=== PATIENT | female | born 1975 | race Caucasian/White ===

== ENCOUNTER 2017-09-21 10:05 | Emergency (ER) | payer MEDICAID, SELFPAY ==
[2017-09-21 10:06] VITALS: BP 182/115; PULSE 74; RESP 20; TEMP 36.8; O2SAT 100; BMI 55.0
--- NOTE | 2017-09-21 10:15 | RAD_ITS ---
STUDY: X-RAY - RIGHT WRIST REASON FOR EXAM: Female, 42 years old. Pain TECHNIQUE: 3 view(s) of the wrist were obtained. COMPARISON: Prior comparison studies are not available for review at this time. FINDINGS: Normal visualized distal radius and ulna. Normal radiocarpal articulation. Normal distal radioulnar articulation. There is a well ossified density dorsum of the wrist seen on lateral view which may represent a nonunited triquetral fracture of indeterminate age. Normal carpal articulations. Normal carpometacarpal articulation of the thumb. Normal second through fifth carpometacarpal articulations. Normal visualized metacarpal bones. The soft tissue structures are unremarkable. RAD/Wrist min 3 Views IMPRESSION: Triquetral fracture of indeterminate age. No prior studies for comparison. Electronically Signed: Ferny Whitaker DO at 11:01 EDT , Service support ,
--- NOTE | 2017-09-21 10:18 | ED.VISSUMM ---
- ER Visit Summary Date of Service: 09/21/17 Chief Complaint: Right wrist fracture History of Present Illness: The patient is a 42 F reports right wrist pain radiating to her middle finger for the last week. Patient states she was seen by her PCP and got an x-ray. X-ray reportedly showed a nonhealed fracture. Patient was told to follow-up with orthopedics and has an appointment in 2 weeks. Patient was not given a splint or any pain medication. She presents here complaining of severe pain. Physical Examination: Vital signs are significant for blood pressure of 182/115, otherwise unremarkable. Patient sitting at bedside chair. She is in no acute distress. Heart is regular rate and rhythm. On lung sounds are grossly clear. Right upper extremity examination reveals tenderness diffusely throughout the right wrist. She has mild edema noted. There is no ecchymosis. She has decreased range of motion secondary to pain. Normal sensation and cap refill are noted. Test Results: Right wrist x-rays are obtained. There is evidence of a triquetral fracture of indeterminate age. Emergency Department Course and Treatment: Patient was given [place] for pain here. An AP Ortho-Glass splint was applied by myself. Following splint application she has good cap refill distally and can wiggle fingers. She will be given a prescription for 12 tabs of [place] and referred to orthopedics. Treatment Plan: [] Disposition: Discharge Impression: Right triquetral fracture This note was generated with [employer] dictation software. It may contain incorrect words, spelling, and punctuation that were not noted in review of the chart prior to signing ED Disposition - Plan for ED Patient: Chief Complaint: Upper Extremity Injury Referrals: Armen Crowder MD [Primary Care Provider] -
[2017-09-21] MEDS: HYDROcodone Bitartrate/Apap 5/325 Tablet PO (10:23)
--- NOTE | 2017-09-21 11:14 | DCINST.ED_ITS ---
ED Disposition - Plan for ED Patient: Disposition: Home or Assisted Living Chief Complaint: Upper Extremity Injury Instructions: ED Fx Wrist General Prescriptions: Hydrocodone Bitart/Apap 5-325 [[place] 5/325] 1 tablet PO Q6H PRN PRN 4 Days #12 tablet PRN Reason: Pain Referrals: Bhupendra Whipple MD [STAFF PHYSICIAN] - As soon as possible
[2017-09-21 11:26] VITALS: BP 124/60; PULSE 78; RESP 17; O2SAT 96
== END 2017-09-21 11:27 | disposition home or self-care (01) ==
PROVIDERS: Emergency Provider Emergency Medicine; Family Provider Family Medicine; PCP Family Medicine
DX: S62.111 Displaced fracture of triquetrum [cuneiform] bone, right wrist (principal); E66.9 Obesity, unspecified; J45.909 Unspecified asthma, uncomplicated; E11.9 Type 2 diabetes mellitus without complications; I10 Essential (primary) hypertension; E78.00 Pure hypercholesterolemia, unspecified; Z86.711 Personal history of pulmonary embolism; Z79.51 Long term (current) use of inhaled steroids; Z79.4 Long term (current) use of insulin; Z79.899 Other long term (current) drug therapy; X58.XXXD Exposure to other specified factors, subsequent encounter
CPT/HCPCS: 29125; 73110; 99283

== ENCOUNTER 2018-01-17 15:17 | Emergency (ER) | payer SELFPAY ==
[2018-01-17 15:17] VITALS: BP 135/95; PULSE 102; RESP 20; TEMP 36.6; O2SAT 97; BMI 54.8
--- NOTE | 2018-01-17 16:02 | ED.VISSUMM ---
- ER Visit Summary Date of Service: 01/17/18 Chief Complaint: Abdominal pain History of Present Illness: The patient is a 42 F who presents with 4 days of abdominal pain. She states that it starts low in the pelvis and radiates to her right flank. Worse with movement but she states that she cannot really find a position of comfort. She denies any urinary symptoms. No diarrhea or vomiting. No nausea. No rashes. She has a history of DiGeorge syndrome. She has never had pain like this before. She has had prior cholecystectomy. Pain is described as a sharp stabbing. It has kept her up at night. Physical Examination: Afebrile vital signs are stable Gen: Well-nourished well-developed morbid obesity Head: Normocephalic atraumatic Eyes: Perrl EOMI ENT: TMs clear no rhinorrhea moist mucous membranes Neck: Supple no lymphadenopathy no JVD nontender CVS: Regular rate rhythm no murmurs normal S1-S2 Respiratory: No distress clear to auscultation bilaterally chest nontender Abdomen: Soft nontender nondistended normal bowel sounds no masses Back: Right CVA tenderness to palpation. Extremity: Nontender no edema Skin: Normal color no rash Neuro: alert orientated ?3 CN II-XII intact normal strength sensation reflexes gait cerebellar Psych: Normal affect normal mood Test Results: [] Emergency Department Course and Treatment: [] Impression: [] This note was generated with [employer] dictation software. It may contain incorrect words, spelling, and punctuation that were not noted in review of the chart prior to signing ED Disposition - Plan for ED Patient: Disposition: Home or Assisted Living Chief Complaint: Abd Pain Instructions: ED Strain Abdominal Muscle Prescriptions: Hydrocodone/Acetaminophen [[place] 5-325 Tablet] 1 - 2 ea PO 4X/DAY PRN PRN 3 Days #12 tab PRN Reason: Pain Ibuprofen [Motrin] 800 mg PO TID PRN PRN #20 tab PRN Reason: Pain Referrals: Armen Crowder MD [Primary Care Provider] - 3-5 Days if not improving
[2018-01-17] MEDS: Ketorolac 30 MG/ML Syringe IV (16:27)
[2018-01-17 16:44] LABS: Anion Gap 6 (5-15); BUN 7 mg/dL (7-18); BUN/Creat Ratio 7.7 RATIO (10-20); Calcium,Total 8.8 mg/dL (8.5-10.1); Chloride 101 mmol/L (98-107); Creatinine, Serum 0.91 mg/dL (0.55-1.02); EST Glomerular Filtration Rate 71 mL/min (>60); Est Glom Filt Rate - Afr Amer 86 mL/min (>60); Estimated Creatinine Clearance 76.72 ml/min; Glucose 156 mg/dL (74-106); Potassium 3.5 mmol/L (3.5-5.1); Sodium Level 137 mmol/L (136-145)
[2018-01-17 16:51] LABS: Absolute Lymphocyte Count 2.57 X10^3/ul (0.83-4.51); Absolute Neutrophil Count 6.9 X10^3/uL (2.0-7.7); Basophil# 0.04 X10^3/uL; Basophil% 0.4 % (0-1); Eosinophil# 0.44 X10^3/uL; Eosinophils% 4.1 % (0-5); Hematocrit 38.7 % (37-47); Hemoglobin 12.8 g/dl (12.0-15.0); Lymphocyte # 2.57 X10^3/ul (4.0); Lymphocyte % 24.1 % (19-41); Mean Corp Hgb Conc 33.1 g/gl (32-36); Mean Corpuscular Hgb 29.6 pg (27.0-32.0); Mean Corpuscular Volume 89.6 fL (81-99); Mean Platelet Vol. 11.2 fl (6.2-12.0); Monocyte# 0.66 X10^3/uL; Monocyte% 6.2 % (0-10); Neutrophil # 6.88 X10^3/uL (2.7-7.7); Neutrophil % 64.5 % (47-70); Platelet Count 222 K/mm3 (150-450); RBC Distribution Width CV 15.1 % (11.6-14.6); Red Blood Count 4.32 M/mm3 (4.2-5.4); White Blood Count 10.7 K/mm3 (4.4-11.0)
[2018-01-17 16:52] LABS: POSITIVE COUNT NO; POSITIVE DIFFERENTIAL NO; POSITIVE MORPHOLOGY NO
--- NOTE | 2018-01-17 17:10 | CT_ITS ---
STUDY: CT ABDOMEN AND PELVIS WITHOUT CONTRAST REASON FOR EXAM: Female, 42 years old. Right flank pain for 4 days. History of cholecystectomy. RADIATION DOSAGE (If Supplied By Facility): CTDIvol = ( 34.45 ) mGy, DLP = ( 1850.67 ) mGycm TECHNIQUE: Transaxial images were obtained from the dome of the diaphragm to the symphysis pubis without oral contrast, and without intravenous contrast. Sagittal and coronal images were reconstructed. Individualized dose optimization techniques were used for this CT. COMPARISON: CT abdomen and pelvis September 01, 2015. FINDINGS: The visualized lung bases are unremarkable. The visualized portions of the heart are within normal limits. There is mild hepatomegaly. Elongated left lobe of the liver extends well into the anterior left upper quadrant. There is decreased attenuation of the liver consistent with steatosis. Heterogeneous attenuation in the upper aspect of the liver is likely artifact. Irregular, lobulated zones of subcapsular decreased density are seen at the inferior margins of the right and left lobes, however. In retrospect, the largest of these, at the juncture of the caudate and right lobe, was present on previous study, but notably smaller in size, having an appearance of focal fatty infiltration. The other sites are new. The portal vein diameter is 15 mm. There are surgical clips in the gallbladder fossa consistent with a prior cholecystectomy. There is mild splenomegaly, measuring 17.9 x 9.8 x 8.75 cm. Normal pancreas. Normal bilateral adrenal glands. Normal right kidney. Normal left kidney. No hydronephrosis. Normal visualized stomach. Normal small intestine. There are multiple sigmoid colonic diverticula consistent with diverticulosis. The appendix is visualized and appears normal. Normal abdominal aorta. Normal inferior vena cava. Normal retroperitoneum. Empty urinary bladder. There is a T-shaped intrauterine device in the lower endometrial cavity of the normal size, retroverted/retroflexed uterus. Normal visualized adnexa. The patient is morbidly obese. There is mild edematous or ecchymotic stranding in the subcutaneous tissues of the posterolateral abdominal and pelvic guzmán, as well as in the lower aspect of the anterior abdominal wall panniculus. A small, fat-containing umbilical hernia seen on previous exam is less conspicuous today. There are multilevel degenerative changes of the visualized thoracolumbar spine. CT/Abdomen/Pelvis without Cont IMPRESSION: 1. Mild hepatosplenomegaly with steatosis. Also now seen are irregular, lobulated subcapsular decreased density at the inferior margins of the right and left hepatic lobes. The largest is at the juncture of the right and caudate lobes, measuring approximately 8.2 x 5.95 x 5.7 cm. Further characterization of these areas with MRI, ultrasound, or IV contrast enhanced CT is advised. 2. Prior cholecystectomy. 3. Sigmoid diverticulosis without acute diverticulitis. No sign of bowel obstruction. The appendix is normal. 4. No hydronephrosis. 5. Normal sized retroflexed uterus, now with a T-shaped IUD in the lower endometrial cavity. The adnexa are unremarkable. 6. Mild edematous or ecchymotic stranding in the subcutis tissues of the posterolateral abdominal and pelvic guzmán, as well as the anterior abdominal wall panniculus. Electronically Signed: Ganesh Marquez MD at 18:22 EDT , Service support ,
[2018-01-17 17:30] LABS: Color, Urine Yellow (Yellow); Glucose, Dipstick Normal (Normal); Ketone-Dipstick Negative (Negative); Leukocyte Esterase-Dipstick 100 /ul (Negative); Nitrite-Dipstick Negative (Negative); Occult Blood-Urine 10 /ul (Negative); Protein-Dipstick 15 mg/dl (Negative); Urine Bilirubin Dipstick Negative (Negative); Urine Clarity Sl. Cloudy (Clear); Urine Urobilinogen Normal (Normal); Urine pH 6.5 (5.0 - 8.0)
[2018-01-17 17:45] LABS: Internal QC Validated? YES +Cl - CLEAR BKGD; Pregnancy, Urine Negative Negative
[2018-01-17 17:49] LABS: Red Blood Cells-Urine 0-5 SEEN /hpf (0-5); Squamous Epithelial Cells - UA 0-5 SEEN /hpf (5-10); White Blood Cells 0-5 SEEN /hpf (0-5)
[2018-01-17 17:50] LABS: Bacteria 1+ /hpf (None Seen); Mucous, Urine 1+ /hpf (<or=2+)
[2018-01-17 18:13] VITALS: BP 115/64; PULSE 79; RESP 26; O2SAT 98
[2018-01-17 19:11] LABS: Bedside Glucose 126 mg/dL (70-110)
[2018-01-17 19:33] VITALS: BP 126/72; PULSE 98; RESP 24; O2SAT 97
--- NOTE | 2018-01-17 19:34 | ED.RN ---
THIS NURSE REVIEWED D/C INSTRUCTIONS WITH PT AND VISITOR. PT VERBALIZED UNDERSTANDING OF INSTRUCTIONS. IV D/C. IV CATHETER INTACT. PT TOLERATED WELL. PT DENIES FURTHER NEEDS OR QUESTIONS AT THIS TIME. PT AMBULATES FROM ROOM ON OWN WITHOUT ASSISTANCE FROM STAFF
== END 2018-01-17 19:35 | disposition home or self-care (01) ==
PROVIDERS: Emergency Provider Emergency Medicine; Family Provider Family Medicine; PCP Family Medicine
DX: R10.9 Unspecified abdominal pain (principal); D82.1 Di George's syndrome; E66.01 Morbid (severe) obesity due to excess calories; Z79.51 Long term (current) use of inhaled steroids; Z79.4 Long term (current) use of insulin; Z79.899 Other long term (current) drug therapy
CPT/HCPCS: 74176; 80048; 81001; 81025; 82962; 85025; 96374; 99283; A4216

== ENCOUNTER 2018-06-27 22:33 | Inpatient (IN) | payer MEDICAID, SELFPAY ==
[2018-06-27 22:34] VITALS: PULSE 134; RESP 18; TEMP 37.1; O2SAT 100; BMI 47.0
--- NOTE | 2018-06-27 22:45 | ED.RN ---
UNABLE TO GET BP READING IN TRIAGE, KAHLIL LPN PER DIEM AWARE.
[2018-06-27 23:31] VITALS: BP 70/50; PULSE 124; RESP 18; O2SAT 94
[2018-06-27 23:47] VITALS: BP 103/83; PULSE 124; RESP 24; O2SAT 94
[2018-06-28] VITALS (57 sets, daily range): BP systolic 59–110; BP diastolic 38–77; PULSE 88–141; RESP 12–35; TEMP 37–40; O2SAT 91–100; BMI 51.9
[2018-06-28 00:04] LABS: ALB/GLOB Ratio 0.4 RATIO (0.9-2.4); AST(SGOT) 50 U/L (15-37); Alanine Aminotransfer ALT/SGPT 17 U/L (13-56); Albumin, Serum 2.2 g/dL (3.2-5.0); Alkaline Phosphatase 124 U/L (45-117); Anion Gap 17 (5-15); BUN 53 mg/dL (7-18); BUN/Creat Ratio 9.1 RATIO (10-20); Calcium,Total 7.3 mg/dL (8.5-10.1); Chloride 96 mmol/L (98-107); Creatinine, Serum 5.85 mg/dL (0.55-1.02); EST Glomerular Filtration Rate 8 mL/min (>60); Est Glom Filt Rate - Afr Amer 10 mL/min (>60); Estimated Creatinine Clearance 11.81 ml/min; Globulin 5.2 g/dL (2.2-4.2); Glucose 183 mg/dL (74-106); Lipase 37 U/L (73-393); Potassium 3.5 mmol/L (3.5-5.1); Protein, Total 7.4 g/dL (6.4-8.2); Sodium Level 133 mmol/L (136-145)
[2018-06-28 00:05] LABS: Lactic Acid 3.5 mmol/L (0.4-2.0)
[2018-06-28] MEDS: 0.9% Normal Saline 1,000 ML 999 ML IV ×4 (00:05→01:51)
[2018-06-28] MEDS: Ondansetron 4 MG/2 ML Vial IV (00:05)
[2018-06-28] MEDS: fentaNYL 100 MCG/2 ML Ampul 25 MCG IV (00:05)
[2018-06-28 00:08] LABS: Absolute Lymphocyte Count 1.86 X10^3/ul (0.83-4.51); Absolute Neutrophil Count 24.5 X10^3/uL (2.0-7.7); Basophil# 0.05 X10^3/uL; Basophil% 0.2 % (0-1); Eosinophil# 0.01 X10^3/uL; Hematocrit 38.5 % (37-47); Hemoglobin 12.8 g/dl (12.0-15.0); Lymphocyte # 1.86 X10^3/ul (4.0); Lymphocyte % 6.7 % (19-41); Mean Corp Hgb Conc 33.2 g/gl (32-36); Mean Corpuscular Volume 87.1 fL (81-99); Mean Platelet Vol. 12.4 fl (6.2-12.0); Monocyte# 0.96 X10^3/uL; Monocyte% 3.5 % (0-10); Neutrophil # 24.54 X10^3/uL (2.7-7.7); Neutrophil % 89.1 % (47-70); Platelet Count 113 K/mm3 (150-450); RBC Distribution Width CV 15.4 % (11.6-14.6); RBC Distribution Width SD 49.5 fl (35.1-43.9); Red Blood Count 4.42 M/mm3 (4.2-5.4); White Blood Count 27.6 K/mm3 (4.4-11.0)
[2018-06-28 00:12] LABS: Differential Indicated SCAN CRITERIA MET; POSITIVE COUNT NO; POSITIVE DIFFERENTIAL YES; POSITIVE MORPHOLOGY YES
[2018-06-28 00:36] LABS: Platelet Estimate SLT DEC (ADEQ); Platelet Morphology GIANT
[2018-06-28] MEDS: Ceftriaxone 1 GM/50 ML BAG IV ×2 (01:10→05:53)
[2018-06-28 01:15] LABS: Mucous, Urine 0 SEEN /hpf (<or=2+); Red Blood Cells-Urine 0 SEEN /hpf (0-5); Squamous Epithelial Cells - UA 0 SEEN /hpf (5-10)
[2018-06-28 01:23] LABS: Color, Urine Yellow (Yellow); Glucose, Dipstick Normal (Normal); Ketone-Dipstick 5 mg/dl (Negative); Leukocyte Esterase-Dipstick 500 /ul (Negative); Nitrite-Dipstick Positive (Negative); Occult Blood-Urine 250 /ul (Negative); Protein-Dipstick 500 mg/dl (Negative); Urine Bilirubin Dipstick Negative (Negative); Urine Clarity Sl. Cloudy (Clear); Urine Urobilinogen Normal (Normal); Urine pH 6.5 (5.0 - 8.0)
[2018-06-28 01:29] LABS: Bacteria 3+ /hpf (None Seen); White Blood Cells 50-100 SEEN /hpf (0-5)
--- NOTE | 2018-06-28 02:45 | RAD_ITS ---
STUDY: X-RAY CHEST REASON FOR EXAM: Female, 43 years old. Line placement TECHNIQUE: 1 view COMPARISON: June 11, 2017 FINDINGS: A central line from the right internal jugular vein has its tip within the superior vena cava. The heart is enlarged. There are bibasilar opacities representing either areas of pneumonia or atelectatic changes. Mild cardiomegaly.. Normal visualized thoracic spine. Normal visualized ribs, clavicles, and shoulders. There is no demonstrated abnormality of the visualized soft tissue structures of the upper abdomen. RAD/CXR for Line Placement IMPRESSION: Mild cardiomegaly. Bibasilar opacities representing either areas of atelectatic changes or pneumonia. A central line through the right internal jugular vein has its tip in the superior vena cava. Electronically Signed: Dylan Greenfield MD at 3:42 EST Tel , Service support ,
--- NOTE | 2018-06-28 03:22 | ED.DCSUM_ITS ---
- ER Visit Summary Date of Service: 06/28/18 Chief Complaint: Nausea vomiting and diarrhea History of Present Illness: The patient is a 43 F with a history of DiGeorge syndrome who presents with nausea vomiting and diarrhea. She has been ill for about 5 days. She complains of multiple episodes of nonbloody nonbilious emesis and multiple episodes of watery diarrhea per day both of which she describes as severe. No hematemesis. No melanotic stools or hematochezia. She does complain of some diffuse pain all over. However she does also specifically describe some sharp periumbilical mid abdominal pain. This is mild. She notes that her mother was recently hospitalized for similar illness with nausea vomiting and diarrhea. Physical Examination: Initial blood pressure 70/50 initial heart rate 130, afebrile, normal pulse oximetry and respiratory rate Dry mucous membranes Heart regular tachycardia Lungs are clear Abdomen soft nondistended she has mild diffuse nonfocal abdominal tenderness without guarding without rebound Alert Skin warm and dry Test Results: Patient is in sinus tachycardia on cardiac monitoring. Labs notable for white blood cell count of 27.6. BUN is 53 with a creatinine of 5.85. Previous creatinine was normal. Mild elevation of alkaline phosphatase at 124 and AST at 50. Urinalysis shows 500 leukocyte esterase, positive nitrates, 50-100 WBCs, 3+ bacteria. Lactic acid is 3.5. Blood and urine cultures were sent. CT of the abdomen and pelvis shows hepatomegaly no acute disease. Postprocedure chest x-ray shows no pneumothorax and catheter in appropriate position as read by me. Emergency Department Course and Treatment: Workup as above is consistent with septic shock. This appears to be a urinary source. 4 L of normal saline and a gram of IV Rocephin and 100 cc was ordered. Patient's fourth liter was infusing and patient was still hypotensive. At this point after informed consent with discussion of risks and benefits including risks of bleeding infection or pneu mothorax a right internal jugular central venous catheter was placed. This was somewhat technically difficult as patient's right IJ was showing near complete collapse with respiration even while in Trendelenburg position. No immediate complications were observed. Breathing post procedure chest x-ray does show the line to be in a factory position without apparent complication. Patient was started on levo fed. Patient was discussed with the hospitalist and admitted. Treatment Plan: [] Disposition: Admit Impression: Septic shock UTI Acute kidney injury Right internal jugular central venous catheterization This note was generated with [employer] dictation software. It may contain incorrect words, spelling, and punctuation that were not noted in review of the chart prior to signing ED Disposition - Plan for ED Patient: Chief Complaint: Nausea/Vomiting/Diarrhea Referrals: Armen Crowder MD [Primary Care Provider] -
--- NOTE | 2018-06-28 03:23 | PCM.HP.STD ---
Problem List (1) Septic shock Status: Acute (2) ROCKY (acute kidney injury) Status: Acute (3) Hypothyroidism Status: Chronic (4) VENANCIO treated with BiPAP Status: Chronic (5) Obesity hypoventilation syndrome Status: Chronic History of Present Illness Date of Admission: 06/28/18 Chief Complaint: nausea,vomiting and diarrhea. The patient is a 43 year old F with a significant history of DiGeorge syndrome; VENANCIO on home BiPAP; obesity hypo-ventilation syndrome; Asthma, hypothyroidism; hypertension; diabetes mellitus who presented with 5 days history of progressively worsening nausea, vomiting and diarrhea. Reportedly her mother has been admitted recently with the same symptoms of nausea vomiting and diarrhea. While examining patient she had loose stools on her bed. Associated with her symptoms is frequent urination to the extent that she has been wetting her pants. Further patient reports chills. Also, she complains middle abdominal pain , 10 out of 10 in severity. Her pain is stabbing kind of pain. The emergency department she had leukocytosis with a white count of 27.6. Her sodium was 133; she had anion gap of 17 with bicarbonate of 20. Her creatinine was 5.85 and a lactic acid was 3.5. She had a calcium level of 7.3. Her AST was elevated at 50. Importantly she had abnormal urinalysis with high protein; nitrites present; ketones present and with leukocyte esterase. Because of a abdominal symptoms CT of abdomen was obtained and it showed no acute intra-abdominal disease. Fluid-filled colon consistent with history of diarrhea was reported. Patient was was diagnosed with septic shock at emergency department and she received normal saline IV fluid bolus per septic shock protocol and she was started on Levophed because she did not respond to fluid boluses. Past Medical History Past Medical History (Chronic Problems): Chronic Problems Hypothyroidism (Chronic) DiGeorge syndrome (Chronic) Obesity hypoventilation syndrome (Chronic) HTN (hypertension) (Chronic) Asthma (Chronic) Super obesity (Chronic) Hyperlipidemia (Chronic) VENANCIO treated with BiPAP (Chronic) Diabetes mellitus type 2 in obese (Chronic) new diagnosis Allergies azithromycin [From Zithromax] Allergy (Verified 06/27/18 22:34) Unknown levofloxacin [From Levaquin] Allergy (Verified 06/27/18 22:34) Rash Penicillins Allergy (Verified 06/27/18 22:34) Unknown Home Medications: Ambulatory Orders Medication Instructions Recorded Albuterol IH (ProAir) [Proair Hfa] 2 puff INHALATION Q4H PRN PRN 12/25/16 Amlodipine [Norvasc] 5 mg PO DAILY 12/25/16 Atorvastatin Calcium [Lipitor] 40 mg PO QHS 12/25/16 Levothyroxine [Synthroid] 50 mcg PO DAILY 12/25/16 Lisinopril [Zestril] 10 mg PO DAILY 12/25/16 Fluticasone/Salmeterol [Advair 1 each IH BID #1 blst.w.dev 12/28/16 250-50 Diskus] Budesonide/Formoterol 160/4.5 2 puff INHALATION BID 06/11/17 [Symbicort 160/4.5 Mcg Inhaler (SP)] Insulin Degludec [Tresiba 20 unit SQ BID 01/17/18 Flextouch U-100] Insulin Lispro [Humalog KwikPen] 15 unit SQ TID 01/17/18 busPIRone [Buspar] 5 mg PO TID 01/17/18 Surgical History: cholecystectomy, total knee arthroplasty, tonsillectomy, - - Ear tubes, right knee surgery s/p fx Psychiatric History: No pertinent psych hx 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 Review of Systems Constitutional: Reports: Chills, Malaise, Fatigue. Denies: Weight Change HEENT: Denies: Sinus Congestion, Sinus Drainage Cardiovascular: Denies: Chest Pain, Palpitations Respiratory: Denies: Cough, Shortness of breath at rest, Sputum production Gastrointestinal: Reports: Abdominal Pain, Diarrhea, Nausea, Vomiting Genitourinary: Reports: Frequency - Increased frequency. Denies: Dysuria Musculoskeletal: Denies: Joint Pain, Joint Tenderness Skin: Denies: Rash, Wounds Neurological: Denies: Numbness, Tingling, Focal weakness Psychiatric: Denies: Anxiety, Depression, Homicidal Ideations, Suicidal Ideations Hematologic/ Lymphatic: Denies: Easy Bruising, Easy Bleeding VTE Information - Inpt Only VTE Present on Admission: No VTE Mechan Device Prophylaxis: None VTE Pharm Prophylaxis ordered?: Yes Patient Problems: Active and Suspected Problems Septic shock (Acute) ROCKY (acute kidney injury) (Acute) - Physical Exam General: Alert, Oriented x3, Cooperative HEENT: Atraumatic, Normocephalic, - - Poor dentition Neck: Supple, No JVD, Negative Carotid Bruits Lungs: Clear to auscultation, Normal air movement, Tachypneic Cardiovascular: Regular rate, No murmurs, - - Heart sounds was distant (likely secondary to body habitus) Abdomen: Soft, Non Tender, Hyperactive Bowel Sounds, - - Right costovertebral angle tenderness Extremities: No edema, Capillary Refill Less than 3 Seconds Skin: No rashes, No breakdown Musculoskeletal: No Muscle Wasting Neurological: Neuro grossly intact Psych/Mental Status: Normal Affect, Appropriate Vital Signs Temp Pulse Resp BP Pulse Ox 102.2 F H 121 H 21 H 109/77 91 06/28/18 03:12 06/28/18 03:03 06/28/18 03:03 06/28/18 03:03 06/28/18 03:03 Oxygen Delivery Method Room Air Weight: 136.078 kg Body Mass Index (BMI) 47.0 Finger Stick Blood Glucose 126 Laboratory Tests Past 24 Hrs 06/27/18 06/27/18 06/27/18 23:25 23:25 23:25 WBC 27.6 H RBC 4.42 Hgb 12.8 Hct 38.5 MCV 87.1 MCH 29.0 MCHC 33.2 RDW 15.4 H RDW Differential 49.5 H Plt Count 113 L MPV 12.4 H Immature Gran % (Auto) 0.500 Neut % (Auto) 89.1 H Lymph % (Auto) 6.7 L [place] % (Auto) 3.5 Eos % (Auto) 0.0 Baso % (Auto) 0.2 Absolute Neuts (auto) 24.5 H Absolute Lymphs (auto) 1.86 Total Counted Not Reportable Platelet Estimate SLT DEC Plt Morphology Comment GIANT Sodium 133 L Potassium 3.5 Chloride 96 L Carbon Dioxide 20.0 L Anion Gap 17 H BUN 53 H Creatinine 5.85 H Estim Creat Clear Calc 11.81 Est GFR (MDRD) Af Amer 10 L Est GFR (MDRD) Non-Af 8 L BUN/Creatinine Ratio 9.1 L Glucose 183 H Lactic Acid 3.5 H Calcium 7.3 L Total Bilirubin 0.70 AST 50 H ALT 17 Alkaline Phosphatase 124 H Total Protein 7.4 Albumin 2.2 L Globulin 5.2 H Albumin/Globulin Ratio 0.4 L Lipase 37 L Urine Color Urine Clarity Urine pH Ur Specific Pine Urine Protein Urine Glucose (UA) Urine Ketones Urine Occult Blood Urine Nitrite Urine Bilirubin Urine Urobilinogen Ur Leukocyte Esterase Urine RBC Urine WBC Ur Squamous Epith Cells Urine Bacteria Urine Mucus 06/28/18 01:00 WBC RBC Hgb Hct MCV MCH MCHC RDW RDW Differential Plt Count MPV Immature Gran % (Auto) Neut % (Auto) Lymph % (Auto) [place] % (Auto) Eos % (Auto) Baso % (Auto) Absolute Neuts (auto) Absolute Lymphs (auto) Total Counted Platelet Estimate Plt Morphology Comment Sodium Potassium Chloride Carbon Dioxide Anion Gap BUN Creatinine Estim Creat Clear Calc Est GFR (MDRD) Af Amer Est GFR (MDRD) Non-Af BUN/Creatinine Ratio Glucose Lactic Acid Calcium Total Bilirubin AST ALT Alkaline Phosphatase Total Protein Albumin Globulin Albumin/Globulin Ratio Lipase Urine Color Yellow Urine Clarity Sl. Cloudy Urine pH 6.5 Ur Specific Pine 1.010 Urine Protein 500 H Urine Glucose (UA) Normal Urine Ketones 5 H Urine Occult Blood 250 H Urine Nitrite Positive H Urine Bilirubin Negative Urine Urobilinogen Normal Ur Leukocyte Esterase 500 H Urine RBC 0 SEEN Urine WBC 50-100 SEEN Ur Squamous Epith Cells 0 SEEN Urine Bacteria 3+ Urine Mucus 0 SEEN Assessment/Plan All Active Problems Septic shock (Acute) ROCKY (acute kidney injury) (Acute) Acute chest pain (Acute) Cellulitis of right abdominal wall (Resolved) Open wound of abdominal wall (Resolved) Pulmonary emboli (Resolved) The patient is a 43 year old F with a significant history of DiGeorge syndrome; VENANCOI on home BiPAP; obesity hypo-ventilation syndrome; Asthma, hypothyroidism; hypertension; ; diabetes mellitus who presented with 5 days history of progressively worsening nausea, vomiting; diarrhea; abdominal pain; frequent urination; chills; found to have tachycardia; tachypnea; hypotension, fever of 102.7; lactic acidosis; elevated creatinine; leukocytosis; hyponatremia; hypocalcemia and abnormal urinalysis consistent with septic shock secondary to likely acute pyelonephritis Septic shock secondary to likely acute pyelonephritis. With her symptoms of nausea, vomiting; chills; high-grade fever; frequent urination; abdominal pain and right costovertebral angle tenderness is probable the patient has no cholecystitis probably pyelonephritis. Patient had persistent pain heart rate of about 120 with highest heart rate of 134. Initial blood pressure on presentation was 70/50 Patient received ceftriaxone 1 g at emergency department. We will give patient an additional gram of ceftriaxone because of septic shock and because patient is super morbidly obese. Ceftriaxone 2 g daily ordered. Trend lactic acid Urine cultures-pending; follow Blood cultures are pending; follow. Clear liquid diet if patient can tolerate. Patient received IV bolus septic shock protocol and she was started on Levophed from the ED because she was not responding to IV fluid bolus.. Levophed continued. Maintenance normal saline with potassium ordered. Because of severe diarrhea we will check C. difficile and enteric stool pathogen. ROCKY On admission her creatinine was 5.85. Review of records shows that her baseline creatinine is about 0.9. Her BUN is 53. Review of old records shows that her highest BUN in the past has been 19. BUN over creatinine is more than 20. Likely prerenal from vomiting and diarrhea. However, rule out ATN from toxic effects of sepsis; and from kidney injury secondary to pyelonephritis. Patient received IV bolus septic shock protocol and she was started on Levophed from the ED. Levophed continued. Maintenance normal saline with potassium ordered. Lisinopril held. Avoid other nephrotoxics. Trend BMP. If her creatinine does not improve consider nephrology consultation. Pseudo-Hypocalcemia Her calcium on admission was 7.3. Albumin on admission was 2.2. Her corrected calcium is actually 10.3. No need for calcium replacement at this time. Elevated liver enzymes. Patient with mild elevation in alkaline phosphatase; and AST. Likely due to septic shock. History of hypertension Patient is on amlodipine and lisinopril. We will hold off her amlodipine and lisinopril at this time because of hypotension. Furthermore patient has ROCKY Diabetes mellitus On admission her blood glucose was not within goal. Because patient is anorexic and vomiting we will start patient on clear liquid diet if she can tolerate and cut back at home long acting insulin. Hold at home prandial short acting insulin. And start her on correction scale insulin. Anxiety Disorder Buspirone continued Hypothyroidism: Synthroid continued Obstructive Sleep apnea: BiPAP nightly Asthma: Home ICS?LABA to ICS with scheduled ARY. Albuterol as needed. DVT prophylaxis Heparin Subcutaneous ordered. Code Visit Inpatient E&M: 86073 Init Hosp L3
[2018-06-28 03:48] LABS: Reflex Lactate? Y
[2018-06-28 03:57] LABS: Lactic Acid 1.8 mmol/L (0.4-2.0)
--- NOTE | 2018-06-28 04:30 | NURSING ---
initiated cooling blanket
[2018-06-28 04:47] LABS: Hematocrit 33.4 % (37-47); Hemoglobin 11.1 g/dl (12.0-15.0); Mean Corp Hgb Conc 33.2 g/gl (32-36); Mean Corpuscular Hgb 28.6 pg (27.0-32.0); Mean Corpuscular Volume 86.1 fL (81-99); Mean Platelet Vol. 11.4 fl (6.2-12.0); Platelet Count 95 K/mm3 (150-450); RBC Distribution Width CV 15.4 % (11.6-14.6); Red Blood Count 3.88 M/mm3 (4.2-5.4)
[2018-06-28 04:48] LABS: Scan Indicated on CBC? Y/N NO
[2018-06-28 04:54] LABS: International Normalized Ratio 1.5; Prothrombin Time (Protime)PT. 17.8 SECONDS (11.7-14.9)
[2018-06-28 04:55] LABS: Partial Thromboplast Time 41.3 Seconds (24.1-36.2)
[2018-06-28 04:56] LABS: Bedside Glucose 160 mg/dL (70-110)
[2018-06-28 04:58] LABS: Anion Gap 15 (5-15); BUN 55 mg/dL (7-18); BUN/Creat Ratio 9.8 RATIO (10-20); Calcium,Total 6.7 mg/dL (8.5-10.1); Chloride 102 mmol/L (98-107); Creatinine, Serum 5.61 mg/dL (0.55-1.02); EST Glomerular Filtration Rate 9 mL/min (>60); Est Glom Filt Rate - Afr Amer 11 mL/min (>60); Estimated Creatinine Clearance 12.31 ml/min; Glucose 174 mg/dL (74-106); Potassium 2.9 mmol/L (3.5-5.1); Sodium Level 136 mmol/L (136-145)
[2018-06-28] MEDS: Potassium Chloride 40 MEQ in 0.9% Normal Saline 1,000 ML 75 MEQ IV (05:52)
[2018-06-28] MEDS: Heparin Injection (Vial) 5,000 UNIT/ML VIAL 5000 UNIT SC ×3 (05:53→23:00)
[2018-06-28] MEDS: Levothyroxine 50 MCG Tablet PO (05:54)
[2018-06-28] MEDS: busPIRone 5 MG Tablet PO ×3 (06:06→23:00)
[2018-06-28] MEDS: Insulin Lispro 100 UNIT/ML INSULN.PEN SQ ×4 (06:41→23:01)
[2018-06-28 06:56] LABS: Bedside Glucose 200 mg/dL (70-110)
--- NOTE | 2018-06-28 07:05 | PCM.CON.CC ---
Reason for Consult Date of Consultation: 06/28/18 Reason for Consultation: Septic shock History of Present Illness: The patient is a 43-year-old female, with a history as outlined below, who presented to the emergency department on June 28 with complaints of nausea, vomiting and diarrhea. The patient reportedly has a history of obstructive sleep apnea and asthma, previously managed by Dr. Aguilar. She does have a history as well as venous thromboembolic disease in 2013. The patient's mother is currently admitted to the hospital in the PCU after she was admitted to the hospital on June 25 with similar complaints. The infectious workup of the patient's mother has been unrevealing to date. She is suspected to have viral gastroenteritis. Surface echocardiogram from May 2017 did reveal evidence of stage I diastolic dysfunction. On presentation to the emergency department, the patient was noted to be afebrile, but was tachycardic and hypotensive. Laboratory evaluation revealed elevated white blood cell count to 28,000. Chemistry profile was notable for elevated anion gap along with evidence of acute kidney injury with a creatinine of 5.85. Lactate was elevated to 3.5. AST was increased to 50 with an alkaline phosphatase of 124. Urinalysis was positive for nitrites, leukocyte esterase, white blood cells and 3+ urine bacteria. Plain film chest x-ray revealed a left basilar opacity. The patient received supplemental IV fluid hydration. A central venous catheter was placed. Antibiotics were initiated and the patient was subsequently transferred to the medical intensive care unit for ongoing management. Despite adequate volume resuscitation, the patient remained hemodynamically unstable and did require the eventual initiation of levophed. Past Medical History Past Medical History (Chronic Problems): Chronic Problems Hypothyroidism (Chronic) DiGeorge syndrome (Chronic) Obesity hypoventilation syndrome (Chronic) HTN (hypertension) (Chronic) Asthma (Chronic) Super obesity (Chronic) Hyperlipidemia (Chronic) VENANCIO treated with BiPAP (Chronic) Diabetes mellitus type 2 in obese (Chronic) new diagnosis Allergies azithromycin [From Zithromax] Allergy (Verified 06/27/18 22:34) Unknown levofloxacin [From Levaquin] Allergy (Verified 06/27/18 22:34) Rash Penicillins Allergy (Verified 06/27/18 22:34) Unknown Home Medications: Ambulatory Orders Medication Instructions Recorded Albuterol IH (ProAir) [Proair Hfa] 2 puff INHALATION Q4H PRN PRN 12/25/16 Amlodipine [Norvasc] 5 mg PO DAILY 12/25/16 Atorvastatin Calcium [Lipitor] 40 mg PO QHS 12/25/16 Levothyroxine [Synthroid] 50 mcg PO DAILY 12/25/16 Lisinopril [Zestril] 10 mg PO DAILY 12/25/16 Fluticasone/Salmeterol [Advair 1 each IH BID #1 blst.w.dev 12/28/16 250-50 Diskus] Budesonide/Formoterol 160/4.5 2 puff INHALATION BID 06/11/17 [Symbicort 160/4.5 Mcg Inhaler (SP)] Insulin Degludec [Tresiba 20 unit SQ BID 01/17/18 Flextouch U-100] Insulin Lispro [Humalog KwikPen] 15 unit SQ TID 01/17/18 busPIRone [Buspar] 5 mg PO TID 01/17/18 Surgical History: cholecystectomy, total knee arthroplasty, tonsillectomy, - - Ear tubes, right knee surgery s/p fx Psychiatric History: No pertinent psych hx [employer] History: No pertinent [employer] WORK[employer] history Lives: Alone Smoking Status: Never smoker Alcohol: None - *Family History Maternal History Items: Cancer - She reports that her mother had cervical cancer., No pertinent history Paternal History Items: Heart Disease - She reported father had heart attack and a pacemaker. Review of Systems Constitutional: Reports: Chills, Fever, Weakness Eyes: Denies: Blurred vision, Double vision HEENT: Denies: Head Aches, Sinus Congestion, Sinus Drainage Cardiovascular: Denies: Chest Pain, Palpitations Respiratory: Reports: Shortness of Breath Gastrointestinal: Reports: Diarrhea, Nausea, Vomiting Genitourinary: Denies: Dysuria Musculoskeletal: Denies: Joint Pain, Joint Tenderness Skin: Denies: Rash, Wounds Neurological: Denies: Numbness, Tingling, Focal weakness Psychiatric: Denies: Anxiety, Depression, Homicidal Ideations, Suicidal Ideations Hematologic/ Lymphatic: Reports: Hx of blood clot Patient Problems: Active and Suspected Problems Septic shock (Acute) ROCKY (acute kidney injury) (Acute) Objective: The patient's most recent lab work, culture data and imaging studies have all been personally reviewed. Respiratory viral panel, blood and urine cultures are pending. - Physical Exam General: Alert, Cooperative, - - Ill in appearance. Morbidly obese. HEENT: Atraumatic, PERRLA, Normocephalic Oral: Dry Mucosa Neck: Supple, No Nodes, Trachea Midline Lungs: No rhonchi, No wheeze, No rales, Diminished, Tachypneic Cardiovascular: Normal S1, Normal S2, No murmurs, Tachycardic Abdomen: Bowel Sounds Present, Soft, Non Tender, Obese Extremities: No clubbing, No cyanosis, No edema Skin: No breakdown Musculoskeletal: No Tenderness to Palpation of Joints or Extremities Lymphatic: No Cervical, Supraclavicular, or Inguinal Adenopathy Neurological: Neuro grossly intact Psych/Mental Status: Normal Affect, Appropriate Vital Signs Temp Pulse Resp BP Pulse Ox 39.6 C H 124 H 28 H 93/66 93 06/28/18 04:59 06/28/18 04:59 06/28/18 04:59 06/28/18 04:59 06/28/18 04:59 Oxygen Flow Rate (L/min) 2 Oxygen Delivery Method Nasal Cannula Weight: 331 lb 5.676 oz Body Mass Index (BMI) 51.9 Finger Stick Blood Glucose 126 Intake and Output for Last 24 Hours 06/26/18 06/27/18 06/28/18 23:59 23:59 23:59 Intake Total 1125 / 1125 Output Total 150 / 150 Balance 975 / 975 Laboratory Tests Past 24 Hrs 06/27/18 06/27/18 06/27/18 23:25 23:25 23:25 WBC 27.6 H RBC 4.42 Hgb 12.8 Hct 38.5 MCV 87.1 MCH 29.0 MCHC 33.2 RDW 15.4 H RDW Differential 49.5 H Plt Count 113 L MPV 12.4 H Immature Gran % (Auto) 0.500 Neut % (Auto) 89.1 H Lymph % (Auto) 6.7 L Irwin % (Auto) 3.5 Eos % (Auto) 0.0 Baso % (Auto) 0.2 Absolute Neuts (auto) 24.5 H Absolute Lymphs (auto) 1.86 Total Counted Not Reportable Platelet Estimate SLT DEC Plt Morphology Comment GIANT PT INR APTT Sodium 133 L Potassium 3.5 Chloride 96 L Carbon Dioxide 20.0 L Anion Gap 17 H BUN 53 H Creatinine 5.85 H Estim Creat Clear Calc 11.81 Est GFR (MDRD) Af Amer 10 L Est GFR (MDRD) Non-Af 8 L BUN/Creatinine Ratio 9.1 L Glucose 183 H Lactic Acid 3.5 H Calcium 7.3 L Ionized Calcium Total Bilirubin 0.70 AST 50 H ALT 17 Alkaline Phosphatase 124 H Total Protein 7.4 Albumin 2.2 L Globulin 5.2 H Albumin/Globulin Ratio 0.4 L Lipase 37 L Urine Color Urine Clarity Urine pH Ur Specific [place] Urine Protein Urine Glucose (UA) Urine Ketones Urine Occult Blood Urine Nitrite Urine Bilirubin Urine Urobilinogen Ur Leukocyte Esterase Urine RBC Urine WBC Ur Squamous Epith Cells Urine Bacteria Urine Mucus 06/28/18 06/28/18 06/28/18 01:00 03:30 04:35 WBC RBC Hgb Hct MCV MCH MCHC RDW RDW Differential Plt Count MPV Immature Gran % (Auto) Neut % (Auto) Lymph % (Auto) Irwin % (Auto) Eos % (Auto) Baso % (Auto) Absolute Neuts (auto) Absolute Lymphs (auto) Total Counted Platelet Estimate Plt Morphology Comment PT 17.8 H INR 1.5 APTT 41.3 H Sodium Potassium Chloride Carbon Dioxide Anion Gap BUN Creatinine Estim Creat Clear Calc Est GFR (MDRD) Af Amer Est GFR (MDRD) Non-Af BUN/Creatinine Ratio Glucose Lactic Acid 1.8 Calcium Ionized Calcium Total Bilirubin AST ALT Alkaline Phosphatase Total Protein Albumin Globulin Albumin/Globulin Ratio Lipase Urine Color Yellow Urine Clarity Sl. Cloudy Urine pH 6.5 Ur Specific [place] 1.010 Urine Protein 500 H Urine Glucose (UA) Normal Urine Ketones 5 H Urine Occult Blood 250 H Urine Nitrite Positive H Urine Bilirubin Negative Urine Urobilinogen Normal Ur Leukocyte Esterase 500 H Urine RBC 0 SEEN Urine WBC 50-100 SEEN Ur Squamous Epith Cells 0 SEEN Urine Bacteria 3+ Urine Mucus 0 SEEN 06/28/18 06/28/18 06/28/18 04:35 04:35 04:35 WBC 25.0 H RBC 3.88 L Hgb 11.1 L Hct 33.4 L MCV 86.1 MCH 28.6 MCHC 33.2 RDW 15.4 H RDW Differential 49.0 H Plt Count 95 L MPV 11.4 Immature Gran % (Auto) Neut % (Auto) Lymph % (Auto) Irwin % (Auto) Eos % (Auto) Baso % (Auto) Absolute Neuts (auto) Absolute Lymphs (auto) Total Counted Platelet Estimate Plt Morphology Comment PT INR APTT Sodium 136 Potassium 2.9 L Chloride 102 Carbon Dioxide 19.0 L Anion Gap 15 BUN 55 H Creatinine 5.61 H Estim Creat Clear Calc 12.31 Est GFR (MDRD) Af Amer 11 L Est GFR (MDRD) Non-Af 9 L BUN/Creatinine Ratio 9.8 L Glucose 174 H Lactic Acid Calcium 6.7 L Ionized Calcium Pending Total Bilirubin AST ALT Alkaline Phosphatase Total Protein Albumin Globulin Albumin/Globulin Ratio Lipase Urine Color Urine Clarity Urine pH Ur Specific [place] Urine Protein Urine Glucose (UA) Urine Ketones Urine Occult Blood Urine Nitrite Urine Bilirubin Urine Urobilinogen Ur Leukocyte Esterase Urine RBC Urine WBC Ur Squamous Epith Cells Urine Bacteria Urine Mucus POC Glucose 06/28/18 06/28/18 06:40 04:44 POC Glucose 200 H 160 H Clinical Impression(s) from Imaging Studies Chest X-Ray 06/28/18 02:45 IMPRESSION: Mild cardiomegaly. Bibasilar opacities representing either areas of atelectatic changes or pneumonia. A central line through the right internal jugular vein has its tip in the superior vena cava. Electronically Signed: Dylan Greenfield MD at 3:42 EST Tel , Service support , Abdomen/Pelvis CT 06/28/18 23:41 IMPRESSION: 1. Hepatomegaly. 2. No CT evidence of acute intra-abdominal disease. 3. Fluid-filled colon is consistent with history of diarrhea. Electronically Signed: Devi Whipple MD at 2:00 EST , Service support , Assessment/Plan Active and Suspected Problems Septic shock (Acute) ROCKY (acute kidney injury) (Acute) RECOMMENDATIONS: 1. Check MRSA screen along with strep and urine Legionella antigens. 2. Check full respiratory viral panel. 3. Wean levophed to maintain a mean arterial pressure at or above 65 mmHg. 4. Cautious use of ongoing supplemental IV fluids, given underlying diastolic dysfunction. 5. Aggressive electrolyte repletion. 6. Obtain renal ultrasound. 7. Broaden antibiotics. 8. Start antiemetics for ongoing nausea. 9. C. difficile panel is currently pending. IMPRESSIONS: 1. Septic shock Considerations include viral versus bacterial gastroenteritis along with cystitis. Given the severity of the patient's illness, her antibiotics will be broadened to include vancomycin and Zosyn. We will check MRSA screen. Respiratory viral panel along with strep and urine Legionella antigens are both pending. The patient has currently been adequately volume resuscitated. Would utilize fluids cautiously given underlying diastolic dysfunction. Continue Levophed in an attempt to maintain a mean arterial pressure at or above 65 mmHg. 2. Acute kidney injury Likely prerenal in etiology. Anticipate slow improvement with stabilization of hemodynamics and volume expansion. We will continue to monitor urine output. No current indication for renal replacement therapy. 3. Hypokalemia Electrolyte repletion is underway. Check magnesium level as well. Replete as necessary. 4. History of heart failure with preserved ejection fraction As noted above, the patient has been adequately volume resuscitated. Cautious use of supplemental IV fluids, given underlying heart failure with preserved ejection fraction. 5. Personal history of prior venous thromboembolic disease/obstructive sleep apnea/asthma/hypothyroidism/hyperlipidemia/hypertension/diabetes mellitus Complicates care, management, recovery and prognosis. Hold off on starting noninvasive positive pressure ventilation, given the patient's nausea and vomiting. TIME: 50 minutes of critical care time, independent of procedures, was spent addressing the patient's septic shock, acute kidney injury, hypokalemia, heart failure with preserved ejection fraction, review of all data and collaboration with the care team. ([id number]) Code Visit 9xxxx: [id number] Critical care first hour
--- NOTE | 2018-06-28 07:17 | US_ITS ---
STUDY: RENAL ULTRASOUND - COMPLETE REASON FOR EXAM: Female, 43 years old. Acute renal failure. TECHNIQUE: Ultrasound evaluation of the kidneys was performed with real-time and static tenorio-scale imaging. COMPARISON: None. FINDINGS: RIGHT KIDNEY: Normal location of the right kidney, which is normal in size. The right kidney measures 12.6 x 6.6 x 7 cm. There is a normal cortex of the right kidney. The renal cortex measures 2.4 cm. There is no right renal mass or cyst. There are no right renal calculi. There is minimal fullness of the right renal pelvis. There is otherwise no evidence of hydronephrosis. DISTAL RIGHT URETER: There is non-visualization of the distal right ureter. There is no demonstrated right ureterovesical junction calculus. There is no demonstrated right ureteral jet. LEFT KIDNEY: Normal location of the left kidney, which is normal in size. The left kidney measures 13.1 x 7.7 x 8.2 cm. There is a normal cortex of the left kidney. The renal cortex measures 2.9 cm. There is no left renal mass or cyst. There are no left renal calculi. There is no left hydronephrosis. DISTAL LEFT URETER: There is non-visualization of the distal left ureter. There is no demonstrated left ureterovesical junction calculus. There is no demonstrated left ureteral jet. BLADDER: There is a Herr catheter in the bladder. The bladder is not well-distended and difficult to evaluate. US/Kidney and Bladder IMPRESSION: 1. Minimal fullness of the right renal pelvis. 2. No evidence of hydronephrosis. Electronically Signed: Theo Chris MD at 15:46 EST Tel , Service support ,
[2018-06-28 07:52] LABS: Magnesium 1.3 mg/dL (1.6-2.6)
[2018-06-28] MEDS: 0.9% NaCl IVPB Med Flush (250 mL) 15 ML IV ×2 (08:00→11:00)
--- NOTE | 2018-06-28 08:03 | PCM.RX.CS ---
Consult Prior Doses of Antibiotics Received/Current Regimen: none Labs: Sodium 136 mmol/L (136-145) 06/28/18 04:35 Potassium 2.9 mmol/L (3.5-5.1) L 06/28/18 04:35 Chloride 102 mmol/L (98-107) 06/28/18 04:35 Carbon Dioxide 19.0 mmol/L (21.0-32.0) L 06/28/18 04:35 Anion Gap 15 (5-15) 06/28/18 04:35 BUN 55 mg/dL (7-18) H 06/28/18 04:35 Creatinine 5.61 mg/dL (0.55-1.02) H 06/28/18 04:35 Est GFR (MDRD) Af Amer 11 mL/min (>60) L 06/28/18 04:35 Est GFR (MDRD) Non-Af 9 mL/min (>60) L 06/28/18 04:35 BUN/Creatinine Ratio 9.8 RATIO (10-20) L 06/28/18 04:35 Glucose 174 mg/dL (74-106) H 06/28/18 04:35 Weight used for dosin kg Estimated Creatinine Clearance: 12ml/min Goal Trough: 15-20 mcg/mL Pharmacy Plan for Drug Dosing: Pharmacy to manage vancomycin per consult for the treatment of septic shock. The patient currently is experiencing ROCKY, and has had a slight improvement in SCr from admission labs. Her baseline is ~0.9-1 based on labs from previous visits. With this in mind, will plan on dosing based on random levels until her SCr stabilizes. Will give a x1 loading dose today and check a trough in 48hrs. Should the patient have a significant improvement in SCr within the next 24hrs, would consider ordering a random level and re-dose sooner. PLAN/RECOMMENDATIONS 1. Vancomycin 2000mg IV X1 06/28/18 @0830 2. Random vancomycin level 06/30/18 @0830 3. Pharmacy Service will continue to monitor and adjust dosing as required.
[2018-06-28] MEDS: proMETHazine 25 MG/ML Syringe 12.5 MG IV ×2 (08:10→23:52)
[2018-06-28] MEDS: Acetaminophen 325 MG Tablet 650 MG PO ×2 (10:37→23:52)
[2018-06-28 10:39] LABS: M R Staph aureus DNA By PCR Negative (Negative); Probe Check PASS; Specimen Processing Control PASS
[2018-06-28] MEDS: Magnesium Sulfate 4gm/100mL 4 GM/100 ML IV.SOLN. IV (10:49)
--- NOTE | 2018-06-28 11:00 | NURSING ---
Cooling blanket removed
[2018-06-28 12:10] LABS: Bedside Glucose 210 mg/dL (70-110)
--- NOTE | 2018-06-28 12:11 | PCM.PROGNOTE ---
Patient Problems: Active and Suspected Problems Septic shock (Acute) ROCKY (acute kidney injury) (Acute) Subjective: Patient is a 43-year-old female with a past medical history of hypothyroidism, DiGiorgio syndrome, superobesity, hypertension, asthma, hyperlipidemia, obstructive sleep apnea treated with BiPAP and diabetes mellitus type 2 who presented to the emergency department at [facility] early in the a.m. of 06/28/2018 complaining of nausea, vomiting and diarrhea. She admitted to having sick contacts. She has been on antibiotics recently but she does not know why she is on antibiotics. He also complained of frequent urination and urinary incontinence. Vital signs of presentation to the emergency room were temp 98.7, pulse rate 134, blood pressure 70/50, respiratory rate 18 and she was 100% saturated on room air. The temp later increased to 104 ?F. White blood cell count was 27.6 with left shift. Hemoglobin was 12.8 and platelets were 113,000. Sodium was low at 133 and the chloride was low at 96. Serum bicarb was low at 20. BUN was 53 and the creatinine was 5.85 with a creatinine clearance of 11.8. Creatinine in December 2017 was 0.91. Lactic acid was elevated at 3.5. PT is prolonged at 17.8. UA showed 50-100 WBCs per high-power field with 3+ bacteria. A CT scan of the abdomen and pelvis showed hepatomegaly and a fluid-filled colon. There are multiple diverticuli. The kidneys were of normal size and appeared normal. MRSA nasal screen was negative. She was admitted to the intensive care unit with a diagnosis of septic shock secondary to pyelonephritis. A right internal jugular line was inserted and the chest x-ray revealed the line to be in good position in the superior vena cava with no pneumothorax. There does appear to be infiltrates or atelectasis in both bases, left greater than right. She was started on ceftriaxone 2 g daily. The BP dropped once again after adequate fluid resuscitation and she was started on Levaquin. All morning lab was reviewed. The white blood cell count is 25,000. Hemoglobin is 11.1 following hydration and the platelets are 95,000. PT is 17.8. The creatinine has decreased to 5.61 from 5.85. Calcium is 6.7 today and the calcium corrected for hypoalbuminemia is 8.1 which is low. Magnesium is decreased at 1.3. The antibiotic has been changed to meropenem and vancomycin. Potassium bolus has been ordered. Urine output since admission has only been 275 cc. There is a GM neg cristhian growing in the urine She is complaining of not being able to hear out of her right ear. Denies any chest pain and denies shortness of breath at the present time. She has left-sided abdominal pain. - Physical Exam General: Alert, Oriented x3, Cooperative, Well developed, Well nourished HEENT: Atraumatic, PERRLA, EOMI, Normocephalic, - - The Right TM is perforated The Left TM is normal Oral: Dry Mucosa, - - poor dentition Neck: Supple Lungs: Clear to auscultation, Diminished, - - Not tachypneic, no conversational dyspnea, no accessory muscle use Cardiovascular: Regular Rhythm, Normal S1, Normal S2, Tachycardic, - - Very distant heart sounds secondary to body habitus Abdomen: Bowel Sounds Present, Soft, Non-Distended, Tender - with palpation in the LLQ but, no guarding Extremities: No cyanosis, No edema, No Calf Tenderness Skin: No rashes, No breakdown Neurological: Cranial nerves II-XII grossly intact, Neuro grossly intact Psych/Mental Status: Normal Affect, Appropriate Vital Signs Temp Pulse Resp BP Pulse Ox 100.5 F H 108 H 20 H 81/62 L 100 06/28/18 12:00 06/28/18 12:00 06/28/18 12:00 06/28/18 12:00 06/28/18 12:00 Oxygen Flow Rate (L/min) 3 Oxygen Delivery Method Bi-pap Weight: 331 lb 5.676 oz Body Mass Index (BMI) 51.9 Finger Stick Blood Glucose 126 Intake and Output for Last 24 Hours 06/26/18 06/27/18 06/28/18 23:59 23:59 23:59 Intake Total 1957.8 / 1957.8 Output Total 275 / 275 Balance 1682.8 / 1682.8 Microbiology Past 72 Hours 06/28/18 07:54 Respiratory Panel (PCR) - Final Mucosa - Nasopharyngeal 06/28/18 08:40 Legionella Antigen - Final Urine Catheter - Herr 06/28/18 08:40 Streptococcus pneumoniae Antigen (M - Final Urine Catheter - Herr Laboratory Tests Past 24 Hrs 06/27/18 06/27/18 06/27/18 23:25 23:25 23:25 WBC 27.6 H RBC 4.42 Hgb 12.8 Hct 38.5 MCV 87.1 MCH 29.0 MCHC 33.2 RDW 15.4 H RDW Differential 49.5 H Plt Count 113 L MPV 12.4 H Immature Gran % (Auto) 0.500 Neut % (Auto) 89.1 H Lymph % (Auto) 6.7 L Reynolds % (Auto) 3.5 Eos % (Auto) 0.0 Baso % (Auto) 0.2 Absolute Neuts (auto) 24.5 H Absolute Lymphs (auto) 1.86 Total Counted Not Reportable Platelet Estimate SLT DEC Plt Morphology Comment GIANT PT INR APTT Sodium 133 L Potassium 3.5 Chloride 96 L Carbon Dioxide 20.0 L Anion Gap 17 H BUN 53 H Creatinine 5.85 H Estim Creat Clear Calc 11.81 Est GFR (MDRD) Af Amer 10 L Est GFR (MDRD) Non-Af 8 L BUN/Creatinine Ratio 9.1 L Glucose 183 H Lactic Acid 3.5 H Calcium 7.3 L Ionized Calcium Magnesium Total Bilirubin 0.70 AST 50 H ALT 17 Alkaline Phosphatase 124 H Total Protein 7.4 Albumin 2.2 L Globulin 5.2 H Albumin/Globulin Ratio 0.4 L Lipase 37 L Urine Color Urine Clarity Urine pH Ur Specific Mondamin Urine Protein Urine Glucose (UA) Urine Ketones Urine Occult Blood Urine Nitrite Urine Bilirubin Urine Urobilinogen Ur Leukocyte Esterase Urine RBC Urine WBC Ur Squamous Epith Cells Urine Bacteria Urine Mucus MRSA (PCR) 06/28/18 06/28/18 06/28/18 01:00 03:30 04:35 WBC RBC Hgb Hct MCV MCH MCHC RDW RDW Differential Plt Count MPV Immature Gran % (Auto) Neut % (Auto) Lymph % (Auto) Reynolds % (Auto) Eos % (Auto) Baso % (Auto) Absolute Neuts (auto) Absolute Lymphs (auto) Total Counted Platelet Estimate Plt Morphology Comment PT 17.8 H INR 1.5 APTT 41.3 H Sodium Potassium Chloride Carbon Dioxide Anion Gap BUN Creatinine Estim Creat Clear Calc Est GFR (MDRD) Af Amer Est GFR (MDRD) Non-Af BUN/Creatinine Ratio Glucose Lactic Acid 1.8 Calcium Ionized Calcium Magnesium Total Bilirubin AST ALT Alkaline Phosphatase Total Protein Albumin Globulin Albumin/Globulin Ratio Lipase Urine Color Yellow Urine Clarity Sl. Cloudy Urine pH 6.5 Ur Specific Mondamin 1.010 Urine Protein 500 H Urine Glucose (UA) Normal Urine Ketones 5 H Urine Occult Blood 250 H Urine Nitrite Positive H Urine Bilirubin Negative Urine Urobilinogen Normal Ur Leukocyte Esterase 500 H Urine RBC 0 SEEN Urine WBC 50-100 SEEN Ur Squamous Epith Cells 0 SEEN Urine Bacteria 3+ Urine Mucus 0 SEEN MRSA (PCR) 06/28/18 06/28/18 06/28/18 04:35 04:35 04:35 WBC 25.0 H RBC 3.88 L Hgb 11.1 L Hct 33.4 L MCV 86.1 MCH 28.6 MCHC 33.2 RDW 15.4 H RDW Differential 49.0 H Plt Count 95 L MPV 11.4 Immature Gran % (Auto) Neut % (Auto) Lymph % (Auto) Reynolds % (Auto) Eos % (Auto) Baso % (Auto) Absolute Neuts (auto) Absolute Lymphs (auto) Total Counted Platelet Estimate Plt Morphology Comment PT INR APTT Sodium 136 Potassium 2.9 L Chloride 102 Carbon Dioxide 19.0 L Anion Gap 15 BUN 55 H Creatinine 5.61 H Estim Creat Clear Calc 12.31 Est GFR (MDRD) Af Amer 11 L Est GFR (MDRD) Non-Af 9 L BUN/Creatinine Ratio 9.8 L Glucose 174 H Lactic Acid Calcium 6.7 L Ionized Calcium Pending Magnesium Total Bilirubin AST ALT Alkaline Phosphatase Total Protein Albumin Globulin Albumin/Globulin Ratio Lipase Urine Color Urine Clarity Urine pH Ur Specific Mondamin Urine Protein Urine Glucose (UA) Urine Ketones Urine Occult Blood Urine Nitrite Urine Bilirubin Urine Urobilinogen Ur Leukocyte Esterase Urine RBC Urine WBC Ur Squamous Epith Cells Urine Bacteria Urine Mucus MRSA (PCR) 06/28/18 06/28/18 04:35 08:40 WBC RBC Hgb Hct MCV MCH MCHC RDW RDW Differential Plt Count MPV Immature Gran % (Auto) Neut % (Auto) Lymph % (Auto) Reynolds % (Auto) Eos % (Auto) Baso % (Auto) Absolute Neuts (auto) Absolute Lymphs (auto) Total Counted Platelet Estimate Plt Morphology Comment PT INR APTT Sodium Potassium Chloride Carbon Dioxide Anion Gap BUN Creatinine Estim Creat Clear Calc Est GFR (MDRD) Af Amer Est GFR (MDRD) Non-Af BUN/Creatinine Ratio Glucose Lactic Acid Calcium Ionized Calcium Magnesium 1.3 L Total Bilirubin AST ALT Alkaline Phosphatase Total Protein Albumin Globulin Albumin/Globulin Ratio Lipase Urine Color Urine Clarity Urine pH Ur Specific Mondamin Urine Protein Urine Glucose (UA) Urine Ketones Urine Occult Blood Urine Nitrite Urine Bilirubin Urine Urobilinogen Ur Leukocyte Esterase Urine RBC Urine WBC Ur Squamous Epith Cells Urine Bacteria Urine Mucus MRSA (PCR) Negative POC Glucose 06/28/18 06/28/18 06/28/18 10:37 06:40 04:44 POC Glucose 210 H 200 H 160 H Medical Necessity - Tobacco Use Smoking Status: Never smoker Assessment/Plan All Active Problems Septic shock (Acute) ROCKY (acute kidney injury) (Acute) Acute chest pain (Acute) Cellulitis of right abdominal wall (Resolved) Open wound of abdominal wall (Resolved) Pulmonary emboli (Resolved) Impressions 1. septic shock due to pyelonephritis with GM negative bacteremia - 2 of 2 BC's + 2. Pyelonephritis 3. liquid diarrhea in a pt recently on antibiotics - C. Diff and the enteric pathogen panel are pending 4. Perforated TM - was likely being treated for otitis media prior to admission 5. DM II 6. VENANCIO - on BIPAP 7. super obesity 8. Hypothyroidism 9. DiGeorge syndrome 10. Hypertension 11. Asthma 12. Hyperlipidemia 13. Anxiety 14. Hypomagnesemia 15. Hypokalemia 16. Acute renal failure - etiology? W/U in progress 17. Atelectasis vs Pneumonia in the bases Check a phosphorous and if it is WNL or low will supplement the phos and the calcium Check HGBA1C, phos, immunoglobulin electrophoresis and total gammaglobulin....if the gammaglobulin is low may need to give IVIG Continue Merrem, since she has gram-negative bacteremia will likely be able to discontinue vancomycin soon Check urine sodium and creatinine Recheck lab in the a.m. Await the results of the C. difficile and enteric pathogen panel. I suspect she may have Clostridium difficile due to recent antibiotic use Keep NPO for now Levophed to keep the MAP at 65 or> Check urine for eosinophils 50 minutes spent reviewing labs, interviewing the patient and coordinating care Code Visit Procedures: [id number] Prolonged InPt Service; first hour
[2018-06-28 12:59] LABS: Phosphorus 3.3 mg/dL (2.5-4.9)
[2018-06-28] MEDS: 0.9% NaCl Midline IV Flush IV ×3 (13:00→13:47)
[2018-06-28] MEDS: 0.9% NaCl Peripheral Flush Adult/Peds IV (13:10)
[2018-06-28] MEDS: Albuterol 2.5 MG/3 ML VIAL.NEB. INHALATION ×2 (13:16→19:02)
[2018-06-28 13:55] LABS: Urine Sodium 108 mmol/L (Not Establ.)
[2018-06-28 14:04] LABS: Hemoglobin A1c 7.9 % (4.2-6.3); T4 Free Direct 1.14 ng/dL (0.76-1.46); Thyroid Stim Hormone (TSH) 2.92 uIU/mL (0.358-3.74)
[2018-06-28 14:13] LABS: Fibrinogen > 900 mg/dl (203-444)
--- NOTE | 2018-06-28 15:36 | CM.UR ---
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 Debbie Tapia RN, [facility].
--- NOTE | 2018-06-28 17:16 | NURSING ---
10 cc urine output noted to drainage bag at 1700 so arroyo irrigated w/ 20 cc sterile saline. Multiple mucous shreds withdrawn from collection port. 100 cc urine drained following irrigation. Will notify
[2018-06-28 17:20] LABS: Bedside Glucose 173 mg/dL (70-110)
[2018-06-28] MEDS: 0.45% Normal Saline 1,000 ML 150 ML IV (18:30)
[2018-06-28] MEDS: Budesonide Respules 0.5 MG/2 ML AMPUL.NEB. INHALATION (19:02)
[2018-06-28] MEDS: Atorvastatin Calcium 40 MG Tablet PO (23:00)
[2018-06-28 23:10] LABS: Bedside Glucose 152 mg/dL (70-110)
--- NOTE | 2018-06-28 23:41 | CT_ITS ---
STUDY: CT ABDOMEN AND PELVIS WITHOUT CONTRAST REASON FOR EXAM: Female, 43 years old. Nausea, vomiting and diarrhea. RADIATION DOSAGE (If Supplied By Facility): CTDIvol = ( 24.18 ) mGy, DLP = ( 2085.21 ) mGycm TECHNIQUE: Transaxial images were obtained from the dome of the diaphragm to the symphysis pubis without oral contrast, and without intravenous contrast. Sagittal and coronal images were reconstructed. Individualized dose optimization techniques were used for this CT. COMPARISON: CT of the abdomen and pelvis dated September 01, 2015. FINDINGS: The visualized lung bases are unremarkable. The visualized portions of the heart are within normal limits. There is hepatomegaly with diffuse hepatic enlargement. Maximum dimension of the liver measures approximately 35.5 cm appears to some hypertrophy of the left lobe of the liver compared to the right. In length. There are surgical clips in the gallbladder fossa consistent with a prior cholecystectomy. There is a small splenule located anterior to the spleen. Normal spleen. Normal pancreas. Normal bilateral adrenal glands. Normal right kidney. Normal left kidney. Normal visualized stomach. There is no evidence for dilated bowel. However, there is fluid filled small and large bowel consistent with history of diarrhea. There are multiple colonic diverticula consistent with diverticulosis. There is non-visualization of the appendix. Normal abdominal aorta. Normal inferior vena cava. Normal retroperitoneum. Urinary bladder wall is mildly thickened measuring up to 6.9 mm in thickness. The uterus has a normal appearance. There is a small umbilical hernia containing fat. There are diffuse degenerative changes of the visualized spine. CT/Abdomen/Pelvis without Cont IMPRESSION: 1. Hepatomegaly. 2. No CT evidence of acute intra-abdominal disease. 3. Fluid-filled colon is consistent with history of diarrhea. Electronically Signed: Devi Whipple MD at 2:00 EST , Service support ,
[2018-06-29] VITALS (26 sets, daily range): BP systolic 85–115; BP diastolic 51–71; PULSE 89–111; RESP 12–24; TEMP 36.6–37.6; O2SAT 94–100
[2018-06-29 05:48] LABS: Absolute Lymphocyte Count 0.76 X10^3/ul (0.83-4.51); Absolute Neutrophil Count 13.7 X10^3/uL (2.0-7.7); Basophil# 0.03 X10^3/uL; Basophil% 0.2 % (0-1); Eosinophil# 0.21 X10^3/uL; Eosinophils% 1.4 % (0-5); Hematocrit 30.4 % (37-47); Lymphocyte # 0.76 X10^3/ul (4.0); Lymphocyte % 4.9 % (19-41); Mean Corp Hgb Conc 32.9 g/gl (32-36); Mean Corpuscular Hgb 29.1 pg (27.0-32.0); Mean Corpuscular Volume 88.4 fL (81-99); Monocyte# 0.66 X10^3/uL; Monocyte% 4.3 % (0-10); Neutrophil # 13.71 X10^3/uL (2.7-7.7); Neutrophil % 88.7 % (47-70); Platelet Count 77 K/mm3 (150-450); RBC Distribution Width CV 15.3 % (11.6-14.6); RBC Distribution Width SD 48.2 fl (35.1-43.9); Red Blood Count 3.44 M/mm3 (4.2-5.4); White Blood Count 15.5 K/mm3 (4.4-11.0)
[2018-06-29] MEDS: 0.45% Normal Saline 1,000 ML 150 ML IV (05:52)
[2018-06-29 05:53] LABS: POSITIVE COUNT NO; POSITIVE DIFFERENTIAL NO; POSITIVE MORPHOLOGY NO
[2018-06-29] MEDS: Levothyroxine 50 MCG Tablet PO (05:53)
[2018-06-29] MEDS: busPIRone 5 MG Tablet PO ×3 (05:53→22:07)
[2018-06-29] MEDS: Heparin Injection (Vial) 5,000 UNIT/ML VIAL 5000 UNIT SC ×3 (05:53→22:07)
[2018-06-29 06:00] LABS: International Normalized Ratio 1.3; Prothrombin Time (Protime)PT. 16.2 SECONDS (11.7-14.9)
[2018-06-29 06:17] LABS: ALB/GLOB Ratio 0.4 RATIO (0.9-2.4); AST(SGOT) 30 U/L (15-37); Alanine Aminotransfer ALT/SGPT 16 U/L (13-56); Albumin, Serum 1.8 g/dL (3.2-5.0); Alkaline Phosphatase 116 U/L (45-117); Anion Gap 16 (5-15); BUN 66 mg/dL (7-18); BUN/Creat Ratio 10.2 RATIO (10-20); Calcium,Total 6.9 mg/dL (8.5-10.1); Chloride 101 mmol/L (98-107); Creatinine, Serum 6.47 mg/dL (0.55-1.02); EST Glomerular Filtration Rate 7 mL/min (>60); Est Glom Filt Rate - Afr Amer 9 mL/min (>60); Estimated Creatinine Clearance 10.68 ml/min; Globulin 4.6 g/dL (2.2-4.2); Glucose 143 mg/dL (74-106); Magnesium 2.3 mg/dL (1.6-2.6); Phosphorus 5.2 mg/dL (2.5-4.9); Potassium 3.2 mmol/L (3.5-5.1); Protein, Total 6.4 g/dL (6.4-8.2); Sodium Level 135 mmol/L (136-145)
[2018-06-29 06:21] LABS: Bedside Glucose 137 mg/dL (70-110)
[2018-06-29] MEDS: Budesonide Respules 0.5 MG/2 ML AMPUL.NEB. INHALATION ×2 (07:07→18:49)
[2018-06-29] MEDS: Albuterol 2.5 MG/3 ML VIAL.NEB. INHALATION ×3 (07:07→18:49)
--- NOTE | 2018-06-29 07:10 | PN_ITS ---
Subjective: The patient was seen and examined at the bedside this morning. Events from the last 24 hours have been reviewed. The patient is currently afebrile, hemodynamically stable and maintaining appropriate oxygen saturations. The patient has been compliant with the use of nocturnal BiPAP therapy. The patient is no longer on Levophed. White blood cell count is improving. Potassium is low this morning at 3.2. Unfortunately, creatinine has increased to 6.47. The patient's Herr catheter had to be removed overnight as it became clotted and would no longer drain. The patient is no longer having significant diarrhea. Although I's and O's are a bit and accurate, she is currently documented to be overall net +5 L for the admission. The patient denies the presence of abdominal pain, nausea or vomiting. Objective: The patient's most recent lab work, culture data and imaging studies have all been personally reviewed. C. difficile was negative. Strep and urine Legionella antigens were both negative. Respiratory viral panel was negative. Blood culture was positive for gram-negative rods. CT abdomen/pelvis revealed hepatomegaly without an acute intra-abdominal process. Renal ultrasound revealed minimal fullness of the right pelvis with no evidence of hydronephrosis. Surface echocardiogram dated May 2017 revealed evidence of stage I diastolic dysfunction. General: Alert, Cooperative, No apparent distress, - - Wearing BiPAP currently. Morbidly obese. HEENT: Atraumatic, PERRLA, Normocephalic Oral: No Gingival or Mucosal Lesions/ Ulcerations Neck: Supple, No Nodes, Trachea Midline, - - Central venous catheter remains in place. Lungs: No rhonchi, No wheeze, No rales, Diminished Cardiovascular: Regular rate, Regular Rhythm, Normal S1, Normal S2, No murmurs Abdomen: Bowel Sounds Present, Soft, Non Tender, Obese Extremities: No clubbing, No cyanosis, No edema Skin: - - No significant change from previous. Musculoskeletal: No Tenderness to Palpation of Joints or Extremities, No Muscle Wasting Lymphatic: No Cervical, Supraclavicular, or Inguinal Adenopathy Neurological: Cranial nerves II-XII grossly intact, Neuro grossly intact Psych/Mental Status: Normal Affect, Appropriate Vital Signs Temp Pulse Resp BP Pulse Ox 36.9 C 102 H 23 H 104/71 100 06/29/18 04:00 06/29/18 06:00 06/29/18 06:00 06/29/18 06:00 06/29/18 06:00 Oxygen Flow Rate (L/min) 3 Oxygen Delivery Method Bi-pap Weight: 265 lb 10.512 oz Body Mass Index (BMI) 51.9 Finger Stick Blood Glucose 126 Intake and Output for Last 24 Hours 06/27/18 06/28/18 06/29/18 23:59 23:59 23:59 Intake Total 3324.1 / 3324.1 2035 Output Total 375 / 375 Balance 2949.1 / 2949.1 2035 Labs (Last 48 Hours) 06/27/18 06/27/18 06/27/18 23:25 23:25 23:25 WBC 27.6 H RBC 4.42 Hgb 12.8 Hct 38.5 MCV 87.1 MCH 29.0 MCHC 33.2 RDW 15.4 H RDW Differential 49.5 H Plt Count 113 L MPV 12.4 H Immature Gran % (Auto) 0.500 Neut % (Auto) 89.1 H Lymph % (Auto) 6.7 L [place] % (Auto) 3.5 Eos % (Auto) 0.0 Baso % (Auto) 0.2 Absolute Neuts (auto) 24.5 H Absolute Lymphs (auto) 1.86 Total Counted Not Reportable Platelet Estimate SLT DEC Plt Morphology Comment GIANT Eos Smear Total Cells PT INR APTT Fibrinogen Sodium 133 L Potassium 3.5 Chloride 96 L Carbon Dioxide 20.0 L Anion Gap 17 H BUN 53 H Creatinine 5.85 H Estim Creat Clear Calc 11.81 Est GFR (MDRD) Af Amer 10 L Est GFR (MDRD) Non-Af 8 L BUN/Creatinine Ratio 9.1 L Glucose 183 H Hemoglobin A1c Lactic Acid 3.5 H Calcium 7.3 L Ionized Calcium Phosphorus Magnesium Total Bilirubin 0.70 AST 50 H ALT 17 Alkaline Phosphatase 124 H Total Protein 7.4 Albumin 2.2 L Globulin 5.2 H Albumin/Globulin Ratio 0.4 L Lipase 37 L TSH Free T4 Urine Color Urine Clarity Urine pH Ur Specific [place] Urine Protein Urine Glucose (UA) Urine Ketones Urine Occult Blood Urine Nitrite Urine Bilirubin Urine Urobilinogen Ur Leukocyte Esterase Urine RBC Urine WBC Ur Squamous Epith Cells Urine Bacteria Urine Mucus Ur Random Sodium Urine Creatinine IgG IgA IgM IgE MRSA (PCR) POC Glucose 06/28/18 06/28/18 06/28/18 01:00 03:30 04:35 WBC RBC Hgb Hct MCV MCH MCHC RDW RDW Differential Plt Count MPV Immature Gran % (Auto) Neut % (Auto) Lymph % (Auto) [place] % (Auto) Eos % (Auto) Baso % (Auto) Absolute Neuts (auto) Absolute Lymphs (auto) Total Counted Platelet Estimate Plt Morphology Comment Eos Smear Total Cells PT 17.8 H INR 1.5 APTT 41.3 H Fibrinogen Sodium Potassium Chloride Carbon Dioxide Anion Gap BUN Creatinine Estim Creat Clear Calc Est GFR (MDRD) Af Amer Est GFR (MDRD) Non-Af BUN/Creatinine Ratio Glucose Hemoglobin A1c Lactic Acid 1.8 Calcium Ionized Calcium Phosphorus Magnesium Total Bilirubin AST ALT Alkaline Phosphatase Total Protein Albumin Globulin Albumin/Globulin Ratio Lipase TSH Free T4 Urine Color Yellow Urine Clarity Sl. Cloudy Urine pH 6.5 Ur Specific [place] 1.010 Urine Protein 500 H Urine Glucose (UA) Normal Urine Ketones 5 H Urine Occult Blood 250 H Urine Nitrite Positive H Urine Bilirubin Negative Urine Urobilinogen Normal Ur Leukocyte Esterase 500 H Urine RBC 0 SEEN Urine WBC 50-100 SEEN Ur Squamous Epith Cells 0 SEEN Urine Bacteria 3+ Urine Mucus 0 SEEN Ur Random Sodium Urine Creatinine IgG IgA IgM IgE MRSA (PCR) POC Glucose 06/28/18 06/28/18 06/28/18 04:35 04:35 04:35 WBC 25.0 H RBC 3.88 L Hgb 11.1 L Hct 33.4 L MCV 86.1 MCH 28.6 MCHC 33.2 RDW 15.4 H RDW Differential 49.0 H Plt Count 95 L MPV 11.4 Immature Gran % (Auto) Neut % (Auto) Lymph % (Auto) [place] % (Auto) Eos % (Auto) Baso % (Auto) Absolute Neuts (auto) Absolute Lymphs (auto) Total Counted Platelet Estimate Plt Morphology Comment Eos Smear Total Cells PT INR APTT Fibrinogen Sodium 136 Potassium 2.9 L Chloride 102 Carbon Dioxide 19.0 L Anion Gap 15 BUN 55 H Creatinine 5.61 H Estim Creat Clear Calc 12.31 Est GFR (MDRD) Af Amer 11 L Est GFR (MDRD) Non-Af 9 L BUN/Creatinine Ratio 9.8 L Glucose 174 H Hemoglobin A1c Lactic Acid Calcium 6.7 L Ionized Calcium Pending Phosphorus Magnesium Total Bilirubin AST ALT Alkaline Phosphatase Total Protein Albumin Globulin Albumin/Globulin Ratio Lipase TSH Free T4 Urine Color Urine Clarity Urine pH Ur Specific [place] Urine Protein Urine Glucose (UA) Urine Ketones Urine Occult Blood Urine Nitrite Urine Bilirubin Urine Urobilinogen Ur Leukocyte Esterase Urine RBC Urine WBC Ur Squamous Epith Cells Urine Bacteria Urine Mucus Ur Random Sodium Urine Creatinine IgG IgA IgM IgE MRSA (PCR) POC Glucose 06/28/18 06/28/18 06/28/18 04:35 04:35 04:35 WBC RBC Hgb Hct MCV MCH MCHC RDW RDW Differential Plt Count MPV Immature Gran % (Auto) Neut % (Auto) Lymph % (Auto) [place] % (Auto) Eos % (Auto) Baso % (Auto) Absolute Neuts (auto) Absolute Lymphs (auto) Total Counted Platelet Estimate Plt Morphology Comment Eos Smear Total Cells PT INR APTT Fibrinogen Sodium Potassium Chloride Carbon Dioxide Anion Gap BUN Creatinine Estim Creat Clear Calc Est GFR (MDRD) Af Amer Est GFR (MDRD) Non-Af BUN/Creatinine Ratio Glucose Hemoglobin A1c 7.9 H Lactic Acid Calcium Ionized Calcium Phosphorus 3.3 Magnesium 1.3 L Total Bilirubin AST ALT Alkaline Phosphatase Total Protein Albumin Globulin Albumin/Globulin Ratio Lipase TSH Free T4 Urine Color Urine Clarity Urine pH Ur Specific [place] Urine Protein Urine Glucose (UA) Urine Ketones Urine Occult Blood Urine Nitrite Urine Bilirubin Urine Urobilinogen Ur Leukocyte Esterase Urine RBC Urine WBC Ur Squamous Epith Cells Urine Bacteria Urine Mucus Ur Random Sodium Urine Creatinine IgG IgA IgM IgE MRSA (PCR) POC Glucose 06/28/18 06/28/18 06/28/18 04:35 04:40 04:44 WBC RBC Hgb Hct MCV MCH MCHC RDW RDW Differential Plt Count MPV Immature Gran % (Auto) Neut % (Auto) Lymph % (Auto) [place] % (Auto) Eos % (Auto) Baso % (Auto) Absolute Neuts (auto) Absolute Lymphs (auto) Total Counted Platelet Estimate Plt Morphology Comment Eos Smear Total Cells Pending PT INR APTT Fibrinogen Sodium Potassium Chloride Carbon Dioxide Anion Gap BUN Creatinine Estim Creat Clear Calc Est GFR (MDRD) Af Amer Est GFR (MDRD) Non-Af BUN/Creatinine Ratio Glucose Hemoglobin A1c Lactic Acid Calcium Ionized Calcium Phosphorus Magnesium Total Bilirubin AST ALT Alkaline Phosphatase Total Protein Albumin Globulin Albumin/Globulin Ratio Lipase TSH 2.92 Free T4 1.14 Urine Color Urine Clarity Urine pH Ur Specific [place] Urine Protein Urine Glucose (UA) Urine Ketones Urine Occult Blood Urine Nitrite Urine Bilirubin Urine Urobilinogen Ur Leukocyte Esterase Urine RBC Urine WBC Ur Squamous Epith Cells Urine Bacteria Urine Mucus Ur Random Sodium Urine Creatinine IgG IgA IgM IgE MRSA (PCR) POC Glucose 160 H 06/28/18 06/28/18 06/28/18 06:40 08:40 08:40 WBC RBC Hgb Hct MCV MCH MCHC RDW RDW Differential Plt Count MPV Immature Gran % (Auto) Neut % (Auto) Lymph % (Auto) [place] % (Auto) Eos % (Auto) Baso % (Auto) Absolute Neuts (auto) Absolute Lymphs (auto) Total Counted Platelet Estimate Plt Morphology Comment Eos Smear Total Cells PT INR APTT Fibrinogen Sodium Potassium Chloride Carbon Dioxide Anion Gap BUN Creatinine Estim Creat Clear Calc Est GFR (MDRD) Af Amer Est GFR (MDRD) Non-Af BUN/Creatinine Ratio Glucose Hemoglobin A1c Lactic Acid Calcium Ionized Calcium Phosphorus Magnesium Total Bilirubin AST ALT Alkaline Phosphatase Total Protein Albumin Globulin Albumin/Globulin Ratio Lipase TSH Free T4 Urine Color Urine Clarity Urine pH Ur Specific [place] Urine Protein Urine Glucose (UA) Urine Ketones Urine Occult Blood Urine Nitrite Urine Bilirubin Urine Urobilinogen Ur Leukocyte Esterase Urine RBC Urine WBC Ur Squamous Epith Cells Urine Bacteria Urine Mucus Ur Random Sodium Urine Creatinine 136.00 IgG IgA IgM IgE MRSA (PCR) Negative POC Glucose 200 H 06/28/18 06/28/18 06/28/18 08:40 10:37 13:50 WBC RBC Hgb Hct MCV MCH MCHC RDW RDW Differential Plt Count MPV Immature Gran % (Auto) Neut % (Auto) Lymph % (Auto) [place] % (Auto) Eos % (Auto) Baso % (Auto) Absolute Neuts (auto) Absolute Lymphs (auto) Total Counted Platelet Estimate Plt Morphology Comment Eos Smear Total Cells PT INR APTT Fibrinogen > 900 H Sodium Potassium Chloride Carbon Dioxide Anion Gap BUN Creatinine Estim Creat Clear Calc Est GFR (MDRD) Af Amer Est GFR (MDRD) Non-Af BUN/Creatinine Ratio Glucose Hemoglobin A1c Lactic Acid Calcium Ionized Calcium Phosphorus Magnesium Total Bilirubin AST ALT Alkaline Phosphatase Total Protein Albumin Globulin Albumin/Globulin Ratio Lipase TSH Free T4 Urine Color Urine Clarity Urine pH Ur Specific [place] Urine Protein Urine Glucose (UA) Urine Ketones Urine Occult Blood Urine Nitrite Urine Bilirubin Urine Urobilinogen Ur Leukocyte Esterase Urine RBC Urine WBC Ur Squamous Epith Cells Urine Bacteria Urine Mucus Ur Random Sodium 108 Urine Creatinine IgG IgA IgM IgE MRSA (PCR) POC Glucose 210 H 06/28/18 06/28/18 06/28/18 13:50 17:01 22:58 WBC RBC Hgb Hct MCV MCH MCHC RDW RDW Differential Plt Count MPV Immature Gran % (Auto) Neut % (Auto) Lymph % (Auto) [place] % (Auto) Eos % (Auto) Baso % (Auto) Absolute Neuts (auto) Absolute Lymphs (auto) Total Counted Platelet Estimate Plt Morphology Comment Eos Smear Total Cells PT INR APTT Fibrinogen Sodium Potassium Chloride Carbon Dioxide Anion Gap BUN Creatinine Estim Creat Clear Calc Est GFR (MDRD) Af Amer Est GFR (MDRD) Non-Af BUN/Creatinine Ratio Glucose Hemoglobin A1c Lactic Acid Calcium Ionized Calcium Phosphorus Magnesium Total Bilirubin AST ALT Alkaline Phosphatase Total Protein Albumin Globulin Albumin/Globulin Ratio Lipase TSH Free T4 Urine Color Urine Clarity Urine pH Ur Specific [place] Urine Protein Urine Glucose (UA) Urine Ketones Urine Occult Blood Urine Nitrite Urine Bilirubin Urine Urobilinogen Ur Leukocyte Esterase Urine RBC Urine WBC Ur Squamous Epith Cells Urine Bacteria Urine Mucus Ur Random Sodium Urine Creatinine IgG Pending IgA Pending IgM Pending IgE Pending MRSA (PCR) POC Glucose 173 H 152 H 06/29/18 06/29/18 06/29/18 05:40 05:40 05:40 WBC 15.5 H RBC 3.44 L Hgb 10.0 L Hct 30.4 L MCV 88.4 MCH 29.1 MCHC 32.9 RDW 15.3 H RDW Differential 48.2 H Plt Count 77 L MPV 12.0 Immature Gran % (Auto) 0.500 Neut % (Auto) 88.7 H Lymph % (Auto) 4.9 L [place] % (Auto) 4.3 Eos % (Auto) 1.4 Baso % (Auto) 0.2 Absolute Neuts (auto) 13.7 H Absolute Lymphs (auto) 0.76 L Total Counted Not Reportable Platelet Estimate Plt Morphology Comment Eos Smear Total Cells PT 16.2 H INR 1.3 APTT Fibrinogen Sodium 135 L Potassium 3.2 L Chloride 101 Carbon Dioxide 18.0 L Anion Gap 16 H BUN 66 H Creatinine 6.47 H Estim Creat Clear Calc 10.68 Est GFR (MDRD) Af Amer 9 L Est GFR (MDRD) Non-Af 7 L BUN/Creatinine Ratio 10.2 Glucose 143 H Hemoglobin A1c Lactic Acid Calcium 6.9 L Ionized Calcium Phosphorus 5.2 H Magnesium 2.3 Total Bilirubin 0.30 AST 30 ALT 16 Alkaline Phosphatase 116 Total Protein 6.4 Albumin 1.8 L Globulin 4.6 H Albumin/Globulin Ratio 0.4 L Lipase TSH Free T4 Urine Color Urine Clarity Urine pH Ur Specific [place] Urine Protein Urine Glucose (UA) Urine Ketones Urine Occult Blood Urine Nitrite Urine Bilirubin Urine Urobilinogen Ur Leukocyte Esterase Urine RBC Urine WBC Ur Squamous Epith Cells Urine Bacteria Urine Mucus Ur Random Sodium Urine Creatinine IgG IgA IgM IgE MRSA (PCR) POC Glucose 06/29/18 05:49 WBC RBC Hgb Hct MCV MCH MCHC RDW RDW Differential Plt Count MPV Immature Gran % (Auto) Neut % (Auto) Lymph % (Auto) [place] % (Auto) Eos % (Auto) Baso % (Auto) Absolute Neuts (auto) Absolute Lymphs (auto) Total Counted Platelet Estimate Plt Morphology Comment Eos Smear Total Cells PT INR APTT Fibrinogen Sodium Potassium Chloride Carbon Dioxide Anion Gap BUN Creatinine Estim Creat Clear Calc Est GFR (MDRD) Af Amer Est GFR (MDRD) Non-Af BUN/Creatinine Ratio Glucose Hemoglobin A1c Lactic Acid Calcium Ionized Calcium Phosphorus Magnesium Total Bilirubin AST ALT Alkaline Phosphatase Total Protein Albumin Globulin Albumin/Globulin Ratio Lipase TSH Free T4 Urine Color Urine Clarity Urine pH Ur Specific [place] Urine Protein Urine Glucose (UA) Urine Ketones Urine Occult Blood Urine Nitrite Urine Bilirubin Urine Urobilinogen Ur Leukocyte Esterase Urine RBC Urine WBC Ur Squamous Epith Cells Urine Bacteria Urine Mucus Ur Random Sodium Urine Creatinine IgG IgA IgM IgE MRSA (PCR) POC Glucose 137 H Microbiology 06/28/18 00:55 Blood Culture (Wb) - Anticubital Left Bacteria Detection (PCR) - Final Staphylococcus epidermidis 06/28/18 00:55 Blood Culture (Wb) - Anticubital Left Blood Culture - Preliminary 06/28/18 12:20 Stool C. difficile DNA Amplification - Final 06/28/18 01:05 Blood Culture (Wb) - Anticubital Right Blood Culture - Preliminary 06/28/18 07:54 Mucosa - Nasopharyngeal Respiratory Panel (PCR) - Final 06/28/18 08:40 Urine Catheter - Herr Legionella Antigen - Final 06/28/18 08:40 Urine Catheter - Herr Streptococcus pneumoniae Antigen (M - Final Clinical Impression(s) from Imaging Studies Chest X-Ray 06/28/18 02:45 IMPRESSION: Mild cardiomegaly. Bibasilar opacities representing either areas of atelectatic changes or pneumonia. A central line through the right internal jugular vein has its tip in the superior vena cava. Electronically Signed: Dylan Greenfield MD at 3:42 EST Tel , Service support , Renal Ultrasound 06/28/18 07:17 IMPRESSION: 1. Minimal fullness of the right renal pelvis. 2. No evidence of hydronephrosis. Electronically Signed: Theo Chris MD at 15:46 EST Tel , Service support , Abdomen/Pelvis CT 06/28/18 23:41 IMPRESSION: 1. Hepatomegaly. 2. No CT evidence of acute intra-abdominal disease. 3. Fluid-filled colon is consistent with history of diarrhea. Electronically Signed: Devi Whipple MD at 2:00 EST , Service support , Medical Necessity - Tobacco Use Smoking Status: Never smoker Assessment/Plan All Active Problems Septic shock (Acute) ROCKY (acute kidney injury) (Acute) Acute chest pain (Acute) Cellulitis of right abdominal wall (Resolved) Open wound of abdominal wall (Resolved) Pulmonary emboli (Resolved) RECOMMENDATIONS: 1. Continue broad-spectrum antibiotics. Okay to discontinue vancomycin from my perspective. 2. Obtain repeat blood cultures. 3. Continue gentle IV fluid hydration to offset insensible losses and until p.o. intake increases. 4. Obtain nephrology consultation 5. Continue ICS and bronchodilators 6. Continue nocturnal BiPAP therapy. 7. Continue appropriate ICU prophylaxis IMPRESSIONS: 1. Septic shock secondary to pyelonephritis/gram-negative bacteremia/presu mptive viral gastroenteritis The patient responded appropriately to broad-spectrum antibiotics and IV volume resuscitation, along with stabilization of hemodynamics with the transient use of vasopressor support. She is no longer requiring Levophed. She is currently afebrile with improving white count. Suspect the patient had potential viral gastroenteritis with the subsequent development of cystitis/pyelonephritis and bacteremia. Antibiotics can be de-escalated once sensitivities have been obtained. 2. Acute kidney injury Workup is in process. The patient has likely developed an ATN picture secondary to prerenal etiology in the setting of #1. In addition, she may also have an obstructive etiology, as her Herr catheter became clogged with clot and cellular material, necessitating its removal overnight. Regardless, given that the patient's creatinine has increased to greater than 6, will obtain nephrology consultation. 3. Hypokalemia Additional electrolyte repletion underway. Magnesium is within normal limits. Continue to monitor and replete as necessary. 4. History of heart failure with preserved ejection fraction The patient does not appear overtly volume overloaded at this time. Respiratory status is stable. Discontinue supplemental IV fluids, once p.o. intake is increased. 5. Personal history of prior venous thromboembolic disease/obstructive sleep apnea/asthma/hypothyroidism/hyperlipidemia/hypertension/diabetes mellitus Complicates care, management, recovery and prognosis. Continue nocturnal BiPAP therapy. Okay to continue home medications from my perspective. This note was generated with [employer] dictation software. It may contain incorrect words, spelling, and punctuation that were not noted in checking the note before signing. Code Visit Inpatient E&M: 06327 [facility] Hosp L3
--- NOTE | 2018-06-29 07:40 | PN_ITS ---
Patient Problems: Active and Suspected Problems Septic shock (Acute) ROCKY (acute kidney injury) (Acute) Subjective: Patient is a 43-year-old female with a past medical history of hypothyroidism, DiGiorgio syndrome, superobesity, hypertension, asthma, hyperlipidemia, obstructive sleep apnea treated with BiPAP and diabetes mellitus type 2 who presented to the emergency department at [facility] early in the a.m. of 06/28/2018 complaining of nausea, vomiting and diarrhea. She was hypotensive at presentation with a blood pressure of 70/50. She remained hypotensive after appropriate IV fluids and was placed on Levophed. Lactic acid was elevated at 3.5. UA showed 50-100 WBCs per high-power field. CT scan of th e abdomen and pelvis showed a fluid-filled colon. She was admitted to the intensive care unit with a diagnosis of septic shock secondary to pyelonephritis. She was placed on meropenem and vancomycin. All events the past 24 hours of been reviewed. Tmax 104 ?F. Current temp 98.4. Current blood pressure is 104/71 but MAP has been marginal at 65 over the past few hours and she is lying down. Pulse ox is 100% on 35% FiO2 on BiPAP. Fluid balance on 06/28/2018 is +2949. She does not have a Herr catheter and has been incontinent of urine. White blood cell count today is down to 15.5. Hemoglobin is 10 today. Platelets are down to 77,000. PT is 16.2, down from 17.8 yesterday. Fibrinogen was greater than 900. Potassium is low today at 3.2 and serum bicarb is low at 18. Creatinine has increased to 6.47 and the BUN is 66. Phosphorous is 5.2. Fractional excretion of sodium is 3.28%. Blood cultures are growing gram-negative rods. Respiratory panel is negative. Streptococcal and Legionella antigens are negative. C. difficile is negative. Enteric pathogen panel is pending. Dr. Ohara has been placed on consult. Denies pain. Denies nausea. Has had no emesis. Diarrhea has stopped. Denies shortness of breath. States she is hungry Objective: General: Alert, cooperative, able to follow commands, oriented X 3 HEENT: PERRLA, EOMI, Atraumatic, normocephalic, no scleral icterus Lungs: CTA, symmetric chest expansion, no conversational dyspnea, no accessory muscle use, diminished throughout Heart: Reg, no MM, no gallop, no rub, normal S1, normal S2, tachycardic with the rail walker showing ST with no significant ventricular ectopy Abdomen: Soft, nontender, nondistended, normal and not hyperactive bowel sounds present, no guarding with palpation, no masses, no hepatosplenomegaly, obese Extremities: + Edema, no clubbing, no cyanosis, peripheral pulses diminished Neuro: Cranial nerves II through XII grossly intact, Neuro grossly intact, no focal neurologic deficits Skin: Warm and dry, no wounds, no rashes, no jaundice Psych: Normal affect, Appropriate - Physical Exam Vital Signs Temp Pulse Resp BP Pulse Ox 98.4 F 97 19 H 104/71 100 06/29/18 04:00 06/29/18 07:10 06/29/18 07:10 06/29/18 06:00 06/29/18 07:08 Oxygen Flow Rate (L/min) 3 Oxygen Delivery Method Bi-pap Weight: 265 lb 10.512 oz Body Mass Index (BMI) 51.9 Finger Stick Blood Glucose 126 Intake and Output for Last 24 Hours 06/27/18 06/28/18 06/29/18 23:59 23:59 23:59 Intake Total 3324.1 / 3324.1 2035 Output Total 375 / 375 Balance 2949.1 / 2949.1 2035 Microbiology Past 72 Hours 06/28/18 00:55 Bacteria Detection (PCR) - Final Blood Culture (Wb) - Anticubital Left Staphylococcus epidermidis Blood Culture - Preliminary 06/28/18 12:20 C. difficile DNA Amplification - Final Stool 06/28/18 01:05 Blood Culture - Preliminary Blood Culture (Wb) - Anticubital Right 06/28/18 07:54 Respiratory Panel (PCR) - Final Mucosa - Nasopharyngeal 06/28/18 08:40 Legionella Antigen - Final Urine Catheter - Herr 06/28/18 08:40 Streptococcus pneumoniae Antigen (M - Final Urine Catheter - Herr Laboratory Tests Past 24 Hrs 06/28/18 06/28/18 06/28/18 04:35 04:35 04:35 WBC RBC Hgb Hct MCV MCH MCHC RDW RDW Differential Plt Count MPV Immature Gran % (Auto) Neut % (Auto) Lymph % (Auto) [place] % (Auto) Eos % (Auto) Baso % (Auto) Absolute Neuts (auto) Absolute Lymphs (auto) Total Counted Eos Smear Total Cells PT INR Fibrinogen Sodium Potassium Chloride Carbon Dioxide Anion Gap BUN Creatinine Estim Creat Clear Calc Est GFR (MDRD) Af Amer Est GFR (MDRD) Non-Af BUN/Creatinine Ratio Glucose Hemoglobin A1c 7.9 H Calcium Phosphorus 3.3 Magnesium 1.3 L Total Bilirubin AST ALT Alkaline Phosphatase Total Protein Albumin Globulin Albumin/Globulin Ratio TSH Free T4 Ur Random Sodium Urine Creatinine IgG IgA IgM IgE MRSA (PCR) 06/28/18 06/28/18 06/28/18 04:35 04:40 08:40 WBC RBC Hgb Hct MCV MCH MCHC RDW RDW Differential Plt Count MPV Immature Gran % (Auto) Neut % (Auto) Lymph % (Auto) [place] % (Auto) Eos % (Auto) Baso % (Auto) Absolute Neuts (auto) Absolute Lymphs (auto) Total Counted Eos Smear Total Cells Pending PT INR Fibrinogen Sodium Potassium Chloride Carbon Dioxide Anion Gap BUN Creatinine Estim Creat Clear Calc Est GFR (MDRD) Af Amer Est GFR (MDRD) Non-Af BUN/Creatinine Ratio Glucose Hemoglobin A1c Calcium Phosphorus Magnesium Total Bilirubin AST ALT Alkaline Phosphatase Total Protein Albumin Globulin Albumin/Globulin Ratio TSH 2.92 Free T4 1.14 Ur Random Sodium Urine Creatinine IgG IgA IgM IgE MRSA (PCR) Negative 06/28/18 06/28/18 06/28/18 08:40 08:40 13:50 WBC RBC Hgb Hct MCV MCH MCHC RDW RDW Differential Plt Count MPV Immature Gran % (Auto) Neut % (Auto) Lymph % (Auto) [place] % (Auto) Eos % (Auto) Baso % (Auto) Absolute Neuts (auto) Absolute Lymphs (auto) Total Counted Eos Smear Total Cells PT INR Fibrinogen > 900 H Sodium Potassium Chloride Carbon Dioxide Anion Gap BUN Creatinine Estim Creat Clear Calc Est GFR (MDRD) Af Amer Est GFR (MDRD) Non-Af BUN/Creatinine Ratio Glucose Hemoglobin A1c Calcium Phosphorus Magnesium Total Bilirubin AST ALT Alkaline Phosphatase Total Protein Albumin Globulin Albumin/Globulin Ratio TSH Free T4 Ur Random Sodium 108 Urine Creatinine 136.00 IgG IgA IgM IgE MRSA (PCR) 06/28/18 06/29/18 06/29/18 13:50 05:40 05:40 WBC 15.5 H RBC 3.44 L Hgb 10.0 L Hct 30.4 L MCV 88.4 MCH 29.1 MCHC 32.9 RDW 15.3 H RDW Differential 48.2 H Plt Count 77 L MPV 12.0 Immature Gran % (Auto) 0.500 Neut % (Auto) 88.7 H Lymph % (Auto) 4.9 L [place] % (Auto) 4.3 Eos % (Auto) 1.4 Baso % (Auto) 0.2 Absolute Neuts (auto) 13.7 H Absolute Lymphs (auto) 0.76 L Total Counted Not Reportable Eos Smear Total Cells PT 16.2 H INR 1.3 Fibrinogen Sodium Potassium Chloride Carbon Dioxide Anion Gap BUN Creatinine Estim Creat Clear Calc Est GFR (MDRD) Af Amer Est GFR (MDRD) Non-Af BUN/Creatinine Ratio Glucose Hemoglobin A1c Calcium Phosphorus Magnesium Total Bilirubin AST ALT Alkaline Phosphatase Total Protein Albumin Globulin Albumin/Globulin Ratio TSH Free T4 Ur Random Sodium Urine Creatinine IgG Pending IgA Pending IgM Pending IgE Pending MRSA (PCR) 06/29/18 05:40 WBC RBC Hgb Hct MCV MCH MCHC RDW RDW Differential Plt Count MPV Immature Gran % (Auto) Neut % (Auto) Lymph % (Auto) [place] % (Auto) Eos % (Auto) Baso % (Auto) Absolute Neuts (auto) Absolute Lymphs (auto) Total Counted Eos Smear Total Cells PT INR Fibrinogen Sodium 135 L Potassium 3.2 L Chloride 101 Carbon Dioxide 18.0 L Anion Gap 16 H BUN 66 H Creatinine 6.47 H Estim Creat Clear Calc 10.68 Est GFR (MDRD) Af Amer 9 L Est GFR (MDRD) Non-Af 7 L BUN/Creatinine Ratio 10.2 Glucose 143 H Hemoglobin A1c Calcium 6.9 L Phosphorus 5.2 H Magnesium 2.3 Total Bilirubin 0.30 AST 30 ALT 16 Alkaline Phosphatase 116 Total Protein 6.4 Albumin 1.8 L Globulin 4.6 H Albumin/Globulin Ratio 0.4 L TSH Free T4 Ur Random Sodium Urine Creatinine IgG IgA IgM IgE MRSA (PCR) POC Glucose 06/29/18 06/28/18 06/28/18 05:49 22:58 17:01 POC Glucose 137 H 152 H 173 H 06/28/18 10:37 POC Glucose 210 H Medical Necessity - Tobacco Use Smoking Status: Never smoker Assessment/Plan All Active Problems Septic shock (Acute) ROCKY (acute kidney injury) (Acute) Acute chest pain (Acute) Cellulitis of right abdominal wall (Resolved) Open wound of abdominal wall (Resolved) Pulmonary emboli (Resolved) Day #2 vancomycin and meropenem Impressions 1. septic shock due to pyelonephritis with GM negative bacteremia - 2 of 2 BC's + for GM negative rods and 1 of the 2 is positive for staph epidermidis. 2. Pyelonephritis 3. liquid diarrhea in a pt recently on antibiotics - C. Diff 4. Perforated TM - was likely being treated for otitis media prior to admission 5. DM II-not optimally controlled, hemoglobin A1c is 7.9 6. VENANCIO - on BIPAP 7. super obesity 8. Hypothyroidism-TSH and free T4 are within normal limits. 9. DiGeorge syndrome 10. Hypertension 11. Asthma 12. Hyperlipidemia 13. Anxiety 14. Hypomagnesemia 15. Hypokalemia 16. Acute renal failure - etiology? W/U in progress 17. Atelectasis vs Pneumonia in the bases 18. Hyperphosphatemia 19. Hypoalbuminemia 20. Acute renal failure-fractional excretion of sodium is 3.28% which is not consistent with prerenal azotemia-she may have started with dehydration and progressed to acute tubular necrosis. Kidneys appeared normal on the CT scan renal ultrasound shows both kidneys to be of normal size and there is minimal fullness of the right renal pelvis but no evidence of hydronephrosis. Immunoglobulin electrophoresis and quantitative immunoglobulin is pending Supplement potassium Dr. Watts has been consulted to participate in management - I suspect she will need dialysis Recheck lab in the a.m. Up in a chair today/PT Continue to monitor blood pressures closely-especially when sitting or standing Continue meropenem Await the results of the enteric pathogen panel Advance diet Serum calcium when corrected for low albumin is within normal limits Herr catheter was clogged with mucus and cellular debris and had to be removed last night.. She has been incontinent of large amount of urine twice since then. Repeat blood cultures Blood sugars are well controlled-we will continue with the same insulin regimen change the Accu-Cheks to before meals and at bedtime..... May need to increase insulin since she is going to start on a diet. Code Visit Inpatient E&M: [id number] [facility] Hosp L3
[2018-06-29] MEDS: 0.9% NaCl Midline IV Flush IV ×2 (09:40→13:40)
[2018-06-29] MEDS: Insulin Lispro 100 UNIT/ML INSULN.PEN SQ ×2 (11:30→16:36)
[2018-06-29 11:35] LABS: Bedside Glucose 171 mg/dL (70-110)
--- NOTE | 2018-06-29 15:49 | PCM.CONS.R ---
Problem List (1) ROCKY (acute kidney injury) Status: Acute Consultation - Renal 06/29/18 PCP/ Referring MD: Requesting physician: Dr Hope/Mario Primary care physician: Armen Crowder MD Reason for Consultation:: ROCKY - History of Present Illness History of Present Illness: The patient is a 43 year old F with PMH as below. presented with nausea, vomitings and diarrhea for 5 days. one of her family members is sick with same symptoms. no prior baseline kidney problems. no recent changes in medications. no contrast in house. No NSAIDs. was in severe sepsis with hypotension requiring pressors yesterday, off pressors today. work up so far UA - dirty, urine culture pending blood culture - staph epidermidis, likely contamination CXR ? atelectasis CT abd and renal USg - hepatomegaly, ? right sided hydro currently denies any new complaints still has diarrhea - Allergies Allergies: Allergies azithromycin [From Zithromax] Allergy (Verified 06/27/18 22:34) Unknown levofloxacin [From Levaquin] Allergy (Verified 06/27/18 22:34) Rash Penicillins Allergy (Verified 06/27/18 22:34) Unknown - Current Medications Current Medications: Current Medications Acetaminophen (Tylenol) 650 mg PO Q6H PRN PRN PRN Reason: FEVER Last Admin: 06/28/18 23:52 Dose: 650 mg Albuterol Sulfate (Ventolin Aerosols) 2.5 mg INHALATION Q2H PRN PRN PRN Reason: SOB/WHEEZING Albuterol Sulfate (Ventolin Aerosols) 2.5 mg INHALATION Q6HWA.RT [facility] Last Admin: 06/29/18 13:08 Dose: 2.5 mg Atorvastatin Calcium (Lipitor) 40 mg PO QHS [facility] Last Admin: 06/28/18 23:00 Dose: 40 mg Budesonide (Pulmicort Aerosol) 0.5 mg INHALATION Q12H.RT [facility] Last Admin: 06/29/18 07:07 Dose: 0.5 mg Buspirone HCl (Buspar) 5 mg PO TID [facility] Last Admin: 06/29/18 13:40 Dose: 5 mg Heparin Sodium (Porcine) (Heparin Na) 5,000 unit SC Q8 [facility] Last Admin: 06/29/18 13:39 Dose: 5,000 unit Sodium Chloride () 250 mls @ 15 mls/hr IV .[id number] PRN PRN Reason: SALINE FLUSH Last Admin: 06/28/18 11:00 Dose: 15 mls/hr Meropenem 500 mg/ Sodium (Chloride) 60 mls @ 100 mls/hr IV Q12 [facility] Last Admin: 06/29/18 09:40 Dose: 100 mls/hr Sodium Chloride () 1,000 mls @ 100 mls/hr IV .Q10H [facility] Insulin Glargine (Lantus (Bkc)) 10 units SC BID [facility] Last Admin: 06/29/18 09:40 Dose: 10 units Insulin Human Lispro (Humalog Kwikpen (Bkc)) 0 unit SQ ACHS [facility]; Protocol Last Admin: 06/29/18 11:30 Dose: 3 units Levothyroxine Sodium (Synthroid) 50 mcg PO DAILY@0600 [facility] Last Admin: 06/29/18 05:53 Dose: 50 mcg Potassium Chloride (K-Dur) 20 meq PO BIDCM [facility] Stop: 06/29/18 17:01 Last Admin: 06/29/18 09:39 Dose: 20 meq Promethazine HCl (Phenergan) 12.5 mg IV Q4H PRN PRN PRN Reason: NAUSEA/VOMITING Last Admin: 06/28/18 23:52 Dose: 12.5 mg Sodium Chloride () 5 - 15 ml IV UD PRN PRN Reason: SALINE FLUSH Last Admin: 06/28/18 13:10 Dose: 10 ml Sodium Chloride () 10 - 20 ml IV UD PRN PRN Reason: Midline Flush Last Admin: 06/29/18 13:40 Dose: 20 ml - Past Medical History Past Medical History (Chronic Problems): Chronic Problems Hypothyroidism (Chronic) DiGeorge syndrome (Chronic) Obesity hypoventilation syndrome (Chronic) HTN (hypertension) (Chronic) Asthma (Chronic) Super obesity (Chronic) Hyperlipidemia (Chronic) VENANCIO treated with BiPAP (Chronic) Diabetes mellitus type 2 in obese (Chronic) new diagnosis - Past Surgical History Surgical History: cholecystectomy, total knee arthroplasty, tonsillectomy, - - Ear tubes, right knee surgery s/p fx - Social History Smoking Status: Never smoker Alcohol: None - Family History Maternal History Items: Cancer - She reports that her mother had cervical cancer., No pertinent history Paternal History Items: Heart Disease - She reported father had heart attack and a pacemaker. Review of Systems HEENT: Denies: Head Aches, Sinus Congestion, Sinus Drainage Cardiovascular: Denies: Chest Pain, Palpitations Respiratory: Denies: Cough, Shortness of breath at rest, Sputum production Genitourinary: Denies: Dysuria Musculoskeletal: Denies: Joint Pain, Joint Tenderness Skin: Denies: Rash, Wounds Neurological: Denies: Numbness, Tingling, Focal weakness Psychiatric: Denies: Anxiety, Depression, Homicidal Ideations, Suicidal Ideations Hematologic/ Lymphatic: Denies: Easy Bruising, Easy Bleeding Patient Problems: Active and Suspected Problems Septic shock (Acute) ROCKY (acute kidney injury) (Acute) - Physical Exam General: Alert, Oriented x3, Cooperative HEENT: Atraumatic, PERRLA, EOMI, Normocephalic Neck: Supple, No JVD, Negative Carotid Bruits Lungs: Clear to auscultation, Normal air movement Cardiovascular: Regular rate, No murmurs Abdomen: Bowel Sounds Present, Soft, Non Tender Extremities: No edema, Capillary Refill Less than 3 Seconds Skin: No rashes, No breakdown Musculoskeletal: No Tenderness to Palpation of Joints or Extremities Neurological: Cranial nerves II-XII grossly intact Psych/Mental Status: Normal Affect, Appropriate Vital Signs Temp Pulse Resp BP Pulse Ox 99.2 F H 104 H 18 91/62 94 06/29/18 13:35 06/29/18 15:00 06/29/18 13:35 06/29/18 13:35 06/29/18 13:35 Oxygen Flow Rate (L/min) 3 Oxygen Delivery Method Room Air Weight: 120.5 kg Body Mass Index (BMI) 51.9 Finger Stick Blood Glucose 126 Intake and Output for Last 24 Hours 06/27/18 06/28/18 06/29/18 23:59 23:59 23:59 Intake Total 3324.1 / 3324.1 3159 / 3159 Output Total 375 / 375 750 / 750 Balance 2949.1 / 2949.1 2409 / 2409 Microbiology Past 72 Hours 06/28/18 01:00 Urine Culture - Preliminary Urine Catheter - Catheter GNR lactose chandelier maker 06/28/18 00:55 Bacteria Detection (PCR) - Final Blood Culture (Wb) - Anticubital Left Staphylococcus epidermidis Blood Culture - Preliminary GNR lactose chandelier maker Staphylococcus epidermidis 06/28/18 01:05 Blood Culture - Preliminary Blood Culture (Wb) - Anticubital Right 06/28/18 12:20 C. difficile DNA Amplification - Final Stool 06/28/18 07:54 Respiratory Panel (PCR) - Final Mucosa - Nasopharyngeal 06/28/18 08:40 Legionella Antigen - Final Urine Catheter - Arroyo 06/28/18 08:40 Streptococcus pneumoniae Antigen (M - Final Urine Catheter - Arroyo Laboratory Tests Past 24 Hrs 06/29/18 06/29/18 06/29/18 05:40 05:40 05:40 WBC 15.5 H RBC 3.44 L Hgb 10.0 L Hct 30.4 L MCV 88.4 MCH 29.1 MCHC 32.9 RDW 15.3 H RDW Differential 48.2 H Plt Count 77 L MPV 12.0 Immature Gran % (Auto) 0.500 Neut % (Auto) 88.7 H Lymph % (Auto) 4.[address] [place] % (Auto) 4.3 Eos % (Auto) 1.4 Baso % (Auto) 0.2 Absolute Neuts (auto) 13.7 H Absolute Lymphs (auto) 0.76 L Total Counted Not Reportable PT 16.2 H INR 1.3 Sodium 135 L Potassium 3.2 L Chloride 101 Carbon Dioxide 18.0 L Anion Gap 16 H BUN 66 H Creatinine 6.47 H Estim Creat Clear Calc 10.68 Est GFR (MDRD) Af Amer 9 L Est GFR (MDRD) Non-Af 7 L BUN/Creatinine Ratio 10.2 Glucose 143 H Calcium 6.9 L Phosphorus 5.2 H Magnesium 2.3 Total Bilirubin 0.30 AST 30 ALT 16 Alkaline Phosphatase 116 Total Protein 6.4 Albumin 1.8 L Globulin 4.6 H Albumin/Globulin Ratio 0.4 L POC Glucose 06/29/18 06/29/18 06/28/18 11:23 05:49 22:58 POC Glucose 171 H 137 H 152 H 06/28/18 17:01 POC Glucose 173 H Assessment/Plan All Active Problems Septic shock (Acute) ROCKY (acute kidney injury) (Acute) Acute chest pain (Acute) Cellulitis of right abdominal wall (Resolved) Open wound of abdominal wall (Resolved) Pulmonary emboli (Resolved) ROCKY. normal baseline. UA is dirty. issues with arroyo and measuring urine output. yesterday she had a arroyo in, apparently was having a lot of mucus/blood clots. pulled out. currently she has an external drain with urine and stool collected. no obvious blood. CT and and renal USG with no hydronephrosis. ROCKY is likely ischemic ATN given severe hypotension. received IV fluids now off. continue to have significant diarrhea. will resume IV fluids as her volume status looks reasonable. creatinine is worsening. hold off [employer] for today. if she continues to get worse she may need dialysis on a temporary basis Serology reviewed. corrected Ca is borderline high. she also has significantly high globulins. UA accuracy is doubtful. [facility] Hope
--- NOTE | 2018-06-29 15:55 | CON.PCM_ITS ---
Problem List (1) ROCKY (acute kidney injury) Status: Acute Consultation - Renal 06/29/18 PCP/ Referring MD: Requesting physician: Dr Hope/Mario Primary care physician: Armen Crowder MD Reason for Consultation:: ROCKY - History of Present Illness History of Present Illness: The patient is a 43 year old F with PMH as below. presented with nausea, vomitings and diarrhea for 5 days. one of her family members is sick with same symptoms. no prior baseline kidney problems. no recent changes in medications. no contrast in house. No NSAIDs. was in severe sepsis with hypotension requiring pressors yesterday, off pressors today. work up so far UA - dirty, urine culture pending blood culture - staph epidermidis, likely contamination CXR ? atelectasis CT abd and renal USg - hepatomegaly, ? right sided hydro currently denies any new complaints still has diarrhea - Allergies Allergies: Allergies azithromycin [From Zithromax] Allergy (Verified 06/27/18 22:34) Unknown levofloxacin [From Levaquin] Allergy (Verified 06/27/18 22:34) Rash Penicillins Allergy (Verified 06/27/18 22:34) Unknown - Current Medications Current Medications: Current Medications Acetaminophen (Tylenol) 650 mg PO Q6H PRN PRN PRN Reason: FEVER Last Admin: 06/28/18 23:52 Dose: 650 mg Albuterol Sulfate (Ventolin Aerosols) 2.5 mg INHALATION Q2H PRN PRN PRN Reason: SOB/WHEEZING Albuterol Sulfate (Ventolin Aerosols) 2.5 mg INHALATION Q6HWA.RT [facility] Last Admin: 06/29/18 13:08 Dose: 2.5 mg Atorvastatin Calcium (Lipitor) 40 mg PO QHS [facility] Last Admin: 06/28/18 23:00 Dose: 40 mg Budesonide (Pulmicort Aerosol) 0.5 mg INHALATION Q12H.RT [facility] Last Admin: 06/29/18 07:07 Dose: 0.5 mg Buspirone HCl (Buspar) 5 mg PO TID [facility] Last Admin: 06/29/18 13:40 Dose: 5 mg Heparin Sodium (Porcine) (Heparin Na) 5,000 unit SC Q8 [facility] Last Admin: 06/29/18 13:39 Dose: 5,000 unit Sodium Chloride () 250 mls @ 15 mls/hr IV .[id number] PRN PRN Reason: SALINE FLUSH Last Admin: 06/28/18 11:00 Dose: 15 mls/hr Meropenem 500 mg/ Sodium (Chloride) 60 mls @ 100 mls/hr IV Q12 BALDEMAR Last Admin: 06/29/18 09:40 Dose: 100 mls/hr Sodium Chloride () 1,000 mls @ 100 mls/hr IV .Q10H BALDEMAR Insulin Glargine (Lantus (Bkc)) 10 units SC BID [facility] Last Admin: 06/29/18 09:40 Dose: 10 units Insulin Human Lispro (Humalog Kwikpen (Bkc)) 0 unit SQ ACHS [facility]; Protocol Last Admin: 06/29/18 11:30 Dose: 3 units Levothyroxine Sodium (Synthroid) 50 mcg PO DAILY@0600 [facility] Last Admin: 06/29/18 05:53 Dose: 50 mcg Potassium Chloride (K-Dur) 20 meq PO BIDCM [facility] Stop: 06/29/18 17:01 Last Admin: 06/29/18 09:39 Dose: 20 meq Promethazine HCl (Phenergan) 12.5 mg IV Q4H PRN PRN PRN Reason: NAUSEA/VOMITING Last Admin: 06/28/18 23:52 Dose: 12.5 mg Sodium Chloride () 5 - 15 ml IV UD PRN PRN Reason: SALINE FLUSH Last Admin: 06/28/18 13:10 Dose: 10 ml Sodium Chloride () 10 - 20 ml IV UD PRN PRN Reason: Midline Flush Last Admin: 06/29/18 13:40 Dose: 20 ml - Past Medical History Past Medical History (Chronic Problems): Chronic Problems Hypothyroidism (Chronic) DiGeorge syndrome (Chronic) Obesity hypoventilation syndrome (Chronic) HTN (hypertension) (Chronic) Asthma (Chronic) Super obesity (Chronic) Hyperlipidemia (Chronic) VENANCIO treated with BiPAP (Chronic) Diabetes mellitus type 2 in obese (Chronic) new diagnosis - Past Surgical History Surgical History: cholecystectomy, total knee arthroplasty, tonsillectomy, - - Ear tubes, right knee surgery s/p fx - Social History Smoking Status: Never smoker Alcohol: None - Family History Maternal History Items: Cancer - She reports that her mother had cervical cancer., No pertinent history Paternal History Items: Heart Disease - She reported father had heart attack and a pacemaker. Review of Systems HEENT: Denies: Head Aches, Sinus Congestion, Sinus Drainage Cardiovascular: Denies: Chest Pain, Palpitations Respiratory: Denies: Cough, Shortness of breath at rest, Sputum production Genitourinary: Denies: Dysuria Musculoskeletal: Denies: Joint Pain, Joint Tenderness Skin: Denies: Rash, Wounds Neurological: Denies: Numbness, Tingling, Focal weakness Psychiatric: Denies: Anxiety, Depression, Homicidal Ideations, Suicidal Ideations Hematologic/ Lymphatic: Denies: Easy Bruising, Easy Bleeding Patient Problems: Active and Suspected Problems Septic shock (Acute) ROCKY (acute kidney injury) (Acute) - Physical Exam General: Alert, Oriented x3, Cooperative HEENT: Atraumatic, PERRLA, EOMI, Normocephalic Neck: Supple, No JVD, Negative Carotid Bruits Lungs: Clear to auscultation, Normal air movement Cardiovascular: Regular rate, No murmurs Abdomen: Bowel Sounds Present, Soft, Non Tender Extremities: No edema, Capillary Refill Less than 3 Seconds Skin: No rashes, No breakdown Musculoskeletal: No Tenderness to Palpation of Joints or Extremities Neurological: Cranial nerves II-XII grossly intact Psych/Mental Status: Normal Affect, Appropriate Vital Signs Temp Pulse Resp BP Pulse Ox 99.2 F H 104 H 18 91/62 94 06/29/18 13:35 06/29/18 15:00 06/29/18 13:35 06/29/18 13:35 06/29/18 13:35 Oxygen Flow Rate (L/min) 3 Oxygen Delivery Method Room Air Weight: 120.5 kg Body Mass Index (BMI) 51.9 Finger Stick Blood Glucose 126 Intake and Output for Last 24 Hours 06/27/18 06/28/18 06/29/18 23:59 23:59 23:59 Intake Total 3324.1 / 3324.1 3159 / 3159 Output Total 375 / 375 750 / 750 Balance 2949.1 / 2949.1 2409 / 2409 Microbiology Past 72 Hours 06/28/18 01:00 Urine Culture - Preliminary Urine Catheter - Catheter GNR lactose rn family 06/28/18 00:55 Bacteria Detection (PCR) - Final Blood Culture (Wb) - Anticubital Left Staphylococcus epidermidis Blood Culture - Preliminary GNR lactose rn family Staphylococcus epidermidis 06/28/18 01:05 Blood Culture - Preliminary Blood Culture (Wb) - Anticubital Right 06/28/18 12:20 C. difficile DNA Amplification - Final Stool 06/28/18 07:54 Respiratory Panel (PCR) - Final Mucosa - Nasopharyngeal 06/28/18 08:40 Legionella Antigen - Final Urine Catheter - Arroyo 06/28/18 08:40 Streptococcus pneumoniae Antigen (M - Final Urine Catheter - Arroyo Laboratory Tests Past 24 Hrs 06/29/18 06/29/18 06/29/18 05:40 05:40 05:40 WBC 15.5 H RBC 3.44 L Hgb 10.0 L Hct 30.4 L MCV 88.4 MCH 29.1 MCHC 32.9 RDW 15.3 H RDW Differential 48.2 H Plt Count 77 L MPV 12.0 Immature Gran % (Auto) 0.500 Neut % (Auto) 88.7 H Lymph % (Auto) 4.9 L [place] % (Auto) 4.3 Eos % (Auto) 1.4 Baso % (Auto) 0.2 Absolute Neuts (auto) 13.7 H Absolute Lymphs (auto) 0.76 L Total Counted Not Reportable PT 16.2 H INR 1.3 Sodium 135 L Potassium 3.2 L Chloride 101 Carbon Dioxide 18.0 L Anion Gap 16 H BUN 66 H Creatinine 6.47 H Estim Creat Clear Calc 10.68 Est GFR (MDRD) Af Amer 9 L Est GFR (MDRD) Non-Af 7 L BUN/Creatinine Ratio 10.2 Glucose 143 H Calcium 6.9 L Phosphorus 5.2 H Magnesium 2.3 Total Bilirubin 0.30 AST 30 ALT 16 Alkaline Phosphatase 116 Total Protein 6.4 Albumin 1.8 L Globulin 4.6 H Albumin/Globulin Ratio 0.4 L POC Glucose 06/29/18 06/29/18 06/28/18 11:23 05:49 22:58 POC Glucose 171 H 137 H 152 H 06/28/18 17:01 POC Glucose 173 H Assessment/Plan All Active Problems Septic shock (Acute) ROCKY (acute kidney injury) (Acute) Acute chest pain (Acute) Cellulitis of right abdominal wall (Resolved) Open wound of abdominal wall (Resolved) Pulmonary emboli (Resolved) ROCKY. normal baseline. UA is dirty. issues with arroyo and measuring urine output. yesterday she had a arroyo in, apparently was having a lot of mucus/blood clots. pulled out. currently she has an external drain with urine and stool collected. no obvious blood. CT and and renal USG with no hydronephrosis. ROCKY is likely ischemic ATN given severe hypotension. received IV fluids now off. continue to have significant diarrhea. will resume IV fluids as her volume status looks reasonable. creatinine is worsening. hold off [employer] for today. if she continues to get worse she may need dialysis on a temporary basis Serology reviewed. corrected Ca is borderline high. she also has significantly high globulins. UA accuracy is doubtful. [facility] d/w Dr Hope
[2018-06-29] MEDS: 0.9% Normal Saline 1,000 ML 100 ML IV (16:37)
[2018-06-29 16:45] LABS: Bedside Glucose 161 mg/dL (70-110)
[2018-06-29] MEDS: Atorvastatin Calcium 40 MG Tablet PO (22:09)
[2018-06-29 23:47] LABS: Bedside Glucose 143 mg/dL (70-110)
[2018-06-30] VITALS (19 sets, daily range): BP systolic 107–125; BP diastolic 45–85; PULSE 72–108; RESP 12–24; TEMP 36.7–37.4; O2SAT 96–100
[2018-06-30] MEDS: 0.9% NaCl Peripheral Flush Adult/Peds IV (01:12)
[2018-06-30] MEDS: proMETHazine 25 MG/ML Syringe 12.5 MG IV ×2 (01:12→16:16)
[2018-06-30] MEDS: 0.9% Normal Saline 1,000 ML 100 ML IV ×2 (03:28→14:05)
[2018-06-30] MEDS: busPIRone 5 MG Tablet PO ×3 (05:22→21:02)
[2018-06-30] MEDS: Levothyroxine 50 MCG Tablet PO (05:22)
[2018-06-30] MEDS: Heparin Injection (Vial) 5,000 UNIT/ML VIAL 5000 UNIT SC ×3 (05:22→21:02)
[2018-06-30 05:55] LABS: Anion Gap 15 (5-15); BUN 72 mg/dL (7-18); BUN/Creat Ratio 10.8 RATIO (10-20); Calcium,Total 7.1 mg/dL (8.5-10.1); Chloride 102 mmol/L (98-107); Creatinine, Serum 6.67 mg/dL (0.55-1.02); EST Glomerular Filtration Rate 7 mL/min (>60); Est Glom Filt Rate - Afr Amer 9 mL/min (>60); Estimated Creatinine Clearance 10.36 ml/min; Glucose 156 mg/dL (74-106); Phosphorus 4.8 mg/dL (2.5-4.9); Potassium 3.2 mmol/L (3.5-5.1); Sodium Level 134 mmol/L (136-145)
[2018-06-30 06:13] LABS: Absolute Lymphocyte Count 0.73 X10^3/ul (0.83-4.51); Absolute Neutrophil Count 7.6 X10^3/uL (2.0-7.7); Basophil# 0.02 X10^3/uL; Basophil% 0.2 % (0-1); Eosinophil# 0.06 X10^3/uL; Eosinophils% 0.6 % (0-5); Hematocrit 29.7 % (37-47); Hemoglobin 9.6 g/dl (12.0-15.0); Lymphocyte # 0.73 X10^3/ul (4.0); Lymphocyte % 7.8 % (19-41); Mean Corp Hgb Conc 32.3 g/gl (32-36); Mean Corpuscular Hgb 28.2 pg (27.0-32.0); Mean Corpuscular Volume 87.1 fL (81-99); Mean Platelet Vol. 12.6 fl (6.2-12.0); Monocyte# 0.81 X10^3/uL; Monocyte% 8.7 % (0-10); Neutrophil # 7.64 X10^3/uL (2.7-7.7); Neutrophil % 81.8 % (47-70); Platelet Count 84 K/mm3 (150-450); RBC Distribution Width CV 15.6 % (11.6-14.6); Red Blood Count 3.41 M/mm3 (4.2-5.4); White Blood Count 9.3 K/mm3 (4.4-11.0)
[2018-06-30 06:26] LABS: POSITIVE COUNT NO; POSITIVE DIFFERENTIAL NO; POSITIVE MORPHOLOGY NO
[2018-06-30] MEDS: Albuterol 2.5 MG/3 ML VIAL.NEB. INHALATION ×3 (07:06→18:48)
[2018-06-30] MEDS: Budesonide Respules 0.5 MG/2 ML AMPUL.NEB. INHALATION ×2 (07:06→18:48)
--- NOTE | 2018-06-30 08:45 | CASEMGMT ---
Addendum entered by Ryan Bowman 06/30/18 09:36: Attempted to speak with pt. Continues to be asleep with Bipap therapy. Per nursing, pt difficult to communicate with @ times. BEBETO CHEW attempted to call mother, she is unable to come to phone per her . BEBETO CHEW attempted to call listed sister Anamika- no answer or machine. BEBETO CHEW will continue to follow and attempt assessment with pt or with family if they come to hospital. -per nephrology note, pt may need dialysis on temporary basis if creatinine does not improve. -Pt wears Bipap @ home @ HS. -Laurel SCOTT Original Note: BEBETO CHEW Note: Attempted to speak with pt. She is asleep with Bipap therapy on. Unable to participate in Assessment @ this time.No family available. Laurel SCOTT
--- NOTE | 2018-06-30 09:11 | PCM.PROGNOTE ---
Patient Problems: Active and Suspected Problems Septic shock (Acute) ROCKY (acute kidney injury) (Acute) Subjective: Chief complaint: Follow-up after admission for septic shock secondary to acute pyelonephritis, complicated by acute renal failure and E. coli/staph epididymis bacteremia. Patient seen and examined. No acute events overnight. Patient reported mild nausea, no vomiting. She denied abdominal pain. She has been having diarrhea. No chest pain or shortness of breath. She has been of dry overnight, heart rate has been 100, blood pressure stable, pulse ox is maintained on room air. Overnight, she has been on BiPAP for history of sleep apnea. - Physical Exam General: Alert, Oriented x3, Cooperative, No apparent distress HEENT: Atraumatic, PERRLA, EOMI, Normocephalic Oral: Moist Mucosa, No Gingival or Mucosal Lesions/ Ulcerations Neck: Supple, No JVD, Negative Carotid Bruits, Trachea Midline, Thyroid Normal Size and Texture Lungs: Clear to auscultation, No rhonchi, No wheeze, No rales, Diminished Cardiovascular: Regular rate, Regular Rhythm, Normal S1, Normal S2, PMI Normal, Tachycardic Abdomen: Bowel Sounds Present, Soft, Non-Distended, No Hepato-splenomegaly, Obese, Tender - Minimal tenderness. Extremities: No clubbing, No cyanosis, No edema Skin: No rashes, No breakdown Lymphatic: No Cervical, Supraclavicular, or Inguinal Adenopathy Neurological: Cranial nerves II-XII grossly intact, Motor Exam 5/5 strength throughout Psych/Mental Status: Normal Affect, Appropriate Vital Signs Temp Pulse Resp BP Pulse Ox 98.1 F 93 22 H 107/85 H 96 06/30/18 03:30 06/30/18 08:00 06/30/18 03:50 06/30/18 03:30 06/30/18 03:50 Oxygen Flow Rate (L/min) 3 Oxygen Delivery Method Bi-pap Weight: 341 lb 4.409 oz Body Mass Index (BMI) 51.9 Finger Stick Blood Glucose 126 Intake and Output for Last 24 Hours 06/28/18 06/29/18 06/30/18 23:59 23:59 23:59 Intake Total 3324.1 / 3324.1 3159 / 3159 2250 / 2250 Output Total 375 / 375 750 / 750 Balance 2949.1 / 2949.1 2409 / 2409 2250 / 2250 Microbiology Past 72 Hours 06/28/18 01:00 Urine Culture - Final Urine Catheter - Catheter Escherichia coli 06/28/18 01:05 Blood Culture - Final Blood Culture (Wb) - Anticubital Right Gram negative cristhian 06/28/18 00:55 Bacteria Detection (PCR) - Final Blood Culture (Wb) - Anticubital Left Staphylococcus epidermidis Blood Culture - Final Escherichia coli Staphylococcus epidermidis 06/28/18 12:20 C. difficile DNA Amplification - Final Stool 06/28/18 07:54 Respiratory Panel (PCR) - Final Mucosa - Nasopharyngeal 06/28/18 08:40 Legionella Antigen - Final Urine Catheter - Herr 06/28/18 08:40 Streptococcus pneumoniae Antigen (M - Final Urine Catheter - Herr Laboratory Tests Past 24 Hrs 06/30/18 06/30/18 06/30/18 05:30 05:30 05:30 WBC 9.3 RBC 3.41 L Hgb 9.6 L Hct 29.7 L MCV 87.1 MCH 28.2 MCHC 32.3 RDW 15.6 H RDW Differential 50.0 H Plt Count 84 L MPV 12.6 H Immature Gran % (Auto) 0.900 Neut % (Auto) 81.8 H Lymph % (Auto) 7.8 L [place] % (Auto) 8.7 Eos % (Auto) 0.6 Baso % (Auto) 0.2 Absolute Neuts (auto) 7.6 Absolute Lymphs (auto) 0.73 L Total Counted Not Reportable Sodium 134 L Potassium 3.2 L Chloride 102 Carbon Dioxide 17.0 L Anion Gap 15 BUN 72 H Creatinine 6.67 H Estim Creat Clear Calc 10.36 Est GFR (MDRD) Af Amer 9 L Est GFR (MDRD) Non-Af 7 L BUN/Creatinine Ratio 10.8 Glucose 156 H Calcium 7.1 L Phosphorus 4.8 Total Protein (PEP) Pending Albumin (PEP) Pending Globulin (PEP) Pending Albumin/Globulin (PEP) Pending [id number] Pending Qibzw-6-Hvvbwxwwt Pending Beta Globulins Pending Gamma Globulins Pending M-Bib Pending POC Glucose 06/29/18 06/29/18 06/29/18 22:01 16:35 11:23 POC Glucose 143 H 161 H 171 H Clinical Impression(s) from Imaging Studies Chest X-Ray 06/28/18 02:45 IMPRESSION: Mild cardiomegaly. Bibasilar opacities representing either areas of atelectatic changes or pneumonia. A central line through the right internal jugular vein has its tip in the superior vena cava. Electronically Signed: Dylan Greenfield MD at 3:42 EST Tel , Service support , Renal Ultrasound 06/28/18 07:17 IMPRESSION: 1. Minimal fullness of the right renal pelvis. 2. No evidence of hydronephrosis. Electronically Signed: Theo Chris MD at 15:46 EST Tel , Service support , Abdomen/Pelvis CT 06/28/18 23:41 IMPRESSION: 1. Hepatomegaly. 2. No CT evidence of acute intra-abdominal disease. 3. Fluid-filled colon is consistent with history of diarrhea. Electronically Signed: Devi Whipple MD at 2:00 EST , Service support , Medical Necessity - Tobacco Use Smoking Status: Never smoker Assessment/Plan All Active Problems Septic shock (Acute) ROCKY (acute kidney injury) (Acute) This is a 43 years old female patient admitted because of nausea, vomiting and diarrhea she was found to have septic shock secondary to acute pyelonephritis, complicated by acute renal failure and bacteremia. #1 septic shock: Secondary to acute pyelonephritis. She is on IV meropenem. She has been afebrile for more than 24 hours, leukocytosis resolved. Blood culture revealed staph epidermidis and E. coli, repeat blood cultures pending. Blood pressure has been maintained on IV fluids, no IV pressors required. Plan: Continue same treatment, follow repeat blood cultures, transfer to PCU. #2 E. coli acute pyelonephritis: She is on IV meropenem as above. She has been afebrile, leukocytosis resolved. Urine culture revealed E. coli that was pansensitive. Plan as above. #3 status of the abdomen/E. coli bacteremia: Likely source is the acute pyelonephritis. She is on IV meropenem as above. Blood culture and sensitivity reviewed. Repeat blood culture is pending. Plan to continue same treatment. #4 acute renal failure: Secondary to septic shock and hypoperfusion. Ultrasound kidneys and CT scan abdomen and pelvis revealed no evidence of acute obstructive uropathy, no kidney stones or hydronephrosis. Patient has been on IV fluids. Her creatinine continued to worsen, no improvement. She has been having diarrhea. Stool for C. difficile came back negative. Nephrology on the case, plan to continue same treatment, patient may need dialysis. #5 type 2 diabetes mellitus: She is on Lantus twice daily and sliding scale. Blood sugar has been under fair control. Patient has not been eating or drinking. Plan to encourage oral intake, start ADA diet, continue Lantus insulin if patient started to eat. #6 hypertension: Blood pressure stabilized. Norvasc and lisinopril held. #7 hypothyroidism: Continue levothyroxine. TSH was normal. #8 obstructive sleep apnea/obesity hypoventilation syndrome: Continue BiPAP nightly. #9 hyperlipidemia: Continue statins. #10 DVT prophylaxis: Subcu heparin. This note was generated with [facility] dictation software. It may contain incorrect words, spelling, and punctuation that were not noted in checking the note before signing. Code Visit Inpatient E&M: 06190 Subs Hosp L2
--- NOTE | 2018-06-30 09:14 | PN_ITS ---
Patient Problems: Active and Suspected Problems Septic shock (Acute) ROCKY (acute kidney injury) (Acute) Subjective: Chief complaint: Follow-up after admission for septic shock secondary to acute pyelonephritis, complicated by acute renal failure and E. coli/staph epididymis bacteremia. Patient seen and examined. No acute events overnight. Patient reported mild nausea, no vomiting. She denied abdominal pain. She has been having diarrhea. No chest pain or shortness of breath. She has been of dry overnight, heart rate has been 100, blood pressure stable, pulse ox is maintained on room air. Overnight, she has been on BiPAP for history of sleep apnea. - Physical Exam General: Alert, Oriented x3, Cooperative, No apparent distress HEENT: Atraumatic, PERRLA, EOMI, Normocephalic Oral: Moist Mucosa, No Gingival or Mucosal Lesions/ Ulcerations Neck: Supple, No JVD, Negative Carotid Bruits, Trachea Midline, Thyroid Normal Size and Texture Lungs: Clear to auscultation, No rhonchi, No wheeze, No rales, Diminished Cardiovascular: Regular rate, Regular Rhythm, Normal S1, Normal S2, PMI Normal, Tachycardic Abdomen: Bowel Sounds Present, Soft, Non-Distended, No Hepato-splenomegaly, Obese, Tender - Minimal tenderness. Extremities: No clubbing, No cyanosis, No edema Skin: No rashes, No breakdown Lymphatic: No Cervical, Supraclavicular, or Inguinal Adenopathy Neurological: Cranial nerves II-XII grossly intact, Motor Exam 5/5 strength throughout Psych/Mental Status: Normal Affect, Appropriate Vital Signs Temp Pulse Resp BP Pulse Ox 98.1 F 93 22 H 107/85 H 96 06/30/18 03:30 06/30/18 08:00 06/30/18 03:50 06/30/18 03:30 06/30/18 03:50 Oxygen Flow Rate (L/min) 3 Oxygen Delivery Method Bi-pap Weight: 341 lb 4.409 oz Body Mass Index (BMI) 51.9 Finger Stick Blood Glucose 126 Intake and Output for Last 24 Hours 06/28/18 06/29/18 06/30/18 23:59 23:59 23:59 Intake Total 3324.1 / 3324.1 3159 / 3159 2250 / 2250 Output Total 375 / 375 750 / 750 Balance 2949.1 / 2949.1 2409 / 2409 2250 / 2250 Microbiology Past 72 Hours 06/28/18 01:00 Urine Culture - Final Urine Catheter - Catheter Escherichia coli 06/28/18 01:05 Blood Culture - Final Blood Culture (Wb) - Anticubital Right Gram negative cristhian 06/28/18 00:55 Bacteria Detection (PCR) - Final Blood Culture (Wb) - Anticubital Left Staphylococcus epidermidis Blood Culture - Final Escherichia coli Staphylococcus epidermidis 06/28/18 12:20 C. difficile DNA Amplification - Final Stool 06/28/18 07:54 Respiratory Panel (PCR) - Final Mucosa - Nasopharyngeal 06/28/18 08:40 Legionella Antigen - Final Urine Catheter - Herr 06/28/18 08:40 Streptococcus pneumoniae Antigen (M - Final Urine Catheter - Herr Laboratory Tests Past 24 Hrs 06/30/18 06/30/18 06/30/18 05:30 05:30 05:30 WBC 9.3 RBC 3.41 L Hgb 9.6 L Hct 29.7 L MCV 87.1 MCH 28.2 MCHC 32.3 RDW 15.6 H RDW Differential 50.0 H Plt Count 84 L MPV 12.6 H Immature Gran % (Auto) 0.900 Neut % (Auto) 81.8 H Lymph % (Auto) 7.8 L [place] % (Auto) 8.7 Eos % (Auto) 0.6 Baso % (Auto) 0.2 Absolute Neuts (auto) 7.6 Absolute Lymphs (auto) 0.73 L Total Counted Not Reportable Sodium 134 L Potassium 3.2 L Chloride 102 Carbon Dioxide 17.0 L Anion Gap 15 BUN 72 H Creatinine 6.67 H Estim Creat Clear Calc 10.36 Est GFR (MDRD) Af Amer 9 L Est GFR (MDRD) Non-Af 7 L BUN/Creatinine Ratio 10.8 Glucose 156 H Calcium 7.1 L Phosphorus 4.8 Total Protein (PEP) Pending Albumin (PEP) Pending Globulin (PEP) Pending Albumin/Globulin (PEP) Pending [place]-4-Oyzdsizia Pending [place]-6-Oxzdhyblt Pending Beta Globulins Pending Gamma Globulins Pending M-Bib Pending POC Glucose 06/29/18 06/29/18 06/29/18 22:01 16:35 11:23 POC Glucose 143 H 161 H 171 H Clinical Impression(s) from Imaging Studies Chest X-Ray 06/28/18 02:45 IMPRESSION: Mild cardiomegaly. Bibasilar opacities representing either areas of atelectatic changes or pneumonia. A central line through the right internal jugular vein has its tip in the superior vena cava. Electronically Signed: Dylan Greenfield MD at 3:42 EST Tel , Service support , Renal Ultrasound 06/28/18 07:17 IMPRESSION: 1. Minimal fullness of the right renal pelvis. 2. No evidence of hydronephrosis. Electronically Signed: Theo Chris MD at 15:46 EST Tel , Service support , Abdomen/Pelvis CT 06/28/18 23:41 IMPRESSION: 1. Hepatomegaly. 2. No CT evidence of acute intra-abdominal disease. 3. Fluid-filled colon is consistent with history of diarrhea. Electronically Signed: Devi Whipple MD at 2:00 EST , Service support , Medical Necessity - Tobacco Use Smoking Status: Never smoker Assessment/Plan All Active Problems Septic shock (Acute) ROCKY (acute kidney injury) (Acute) This is a 43 years old female patient admitted because of nausea, vomiting and diarrhea she was found to have septic shock secondary to acute pyelonephritis, complicated by acute renal failure and bacteremia. #1 septic shock: Secondary to acute pyelonephritis. She is on IV meropenem. She has been afebrile for more than 24 hours, leukocytosis resolved. Blood culture revealed staph epidermidis and E. coli, repeat blood cultures pending. Blood pressure has been maintained on IV fluids, no IV pressors required. Plan: Continue same treatment, follow repeat blood cultures, transfer to PCU. #2 E. coli acute pyelonephritis: She is on IV meropenem as above. She has been afebrile, leukocytosis resolved. Urine culture revealed E. coli that was pansensitive. Plan as above. #3 status of the abdomen/E. coli bacteremia: Likely source is the acute pyelonephritis. She is on IV meropenem as above. Blood culture and sensitivity reviewed. Repeat blood culture is pending. Plan to continue same treatment. #4 acute renal failure: Secondary to septic shock and hypoperfusion. Ultrasound kidneys and CT scan abdomen and pelvis revealed no evidence of acute obstructive uropathy, no kidney stones or hydronephrosis. Patient has been on IV fluids. Her creatinine continued to worsen, no improvement. She has been having diarrhea. Stool for C. difficile came back negative. Nephrology on the case, plan to continue same treatment, patient may need dialysis. #5 type 2 diabetes mellitus: She is on Lantus twice daily and sliding scale. Blood sugar has been under fair control. Patient has not been eating or drinking. Plan to encourage oral intake, start ADA diet, continue Lantus insulin if patient started to eat. #6 hypertension: Blood pressure stabilized. Norvasc and lisinopril held. #7 hypothyroidism: Continue levothyroxine. TSH was normal. #8 obstructive sleep apnea/obesity hypoventilation syndrome: Continue BiPAP nightly. #9 hyperlipidemia: Continue statins. #10 DVT prophylaxis: Subcu heparin. This note was generated with [employer] dictation software. It may contain incorrect words, spelling, and punctuation that were not noted in checking the note before signing. Code Visit Inpatient E&M: 27775 Subs Hosp L2
--- NOTE | 2018-06-30 09:38 | PCM.PN.INT ---
Subjective: Patient did well overnight. Patient did spend a significant amount of time on BiPAP therapy, but this was secondary to comfort. Patient denied any chest pain this morning. Patient's hemodynamics remained appropriate. Diarrhea has improved, but patient is having significant urine output, but incontinence limits accuracy. General: Alert, Oriented x3, Cooperative, - - Morbidly obese. Good synchrony with BiPAP therapy. HEENT: Atraumatic, PERRLA, EOMI, Normocephalic, - - No scleral icterus or injection noted. Oral: No Gingival or Mucosal Lesions/ Ulcerations, Dry Mucosa Neck: Supple, No JVD, No Nodes, Trachea Midline, - - Right IJ clean, dry and intact. Lungs: No rhonchi, No wheeze, No rales, Diminished Cardiovascular: Regular rate, Regular Rhythm, Normal S1, Normal S2, No murmurs, No rub noted, No Gallop Abdomen: Bowel Sounds Present, Soft, Non Tender, Non-Distended, Obese Extremities: No clubbing, No cyanosis, No edema Skin: No rashes, No breakdown Musculoskeletal: No Tenderness to Palpation of Joints or Extremities, No Muscle Wasting Lymphatic: No Cervical, Supraclavicular, or Inguinal Adenopathy Neurological: Cranial nerves II-XII grossly intact, Neuro grossly intact, Motor Exam 5/5 strength throughout, Sensory exam intact to light touch and pain Psych/Mental Status: Alert and oriented to time, place, person, mood and affect Vital Signs Temp Pulse Resp BP Pulse Ox 36.7 C 93 22 H 107/85 H 96 06/30/18 03:30 06/30/18 08:00 06/30/18 03:50 06/30/18 03:30 06/30/18 03:50 Oxygen Flow Rate (L/min) 3 Oxygen Delivery Method Bi-pap Weight: 154.8 kg Body Mass Index (BMI) 51.9 Finger Stick Blood Glucose 126 Intake and Output for Last 24 Hours 06/28/18 06/29/18 06/30/18 23:59 23:59 23:59 Intake Total 3324.1 / 3324.1 3159 / 3159 2250 / 2250 Output Total 375 / 375 750 / 750 Balance 2949.1 / 2949.1 2409 / 2409 2250 / 2250 Labs (Last 48 Hours) 06/28/18 06/28/18 06/28/18 04:35 04:35 04:35 WBC RBC Hgb Hct MCV MCH MCHC RDW RDW Differential Plt Count MPV Immature Gran % (Auto) Neut % (Auto) Lymph % (Auto) St[place] % (Auto) Eos % (Auto) Baso % (Auto) Absolute Neuts (auto) Absolute Lymphs (auto) Total Counted Eos Smear Total Cells PT INR Fibrinogen Sodium Potassium Chloride Carbon Dioxide Anion Gap BUN Creatinine Estim Creat Clear Calc Est GFR (MDRD) Af Amer Est GFR (MDRD) Non-Af BUN/Creatinine Ratio Glucose Hemoglobin A1c 7.9 H Calcium Phosphorus 3.3 Magnesium Total Bilirubin AST ALT Alkaline Phosphatase Total Protein Total Protein (PEP) Albumin Albumin (PEP) Globulin Globulin (PEP) Albumin/Globulin Ratio Albumin/Globulin (PEP) Kziiu-5-Rybajsevu Plpmn-4-Erytymbgx Beta Globulins Gamma Globulins M-Bib TSH 2.92 Free T4 1.14 Ur Random Sodium Urine Creatinine IgG IgA IgM IgE MRSA (PCR) POC Glucose 06/28/18 06/28/18 06/28/18 04:40 08:40 08:40 WBC RBC Hgb Hct MCV MCH MCHC RDW RDW Differential Plt Count MPV Immature Gran % (Auto) Neut % (Auto) Lymph % (Auto) Stodd[place] % (Auto) Eos % (Auto) Baso % (Auto) Absolute Neuts (auto) Absolute Lymphs (auto) Total Counted Eos Smear Total Cells Pending PT INR Fibrinogen Sodium Potassium Chloride Carbon Dioxide Anion Gap BUN Creatinine Estim Creat Clear Calc Est GFR (MDRD) Af Amer Est GFR (MDRD) Non-Af BUN/Creatinine Ratio Glucose Hemoglobin A1c Calcium Phosphorus Magnesium Total Bilirubin AST ALT Alkaline Phosphatase Total Protein Total Protein (PEP) Albumin Albumin (PEP) Globulin Globulin (PEP) Albumin/Globulin Ratio Albumin/Globulin (PEP) Vrwqr-2-Tnmfkzdoq Cjsyx-4-Qsvcjgvpt Beta Globulins Gamma Globulins M-Bib TSH Free T4 Ur Random Sodium Urine Creatinine 136.00 IgG IgA IgM IgE MRSA (PCR) Negative POC Glucose 06/28/18 06/28/18 06/28/18 08:40 10:37 13:50 WBC RBC Hgb Hct MCV MCH MCHC RDW RDW Differential Plt Count MPV Immature Gran % (Auto) Neut % (Auto) Lymph % (Auto) [place]odd[place] % (Auto) Eos % (Auto) Baso % (Auto) Absolute Neuts (auto) Absolute Lymphs (auto) Total Counted Eos Smear Total Cells PT INR Fibrinogen > 900 H Sodium Potassium Chloride Carbon Dioxide Anion Gap BUN Creatinine Estim Creat Clear Calc Est GFR (MDRD) Af Amer Est GFR (MDRD) Non-Af BUN/Creatinine Ratio Glucose Hemoglobin A1c Calcium Phosphorus Magnesium Total Bilirubin AST ALT Alkaline Phosphatase Total Protein Total Protein (PEP) Albumin Albumin (PEP) Globulin Globulin (PEP) Albumin/Globulin Ratio Albumin/Globulin (PEP) Mrhub-5-Daefzftmr Jztsg-1-Tbdgbssgy Beta Globulins Gamma Globulins M-Bib TSH Free T4 Ur Random Sodium 108 Urine Creatinine IgG IgA IgM IgE MRSA (PCR) POC Glucose 210 H 06/28/18 06/28/18 06/28/18 13:50 17:01 22:58 WBC RBC Hgb Hct MCV MCH MCHC RDW RDW Differential Plt Count MPV Immature Gran % (Auto) Neut % (Auto) Lymph % (Auto) Stoddard % (Auto) Eos % (Auto) Baso % (Auto) Absolute Neuts (auto) Absolute Lymphs (auto) Total Counted Eos Smear Total Cells PT INR Fibrinogen Sodium Potassium Chloride Carbon Dioxide Anion Gap BUN Creatinine Estim Creat Clear Calc Est GFR (MDRD) Af Amer Est GFR (MDRD) Non-Af BUN/Creatinine Ratio Glucose Hemoglobin A1c Calcium Phosphorus Magnesium Total Bilirubin AST ALT Alkaline Phosphatase Total Protein Total Protein (PEP) Albumin Albumin (PEP) Globulin Globulin (PEP) Albumin/Globulin Ratio Albumin/Globulin (PEP) Rvcwr-2-Yfshxtyje Sylzj-3-Dpmhbbmfq Beta Globulins Gamma Globulins M-Bib TSH Free T4 Ur Random Sodium Urine Creatinine IgG Pending IgA Pending IgM Pending IgE Pending MRSA (PCR) POC Glucose 173 H 152 H 06/29/18 06/29/18 06/29/18 05:40 05:40 05:40 WBC 15.5 H RBC 3.44 L Hgb 10.0 L Hct 30.4 L MCV 88.4 MCH 29.1 MCHC 32.9 RDW 15.3 H RDW Differential 48.2 H Plt Count 77 L MPV 12.0 Immature Gran % (Auto) 0.500 Neut % (Auto) 88.7 H Lymph % (Auto) 4.9 L Stoddard % (Auto) 4.3 Eos % (Auto) 1.4 Baso % (Auto) 0.2 Absolute Neuts (auto) 13.7 H Absolute Lymphs (auto) 0.76 L Total Counted Not Reportable Eos Smear Total Cells PT 16.2 H INR 1.3 Fibrinogen Sodium 135 L Potassium 3.2 L Chloride 101 Carbon Dioxide 18.0 L Anion Gap 16 H BUN 66 H Creatinine 6.47 H Estim Creat Clear Calc 10.68 Est GFR (MDRD) Af Amer 9 L Est GFR (MDRD) Non-Af 7 L BUN/Creatinine Ratio 10.2 Glucose 143 H Hemoglobin A1c Calcium 6.9 L Phosphorus 5.2 H Magnesium 2.3 Total Bilirubin 0.30 AST 30 ALT 16 Alkaline Phosphatase 116 Total Protein 6.4 Total Protein (PEP) Albumin 1.8 L Albumin (PEP) Globulin 4.6 H Globulin (PEP) Albumin/Globulin Ratio 0.4 L Albumin/Globulin (PEP) Mzumb-4-Xzuvqaudz Vdrsm-2-Zijgqodtg Beta Globulins Gamma Globulins M-Bib TSH Free T4 Ur Random Sodium Urine Creatinine IgG IgA IgM IgE MRSA (PCR) POC Glucose 06/29/18 06/29/18 06/29/18 05:49 11:23 16:35 WBC RBC Hgb Hct MCV MCH MCHC RDW RDW Differential Plt Count MPV Immature Gran % (Auto) Neut % (Auto) Lymph % (Auto) [place]odd[place] % (Auto) Eos % (Auto) Baso % (Auto) Absolute Neuts (auto) Absolute Lymphs (auto) Total Counted Eos Smear Total Cells PT INR Fibrinogen Sodium Potassium Chloride Carbon Dioxide Anion Gap BUN Creatinine Estim Creat Clear Calc Est GFR (MDRD) Af Amer Est GFR (MDRD) Non-Af BUN/Creatinine Ratio Glucose Hemoglobin A1c Calcium Phosphorus Magnesium Total Bilirubin AST ALT Alkaline Phosphatase Total Protein Total Protein (PEP) Albumin Albumin (PEP) Globulin Globulin (PEP) Albumin/Globulin Ratio Albumin/Globulin (PEP) Ycpuf-2-Bsmoovrbd Klaff-2-Vkfrdypqr Beta Globulins Gamma Globulins M-Bib TSH Free T4 Ur Random Sodium Urine Creatinine IgG IgA IgM IgE MRSA (PCR) POC Glucose 137 H 171 H 161 H 06/29/18 06/30/18 06/30/18 22:01 05:30 05:30 WBC 9.3 RBC 3.41 L Hgb 9.6 L Hct 29.7 L MCV 87.1 MCH 28.2 MCHC 32.3 RDW 15.6 H RDW Differential 50.0 H Plt Count 84 L MPV 12.6 H Immature Gran % (Auto) 0.900 Neut % (Auto) 81.8 H Lymph % (Auto) 7.8 L Stoddard % (Auto) 8.7 Eos % (Auto) 0.6 Baso % (Auto) 0.2 Absolute Neuts (auto) 7.6 Absolute Lymphs (auto) 0.73 L Total Counted Not Reportable Eos Smear Total Cells PT INR Fibrinogen Sodium 134 L Potassium 3.2 L Chloride 102 Carbon Dioxide 17.0 L Anion Gap 15 BUN 72 H Creatinine 6.67 H Estim Creat Clear Calc 10.36 Est GFR (MDRD) Af Amer 9 L Est GFR (MDRD) Non-Af 7 L BUN/Creatinine Ratio 10.8 Glucose 156 H Hemoglobin A1c Calcium 7.1 L Phosphorus 4.8 Magnesium Total Bilirubin AST ALT Alkaline Phosphatase Total Protein Total Protein (PEP) Albumin Albumin (PEP) Globulin Globulin (PEP) Albumin/Globulin Ratio Albumin/Globulin (PEP) Pkqbu-0-Acfupefbf Rhmoa-8-Hdhxlilrh Beta Globulins Gamma Globulins M-Bib TSH Free T4 Ur Random Sodium Urine Creatinine IgG IgA IgM IgE MRSA (PCR) POC Glucose 143 H 06/30/18 05:30 WBC RBC Hgb Hct MCV MCH MCHC RDW RDW Differential Plt Count MPV Immature Gran % (Auto) Neut % (Auto) Lymph % (Auto) [place]odd[place] % (Auto) Eos % (Auto) Baso % (Auto) Absolute Neuts (auto) Absolute Lymphs (auto) Total Counted Eos Smear Total Cells PT INR Fibrinogen Sodium Potassium Chloride Carbon Dioxide Anion Gap BUN Creatinine Estim Creat Clear Calc Est GFR (MDRD) Af Amer Est GFR (MDRD) Non-Af BUN/Creatinine Ratio Glucose Hemoglobin A1c Calcium Phosphorus Magnesium Total Bilirubin AST ALT Alkaline Phosphatase Total Protein Total Protein (PEP) Pending Albumin Albumin (PEP) Pending Globulin Globulin (PEP) Pending Albumin/Globulin Ratio Albumin/Globulin (PEP) Pending Wcgck-7-Aeplqyeay Pending Wgejl-6-Kcqinvvrg Pending Beta Globulins Pending Gamma Globulins Pending M-Bib Pending TSH Free T4 Ur Random Sodium Urine Creatinine IgG IgA IgM IgE MRSA (PCR) POC Glucose Microbiology 06/28/18 01:00 Urine Catheter - Catheter Urine Culture - Final Escherichia coli 06/28/18 01:05 Blood Culture (Wb) - Anticubital Right Blood Culture - Final Gram negative cristhian 06/28/18 00:55 Blood Culture (Wb) - Anticubital Left Bacteria Detection (PCR) - Final Staphylococcus epidermidis 06/28/18 00:55 Blood Culture (Wb) - Anticubital Left Blood Culture - Final Escherichia coli Staphylococcus epidermidis 06/28/18 12:20 Stool C. difficile DNA Amplification - Final 06/28/18 07:54 Mucosa - Nasopharyngeal Respiratory Panel (PCR) - Final 06/28/18 08:40 Urine Catheter - Herr Legionella Antigen - Final 06/28/18 08:40 Urine Catheter - Herr Streptococcus pneumoniae Antigen (M - Final Medical Necessity - Tobacco Use Smoking Status: Never smoker Assessment/Plan All Active Problems Septic shock (Acute) ROCKY (acute kidney injury) (Acute) RECOMMENDATIONS: 1. Narrow antibiotics. 2. Await repeat blood cultures. 3. Continue gentle IV fluid hydration to offset insensible losses and until p.o. intake increases. 4. Appreciate nephrology, await dialysis recommendation 5. Continue ICS and bronchodilators 6. Continue nocturnal BiPAP therapy. 7. Continue appropriate ICU prophylaxis IMPRESSIONS: 1. Septic shock secondary to pyelonephritis/gram-negative bacteremia/presumptive viral gastroenteritis The patient responded appropriately to broad-spectrum antibiotics and IV volume resuscitation, along with stabilization of hemodynamics with the transient use of vasopressor support. She is no longer requiring Levophed. She is currently afebrile with improving white count. Patient's culture now growing pansensitive E. coli. Patient has tolerated cefepime despite reported penicillin allergy. Will narrow antibiotic spectrum. C. difficile is negative. 2. Acute kidney injury/non-oliguric acute renal failure Workup is in process. The patient has likely developed an ATN picture secondary to prerenal etiology in the setting of #1. Patient is receiving IV fluids at this time and has had significant urine output per nursing. Incontinence limits accuracy of total fluid balance. Patient oxygenating well with BiPAP therapy. 3. Hypokalemia Nephrology is following. Unclear if patient will require transient hemodialysis. Await their recommendations. Unclear if patient should have a temporary or tunneled hemodialysis line if necessary. 4. History of heart failure with preserved ejection fraction The patient does not appear overtly volume overloaded at this time. Respiratory status is stable. 5. Personal history of prior venous thromboembolic disease/obstructive sleep apnea/asthma/hypothyroidism/hyperlipidemia/hypertension/diabetes mellitus Complicates care, management, recovery and prognosis. Continue nocturnal BiPAP therapy. Okay to continue home medications from my perspective. Code Visit Inpatient E&M: 01127 Subs Hosp L3
--- NOTE | 2018-06-30 09:44 | PN_ITS ---
Subjective: Patient did well overnight. Patient did spend a significant amount of time on BiPAP therapy, but this was secondary to comfort. Patient denied any chest pain this morning. Patient's hemodynamics remained appropriate. Diarrhea has improved, but patient is having significant urine output, but incontinence limits accuracy. General: Alert, Oriented x3, Cooperative, - - Morbidly obese. Good synchrony with BiPAP therapy. HEENT: Atraumatic, PERRLA, EOMI, Normocephalic, - - No scleral icterus or injection noted. Oral: No Gingival or Mucosal Lesions/ Ulcerations, Dry Mucosa Neck: Supple, No JVD, No Nodes, Trachea Midline, - - Right IJ clean, dry and intact. Lungs: No rhonchi, No wheeze, No rales, Diminished Cardiovascular: Regular rate, Regular Rhythm, Normal S1, Normal S2, No murmurs, No rub noted, No Gallop Abdomen: Bowel Sounds Present, Soft, Non Tender, Non-Distended, Obese Extremities: No clubbing, No cyanosis, No edema Skin: No rashes, No breakdown Musculoskeletal: No Tenderness to Palpation of Joints or Extremities, No Muscle Wasting Lymphatic: No Cervical, Supraclavicular, or Inguinal Adenopathy Neurological: Cranial nerves II-XII grossly intact, Neuro grossly intact, Motor Exam 5/5 strength throughout, Sensory exam intact to light touch and pain Psych/Mental Status: Alert and oriented to time, place, person, mood and affect Vital Signs Temp Pulse Resp BP Pulse Ox 36.7 C 93 22 H 107/85 H 96 06/30/18 03:30 06/30/18 08:00 06/30/18 03:50 06/30/18 03:30 06/30/18 03:50 Oxygen Flow Rate (L/min) 3 Oxygen Delivery Method Bi-pap Weight: 154.8 kg Body Mass Index (BMI) 51.9 Finger Stick Blood Glucose 126 Intake and Output for Last 24 Hours 06/28/18 06/29/18 06/30/18 23:59 23:59 23:59 Intake Total 3324.1 / 3324.1 3159 / 3159 2250 / 2250 Output Total 375 / 375 750 / 750 Balance 2949.1 / 2949.1 2409 / 2409 2250 / 2250 Labs (Last 48 Hours) 06/28/18 06/28/18 06/28/18 04:35 04:35 04:35 WBC RBC Hgb Hct MCV MCH MCHC RDW RDW Differential Plt Count MPV Immature Gran % (Auto) Neut % (Auto) Lymph % (Auto) [place] % (Auto) Eos % (Auto) Baso % (Auto) Absolute Neuts (auto) Absolute Lymphs (auto) Total Counted Eos Smear Total Cells PT INR Fibrinogen Sodium Potassium Chloride Carbon Dioxide Anion Gap BUN Creatinine Estim Creat Clear Calc Est GFR (MDRD) Af Amer Est GFR (MDRD) Non-Af BUN/Creatinine Ratio Glucose Hemoglobin A1c 7.9 H Calcium Phosphorus 3.3 Magnesium Total Bilirubin AST ALT Alkaline Phosphatase Total Protein Total Protein (PEP) Albumin Albumin (PEP) Globulin Globulin (PEP) Albumin/Globulin Ratio Albumin/Globulin (PEP) Uokes-9-Lwpokbwwz Hlwdi-9-Zujpfnweo Beta Globulins Gamma Globulins M-Bib TSH 2.92 Free T4 1.14 Ur Random Sodium Urine Creatinine IgG IgA IgM IgE MRSA (PCR) POC Glucose 06/28/18 06/28/18 06/28/18 04:40 08:40 08:40 WBC RBC Hgb Hct MCV MCH MCHC RDW RDW Differential Plt Count MPV Immature Gran % (Auto) Neut % (Auto) Lymph % (Auto) [place] % (Auto) Eos % (Auto) Baso % (Auto) Absolute Neuts (auto) Absolute Lymphs (auto) Total Counted Eos Smear Total Cells Pending PT INR Fibrinogen Sodium Potassium Chloride Carbon Dioxide Anion Gap BUN Creatinine Estim Creat Clear Calc Est GFR (MDRD) Af Amer Est GFR (MDRD) Non-Af BUN/Creatinine Ratio Glucose Hemoglobin A1c Calcium Phosphorus Magnesium Total Bilirubin AST ALT Alkaline Phosphatase Total Protein Total Protein (PEP) Albumin Albumin (PEP) Globulin Globulin (PEP) Albumin/Globulin Ratio Albumin/Globulin (PEP) Oftkt-9-Drxtgvibt Ggmck-8-Ulkcvrbtd Beta Globulins Gamma Globulins M-Bib TSH Free T4 Ur Random Sodium Urine Creatinine 136.00 IgG IgA IgM IgE MRSA (PCR) Negative POC Glucose 06/28/18 06/28/18 06/28/18 08:40 10:37 13:50 WBC RBC Hgb Hct MCV MCH MCHC RDW RDW Differential Plt Count MPV Immature Gran % (Auto) Neut % (Auto) Lymph % (Auto) [place] % (Auto) Eos % (Auto) Baso % (Auto) Absolute Neuts (auto) Absolute Lymphs (auto) Total Counted Eos Smear Total Cells PT INR Fibrinogen > 900 H Sodium Potassium Chloride Carbon Dioxide Anion Gap BUN Creatinine Estim Creat Clear Calc Est GFR (MDRD) Af Amer Est GFR (MDRD) Non-Af BUN/Creatinine Ratio Glucose Hemoglobin A1c Calcium Phosphorus Magnesium Total Bilirubin AST ALT Alkaline Phosphatase Total Protein Total Protein (PEP) Albumin Albumin (PEP) Globulin Globulin (PEP) Albumin/Globulin Ratio Albumin/Globulin (PEP) Nfczd-3-Btrtyvqwe Fupiz-5-Ctrxznxaz Beta Globulins Gamma Globulins M-Bib TSH Free T4 Ur Random Sodium 108 Urine Creatinine IgG IgA IgM IgE MRSA (PCR) POC Glucose 210 H 06/28/18 06/28/18 06/28/18 13:50 17:01 22:58 WBC RBC Hgb Hct MCV MCH MCHC RDW RDW Differential Plt Count MPV Immature Gran % (Auto) Neut % (Auto) Lymph % (Auto) [place] % (Auto) Eos % (Auto) Baso % (Auto) Absolute Neuts (auto) Absolute Lymphs (auto) Total Counted Eos Smear Total Cells PT INR Fibrinogen Sodium Potassium Chloride Carbon Dioxide Anion Gap BUN Creatinine Estim Creat Clear Calc Est GFR (MDRD) Af Amer Est GFR (MDRD) Non-Af BUN/Creatinine Ratio Glucose Hemoglobin A1c Calcium Phosphorus Magnesium Total Bilirubin AST ALT Alkaline Phosphatase Total Protein Total Protein (PEP) Albumin Albumin (PEP) Globulin Globulin (PEP) Albumin/Globulin Ratio Albumin/Globulin (PEP) Bcbch-1-Ocffuklqy Splek-0-Amtzoignv Beta Globulins Gamma Globulins M-Bib TSH Free T4 Ur Random Sodium Urine Creatinine IgG Pending IgA Pending IgM Pending IgE Pending MRSA (PCR) POC Glucose 173 H 152 H 06/29/18 06/29/18 06/29/18 05:40 05:40 05:40 WBC 15.5 H RBC 3.44 L Hgb 10.0 L Hct 30.4 L MCV 88.4 MCH 29.1 MCHC 32.9 RDW 15.3 H RDW Differential 48.2 H Plt Count 77 L MPV 12.0 Immature Gran % (Auto) 0.500 Neut % (Auto) 88.7 H Lymph % (Auto) 4.9 L [place] % (Auto) 4.3 Eos % (Auto) 1.4 Baso % (Auto) 0.2 Absolute Neuts (auto) 13.7 H Absolute Lymphs (auto) 0.76 L Total Counted Not Reportable Eos Smear Total Cells PT 16.2 H INR 1.3 Fibrinogen Sodium 135 L Potassium 3.2 L Chloride 101 Carbon Dioxide 18.0 L Anion Gap 16 H BUN 66 H Creatinine 6.47 H Estim Creat Clear Calc 10.68 Est GFR (MDRD) Af Amer 9 L Est GFR (MDRD) Non-Af 7 L BUN/Creatinine Ratio 10.2 Glucose 143 H Hemoglobin A1c Calcium 6.9 L Phosphorus 5.2 H Magnesium 2.3 Total Bilirubin 0.30 AST 30 ALT 16 Alkaline Phosphatase 116 Total Protein 6.4 Total Protein (PEP) Albumin 1.8 L Albumin (PEP) Globulin 4.6 H Globulin (PEP) Albumin/Globulin Ratio 0.4 L Albumin/Globulin (PEP) Rkdss-8-Kkdgdleqo Hpkwf-4-Vjkxjnwvn Beta Globulins Gamma Globulins M-Bib TSH Free T4 Ur Random Sodium Urine Creatinine IgG IgA IgM IgE MRSA (PCR) POC Glucose 06/29/18 06/29/18 06/29/18 05:49 11:23 16:35 WBC RBC Hgb Hct MCV MCH MCHC RDW RDW Differential Plt Count MPV Immature Gran % (Auto) Neut % (Auto) Lymph % (Auto) [place] % (Auto) Eos % (Auto) Baso % (Auto) Absolute Neuts (auto) Absolute Lymphs (auto) Total Counted Eos Smear Total Cells PT INR Fibrinogen Sodium Potassium Chloride Carbon Dioxide Anion Gap BUN Creatinine Estim Creat Clear Calc Est GFR (MDRD) Af Amer Est GFR (MDRD) Non-Af BUN/Creatinine Ratio Glucose Hemoglobin A1c Calcium Phosphorus Magnesium Total Bilirubin AST ALT Alkaline Phosphatase Total Protein Total Protein (PEP) Albumin Albumin (PEP) Globulin Globulin (PEP) Albumin/Globulin Ratio Albumin/Globulin (PEP) Zxvhq-3-Sqgvkstak Cpqjy-8-Tsiiipfze Beta Globulins Gamma Globulins M-Bib TSH Free T4 Ur Random Sodium Urine Creatinine IgG IgA IgM IgE MRSA (PCR) POC Glucose 137 H 171 H 161 H 06/29/18 06/30/18 06/30/18 22:01 05:30 05:30 WBC 9.3 RBC 3.41 L Hgb 9.6 L Hct 29.7 L MCV 87.1 MCH 28.2 MCHC 32.3 RDW 15.6 H RDW Differential 50.0 H Plt Count 84 L MPV 12.6 H Immature Gran % (Auto) 0.900 Neut % (Auto) 81.8 H Lymph % (Auto) 7.8 L [place] % (Auto) 8.7 Eos % (Auto) 0.6 Baso % (Auto) 0.2 Absolute Neuts (auto) 7.6 Absolute Lymphs (auto) 0.73 L Total Counted Not Reportable Eos Smear Total Cells PT INR Fibrinogen Sodium 134 L Potassium 3.2 L Chloride 102 Carbon Dioxide 17.0 L Anion Gap 15 BUN 72 H Creatinine 6.67 H Estim Creat Clear Calc 10.36 Est GFR (MDRD) Af Amer 9 L Est GFR (MDRD) Non-Af 7 L BUN/Creatinine Ratio 10.8 Glucose 156 H Hemoglobin A1c Calcium 7.1 L Phosphorus 4.8 Magnesium Total Bilirubin AST ALT Alkaline Phosphatase Total Protein Total Protein (PEP) Albumin Albumin (PEP) Globulin Globulin (PEP) Albumin/Globulin Ratio Albumin/Globulin (PEP) Emeqq-9-Roipupmlz Fnaeo-5-Bwcjtszgy Beta Globulins Gamma Globulins M-Bib TSH Free T4 Ur Random Sodium Urine Creatinine IgG IgA IgM IgE MRSA (PCR) POC Glucose 143 H 06/30/18 05:30 WBC RBC Hgb Hct MCV MCH MCHC RDW RDW Differential Plt Count MPV Immature Gran % (Auto) Neut % (Auto) Lymph % (Auto) [place] % (Auto) Eos % (Auto) Baso % (Auto) Absolute Neuts (auto) Absolute Lymphs (auto) Total Counted Eos Smear Total Cells PT INR Fibrinogen Sodium Potassium Chloride Carbon Dioxide Anion Gap BUN Creatinine Estim Creat Clear Calc Est GFR (MDRD) Af Amer Est GFR (MDRD) Non-Af BUN/Creatinine Ratio Glucose Hemoglobin A1c Calcium Phosphorus Magnesium Total Bilirubin AST ALT Alkaline Phosphatase Total Protein Total Protein (PEP) Pending Albumin Albumin (PEP) Pending Globulin Globulin (PEP) Pending Albumin/Globulin Ratio Albumin/Globulin (PEP) Pending Gayhb-5-Htgpgzlta Pending Edjqk-2-Ckxmtzoqs Pending Beta Globulins Pending Gamma Globulins Pending M-Bib Pending TSH Free T4 Ur Random Sodium Urine Creatinine IgG IgA IgM IgE MRSA (PCR) POC Glucose Microbiology 06/28/18 01:00 Urine Catheter - Catheter Urine Culture - Final Escherichia coli 06/28/18 01:05 Blood Culture (Wb) - Anticubital Right Blood Culture - Final Gram negative cristhian 06/28/18 00:55 Blood Culture (Wb) - Anticubital Left Bacteria Detection (PCR) - Final Staphylococcus epidermidis 06/28/18 00:55 Blood Culture (Wb) - Anticubital Left Blood Culture - Final Escherichia coli Staphylococcus epidermidis 06/28/18 12:20 Stool C. difficile DNA Amplification - Final 06/28/18 07:54 Mucosa - Nasopharyngeal Respiratory Panel (PCR) - Final 06/28/18 08:40 Urine Catheter - [facility] Legionella Antigen - Final 06/28/18 08:40 Urine Catheter - [facility] Streptococcus pneumoniae Antigen (M - Final Medical Necessity - Tobacco Use Smoking Status: Never smoker Assessment/Plan All Active Problems Septic shock (Acute) ROCKY (acute kidney injury) (Acute) RECOMMENDATIONS: 1. Narrow antibiotics. 2. Await repeat blood cultures. 3. Continue gentle IV fluid hydration to offset insensible losses and until p.o. intake increases. 4. Appreciate nephrology, await dialysis recommendation 5. Continue ICS and bronchodilators 6. Continue nocturnal BiPAP therapy. 7. Continue appropriate ICU prophylaxis IMPRESSIONS: 1. Septic shock secondary to pyelonephritis/gram-negative ba cteremia/presumptive viral gastroenteritis The patient responded appropriately to broad-spectrum antibiotics and IV volume resuscitation, along with stabilization of hemodynamics with the transient use of vasopressor support. She is no longer requiring Levophed. She is currently afebrile with improving white count. Patient's culture now growing pansensitive E. coli. Patient has tolerated cefepime despite reported penicillin allergy. Will narrow antibiotic spectrum. C. difficile is negative. 2. Acute kidney injury/non-oliguric acute renal failure Workup is in process. The patient has likely developed an ATN picture secondary to prerenal etiology in the setting of #1. Patient is receiving IV fluids at this time and has had significant urine output per nursing. Incontinence limits accuracy of total fluid balance. Patient oxygenating well with BiPAP therapy. 3. Hypokalemia Nephrology is following. Unclear if patient will require transient hemodialysis. Await their recommendations. Unclear if patient should have a temporary or tunneled hemodialysis line if necessary. 4. History of heart failure with preserved ejection fraction The patient does not appear overtly volume overloaded at this time. Respiratory status is stable. 5. Personal history of prior venous thromboembolic disease/obstructive sleep apnea/asthma/hypothyroidism/hyperlipidemia/hypertension/diabetes mellitus Complicates care, management, recovery and prognosis. Continue nocturnal BiPAP therapy. Okay to continue home medications from my perspective. Code Visit Inpatient E&M: 50687 Subs Hosp L3
[2018-06-30 12:11] LABS: Bedside Glucose 154 mg/dL (70-110)
--- NOTE | 2018-06-30 15:04 | NURSING ---
06/30/17 1435 primary RN aware of vital signs
--- NOTE | 2018-06-30 15:24 | CASEMGMT ---
This RN CM to room to complete CM assessment and pt is sleeping with bipap in placed at this time. This RN CM will attempt again tomorrow. SStaten RN CM
[2018-06-30] MEDS: Cefazolin 1 GM/50 ML BAG IV (15:35)
--- NOTE | 2018-06-30 16:04 | PCM.PN.REN ---
Patient Problems: Active and Suspected Problems Septic shock (Acute) ROCKY (acute kidney injury) (Acute) Subjective: no new complaints - Physical Exam General: Alert, Oriented x3, Cooperative HEENT: Atraumatic, PERRLA, EOMI, Normocephalic Neck: Supple, No JVD, Negative Carotid Bruits Lungs: Clear to auscultation, Normal air movement Cardiovascular: Regular rate, No murmurs Abdomen: Bowel Sounds Present, Soft, Non Tender Extremities: No edema, Capillary Refill Less than 3 Seconds Skin: No rashes, No breakdown Musculoskeletal: No Tenderness to Palpation of Joints or Extremities Neurological: Cranial nerves II-XII grossly intact Psych/Mental Status: Normal Affect, Appropriate Vital Signs Temp Pulse Resp BP Pulse Ox 99.4 F H 108 H 24 H 122/60 H 99 06/30/18 14:35 06/30/18 15:10 06/30/18 15:10 06/30/18 14:35 06/30/18 15:10 Oxygen Flow Rate (L/min) 3 Oxygen Delivery Method Room Air Weight: 154.8 kg Body Mass Index (BMI) 51.9 Finger Stick Blood Glucose 126 Intake and Output for Last 24 Hours 06/28/18 06/29/18 06/30/18 23:59 23:59 23:59 Intake Total 3324.1 / 3324.1 3159 / 3159 2790 / 2790 Output Total 375 / 375 750 / 750 Balance 2949.1 / 2949.1 2409 / 2409 2790 / 2790 Microbiology Past 72 Hours 06/30/18 06:00 Enteric Bacteriology - Final Stool 06/28/18 01:00 Urine Culture - Final Urine Catheter - Catheter Escherichia coli 06/28/18 01:05 Blood Culture - Final Blood Culture (Wb) - Anticubital Right Gram negative cristhian 06/28/18 00:55 Bacteria Detection (PCR) - Final Blood Culture (Wb) - Anticubital Left Staphylococcus epidermidis Blood Culture - Final Escherichia coli Staphylococcus epidermidis 06/28/18 12:20 C. difficile DNA Amplification - Final Stool 06/28/18 07:54 Respiratory Panel (PCR) - Final Mucosa - Nasopharyngeal 06/28/18 08:40 Legionella Antigen - Final Urine Catheter - Herr 06/28/18 08:40 Streptococcus pneumoniae Antigen (M - Final Urine Catheter - [facility] Laboratory Tests Past 24 Hrs 0106/30/18 06/30/18 05:30 05:30 05:30 WBC 9.3 RBC 3.41 L Hgb 9.6 L Hct 29.7 L MCV 87.1 MCH 28.2 MCHC 32.3 RDW 15.6 H RDW Differential 50.0 H Plt Count 84 L MPV 12.6 H Immature Gran % (Auto) 0.900 Neut % (Auto) 81.8 H Lymph % (Auto) 7.8 L [place] % (Auto) 8.7 Eos % (Auto) 0.6 Baso % (Auto) 0.2 Absolute Neuts (auto) 7.6 Absolute Lymphs (auto) 0.73 L Total Counted Not Reportable Sodium 134 L Potassium 3.2 L Chloride 102 Carbon Dioxide 17.0 L Anion Gap 15 BUN 72 H Creatinine 6.67 H Estim Creat Clear Calc 10.36 Est GFR (MDRD) Af Amer 9 L Est GFR (MDRD) Non-Af 7 L BUN/Creatinine Ratio 10.8 Glucose 156 H Calcium 7.1 L Phosphorus 4.8 Total Protein (PEP) Pending Albumin (PEP) Pending Globulin (PEP) Pending Albumin/Globulin (PEP) Pending Vaiuf-1-Eamxabnyr Pending Ufgxu-4-Ormmqodxj Pending Beta Globulins Pending Gamma Globulins Pending M-Bib Pending POC Glucose 06/30/18 06/29/18 06/29/18 12:08 22:01 16:35 POC Glucose 154 H 143 H 161 H Medical Necessity - Tobacco Use Smoking Status: Never smoker Assessment/Plan All Active Problems Septic shock (Acute) ROCKY (acute kidney injury) (Acute) ROCKY. normal baseline. UA is dirty. blood cultures with E Ecoli and staph which maybe contaminant. diarrhea is better as per patient. urine output no accurate but as per staff its better. Bp is borderline. Temp is borderline high still. continue fluids for one more day. if no turn around in kidney numbers by tomorrow will need dialysis patient agreeable for above plan
[2018-06-30 16:15] LABS: Bedside Glucose 149 mg/dL (70-110)
[2018-06-30 16:45] LABS: Eosinophil Ct. Urine 5 % (.)
[2018-06-30] MEDS: Atorvastatin Calcium 40 MG Tablet PO (21:02)
[2018-06-30 21:16] LABS: Bedside Glucose 136 mg/dL (70-110)
[2018-07-01] VITALS (17 sets, daily range): BP systolic 109–137; BP diastolic 44–62; PULSE 83–101; RESP 12–23; TEMP 36.2–36.9; O2SAT 94–100
[2018-07-01] MEDS: 0.9% Normal Saline 1,000 ML 100 ML IV ×2 (00:08→09:21)
[2018-07-01] MEDS: 0.9% NaCl Midline IV Flush IV ×2 (04:50→06:05)
[2018-07-01] MEDS: busPIRone 5 MG Tablet PO ×3 (05:51→22:36)
[2018-07-01] MEDS: Acetaminophen 325 MG Tablet 650 MG PO (05:51)
[2018-07-01] MEDS: Levothyroxine 50 MCG Tablet PO (05:51)
[2018-07-01] MEDS: Heparin Injection (Vial) 5,000 UNIT/ML VIAL 5000 UNIT SC ×3 (05:53→22:36)
[2018-07-01] MEDS: proMETHazine 25 MG/ML Syringe 12.5 MG IV (06:03)
[2018-07-01 06:55] LABS: Bedside Glucose 149 mg/dL (70-110)
[2018-07-01] MEDS: Budesonide Respules 0.5 MG/2 ML AMPUL.NEB. INHALATION ×2 (07:11→19:09)
[2018-07-01] MEDS: Albuterol 2.5 MG/3 ML VIAL.NEB. INHALATION ×3 (07:11→19:09)
--- NOTE | 2018-07-01 07:58 | PCM.PROGNOTE ---
Patient Problems: Active and Suspected Problems Septic shock (Acute) ROCKY (acute kidney injury) (Acute) Subjective: Chief complaint: Follow-up after admission for septic shock secondary to acute pyelonephritis, complicated by acute renal failure and E. coli/staph epidermidis bacteremia. Patient seen and examined. No acute events overnight. Today, she mentioned that she has only one time diarrhea since yesterday morning. Still having nausea, no vomiting. Denies fever chills. She remained afebrile overnight, other vital signs are stable. - Physical Exam General: Alert, Oriented x3, Cooperative, No apparent distress HEENT: Atraumatic, PERRLA, EOMI, Normocephalic Oral: Moist Mucosa, No Gingival or Mucosal Lesions/ Ulcerations Neck: Supple, No JVD, Negative Carotid Bruits, Trachea Midline, Thyroid Normal Size and Texture Lungs: Clear to auscultation, No rhonchi, No wheeze, No rales, Diminished Cardiovascular: Regular rate, Regular Rhythm, Normal S1, Normal S2, PMI Normal Abdomen: Bowel Sounds Present, Soft, Non Tender, Non-Distended, No Hepato-splenomegaly, Obese Extremities: No clubbing, No cyanosis, No edema Skin: No rashes, No breakdown Lymphatic: No Cervical, Supraclavicular, or Inguinal Adenopathy Neurological: Cranial nerves II-XII grossly intact, Neuro grossly intact Psych/Mental Status: Normal Affect, Appropriate, Alert and oriented to time, place, person, mood and affect Vital Signs Temp Pulse Resp BP Pulse Ox 98.4 F 93 18 117/55 L 99 07/01/18 03:20 07/01/18 03:20 07/01/18 03:20 07/01/18 03:20 07/01/18 03:20 Oxygen Flow Rate (L/min) 3 Oxygen Delivery Method Bi-pap Weight: 338 lb 3.025 oz Body Mass Index (BMI) 51.9 Finger Stick Blood Glucose 126 Intake and Output for Last 24 Hours 06/29/18 06/30/18 07/01/18 23:59 23:59 23:59 Intake Total 3159 / 3159 4210 / 4210 1735 / 1735 Output Total 750 / 750 Balance 2409 / 2409 4210 / 4210 1735 / 1735 Microbiology Past 72 Hours 06/29/18 08:50 Blood Culture - Preliminary Blood Culture (Wb) - Line Draw No growth in 48 hours. 06/30/18 06:00 Enteric Bacteriology - Final Stool 06/28/18 01:00 Urine Culture - Final Urine Catheter - Catheter Escherichia coli 06/28/18 01:05 Blood Culture - Final Blood Culture (Wb) - Anticubital Right Gram negative cristhian 06/28/18 00:55 Bacteria Detection (PCR) - Final Blood Culture (Wb) - Anticubital Left Staphylococcus epidermidis Blood Culture - Final Escherichia coli Staphylococcus epidermidis 06/28/18 12:20 C. difficile DNA Amplification - Final Stool 06/28/18 07:54 Respiratory Panel (PCR) - Final Mucosa - Nasopharyngeal 06/28/18 08:40 Legionella Antigen - Final Urine Catheter - [facility] 06/28/18 08:40 Streptococcus pneumoniae Antigen (M - Final Urine Catheter - [facility] Laboratory Tests Past 24 Hrs 06/28/18 04:40 Eos Smear Total Cells 5 POC Glucose 07/01/18 06/30/18 06/30/18 06:50 20:59 16:13 POC Glucose 149 H 136 H 149 H 06/30/18 12:08 POC Glucose 154 H Medical Necessity - Tobacco Use Smoking Status: Never smoker Assessment/Plan All Active Problems Septic shock (Acute) ROCKY (acute kidney injury) (Acute) This is a 43 years old female patient admitted because of nausea, vomiting and diarrhea she was found to have septic shock secondary to acute pyelonephritis, complicated by acute renal failure and bacteremia. #1 septic shock: Secondary to acute pyelonephritis. She is on IV cefazolin. Remained afebrile overnight, CBC from today is pending. Blood culture revealed staph epidermidis and E. coli, 1 set of repeat blood culture showed no growth in 48 hours. Plan to continue same treatment. #2 E. coli acute pyelonephritis: She is on IV cefazolin as above. She has been afebrile, leukocytosis resolved on CBC from yesterday. Urine culture revealed E. coli that was pansensitive. Plan as above. #3 Staph epidermidis/E. coli bacteremia: Likely source is the acute pyelonephritis. She is on IV cefazolin as above. Blood culture and sensitivity reviewed. One set of repeat blood culture showed no growth in 48 hours. Plan to continue same treatment. #4 acute renal failure: Secondary to septic shock and hypoperfusion. Ultrasound kidneys and CT scan abdomen and pelvis revealed no evidence of acute obstructive uropathy, no kidney stones or hydronephrosis. Patient has been on IV fluids. Her creatinine continued to worsen, no improvement. She has been having diarrhea. Stool for C. difficile came back negative. BMP from today is pending. According to the surgery, if creatinine continues to rise, will start dialysis today. #5 type 2 diabetes mellitus: She is on Lantus twice daily and sliding scale. Blood sugar has been under fair control. #6 hypertension: Blood pressure stabilized. Norvasc and lisinopril held. #7 hypothyroidism: Continue levothyroxine. TSH was normal. #8 obstructive sleep apnea/obesity hypoventilation syndrome: Continue BiPAP nightly. #9 hyperlipidemia: Continue statins. #10 DVT prophylaxis: Subcu heparin. This note was generated with [employer] dictation software. It may contain incorrect words, spelling, and punctuation that were not noted in checking the note before signing. Code Visit Inpatient E&M: 24665 Subs Hosp L2
--- NOTE | 2018-07-01 08:02 | PN_ITS ---
Patient Problems: Active and Suspected Problems Septic shock (Acute) ROCKY (acute kidney injury) (Acute) Subjective: Chief complaint: Follow-up after admission for septic shock secondary to acute pyelonephritis, complicated by acute renal failure and E. coli/staph epidermidis bacteremia. Patient seen and examined. No acute events overnight. Today, she mentioned that she has only one time diarrhea since yesterday morning. Still having nausea, no vomiting. Denies fever chills. She remained afebrile overnight, other vital signs are stable. - Physical Exam General: Alert, Oriented x3, Cooperative, No apparent distress HEENT: Atraumatic, PERRLA, EOMI, Normocephalic Oral: Moist Mucosa, No Gingival or Mucosal Lesions/ Ulcerations Neck: Supple, No JVD, Negative Carotid Bruits, Trachea Midline, Thyroid Normal S ize and Texture Lungs: Clear to auscultation, No rhonchi, No wheeze, No rales, Diminished Cardiovascular: Regular rate, Regular Rhythm, Normal S1, Normal S2, PMI Normal Abdomen: Bowel Sounds Present, Soft, Non Tender, Non-Distended, No Hepato- splenomegaly, Obese Extremities: No clubbing, No cyanosis, No edema Skin: No rashes, No breakdown Lymphatic: No Cervical, Supraclavicular, or Inguinal Adenopathy Neurological: Cranial nerves II-XII grossly intact, Neuro grossly intact Psych/Mental Status: Normal Affect, Appropriate, Alert and oriented to time, place, person, mood and affect Vital Signs Temp Pulse Resp BP Pulse Ox 98.4 F 93 18 117/55 L 99 07/01/18 03:20 07/01/18 03:20 07/01/18 03:20 07/01/18 03:20 07/01/18 03:20 Oxygen Flow Rate (L/min) 3 Oxygen Delivery Method Bi-pap Weight: 338 lb 3.025 oz Body Mass Index (BMI) 51.9 Finger Stick Blood Glucose 126 Intake and Output for Last 24 Hours 06/29/18 06/30/18 07/01/18 23:59 23:59 23:59 Intake Total 3159 / 3159 4210 / 4210 1735 / 1735 Output Total 750 / 750 Balance 2409 / 2409 4210 / 4210 1735 / 1735 Microbiology Past 72 Hours 06/29/18 08:50 Blood Culture - Preliminary Blood Culture (Wb) - Line Draw No growth in 48 hours. 06/30/18 06:00 Enteric Bacteriology - Final Stool 06/28/18 01:00 Urine Culture - Final Urine Catheter - Catheter Escherichia coli 06/28/18 01:05 Blood Culture - Final Blood Culture (Wb) - Anticubital Right Gram negative cristhian 06/28/18 00:55 Bacteria Detection (PCR) - Final Blood Culture (Wb) - Anticubital Left Staphylococcus epidermidis Blood Culture - Final Escherichia coli Staphylococcus epidermidis 06/28/18 12:20 C. difficile DNA Amplification - Final Stool 06/28/18 07:54 Respiratory Panel (PCR) - Final Mucosa - Nasopharyngeal 06/28/18 08:40 Legionella Antigen - Final Urine Catheter - Herr 06/28/18 08:40 Streptococcus pneumoniae Antigen (M - Final Urine Catheter - Herr Laboratory Tests Past 24 Hrs 06/28/18 04:40 Eos Smear Total Cells 5 POC Glucose 07/01/18 06/30/18 06/30/18 06:50 20:59 16:13 POC Glucose 149 H 136 H 149 H 06/30/18 12:08 POC Glucose 154 H Medical Necessity - Tobacco Use Smoking Status: Never smoker Assessment/Plan All Active Problems Septic shock (Acute) ROCKY (acute kidney injury) (Acute) This is a 43 years old female patient admitted because of nausea, vomiting and diarrhea she was found to have septic shock secondary to acute pyelonephritis, complicated by acute renal failure and bacteremia. #1 septic shock: Secondary to acute pyelonephritis. She is on IV cefazolin. Remained afebrile overnight, CBC from today is pending. Blood culture revealed s taph epidermidis and E. coli, 1 set of repeat blood culture showed no growth in 48 hours. Plan to continue same treatment. #2 E. coli acute pyelonephritis: She is on IV cefazolin as above. She has been afebrile, leukocytosis resolved on CBC from yesterday. Urine culture revealed E. coli that was pansensitive. Plan as above. #3 Staph epidermidis/E. coli bacteremia: Likely source is the acute pyelonephritis. She is on IV cefazolin as above. Blood culture and sensitivity reviewed. One set of repeat blood culture showed no growth in 48 hours. Plan to continue same treatment. #4 acute renal failure: Secondary to septic shock and hypoperfusion. Ultrasound kidneys and CT scan abdomen and pelvis revealed no evidence of acute obstructive uropathy, no kidney stones or hydronephrosis. Patient has been on IV fluids. Her creatinine continued to worsen, no improvement. She has been having diarrhea. Stool for C. difficile came back negative. BMP from today is pending. According to the surgery, if creatinine continues to rise, will start dialysis today. #5 type 2 diabetes mellitus: She is on Lantus twice daily and sliding scale. Blood sugar has been under fair control. #6 hypertension: Blood pressure stabilized. Norvasc and lisinopril held. #7 hypothyroidism: Continue levothyroxine. TSH was normal. #8 obstructive sleep apnea/obesity hypoventilation syndrome: Continue BiPAP nightly. #9 hyperlipidemia: Continue statins. #10 DVT prophylaxis: Subcu heparin. This note was generated with Worklight dictation software. It may contain incorrect words, spelling, and punctuation that were not noted in checking the note before signing. Code Visit Inpatient E&M: 91569 Subs Hosp L2
[2018-07-01 08:27] LABS: Absolute Lymphocyte Count 1.19 X10^3/ul (0.83-4.51); Absolute Neutrophil Count 7.8 X10^3/uL (2.0-7.7); Basophil# 0.06 X10^3/uL; Basophil% 0.6 % (0-1); Differential Indicated SCAN CRITERIA MET; Eosinophil# 0.11 X10^3/uL; Eosinophils% 1.1 % (0-5); Hematocrit 29.7 % (37-47); Hemoglobin 9.5 g/dl (12.0-15.0); Lymphocyte # 1.19 X10^3/ul (4.0); Lymphocyte % 11.4 % (19-41); Mean Corpuscular Hgb 28.5 pg (27.0-32.0); Mean Corpuscular Volume 89.2 fL (81-99); Mean Platelet Vol. 12.3 fl (6.2-12.0); Monocyte# 1.11 X10^3/uL; Monocyte% 10.7 % (0-10); Neutrophil # 7.84 X10^3/uL (2.7-7.7); Neutrophil % 75.1 % (47-70); POSITIVE COUNT NO; POSITIVE DIFFERENTIAL NO; POSITIVE MORPHOLOGY YES; Platelet Count 100 K/mm3 (150-450); RBC Distribution Width CV 15.6 % (11.6-14.6); Red Blood Count 3.33 M/mm3 (4.2-5.4); White Blood Count 10.4 K/mm3 (4.4-11.0)
[2018-07-01 08:52] LABS: Anion Gap 13 (5-15); BUN 74 mg/dL (7-18); BUN/Creat Ratio 11.9 RATIO (10-20); Chloride 107 mmol/L (98-107); Creatinine, Serum 6.21 mg/dL (0.55-1.02); EST Glomerular Filtration Rate 8 mL/min (>60); Est Glom Filt Rate - Afr Amer 9 mL/min (>60); Estimated Creatinine Clearance 11.12 ml/min; Glucose 151 mg/dL (74-106); Potassium 3.3 mmol/L (3.5-5.1); Sodium Level 136 mmol/L (136-145)
--- NOTE | 2018-07-01 10:03 | CASEMGMT ---
BEBETO CHEW assessment: Face to Face with patient for initial transition planning/care coordination assessment. BEBETO CHEW introduced self and role at [facility], pt voices understanding and consents to assessment at this time. Pt is lying in bed in no distress at this time. Pt is A/Ox4 at this time and answers all questions appropriately at this time. Care providers, pharmacy, and demographics verified at this time. PCP: [facility] Specialists: Pt states currently has no specialists. [facility]erred [facility]acy[facility] Insurance: [facility] Prescription Benefit: [facility] Living Will/HPOA: Pt states does not have LW/HPOA but she would like to complete AD's at this time. Reid SW aware at this time, voices understanding. LNOK: Umm Rock, mother; Janessa Johnston, sister Living Arrangements: Pt states lives alone in a 1 story apt with no stairs. Pt states is normally independent with ADL's. Transportation: Pt states parents drive and state no transportation concerns at this time. DME/HHC: Pt states had a raised toilet seat and bipap thru [facility]. Pt states no need for any further DME at this time. Pt states has not had HHC in the past but she has been to a SNF in [place]. Pt states no concerns with going home at time of discharge at this time. Pt states is disabled. Pt states does not smoke or drink ETOH. Pt states no further concerns/needs at this time. CM to follow PT/OT notes and for any further discharge planning/needs. Advised pt to ask for CM if any further questions/concerns/needs arise, voices understanding. Plan: Home, pending PT/OT sameera. Nighat TATE CM
--- NOTE | 2018-07-01 10:56 | CON.PCM_ITS ---
Problem List (1) Septic shock Status: Acute Reason for Consult: bacteremia Consulted by: Dr. Lindsay History of Present Illness: The patient is a 43 year old F who presented 06/28 with 5 days of not feeling well at home with n/v/d, abd pain, fever/chills, generalized weakness. Found to be in septic shock and ROCKY. Denies any dysuria. No sick contacts prior to presentation. Fever was up to 103.3, bp as low as 70/50 on arrival. Admitted on vanc/ceftriaxone, changed to meropenem, now narrowed to cefazolin for ecoli in ucx and bcx. Cr has not improved and HD planned. Overall feeling better. Still some loose stool, only once a day as documented. Reports has taken amoxicillin with no issue in the past. Full ROS performed and neg except as noted above. - Medical History Past Medical History (Chronic Problems): Chronic Problems Hypothyroidism (Chronic) DiGeorge syndrome (Chronic) Obesity hypoventilation syndrome (Chronic) HTN (hypertension) (Chronic) Asthma (Chronic) Super obesity (Chronic) Hyperlipidemia (Chronic) VENANCIO treated with BiPAP (Chronic) Diabetes mellitus type 2 in obese (Chronic) new diagnosis Allergies/Adverse Reactions: Allergies azithromycin [From Zithromax] Allergy (Verified 06/27/18 22:34) Unknown levofloxacin [From Levaquin] Allergy (Verified 06/27/18 22:34) Rash Penicillins Allergy (Verified 06/27/18 22:34) Unknown Home Medications: Ambulatory Orders Medication Instructions Recorded Albuterol IH (ProAir) [Proair Hfa] 2 puff INHALATION Q4H PRN PRN 12/25/16 Amlodipine [Norvasc] 5 mg PO DAILY 12/25/16 Atorvastatin Calcium [Lipitor] 40 mg PO QHS 12/25/16 Levothyroxine [Synthroid] 50 mcg PO DAILY 12/25/16 Lisinopril [Zestril] 10 mg PO DAILY 12/25/16 Fluticasone/Salmeterol [Advair 1 each IH BID #1 blst.w.dev 12/28/16 250-50 Diskus] Budesonide/Formoterol 160/4.5 2 puff INHALATION BID 06/11/17 [Symbicort 160/4.5 Mcg Inhaler (SP)] Insulin Degludec [Tresiba 20 unit SQ BID 01/17/18 Flextouch U-100] Insulin Lispro [Humalog KwikPen] 15 unit SQ TID 01/17/18 busPIRone [Buspar] 5 mg PO TID 01/17/18 - Social History Tobacco Use: non-smoker Vital Signs Temp Pulse Resp BP Pulse Ox 97.1 F L 83 20 H 113/44 L 98 07/01/18 09:20 07/01/18 09:30 07/01/18 09:30 07/01/18 09:20 07/01/18 09:30 Oxygen Flow Rate (L/min) 2 Oxygen Delivery Method Nasal Cannula Weight: 153.4 kg Body Mass Index (BMI) 51.9 Finger Stick Blood Glucose 126 Microbiology Past 72 Hours 06/28/18 16:24 Gram Stain - Final Sputum, Expectorated/Coughed Respiratory Culture - Preliminary Culture exhibits no growth. 06/29/18 08:50 Blood Culture - Preliminary Blood Culture (Wb) - Line Draw No growth in 48 hours. 06/30/18 06:00 Enteric Bacteriology - Final Stool 06/28/18 01:00 Urine Culture - Final Urine Catheter - Catheter Escherichia coli 06/28/18 01:05 Blood Culture - Final Blood Culture (Wb) - Anticubital Right Gram negative cristhian 06/28/18 00:55 Bacteria Detection (PCR) - Final Blood Culture (Wb) - Anticubital Left Staphylococcus epidermidis Blood Culture - Final Escherichia coli Staphylococcus epidermidis 06/28/18 12:20 C. difficile DNA Amplification - Final Stool 06/28/18 07:54 Respiratory Panel (PCR) - Final Mucosa - Nasopharyngeal 06/28/18 08:40 Legionella Antigen - Final Urine Catheter - Herr 06/28/18 08:40 Streptococcus pneumoniae Antigen (M - Final Urine Catheter - Herr Laboratory Tests Past 24 Hrs 06/28/18 07/01/18 07/01/18 04:40 07:45 07:45 WBC 10.4 RBC 3.33 L Hgb 9.5 L Hct 29.7 L MCV 89.2 MCH 28.5 MCHC 32.0 RDW 15.6 H RDW Differential 51.0 H Plt Count 100 L MPV 12.3 H Immature Gran % (Auto) 1.100 H Neut % (Auto) 75.1 H Lymph % (Auto) 11.4 L Callaway % (Auto) 10.7 H Eos % (Auto) 1.1 Baso % (Auto) 0.6 Absolute Neuts (auto) 7.8 H Absolute Lymphs (auto) 1.19 Total Counted Not Reportable Eos Smear Total Cells 5 Sodium 136 Potassium 3.3 L Chloride 107 Carbon Dioxide 16.0 L Anion Gap 13 BUN 74 H Creatinine 6.21 H Estim Creat Clear Calc 11.12 Est GFR (MDRD) Af Amer 9 L Est GFR (MDRD) Non-Af 8 L BUN/Creatinine Ratio 11.9 Glucose 151 H Calcium 7.0 L - Other Studies Radiology: [] reviewed Other Studies: [] Route of nutrition/ use of supplements: [] Nutritional Intake: [] IV Site: [] Herr Catheter: [] - Physical Exam General: Alert, Oriented x3, Cooperative, No apparent distress HEENT: Atraumatic, PERRLA, EOMI Neck: Supple, No Nodes Lungs: Clear to auscultation, Normal air movement, Diminished Cardiovascular: Regular rate, Regular Rhythm, No murmurs Abdomen: Soft, Non Tender, Non-Distended, Obese Extremities: Edema - some BLE Skin: No rashes IV Site: Central Line, without redness Musculoskeletal: No Tenderness to Palpation of Joints or Extremities Neurological: Cranial nerves II-XII grossly intact - Assessment/Plan Antibiotics: [] Assessment/Plan: [] Active and Suspected Problems Septic shock (Acute) ROCKY (acute kidney injury) (Acute) septic shock due to ecoli pyelo and bacteremia complicated by ROCKY - bcx have cleared since 06/29. Cdiff was neg. Ueos were neg. Shock has resolved. Will continue cefazolin. Single bcx with staph epi consistent with contaminant. Will follow, thank you, d/w Dr. Lindsay.
--- NOTE | 2018-07-01 11:17 | PCM.PN.INT ---
Subjective: Patient transferred out of the intensive care unit yesterday. Patient continues to use BiPAP extensively Canary to comfort. Patient tolerating 2 L nasal cannula in brief periods off of BiPAP. Overall, patient feels subjectively improved. Patient has had some loose stools, but only 1/day. General: Alert, Oriented x3, Cooperative, No apparent distress, - - Morbidly obese. Good BiPAP synchrony. HEENT: Atraumatic, PERRLA, EOMI, Normocephalic, - - No scleral icterus or injection noted Oral: Moist Mucosa, No Gingival or Mucosal Lesions/ Ulcerations Neck: Supple, No Nodes, Trachea Midline, JVD, Right Lungs: No rhonchi, No wheeze, No rales, Diminished, - - Symmetric expansion. No dullness to percussion. Cardiovascular: Regular rate, Regular Rhythm, Normal S1, Normal S2, No murmurs, No rub noted, No Gallop Abdomen: Bowel Sounds Present, Soft, Non Tender, Non-Distended, Obese Extremities: No cyanosis, Capillary Refill Less than 3 Seconds, Clubbing, Edema Skin: - - Some erythema noted in the area of BiPAP mask Musculoskeletal: No Tenderness to Palpation of Joints or Extremities Lymphatic: No Cervical, Supraclavicular, or Inguinal Adenopathy Neurological: Cranial nerves II-XII grossly intact, Neuro grossly intact, Motor Exam 5/5 strength throughout Psych/Mental Status: Appropriate, Flat Affect Vital Signs Temp Pulse Resp BP Pulse Ox 36.2 C L 83 20 H 113/44 L 98 07/01/18 09:20 07/01/18 09:30 07/01/18 09:30 07/01/18 09:20 07/01/18 09:30 Oxygen Flow Rate (L/min) 2 Oxygen Delivery Method Nasal Cannula Weight: 153.4 kg Body Mass Index (BMI) 51.9 Finger Stick Blood Glucose 126 Intake and Output for Last 24 Hours 06/29/18 06/30/18 07/01/18 23:59 23:59 23:59 Intake Total 3159 / 3159 4210 / 4210 1735 / 1735 Output Total 750 / 750 Balance 2409 / 2409 4210 / 4210 1735 / 1735 Labs (Last 48 Hours) 06/28/18 06/29/18 06/29/18 04:40 11:23 16:35 WBC RBC Hgb Hct MCV MCH MCHC RDW RDW Differential Plt Count MPV Immature Gran % (Auto) Neut % (Auto) Lymph % (Auto) Craig % (Auto) Eos % (Auto) Baso % (Auto) Absolute Neuts (auto) Absolute Lymphs (auto) Total Counted Eos Smear Total Cells 5 Sodium Potassium Chloride Carbon Dioxide Anion Gap BUN Creatinine Estim Creat Clear Calc Est GFR (MDRD) Af Amer Est GFR (MDRD) Non-Af BUN/Creatinine Ratio Glucose Calcium Phosphorus Total Protein (PEP) Albumin (PEP) Globulin (PEP) Albumin/Globulin (PEP) Wedkk-2-Uyuzsmora Mrfku-5-Wvamntcpj Beta Globulins Gamma Globulins M-Bib POC Glucose 171 H 161 H 06/29/18 06/30/18 06/30/18 22:01 05:30 05:30 WBC 9.3 RBC 3.41 L Hgb 9.6 L Hct 29.7 L MCV 87.1 MCH 28.2 MCHC 32.3 RDW 15.6 H RDW Differential 50.0 H Plt Count 84 L MPV 12.6 H Immature Gran % (Auto) 0.900 Neut % (Auto) 81.8 H Lymph % (Auto) 7.8 L Craig % (Auto) 8.7 Eos % (Auto) 0.6 Baso % (Auto) 0.2 Absolute Neuts (auto) 7.6 Absolute Lymphs (auto) 0.73 L Total Counted Not Reportable Eos Smear Total Cells Sodium 134 L Potassium 3.2 L Chloride 102 Carbon Dioxide 17.0 L Anion Gap 15 BUN 72 H Creatinine 6.67 H Estim Creat Clear Calc 10.36 Est GFR (MDRD) Af Amer 9 L Est GFR (MDRD) Non-Af 7 L BUN/Creatinine Ratio 10.8 Glucose 156 H Calcium 7.1 L Phosphorus 4.8 Total Protein (PEP) Albumin (PEP) Globulin (PEP) Albumin/Globulin (PEP) Ypkzw-2-Vtwkxipzb Baocq-8-Orfmtsiol Beta Globulins Gamma Globulins M-Bib POC Glucose 143 H 06/30/18 06/30/18 06/30/18 05:30 12:08 16:13 WBC RBC Hgb Hct MCV MCH MCHC RDW RDW Differential Plt Count MPV Immature Gran % (Auto) Neut % (Auto) Lymph % (Auto) Craig % (Auto) Eos % (Auto) Baso % (Auto) Absolute Neuts (auto) Absolute Lymphs (auto) Total Counted Eos Smear Total Cells Sodium Potassium Chloride Carbon Dioxide Anion Gap BUN Creatinine Estim Creat Clear Calc Est GFR (MDRD) Af Amer Est GFR (MDRD) Non-Af BUN/Creatinine Ratio Glucose Calcium Phosphorus Total Protein (PEP) Pending Albumin (PEP) Pending Globulin (PEP) Pending Albumin/Globulin (PEP) Pending Cntho-6-Uhzggrxmg Pending Urlym-8-Wmbslfprs Pending Beta Globulins Pending Gamma Globulins Pending M-Bib Pending POC Glucose 154 H 149 H 06/30/18 07/01/18 07/01/18 20:59 06:50 07:45 WBC RBC Hgb Hct MCV MCH MCHC RDW RDW Differential Plt Count MPV Immature Gran % (Auto) Neut % (Auto) Lymph % (Auto) Craig % (Auto) Eos % (Auto) Baso % (Auto) Absolute Neuts (auto) Absolute Lymphs (auto) Total Counted Eos Smear Total Cells Sodium 136 Potassium 3.3 L Chloride 107 Carbon Dioxide 16.0 L Anion Gap 13 BUN 74 H Creatinine 6.21 H Estim Creat Clear Calc 11.12 Est GFR (MDRD) Af Amer 9 L Est GFR (MDRD) Non-Af 8 L BUN/Creatinine Ratio 11.9 Glucose 151 H Calcium 7.0 L Phosphorus Total Protein (PEP) Albumin (PEP) Globulin (PEP) Albumin/Globulin (PEP) Foyed-6-Yjuuaawri Piwqf-4-Bgpcqbvey Beta Globulins Gamma Globulins M-Bib POC Glucose 136 H 149 H 07/01/18 07:45 WBC 10.4 RBC 3.33 L Hgb 9.5 L Hct 29.7 L MCV 89.2 MCH 28.5 MCHC 32.0 RDW 15.6 H RDW Differential 51.0 H Plt Count 100 L MPV 12.3 H Immature Gran % (Auto) 1.100 H Neut % (Auto) 75.1 H Lymph % (Auto) 11.4 L Craig % (Auto) 10.7 H Eos % (Auto) 1.1 Baso % (Auto) 0.6 Absolute Neuts (auto) 7.8 H Absolute Lymphs (auto) 1.19 Total Counted Not Reportable Eos Smear Total Cells Sodium Potassium Chloride Carbon Dioxide Anion Gap BUN Creatinine Estim Creat Clear Calc Est GFR (MDRD) Af Amer Est GFR (MDRD) Non-Af BUN/Creatinine Ratio Glucose Calcium Phosphorus Total Protein (PEP) Albumin (PEP) Globulin (PEP) Albumin/Globulin (PEP) Mchwb-8-Yanvjwwlz Bhtdx-7-Ydcllovff Beta Globulins Gamma Globulins M-Bib POC Glucose Microbiology 06/28/18 16:24 Sputum, Expectorated/Coughed Gram Stain - Final 06/28/18 16:24 Sputum, Expectorated/Coughed Respiratory Culture - Preliminary Culture exhibits no growth. 06/29/18 08:50 Blood Culture (Wb) - Line Draw Blood Culture - Preliminary No growth in 48 hours. 06/30/18 06:00 Stool Enteric Bacteriology - Final 06/28/18 01:00 Urine Catheter - Catheter Urine Culture - Final Escherichia coli 06/28/18 01:05 Blood Culture (Wb) - Anticubital Right Blood Culture - Final Gram negative cristhian 06/28/18 00:55 Blood Culture (Wb) - Anticubital Left Bacteria Detection (PCR) - Final Staphylococcus epidermidis 06/28/18 00:55 Blood Culture (Wb) - Anticubital Left Blood Culture - Final Escherichia coli Staphylococcus epidermidis Medical Necessity - Tobacco Use Smoking Status: Never smoker Assessment/Plan All Active Problems Septic shock (Acute) ROCKY (acute kidney injury) (Acute) RECOMMENDATIONS: 1. Consult ID for antibiotic duration and recommendations 2. Await nephrology input on hemodialysis 3. Continue gentle IV fluid hydration to offset insensible losses and until p.o. intake increases. 4. Continue ICS and bronchodilators 5. Encourage periodic breaks off of BiPAP therapy. Continue with sleep 7. Hemodynamically stable on minimal oxygen. Will sign off from a critical care perspective IMPRESSIONS: 1. Septic shock secondary to pyelonephritis/gram-negative bacteremia/presumptive viral gastroenteritis The patient responded appropriately to broad-spectrum antibiotics and IV volume resuscitation, along with stabilization of hemodynamics with the transient use of vasopressor support. She is no longer requiring Levophed. She is currently afebrile with normalized white count. Patient's culture now growing pansensitive E. coli. Will consult ID for recommendations of antibiotic duration given possibility of need for indwelling catheter. 2. Acute kidney injury/non-oliguric acute renal failure Workup is in process. The patient has likely developed an ATN picture secondary to prerenal etiology in the setting of #1. Patient is receiving IV fluids at this time and has had significant urine output per nursing. Incontinence limits accuracy of total fluid balance. Patient oxygenating well with BiPAP therapy. Unclear if patient's comfort on BiPAP secondary to treatment of pulmonary edema 3. Hypokalemia Nephrology is following. Unclear if patient will require transient hemodialysis. Await their recommendations. Unclear if patient should have a temporary or tunneled hemodialysis line if necessary. 4. History of heart failure with preserved ejection fraction The patient does not appear overtly volume overloaded at this time. Respiratory status is stable. 5. Personal history of prior venous thromboembolic disease/obstructive sleep apnea/asthma/hypothyroidism/hyperlipidemia/hypertension/diabetes mellitus Complicates care, management, recovery and prognosis. Continue nocturnal BiPAP therapy. Okay to continue home medications from my perspective. Code Visit Inpatient E&M: 17842 [facility] L2
--- NOTE | 2018-07-01 11:22 | PN_ITS ---
Subjective: Patient transferred out of the intensive care unit yesterday. Patient continues to use BiPAP extensively [place] to comfort. Patient tolerating 2 L nasal cannula in brief periods off of BiPAP. Overall, patient feels subjectively improved. Patient has had some loose stools, but only 1/day. General: Alert, Oriented x3, Cooperative, No apparent distress, - - Morbidly obese. Good BiPAP synchrony. HEENT: Atraumatic, PERRLA, EOMI, Normocephalic, - - No scleral icterus or injection noted Oral: Moist Mucosa, No Gingival or Mucosal Lesions/ Ulcerations Neck: Supple, No Nodes, Trachea Midline, JVD, Right Lungs: No rhonchi, No wheeze, No rales, Diminished, - - Symmetric expansion. No dullness to percussion. Cardiovascular: Regular rate, Regular Rhythm, Normal S1, Normal S2, No murmurs, No rub noted, No Gallop Abdomen: Bowel Sounds Present, Soft, Non Tender, Non-Distended, Obese Extremities: No cyanosis, Capillary Refill Less than 3 Seconds, Clubbing, Edema Skin: - - Some erythema noted in the area of BiPAP mask Musculoskeletal: No Tenderness to Palpation of Joints or Extremities Lymphatic: No Cervical, Supraclavicular, or Inguinal Adenopathy Neurological: Cranial nerves II-XII grossly intact, Neuro grossly intact, Motor Exam 5/5 strength throughout Psych/Mental Status: Appropriate, Flat Affect Vital Signs Temp Pulse Resp BP Pulse Ox 36.2 C L 83 20 H 113/44 L 98 07/01/18 09:20 07/01/18 09:30 07/01/18 09:30 07/01/18 09:20 07/01/18 09:30 Oxygen Flow Rate (L/min) 2 Oxygen Delivery Method Nasal Cannula Weight: 153.4 kg Body Mass Index (BMI) 51.9 Finger Stick Blood Glucose 126 Intake and Output for Last 24 Hours 06/29/18 06/30/18 07/01/18 23:59 23:59 23:59 Intake Total 3159 / 3159 4210 / 4210 1735 / 1735 Output Total 750 / 750 Balance 2409 / 2409 4210 / 4210 1735 / 1735 Labs (Last 48 Hours) 06/28/18 06/29/18 06/29/18 04:40 11:23 16:35 WBC RBC Hgb Hct MCV MCH MCHC RDW RDW Differential Plt Count MPV Immature Gran % (Auto) Neut % (Auto) Lymph % (Auto) [place] % (Auto) Eos % (Auto) Baso % (Auto) Absolute Neuts (auto) Absolute Lymphs (auto) Total Counted Eos Smear Total Cells 5 Sodium Potassium Chloride Carbon Dioxide Anion Gap BUN Creatinine Estim Creat Clear Calc Est GFR (MDRD) Af Amer Est GFR (MDRD) Non-Af BUN/Creatinine Ratio Glucose Calcium Phosphorus Total Protein (PEP) Albumin (PEP) Globulin (PEP) Albumin/Globulin (PEP) Rkxyc-6-Ihhkrqwgb Jajqf-3-Qqgmlipyy Beta Globulins Gamma Globulins M-Bib POC Glucose 171 H 161 H 06/29/18 06/30/18 06/30/18 22:01 05:30 05:30 WBC 9.3 RBC 3.41 L Hgb 9.6 L Hct 29.7 L MCV 87.1 MCH 28.2 MCHC 32.3 RDW 15.6 H RDW Differential 50.0 H Plt Count 84 L MPV 12.6 H Immature Gran % (Auto) 0.900 Neut % (Auto) 81.8 H Lymph % (Auto) 7.8 L [place] % (Auto) 8.7 Eos % (Auto) 0.6 Baso % (Auto) 0.2 Absolute Neuts (auto) 7.6 Absolute Lymphs (auto) 0.73 L Total Counted Not Reportable Eos Smear Total Cells Sodium 134 L Potassium 3.2 L Chloride 102 Carbon Dioxide 17.0 L Anion Gap 15 BUN 72 H Creatinine 6.67 H Estim Creat Clear Calc 10.36 Est GFR (MDRD) Af Amer 9 L Est GFR (MDRD) Non-Af 7 L BUN/Creatinine Ratio 10.8 Glucose 156 H Calcium 7.1 L Phosphorus 4.8 Total Protein (PEP) Albumin (PEP) Globulin (PEP) Albumin/Globulin (PEP) Ghoiv-5-Duitnamiv Kdbml-5-Agdimqgup Beta Globulins Gamma Globulins M-Bib POC Glucose 143 H 06/30/18 06/30/18 06/30/18 05:30 12:08 16:13 WBC RBC Hgb Hct MCV MCH MCHC RDW RDW Differential Plt Count MPV Immature Gran % (Auto) Neut % (Auto) Lymph % (Auto) [place] % (Auto) Eos % (Auto) Baso % (Auto) Absolute Neuts (auto) Absolute Lymphs (auto) Total Counted Eos Smear Total Cells Sodium Potassium Chloride Carbon Dioxide Anion Gap BUN Creatinine Estim Creat Clear Calc Est GFR (MDRD) Af Amer Est GFR (MDRD) Non-Af BUN/Creatinine Ratio Glucose Calcium Phosphorus Total Protein (PEP) Pending Albumin (PEP) Pending Globulin (PEP) Pending Albumin/Globulin (PEP) Pending Dcxkj-9-Vdqpdjuor Pending Mjcev-6-Fpqexyvoh Pending Beta Globulins Pending Gamma Globulins Pending M-Bib Pending POC Glucose 154 H 149 H 06/30/18 07/01/18 07/01/18 20:59 06:50 07:45 WBC RBC Hgb Hct MCV MCH MCHC RDW RDW Differential Plt Count MPV Immature Gran % (Auto) Neut % (Auto) Lymph % (Auto) [place] % (Auto) Eos % (Auto) Baso % (Auto) Absolute Neuts (auto) Absolute Lymphs (auto) Total Counted Eos Smear Total Cells Sodium 136 Potassium 3.3 L Chloride 107 Carbon Dioxide 16.0 L Anion Gap 13 BUN 74 H Creatinine 6.21 H Estim Creat Clear Calc 11.12 Est GFR (MDRD) Af Amer 9 L Est GFR (MDRD) Non-Af 8 L BUN/Creatinine Ratio 11.9 Glucose 151 H Calcium 7.0 L Phosphorus Total Protein (PEP) Albumin (PEP) Globulin (PEP) Albumin/Globulin (PEP) Ahuhf-3-Qtxekczsi Ionfp-2-Daxafgodg Beta Globulins Gamma Globulins M-Bib POC Glucose 136 H 149 H 07/01/18 07:45 WBC 10.4 RBC 3.33 L Hgb 9.5 L Hct 29.7 L MCV 89.2 MCH 28.5 MCHC 32.0 RDW 15.6 H RDW Differential 51.0 H Plt Count 100 L MPV 12.3 H Immature Gran % (Auto) 1.100 H Neut % (Auto) 75.1 H Lymph % (Auto) 11.4 L [place] % (Auto) 10.7 H Eos % (Auto) 1.1 Baso % (Auto) 0.6 Absolute Neuts (auto) 7.8 H Absolute Lymphs (auto) 1.19 Total Counted Not Reportable Eos Smear Total Cells Sodium Potassium Chloride Carbon Dioxide Anion Gap BUN Creatinine Estim Creat Clear Calc Est GFR (MDRD) Af Amer Est GFR (MDRD) Non-Af BUN/Creatinine Ratio Glucose Calcium Phosphorus Total Protein (PEP) Albumin (PEP) Globulin (PEP) Albumin/Globulin (PEP) Qfkmw-8-Asbslkisx Obexo-4-Iexhsalao Beta Globulins Gamma Globulins M-Bib POC Glucose Microbiology 06/28/18 16:24 Sputum, Expectorated/Coughed Gram Stain - Final 06/28/18 16:24 Sputum, Expectorated/Coughed Respiratory Culture - Prelimina ry Culture exhibits no growth. 06/29/18 08:50 Blood Culture (Wb) - Line Draw Blood Culture - Preliminary No growth in 48 hours. 06/30/18 06:00 Stool Enteric Bacteriology - Final 06/28/18 01:00 Urine Catheter - Catheter Urine Culture - Final Escherichia coli 06/28/18 01:05 Blood Culture (Wb) - Anticubital Right Blood Culture - Final Gram negative cristhian 06/28/18 00:55 Blood Culture (Wb) - Anticubital Left Bacteria Detection (PCR) - Final Staphylococcus epidermidis 06/28/18 00:55 Blood Culture (Wb) - Anticubital Left Blood Culture - Final Escherichia coli Staphylococcus epidermidis Medical Necessity - Tobacco Use Smoking Status: Never smoker Assessment/Plan All Active Problems Septic shock (Acute) ROCKY (acute kidney injury) (Acute) RECOMMENDATIONS: 1. Consult ID for antibiotic duration and recommendations 2. Await nephrology input on hemodialysis 3. Continue gentle IV fluid hydration to offset insensible losses and until p.o. intake increases. 4. Continue ICS and bronchodilators 5. Encourage periodic breaks off of BiPAP therapy. Continue with sleep 7. Hemodynamically stable on minimal oxygen. Will sign off from a critical care perspective IMPRESSIONS: 1. Septic shock secondary to pyelonephritis/gram-negative bacteremia/presumptive viral gastroenteritis The patient responded appropriately to broad-spectrum antibiotics and IV volume resuscitation, along with stabilization of hemodynamics with the transient use of vasopressor support. She is no longer requiring Levophed. She is currently afebrile with normalized white count. Patient's culture now gr owing pansensitive E. coli. Will consult ID for recommendations of antibiotic duration given possibility of need for indwelling catheter. 2. Acute kidney injury/non-oliguric acute renal failure Workup is in process. The patient has likely developed an ATN picture secondary to prerenal etiology in the setting of #1. Patient is receiving IV fluids at this time and has had significant urine output per nursing. Incontinence limits accuracy of total fluid balance. Patient oxygenating well with BiPAP therapy. Unclear if patient's comfort on BiPAP secondary to jean paul atment of pulmonary edema 3. Hypokalemia Nephrology is following. Unclear if patient will require transient hemodialysis. Await their recommendations. Unclear if patient should have a temporary or tunneled hemodialysis line if necessary. 4. History of heart failure with preserved ejection fraction The patient does not appear overtly volume overloaded at this time. Respiratory status is stable. 5. Personal history of prior venous thromboembolic disease/obstructive sleep apnea/asthma/hypothyroidism/hyperlipidemia/hypertension/diabetes mellitus Complicates care, management, recovery and prognosis. Continue nocturnal BiPAP therapy. Okay to continue home medications from my perspective. Code Visit Inpatient E&M: 81213 Subs Hosp L2
[2018-07-01 11:46] LABS: Bedside Glucose 143 mg/dL (70-110)
--- NOTE | 2018-07-01 14:10 | CASEMGMT ---
Completed advance directives with patient. Copies made and given to patient. A copy of each was also placed in her chart. SW also asked patient about her discharge plan and she said her legs feel pretty weak and she might need to go to a skilled nursing. She said she went to one in [place] when she had her knee done, but she cannot remember the name of it. She said her sister might remember it. SW called patient's sister to let her know SW completed healthcare poa and healthcare lw with patient. She thanked GEORGI for completing those documents. She could not remember the name of the skilled nursing, but can find out and let patient know. GEORGI will need to obtain insurance authorization for SNF. Lcuy LÓPEZ MSW
[2018-07-01] MEDS: Cefazolin 1 GM/50 ML BAG IV (16:00)
--- NOTE | 2018-07-01 16:03 | PCM.PN.REN ---
Patient Problems: Active and Suspected Problems Septic shock (Acute) ROCKY (acute kidney injury) (Acute) Subjective: no new complaints - Physical Exam General: Alert, Oriented x3, Cooperative HEENT: Atraumatic, PERRLA, EOMI, Normocephalic Neck: Supple, No JVD, Negative Carotid Bruits Lungs: Clear to auscultation, Normal air movement Cardiovascular: Regular rate, No murmurs Abdomen: Bowel Sounds Present, Soft, Non Tender Extremities: No edema, Capillary Refill Less than 3 Seconds Skin: No rashes, No breakdown Musculoskeletal: No Tenderness to Palpation of Joints or Extremities Neurological: Cranial nerves II-XII grossly intact Psych/Mental Status: Normal Affect, Appropriate Vital Signs Temp Pulse Resp BP Pulse Ox 97.7 F L 84 18 109/52 L 94 07/01/18 15:20 07/01/18 15:20 07/01/18 15:20 07/01/18 15:20 07/01/18 15:20 Oxygen Flow Rate (L/min) 3 Oxygen Delivery Method Room Air Weight: 153.4 kg Body Mass Index (BMI) 51.9 Finger Stick Blood Glucose 126 Intake and Output for Last 24 Hours 06/29/18 06/30/18 07/01/18 23:59 23:59 23:59 Intake Total 3159 / 3159 4210 / 4210 1735 / 1735 Output Total 750 / 750 Balance 2409 / 2409 4210 / 4210 1735 / 1735 Microbiology Past 72 Hours 06/29/18 11:01 Blood Culture - Preliminary Blood Culture (Wb) - Right Wrist No growth in 48 hours. 06/28/18 16:24 Gram Stain - Final Sputum, Expectorated/Coughed Respiratory Culture - Preliminary Culture exhibits no growth. 06/29/18 08:50 Blood Culture - Preliminary Blood Culture (Wb) - Line Draw No growth in 48 hours. 06/30/18 06:00 Enteric Bacteriology - Final Stool 06/28/18 01:00 Urine Culture - Final Urine Catheter - Catheter Escherichia coli 06/28/18 01:05 Blood Culture - Final Blood Culture (Wb) - Anticubital Right Gram negative cristhian 06/28/18 00:55 Bacteria Detection (PCR) - Final Blood Culture (Wb) - Anticubital Left Staphylococcus epidermidis Blood Culture - Final Escherichia coli Staphylococcus epidermidis 06/28/18 12:20 C. difficile DNA Amplification - Final Stool 06/28/18 07:54 Respiratory Panel (PCR) - Final Mucosa - Nasopharyngeal Laboratory Tests Past 24 Hrs 06/28/18 06/28/18 07/01/18 04:35 04:40 07:45 WBC RBC Hgb Hct MCV MCH MCHC RDW RDW Differential Plt Count MPV Immature Gran % (Auto) Neut % (Auto) Lymph % (Auto) [place] % (Auto) Eos % (Auto) Baso % (Auto) Absolute Neuts (auto) Absolute Lymphs (auto) Total Counted Eos Smear Total Cells 5 Sodium 136 Potassium 3.3 L Chloride 107 Carbon Dioxide 16.0 L Anion Gap 13 BUN 74 H Creatinine 6.21 H Estim Creat Clear Calc 11.12 Est GFR (MDRD) Af Amer 9 L Est GFR (MDRD) Non-Af 8 L BUN/Creatinine Ratio 11.9 Glucose 151 H Calcium 7.0 L Ionized Calcium 3.6 L 07/01/18 07:45 WBC 10.4 RBC 3.33 L Hgb 9.5 L Hct 29.7 L MCV 89.2 MCH 28.5 MCHC 32.0 RDW 15.6 H RDW Differential 51.0 H Plt Count 100 L MPV 12.3 H Immature Gran % (Auto) 1.100 H Neut % (Auto) 75.1 H Lymph % (Auto) 11.4 L [place] % (Auto) 10.7 H Eos % (Auto) 1.1 Baso % (Auto) 0.6 Absolute Neuts (auto) 7.8 H Absolute Lymphs (auto) 1.19 Total Counted Not Reportable Eos Smear Total Cells Sodium Potassium Chloride Carbon Dioxide Anion Gap BUN Creatinine Estim Creat Clear Calc Est GFR (MDRD) Af Amer Est GFR (MDRD) Non-Af BUN/Creatinine Ratio Glucose Calcium Ionized Calcium POC Glucose 07/01/18 07/01/18 06/30/18 11:40 06:50 20:59 POC Glucose 143 H 149 H 136 H 06/30/18 16:13 POC Glucose 149 H Medical Necessity - Tobacco Use Smoking Status: Never smoker Assessment/Plan All Active Problems Septic shock (Acute) ROCKY (acute kidney injury) (Acute) ROCKY. normal baseline. UA is dirty. blood cultures with E Ecoli and staph which maybe contaminant. diarrhea is better as per patient. urine output not accurate but as per staff its better (she has 3 episodes of urine incontinence today). Bp is ok. ID note reviewed Cr is better today likely recovery dont see a need to dialyze will dc saline and add sodium bicarbonate for today since she is getting acidotic add maintenance K supplement orally since bicarbonate will push K lower
[2018-07-01 16:06] LABS: PROEL- A/G Ratio 0.5 (0.7-1.7); PROEL- Albumin 1.9 g/dL (2.9-4.4); PROEL- Alpha-1 Globulin 0.5 g/dL (0.0-0.4); PROEL- Alpha-2 Globulin 1.2 g/dL (0.4-1.0); PROEL- Beta Globulin 1.1 g/dL (0.7-1.3); PROEL- Gamma Globulin 0.9 g/dL (0.4-1.8); PROEL- Globulin, Total 3.6 g/dL (2.2-3.9); PROEL- TOTAL PROTEIN 5.5 g/dL (6.0-8.5)
[2018-07-01 17:01] LABS: Bedside Glucose 130 mg/dL (70-110)
[2018-07-01] MEDS: Insulin Lispro 100 UNIT/ML INSULN.PEN SQ (22:38)
[2018-07-01] MEDS: Atorvastatin Calcium 40 MG Tablet PO (22:40)
[2018-07-01 22:53] LABS: Bedside Glucose 179 mg/dL (70-110)
[2018-07-02] VITALS (20 sets, daily range): BP systolic 117–148; BP diastolic 50–66; PULSE 83–96; RESP 12–26; TEMP 36.2–36.9; O2SAT 94–99
[2018-07-02 03:08] LABS: Immunoglobulin A 419 mg/dL (87-352); Immunoglobulin G 922 mg/dL (700-1600)
[2018-07-02] MEDS: 0.9% NaCl Peripheral Flush Adult/Peds IV (04:25)
[2018-07-02 04:49] LABS: Absolute Lymphocyte Count 0.97 X10^3/ul (0.83-4.51); Absolute Neutrophil Count 8.7 X10^3/uL (2.0-7.7); Basophil# 0.05 X10^3/uL; Basophil% 0.5 % (0-1); Eosinophil# 0.34 X10^3/uL; Eosinophils% 3.1 % (0-5); Hematocrit 29.3 % (37-47); Hemoglobin 9.4 g/dl (12.0-15.0); Lymphocyte # 0.97 X10^3/ul (4.0); Lymphocyte % 8.8 % (19-41); Mean Corp Hgb Conc 32.1 g/gl (32-36); Mean Corpuscular Hgb 28.7 pg (27.0-32.0); Mean Corpuscular Volume 89.3 fL (81-99); Mean Platelet Vol. 12.5 fl (6.2-12.0); Monocyte# 0.92 X10^3/uL; Monocyte% 8.3 % (0-10); Neutrophil # 8.66 X10^3/uL (2.7-7.7); Platelet Count 136 K/mm3 (150-450); RBC Distribution Width CV 15.6 % (11.6-14.6); RBC Distribution Width SD 50.8 fl (35.1-43.9); Red Blood Count 3.28 M/mm3 (4.2-5.4); White Blood Count 11.1 K/mm3 (4.4-11.0)
[2018-07-02 04:55] LABS: Anion Gap 12 (5-15); BUN 75 mg/dL (7-18); BUN/Creat Ratio 12.4 RATIO (10-20); Chloride 106 mmol/L (98-107); Creatinine, Serum 6.06 mg/dL (0.55-1.02); EST Glomerular Filtration Rate 8 mL/min (>60); Est Glom Filt Rate - Afr Amer 10 mL/min (>60); Glucose 183 mg/dL (74-106); Potassium 3.4 mmol/L (3.5-5.1); Sodium Level 139 mmol/L (136-145)
[2018-07-02 04:56] LABS: POSITIVE COUNT NO; POSITIVE DIFFERENTIAL NO; POSITIVE MORPHOLOGY YES
[2018-07-02 04:57] LABS: Differential Indicated SCAN CRITERIA MET
[2018-07-02 05:38] LABS: Anisocytosis RARE; Hypochromasia RARE; Platelet Estimate SLT DEC (ADEQ)
[2018-07-02] MEDS: busPIRone 5 MG Tablet PO ×3 (06:03→21:27)
[2018-07-02] MEDS: Levothyroxine 50 MCG Tablet PO (06:03)
[2018-07-02] MEDS: Heparin Injection (Vial) 5,000 UNIT/ML VIAL 5000 UNIT SC ×3 (06:03→21:27)
[2018-07-02 07:00] LABS: Bedside Glucose 157 mg/dL (70-110)
[2018-07-02] MEDS: Albuterol 2.5 MG/3 ML VIAL.NEB. INHALATION ×3 (07:19→22:50)
[2018-07-02] MEDS: Budesonide Respules 0.5 MG/2 ML AMPUL.NEB. INHALATION ×2 (07:19→22:50)
--- NOTE | 2018-07-02 07:53 | PCM.PROGNOTE ---
Patient Problems: Active and Suspected Problems Septic shock (Acute) ROCKY (acute kidney injury) (Acute) Subjective: Chief complaint: Follow-up after admission for septic shock secondary to acute pyelonephritis, complicated by acute renal failure and E. coli/staph epidermidis bacteremia. Patient seen and examined. No acute events overnight. This morning, she complained of headache and she has been using BiPAP overnight. Denied abdominal pain, nausea or vomiting. However, she is feeling better. Her vital signs are stable. - Physical Exam General: Alert, Oriented x3, Cooperative, No apparent distress HEENT: Atraumatic, PERRLA, EOMI, Normocephalic Oral: Moist Mucosa, No Gingival or Mucosal Lesions/ Ulcerations Neck: Supple, No JVD, Negative Carotid Bruits, Trachea Midline, Thyroid Normal Size and Texture Lungs: Clear to auscultation, No rhonchi, No wheeze, No rales, Diminished Cardiovascular: Regular rate, Regular Rhythm, Normal S1, Normal S2, PMI Normal Abdomen: Bowel Sounds Present, Soft, Non Tender, Non-Distended, No Hepato-splenomegaly, Obese Extremities: No clubbing, No cyanosis, No edema Skin: No rashes, No breakdown Lymphatic: No Cervical, Supraclavicular, or Inguinal Adenopathy Neurological: Cranial nerves II-XII grossly intact, Neuro grossly intact Psych/Mental Status: Normal Affect, Appropriate, Alert and oriented to time, place, person, mood and affect Vital Signs Temp Pulse Resp BP Pulse Ox 97.2 F L 88 20 H 148/61 H 98 07/02/18 03:57 07/02/18 04:45 07/02/18 04:45 07/02/18 03:57 07/02/18 04:45 Oxygen Flow Rate (L/min) 3 Oxygen Delivery Method Bi-pap Weight: 218 lb 4.122 oz Body Mass Index (BMI) 51.9 Finger Stick Blood Glucose 126 Intake and Output for Last 24 Hours 06/30/18 07/01/18 07/02/18 23:59 23:59 23:59 Intake Total 4210 / 4210 3955 / 3955 1714 / 1714 Balance 4210 / 4210 3955 / 3955 1714 / 1714 Microbiology Past 72 Hours 06/29/18 11:01 Blood Culture - Preliminary Blood Culture (Wb) - Right Wrist No growth in 48 hours. 06/28/18 16:24 Gram Stain - Final Sputum, Expectorated/Coughed Respiratory Culture - Preliminary Culture exhibits no growth. 06/29/18 08:50 Blood Culture - Preliminary Blood Culture (Wb) - Line Draw No growth in 48 hours. 06/30/18 06:00 Enteric Bacteriology - Final Stool 06/28/18 01:00 Urine Culture - Final Urine Catheter - Catheter Escherichia coli 06/28/18 01:05 Blood Culture - Final Blood Culture (Wb) - Anticubital Right Gram negative cristhian 06/28/18 00:55 Bacteria Detection (PCR) - Final Blood Culture (Wb) - Anticubital Left Staphylococcus epidermidis Blood Culture - Final Escherichia coli Staphylococcus epidermidis Laboratory Tests Past 24 Hrs 06/28/18 07/01/18 07/01/18 04:35 07:45 07:45 WBC 10.4 RBC 3.33 L Hgb 9.5 L Hct 29.7 L MCV 89.2 MCH 28.5 MCHC 32.0 RDW 15.6 H RDW Differential 51.0 H Plt Count 100 L MPV 12.3 H Immature Gran % (Auto) 1.100 H Neut % (Auto) 75.1 H Lymph % (Auto) 11.4 L [place] % (Auto) 10.7 H Eos % (Auto) 1.1 Baso % (Auto) 0.6 Absolute Neuts (auto) 7.8 H Absolute Lymphs (auto) 1.19 Total Counted Not Reportable Platelet Estimate Hypochromasia Anisocytosis Sodium 136 Potassium 3.3 L Chloride 107 Carbon Dioxide 16.0 L Anion Gap 13 BUN 74 H Creatinine 6.21 H Estim Creat Clear Calc 11.12 Est GFR (MDRD) Af Amer 9 L Est GFR (MDRD) Non-Af 8 L BUN/Creatinine Ratio 11.9 Glucose 151 H Calcium 7.0 L Ionized Calcium 3.6 L 07/02/18 07/02/18 04:27 04:27 WBC 11.1 H RBC 3.28 L Hgb 9.4 L Hct 29.3 L MCV 89.3 MCH 28.7 MCHC 32.1 RDW 15.6 H RDW Differential 50.8 H Plt Count 136 L MPV 12.5 H Immature Gran % (Auto) 1.300 H Neut % (Auto) 78.0 H Lymph % (Auto) 8.8 L [place] % (Auto) 8.3 Eos % (Auto) 3.1 Baso % (Auto) 0.5 Absolute Neuts (auto) 8.7 H Absolute Lymphs (auto) 0.97 Total Counted Not Reportable Platelet Estimate SLT DEC Hypochromasia RARE Anisocytosis RARE Sodium 139 Potassium 3.4 L Chloride 106 Carbon Dioxide 21.0 Anion Gap 12 BUN 75 H Creatinine 6.06 H Estim Creat Clear Calc 11.40 Est GFR (MDRD) Af Amer 10 L Est GFR (MDRD) Non-Af 8 L BUN/Creatinine Ratio 12.4 Glucose 183 H Calcium 7.0 L Ionized Calcium POC Glucose 07/02/18 07/01/18 07/01/18 06:43 22:31 16:53 POC Glucose 157 H 179 H 130 H 07/01/18 11:40 POC Glucose 143 H Medical Necessity - Tobacco Use Smoking Status: Never smoker Assessment/Plan All Active Problems Septic shock (Acute) ROCKY (acute kidney injury) (Acute) This is a 43 years old female patient admitted because of nausea, vomiting and diarrhea she was found to have septic shock secondary to acute pyelonephritis, complicated by acute renal failure and bacteremia. #1 septic shock: Secondary to acute pyelonephritis. She is on IV cefazolin. She remained afebrile, other vital signs are stable. Blood culture revealed staph epidermidis and E. coli, repeat blood culture showed no growth in 48 hours. Infectious disease consulted, plan to continue same treatment. #2 E. coli acute pyelonephritis: She is on IV cefazolin as above. She has been afebrile. Urine culture revealed E. coli that was pansensitive. Plan as above. #3 Staph epidermidis/E. coli bacteremia: Likely source is the acute pyelonephritis and according to infectious disease, it could be a contaminant. She is on IV cefazolin as above. Blood culture and sensitivity reviewed. Repeat blood culture showed no growth in 48 hours.. Plan to continue same treatment. #4 acute renal failure: Secondary to septic shock and hypoperfusion. She has been on IV fluids and IV bicarbonate. Kidney function started to improve, creatinine down to 6.06 mg/dL today. Ultrasound kidneys and CT scan abdomen and pelvis revealed no evidence of acute obstructive uropathy, no kidney stones or hydronephrosis. Nephrology recommended no need for dialysis. Plan to continue same treatment, repeat CBC tomorrow morning. #5 type 2 diabetes mellitus: She is on Lantus twice daily and sliding scale. Blood sugar has been under better control. #6 hypertension: Blood pressure stabilized. Norvasc and lisinopril held. #7 hypothyroidism: Continue levothyroxine. TSH was normal. #8 obstructive sleep apnea/obesity hypoventilation syndrome: Continue BiPAP nightly. #9 hyperlipidemia: Continue statins. #10 DVT prophylaxis: Subcu heparin. This note was generated with [employer] dictation software. It may contain incorrect words, spelling, and punctuation that were not noted in checking the note before signing. Code Visit Inpatient E&M: 21521 Subs Hosp L2
--- NOTE | 2018-07-02 09:42 | CASEMGMT ---
GEORGI spoke with patient this am and asked if she found out the name of the care home she went to before. She did not. GEORGI named of a few SW found in network with her insurance and she said any of them would be fine. SW asked her if she still feels she needs to go to a care home. She said she does need to go somewhere. GEORGI told her SW will check with her sister again. GEORGI called patient's sister and left her a vm regarding SNF along with SW's phone number. GEORGI told her SW needs to know as soon as possible as SW needs to get this process started so we have everything lined up when patient is ready for discharge. Lucy LÓPEZ QUALITY IMPROVEMENT CONSULTANT
[2018-07-02] MEDS: Insulin Lispro 100 UNIT/ML INSULN.PEN SQ ×2 (10:18→13:12)
[2018-07-02 11:30] LABS: Bedside Glucose 158 mg/dL (70-110)
--- NOTE | 2018-07-02 11:41 | CASEMGMT ---
SW was unable to figure out which SNF patient went to before. Patient is fine with talking to her parents about which SNF.SW spoke with patient's mom regarding which facility as patient continues to say anywhere in [place] is fine as that is the closest. [place] is [place]. Patient's mom asked about [facility]. SW called [facility] and left a message with referral as well as faxed information. SW let patient know and she was fine with [facility]. Lucy LÓPEZ HOUSE DECORATOR
--- NOTE | 2018-07-02 12:43 | PN.ID_ITS ---
Patient Problems: Active and Suspected Problems Septic shock (Acute) ROCKY (acute kidney injury) (Acute) Subjective: Breathing a little better, still multiple episodes of diarrhea a day. No fever, no abd pain. - Physical Exam General: Alert, Cooperative, No apparent distress Lungs: Normal air movement, Diminished Cardiovascular: Regular rate, Regular Rhythm Abdomen: Soft, Non Tender, Non-Distended, Obese Skin: No rashes Vital Signs Temp Pulse Resp BP Pulse Ox 98.0 F 93 17 117/63 94 07/02/18 09:57 07/02/18 09:57 07/02/18 09:57 07/02/18 09:57 07/02/18 09:57 Oxygen Flow Rate (L/min) 3 Oxygen Delivery Method Room Air Weight: 99 kg Body Mass Index (BMI) 51.9 Finger Stick Blood Glucose 126 Intake and Output for Last 24 Hours 06/30/18 07/01/18 07/02/18 23:59 23:59 23:59 Intake Total 4210 / 4210 3955 / 3955 1714 / 1714 Balance 4210 / 4210 3955 / 3955 1714 / 1714 Microbiology Past 72 Hours 06/28/18 16:24 Gram Stain - Final Sputum, Expectorated/Coughed Respiratory Culture - Preliminary Presumptive C albicans 06/29/18 11:01 Blood Culture - Preliminary Blood Culture (Wb) - Right Wrist No growth in 48 hours. 06/29/18 08:50 Blood Culture - Preliminary Blood Culture (Wb) - Line Draw No growth in 48 hours. 06/30/18 06:00 Enteric Bacteriology - Final Stool 06/28/18 01:00 Urine Culture - Final Urine Catheter - Catheter Escherichia coli 06/28/18 01:05 Blood Culture - Final Blood Culture (Wb) - Anticubital Right Gram negative cristhian 06/28/18 00:55 Bacteria Detection (PCR) - Final Blood Culture (Wb) - Anticubital Left Staphylococcus epidermidis Blood Culture - Final Escherichia coli Staphylococcus epidermidis Laboratory Tests Past 24 Hrs 06/28/18 06/30/18 07/02/18 04:35 05:30 04:27 WBC 11.1 H RBC 3.28 L Hgb 9.4 L Hct 29.3 L MCV 89.3 MCH 28.7 MCHC 32.1 RDW 15.6 H RDW Differential 50.8 H Plt Count 136 L MPV 12.5 H Immature Gran % (Auto) 1.300 H Neut % (Auto) 78.0 H Lymph % (Auto) 8.8 L [place] % (Auto) 8.3 Eos % (Auto) 3.1 Baso % (Auto) 0.5 Absolute Neuts (auto) 8.7 H Absolute Lymphs (auto) 0.97 Total Counted Not Reportable Platelet Estimate SLT DEC Hypochromasia RARE Anisocytosis RARE Sodium Potassium Chloride Carbon Dioxide Anion Gap BUN Creatinine Estim Creat Clear Calc Est GFR (MDRD) Af Amer Est GFR (MDRD) Non-Af BUN/Creatinine Ratio Glucose Calcium Ionized Calcium 3.6 L Total Protein (PEP) 5.5 L Albumin (PEP) 1.9 L Globulin (PEP) 3.6 Albumin/Globulin (PEP) 0.5 L Nxtlo-1-Mympzgcws 0.5 H Wfbpd-1-Eowcoduxs 1.2 H Beta Globulins 1.1 Gamma Globulins 0.9 M-Bib PEP Note Comment PEP Interpretation Comment 07/02/18 04:27 WBC RBC Hgb Hct MCV MCH MCHC RDW RDW Differential Plt Count MPV Immature Gran % (Auto) Neut % (Auto) Lymph % (Auto) [place] % (Auto) Eos % (Auto) Baso % (Auto) Absolute Neuts (auto) Absolute Lymphs (auto) Total Counted Platelet Estimate Hypochromasia Anisocytosis Sodium 139 Potassium 3.4 L Chloride 106 Carbon Dioxide 21.0 Anion Gap 12 BUN 75 H Creatinine 6.06 H Estim Creat Clear Calc 11.40 Est GFR (MDRD) Af Amer 10 L Est GFR (MDRD) Non-Af 8 L BUN/Creatinine Ratio 12.4 Glucose 183 H Calcium 7.0 L Ionized Calcium Total Protein (PEP) Albumin (PEP) Globulin (PEP) Albumin/Globulin (PEP) Nsidg-3-Gwfchdyck Cfxbi-6-Mklmpukjv Beta Globulins Gamma Globulins M-Bib PEP Note PEP Interpretation POC Glucose 07/02/18 07/02/18 07/01/18 11:27 06:43 22:31 POC Glucose 158 H 157 H 179 H 07/01/18 16:53 POC Glucose 130 H Medical Necessity - Tobacco Use Smoking Status: Never smoker Route of nutrition/ use of supplements: [] Nutritional Intake: [] IV Site: [] Herr Catheter: [] - Assessment/Plan Antibiotics: [] Assessment/Plan: [] Active and Suspected Problems Septic shock (Acute) ROCKY (acute kidney injury) (Acute) septic shock due to ecoli pyelo and bacteremia complicated by ROCKY - bcx have cleared since 06/29. Cdiff was neg. Ueos were neg. Shock has resolved. Will continue cefazolin. Single bcx with staph epi consistent with contaminant. Cdiff was neg. Ok for discharge on po keflex 500mg daily for one more week, doses to be given after HD on dialysis days. Will follow
--- NOTE | 2018-07-02 14:24 | CASEMGMT ---
[facility] can accept patient. SW let patient and her parents know this information and that we will have to wait on insurance to approve. Plan: [facility] pending insurance approval. Lucy MERIDA
--- NOTE | 2018-07-02 15:41 | CASEMGMT ---
SW received a call from Darlin at [facility] and she received insurance authorization. Patient will be ready for d/c tomorrow per physician. Lucy MERIDA
[2018-07-02] MEDS: Cefazolin 1 GM/50 ML BAG IV (15:53)
[2018-07-02 16:10] LABS: Bedside Glucose 106 mg/dL (70-110)
[2018-07-02] MEDS: 0.9% NaCl Midline IV Flush IV (18:51)
[2018-07-02] MEDS: 0.9% NaCl IVPB Med Flush (250 mL) 15 ML IV (18:51)
[2018-07-02] MEDS: Atorvastatin Calcium 40 MG Tablet PO (21:27)
[2018-07-02 21:45] LABS: Bedside Glucose 127 mg/dL (70-110)
[2018-07-03] VITALS (19 sets, daily range): BP systolic 128–136; BP diastolic 56–62; PULSE 86–104; RESP 12–24; TEMP 36.6–37.1; O2SAT 94–99
[2018-07-03] MEDS: proMETHazine 25 MG/ML Syringe 12.5 MG IV (04:02)
[2018-07-03] MEDS: 0.9% NaCl Peripheral Flush Adult/Peds IV ×2 (04:55→04:57)
[2018-07-03 05:37] LABS: Anion Gap 13 (5-15); BUN 71 mg/dL (7-18); Calcium,Total 7.1 mg/dL (8.5-10.1); Chloride 108 mmol/L (98-107); Creatinine, Serum 5.47 mg/dL (0.55-1.02); EST Glomerular Filtration Rate 9 mL/min (>60); Est Glom Filt Rate - Afr Amer 11 mL/min (>60); Estimated Creatinine Clearance 12.63 ml/min; Glucose 176 mg/dL (74-106); Potassium 3.1 mmol/L (3.5-5.1); Sodium Level 143 mmol/L (136-145)
[2018-07-03] MEDS: Heparin Injection (Vial) 5,000 UNIT/ML VIAL 5000 UNIT SC ×3 (05:50→21:53)
[2018-07-03] MEDS: busPIRone 5 MG Tablet PO ×3 (05:51→21:52)
[2018-07-03] MEDS: Levothyroxine 50 MCG Tablet PO (05:51)
[2018-07-03 06:59] LABS: Magnesium 2.2 mg/dL (1.6-2.6)
[2018-07-03 07:00] LABS: Bedside Glucose 171 mg/dL (70-110)
[2018-07-03] MEDS: Potassium Chloride 10mEq/100mL 10 MEQ/100 ML IV.SOLN. 100 MEQ IV BOLUS ×4 (08:11→11:11)
[2018-07-03] MEDS: Insulin Lispro 100 UNIT/ML INSULN.PEN SQ (08:11)
[2018-07-03] MEDS: Albuterol 2.5 MG/3 ML VIAL.NEB. INHALATION ×3 (08:12→20:53)
[2018-07-03] MEDS: Budesonide Respules 0.5 MG/2 ML AMPUL.NEB. INHALATION ×2 (08:12→20:53)
--- NOTE | 2018-07-03 09:34 | CASEMGMT ---
GEORGI was working on patient's transport form and noted patient is now 336 lbs. Yesterday GEORGI told [facility] that she is 218 lbs as that is what her chart read. GEORGI called Darlin at [facility] and let her know. She will check with the team and let GEORGI know if this is a problem. GEORGI received a phone call from BEBETO Conte CM with [facility]. She wanted to check on patient's discharge plan. GEORGI told her patient is going to [facility] for rehab. Lucy LÓPEZ MSW
--- NOTE | 2018-07-03 10:21 | PCM.TXEXTCAR ---
- Diet 06/29/18 08:46 Diet: Calorie Controlled Food consistency:: Regular Liquid Consistency:: Regular/Thin Is pt able to select menu?: Yes Diet Comments: low residue no gastric stimulus How many daily calories?: 2000 calorie - Routine Orders/Code Status Code Status: Full Code - Suggestions for Active Care Change Position every (hours): 3 Hours to sit in a chair: 2 Times a day to sit in chair: 3 - Therapies Weight Bearing: Full weight bearing Physical Therapy: Eval and Treat Occupational Therapy: Eval and Treat - Allergies/Procedures Done in Hospital Allergies/Adverse Reactions: Allergies azithromycin [From Zithromax] Allergy (Verified 06/27/18 22:34) Unknown levofloxacin [From Levaquin] Allergy (Verified 06/27/18 22:34) Rash Penicillins Allergy (Verified 06/27/18 22:34) Unknown - Type of Care/Length of Stay Estimated LOS: Convalescent Care Less Than 30 days Type of Care Needed: Skilled Rehab Potential: Good Prognosis: Good - Additional Orders/Day of Discharge Additional Orders: Recommend to have CBC and BMP done in a week. H&P will serve as current which was dated: 06/28/18 Day of Discharge: 07/03/18 - Dietary and Speech Recommendations Dietitian Recommendations/Changes: Rec adv diet as tolerated to 2000 calorie, Cardiac low sodium w/ fluid restriction as indicated. Please weigh pt on same scale for greater accuracy - Follow Up Care Primary Care Physician: Armen Crowder MD [Primary Care Provider] - Please follow up with your Primary Care Physician in: 1 week. Please Follow Up With: Katlyn Kline MD When: 1 week.
--- NOTE | 2018-07-03 11:14 | PCM.PN.ID ---
Patient Problems: Active and Suspected Problems Septic shock (Acute) ROCKY (acute kidney injury) (Acute) Subjective: Feeling a little better, still some diarrhea, no fever. - Physical Exam General: Alert, Cooperative, No apparent distress Lungs: Clear to auscultation, Normal air movement Cardiovascular: Regular rate, Regular Rhythm Abdomen: Soft, Non Tender, Non-Distended Skin: No rashes Vital Signs Temp Pulse Resp BP Pulse Ox 98.7 F 91 18 128/59 H 95 07/03/18 08:43 07/03/18 08:43 07/03/18 08:43 07/03/18 08:43 07/03/18 08:43 Oxygen Flow Rate (L/min) 3 Oxygen Delivery Method Room Air Weight: 152.6 kg Body Mass Index (BMI) 51.9 Finger Stick Blood Glucose 126 Intake and Output for Last 24 Hours 07/01/18 07/02/18 07/03/18 23:59 23:59 23:59 Intake Total 3955 / 3955 4120 / 4120 766 / 766 Balance 3955 / 3955 4120 / 4120 766 / 766 Microbiology Past 72 Hours 06/28/18 16:24 Gram Stain - Final Sputum, Expectorated/Coughed Respiratory Culture - Final Presumptive C albicans 07/03/18 04:00 C. difficile DNA Amplification - Final Stool 06/29/18 11:01 Blood Culture - Preliminary Blood Culture (Wb) - Right Wrist No growth in 48 hours. 06/29/18 08:50 Blood Culture - Preliminary Blood Culture (Wb) - Line Draw No growth in 48 hours. 06/30/18 06:00 Enteric Bacteriology - Final Stool 06/28/18 01:00 Urine Culture - Final Urine Catheter - Catheter Escherichia coli 06/28/18 01:05 Blood Culture - Final Blood Culture (Wb) - Anticubital Right Gram negative cristhian 06/28/18 00:55 Bacteria Detection (PCR) - Final Blood Culture (Wb) - Anticubital Left Staphylococcus epidermidis Blood Culture - Final Escherichia coli Staphylococcus epidermidis Laboratory Tests Past 24 Hrs 07/03/18 07/03/18 04:50 04:50 Sodium 143 Potassium 3.1 L Chloride 108 H Carbon Dioxide 22.0 Anion Gap 13 BUN 71 H Creatinine 5.47 H Estim Creat Clear Calc 12.63 Est GFR (MDRD) Af Amer 11 L Est GFR (MDRD) Non-Af 9 L BUN/Creatinine Ratio 13.0 Glucose 176 H Calcium 7.1 L Magnesium 2.2 POC Glucose 07/03/18 07/02/18 07/02/18 06:57 21:24 15:59 POC Glucose 171 H 127 H 106 07/02/18 11:27 POC Glucose 158 H Medical Necessity - Tobacco Use Smoking Status: Never smoker Route of nutrition/ use of supplements: [] Nutritional Intake: [] IV Site: [] Herr Catheter: [] - Assessment/Plan Antibiotics: [] Assessment/Plan: [] Active and Suspected Problems Septic shock (Acute) ROCKY (acute kidney injury) (Acute) septic shock due to ecoli pyelo and bacteremia complicated by ROCKY - bcx have cleared since 06/29. Cdiff was neg. Ueos were neg. Shock has resolved. Will continue cefazolin. Single bcx with staph epi consistent with contaminant. Cdiff was neg. Ok for discharge on po keflex 500mg daily for one more week, doses to be given after HD on dialysis days. Will follow, rx written
--- NOTE | 2018-07-03 11:52 | CASEMGMT ---
GEORGI was filling out paperwork this am and noted patient's weight today is 336. Yesterday it said 218. GEORGI called [facility] and let Darlin know. She took it to their morning meeting and due to their level of acuity of patient's and staffing and patients level of acuity they cannot take patient. They will withdrawal the pre-cert. GEORGI spoke with patient's mom and let her know. She asked SW to try [facility]. GEORGI called [facility] and spoke with Michelle regarding referral. She said, 336 is difficult, but GEORGI could send the referral and she will look at it. SW faxed referral. GEORGI will check with patient's mom on another choice as [facility] does not sound promising. Lucy LÓPEZ MANAGER [place]
[2018-07-03 12:20] LABS: Bedside Glucose 124 mg/dL (70-110)
--- NOTE | 2018-07-03 12:52 | PCM.DC.SUM ---
Discharge Date and Diagnosis - Problem List Patient Problems: Active and Suspected Problems Septic shock (Acute) ROCKY (acute kidney injury) (Acute) Date of Admission: 06/28/18 Date of Discharge: 07/03/18 - Primary Discharge Diagnosis Active and Suspected Problems #1 septic shock secondary to acute pyelonephritis. #2 E. coli acute pyelonephritis. #3 staph epidermidis/a colitis bacteremia, likely due to contamination. #4 acute renal failure. - Secondary Discharge Diagnosis Chronic Problems Hypothyroidism (Chronic) DiGeorge syndrome (Chronic) Obesity hypoventilation syndrome (Chronic) HTN (hypertension) (Chronic) Asthma (Chronic) Super obesity (Chronic) Hyperlipidemia (Chronic) VENANCIO treated with BiPAP (Chronic) Diabetes mellitus type 2 in obese (Chronic) new diagnosis Hospital Course and Treatment Imaging Results: Clinical Impression(s) from Imaging Studies Chest X-Ray 06/28/18 02:45 IMPRESSION: Mild cardiomegaly. Bibasilar opacities representing either areas of atelectatic changes or pneumonia. A central line through the right internal jugular vein has its tip in the superior vena cava. Electronically Signed: Dylan Greenfield MD at 3:42 EST Tel , Service support , Renal Ultrasound 06/28/18 07:17 IMPRESSION: 1. Minimal fullness of the right renal pelvis. 2. No evidence of hydronephrosis. Electronically Signed: Theo Chris MD at 15:46 EST Tel , Service support , Abdomen/Pelvis CT 06/28/18 23:41 IMPRESSION: 1. Hepatomegaly. 2. No CT evidence of acute intra-abdominal disease. 3. Fluid-filled colon is consistent with history of diarrhea. Electronically Signed: Devi Whipple MD at 2:00 EST , Service support , Dr. Hull, infectious disease. Dr. Kline, nephrology. Dr. Martin/Dr. Lindsay, critical care. Operations: None Procedures: None Summary of Care Provided: Patient seen and examined on the day of discharge and appeared to be stable to be discharged to [facility] facility. Reported intermittent diarrhea, improving. Denied abdominal pain, nausea or vomiting. Her vital signs are stable. This is a 43 years old female patient admitted because of nausea, vomiting and diarrhea she was found to have septic shock secondary to acute pyelonephritis, complicated by acute renal failure and bacteremia. #1 septic shock: Secondary to acute pyelonephritis. Treated with IV cefazolin. With IV antibiotic therapy, patient remained afebrile for more than 72 hours and leukocytosis resolved. Urine culture revealed E. coli. Blood culture revealed staph epidermidis and E. coli which is probably a contaminant. Infectious disease consulted. Repeat blood culture showed no growth in 48 hours. Patient discharged to [facility] facility on Keflex 500 mg p.o. daily for 1 more week of treatment. #2 E. coli acute pyelonephritis: Treated with IV cefazolin as above. She has been afebrile. Urine culture revealed E. coli that was pansensitive. Discharged on Keflex daily for 1 more week of treatment. #3 Staph epidermidis/E. coli bacteremia: According to infectious disease, this is likely a contaminant. Repeat blood culture showed no growth in 48 hours. Patient was discharged on Keflex 500 mg p.o. daily for 1 week treatment. #4 acute renal failure: Secondary to septic shock and hypoperfusion. She was treated with IV fluids and IV bicarbonate. Her admission creatinine was 5.85 and it went up to 6.67 after admission. With IV fluid therapy and bicarbonate, her creatinine started to improve and it was 5.47 upon discharge. Nephrology consulted and recommended that there is no need for hemodialysis at this time. Ultrasound kidneys and CT scan abdomen and pelvis revealed no evidence of acute obstructive uropathy, no kidney stones or hydronephrosis. Patient discharged home, I recommended to hydrate herself very well, plan to follow-up with nephrology in 1 week. #5 type 2 diabetes mellitus: Blood sugar has been stable during this hospital stay. She was continued on her home doses of insulin. #6 hypertension: Blood pressure stabilized, continued on Norvasc, lisinopril discontinued. #7 hypothyroidism: Continued on levothyroxine. TSH was normal. Patient discharged to [facility] facility in a stable medical condition, discharged on Keflex 500 mg p.o. daily for 1 week of treatment for E. coli pyelonephritis and bacteremia, discharged on Norvasc, lisinopril discontinued because of acute renal failure, continued on her other home medications, recommended to have blood work done at her PCPs office in 1 week, plan to follow-up with PCP in 1 week and with nephrology in 1 week as well. This note was generated with cashcloud dictation software. It may contain incorrect words, spelling, and punctuation that were not noted in checking the note before signing. Patient Problems: Active and Suspected Problems Septic shock (Acute) ROCKY (acute kidney injury) (Acute) - Physical Exam General: Alert, Oriented x3, Cooperative, No apparent distress HEENT: Atraumatic, PERRLA, EOMI, Normocephalic Oral: Moist Mucosa, No Gingival or Mucosal Lesions/ Ulcerations Neck: Supple, No JVD, Negative Carotid Bruits, Trachea Midline, Thyroid Normal Size and Texture Lungs: Clear to auscultation, No rhonchi, No wheeze, No rales, Diminished Cardiovascular: Regular rate, Regular Rhythm, Normal S1, Normal S2, PMI Normal Abdomen: Bowel Sounds Present, Soft, Non Tender, Non-Distended, No Hepato-splenomegaly, Obese Extremities: No clubbing, No cyanosis, No edema Skin: No rashes, No breakdown Lymphatic: No Cervical, Supraclavicular, or Inguinal Adenopathy Neurological: Cranial nerves II-XII grossly intact, Neuro grossly intact Psych/Mental Status: Normal Affect, Appropriate Vital Signs Temp Pulse Resp BP Pulse Ox 98.7 F 86 18 128/59 H 97 07/03/18 08:43 07/03/18 11:29 07/03/18 11:10 07/03/18 08:43 07/03/18 11:10 Oxygen Flow Rate (L/min) 2 Oxygen Delivery Method Nasal Cannula Weight: 336 lb 6.806 oz Body Mass Index (BMI) 51.9 Finger Stick Blood Glucose 126 Intake and Output for Last 24 Hours 07/01/18 07/02/18 07/03/18 23:59 23:59 23:59 Intake Total 3955 / 3955 4120 / 4120 766 / 766 Balance 3955 / 3955 4120 / 4120 766 / 766 Microbiology Past 72 Hours 06/28/18 16:24 Gram Stain - Final Sputum, Expectorated/Coughed Respiratory Culture - Final Presumptive C albicans 07/03/18 04:00 C. difficile DNA Amplification - Final Stool 06/29/18 11:01 Blood Culture - Preliminary Blood Culture (Wb) - Right Wrist No growth in 48 hours. 06/29/18 08:50 Blood Culture - Preliminary Blood Culture (Wb) - Line Draw No growth in 48 hours. 06/30/18 06:00 Enteric Bacteriology - Final Stool 06/28/18 01:00 Urine Culture - Final Urine Catheter - Catheter Escherichia coli 06/28/18 01:05 Blood Culture - Final Blood Culture (Wb) - Anticubital Right Gram negative cristhian 06/28/18 00:55 Bacteria Detection (PCR) - Final Blood Culture (Wb) - Anticubital Left Staphylococcus epidermidis Blood Culture - Final Escherichia coli Staphylococcus epidermidis Laboratory Tests Past 24 Hrs 07/03/18 07/03/18 04:50 04:50 Sodium 143 Potassium 3.1 L Chloride 108 H Carbon Dioxide 22.0 Anion Gap 13 BUN 71 H Creatinine 5.47 H Estim Creat Clear Calc 12.63 Est GFR (MDRD) Af Amer 11 L Est GFR (MDRD) Non-Af 9 L BUN/Creatinine Ratio 13.0 Glucose 176 H Calcium 7.1 L Magnesium 2.2 POC Glucose 07/03/18 07/03/18 07/02/18 12:12 06:57 21:24 POC Glucose 124 H 171 H 127 H 07/02/18 15:59 POC Glucose 106 Home Medications: Medications to take at Discharge Albuterol IH (ProAir) [Proair Hfa] 2 puff INHALATION Q4H PRN PRN 12/25/16 Amlodipine [Norvasc] 5 mg PO DAILY 12/25/16 Atorvastatin Calcium [Lipitor] 40 mg PO QHS 12/25/16 Levothyroxine [Synthroid] 50 mcg PO DAILY 12/25/16 Fluticasone/Salmeterol [Advair 250-50 Diskus] 1 each IH BID #1 blst.w.dev 12/28/16 Budesonide/Formoterol 160/4.5 [Symbicort 160/4.5 Mcg Inhaler (SP)] 2 puff INHALATION BID 06/11/17 Insulin Degludec [Tresiba Flextouch U-100] 20 unit SQ BID 01/17/18 Insulin Lispro [Humalog KwikPen] 15 unit SQ TID 01/17/18 busPIRone [Buspar] 5 mg PO TID 01/17/18 Cephalexin [Keflex] 500 mg PO DAILY #7 cap 07/02/18 Following Prescrptions Were Given to Patient: Cephalexin [Keflex] 500 mg PO DAILY #7 cap Primary Care Physician: Armen Crowder MD [Primary Care Provider] - Please follow up with your Primary Care Physician in: 1 week. Please Follow Up With: Katlyn Kline MD When: 1 week. Disposition: Detention facility Minutes spent on discharge:: 34 Patient Condition:: Stable Medical Necessity - Tobacco Use Smoking Status: Never smoker Meaningful Use Info Meaningful Use Diagnoses (Choose all that apply): None applicable Code Visit Inpatient E&M: 32173 Disch Hosp
--- NOTE | 2018-07-03 13:00 | DS.PCM_ITS ---
Discharge Date and Diagnosis - Problem List Patient Problems: Active and Suspected Problems Septic shock (Acute) ROCKY (acute kidney injury) (Acute) Date of Admission: 06/28/18 Date of Discharge: 07/03/18 - Primary Discharge Diagnosis Active and Suspected Problems #1 septic shock secondary to acute pyelonephritis. #2 E. coli acute pyelonephritis. #3 staph epidermidis/a colitis bacteremia, likely due to contamination. #4 acute renal failure. - Secondary Discharge Diagnosis Chronic Problems Hypothyroidism (Chronic) DiGeorge syndrome (Chronic) Obesity hypoventilation syndrome (Chronic) HTN (hypertension) (Chronic) Asthma (Chronic) Super obesity (Chronic) Hyperlipidemia (Chronic) VENANCIO treated with BiPAP (Chronic) Diabetes mellitus type 2 in obese (Chronic) new diagnosis Hospital Course and Treatment Imaging Results: Clinical Impression(s) from Imaging Studies Chest X-Ray 06/28/18 02:45 IMPRESSION: Mild cardiomegaly. Bibasilar opacities representing either areas of atelectatic changes or pneumonia. A central line through the right internal jugular vein has its tip in the superior vena cava. Electronically Signed: Dylan Greenfield MD at 3:42 EST Tel , Service support , Renal Ultrasound 06/28/18 07:17 IMPRESSION: 1. Minimal fullness of the right renal pelvis. 2. No evidence of hydronephrosis. Electronically Signed: Theo Chris MD at 15:46 EST Tel , Service support , Abdomen/Pelvis CT 06/28/18 23:41 IMPRESSION: 1. Hepatomegaly. 2. No CT evidence of acute intra-abdominal disease. 3. Fluid-filled colon is consistent with history of diarrhea. Electronically Signed: Devi Whipple MD at 2:00 EST , Service support , Dr. Hull, infectious disease. Dr. Kline, nephrology. Dr. Martin/Dr. Lindsay, critical care. Operations: None Procedures: None Summary of Care Provided: Patient seen and examined on the day of discharge and appeared to be stable to be discharged to care home facility. Reported intermittent diarrhea, improving. Denied abdominal pain, nausea or vomiting. Her vital signs are stable. This is a 43 years old female patient admitted because of nausea, vomiting and diarrhea she was found to have septic shock secondary to acute pyelonephritis, c omplicated by acute renal failure and bacteremia. #1 septic shock: Secondary to acute pyelonephritis. Treated with IV cefazolin. With IV antibiotic therapy, patient remained afebrile for more than 72 hours and leukocytosis resolved. Urine culture revealed E. coli. Blood culture revealed staph epidermidis and E. coli which is probably a contaminant. Infectious disease consulted. Repeat blood culture showed no growth in 48 hours. Patient discharged to care home facility on Keflex 500 mg p.o. daily for 1 more week of treatment. #2 E. coli acute pyelonephritis: Treated with IV cefazolin as above. She has been afebrile. Urine culture revealed E. coli that was pansensitive. Discharged on Keflex daily for 1 more week of treatment. #3 Staph epidermidis/E. coli bacteremia: According to infectious disease, this is likely a contaminant. Repeat blood culture showed no growth in 48 hours. Patient was discharged on Keflex 500 mg p.o. daily for 1 week treatment. #4 acute renal failure: Secondary to septic shock and hypoperfusion. She was treated with IV fluids and IV bicarbonate. Her admission creatinine was 5.85 and it went up to 6.67 after admission. With IV fluid therapy and bicarbonate, her creatinine started to improve and it was 5.47 upon discharge. Nephrology consulted and recommended that there is no need for hemodialysis at this time. Ultrasound kidneys and CT scan abdomen and pelvis revealed no evidence of acute obstructive uropathy, no kidney stones or hydronephrosis. Patient discharged home, I recommended to hydrate herself very well, plan to follow-up with nephrology in 1 week. #5 type 2 diabetes mellitus: Blood sugar has been stable during this hospital stay. She was continued on her home doses of insulin. #6 hypertension: Blood pressure stabilized, continued on Norvasc, lisinopril discontinued. #7 hypothyroidism: Continued on levothyroxine. TSH was normal. Patient discharged to care home facility in a stable medical condition, discharged on Keflex 500 mg p.o. daily for 1 week of treatment for E. coli pyelonephritis and bacteremia, discharged on Norvasc, lisinopril discontinued because of acute renal failure, continued on her other home medications, recommended to have blood work done at her PCPs office in 1 week, plan to follow-up with PCP in 1 week and with nephrology in 1 week as well. This note was generated with [employer] dictation software. It may contain incorrect words, spelling, and punctuation that were not noted in checking the note before signing. Patient Problems: Active and Suspected Problems Septic shock (Acute) ROCKY (acute kidney injury) (Acute) - Physical Exam General: Alert, Oriented x3, Cooperative, No apparent distress HEENT: Atraumatic, PERRLA, EOMI, Normocephalic Oral: Moist Mucosa, No Gingival or Mucosal Lesions/ Ulcerations Neck: Supple, No JVD, Negative Carotid Bruits, Trachea Midline, Thyroid Normal Size and Texture Lungs: Clear to auscultation, No rhonchi, No wheeze, No rales, Diminished Cardiovascular: Regular rate, Regular Rhythm, Normal S1, Normal S2, PMI Normal Abdomen: Bowel Sounds Present, Soft, Non Tender, Non-Distended, No Hepato- splenomegaly, Obese Extremities: No clubbing, No cyanosis, No edema Skin: No rashes, No breakdown Lymphatic: No Cervical, Supraclavicular, or Inguinal Adenopathy Neurological: Cranial nerves II-XII grossly intact, Neuro grossly intact Psych/Mental Status: Normal Affect, Appropriate Vital Signs Temp Pulse Resp BP Pulse Ox 98.7 F 86 18 128/59 H 97 07/03/18 08:43 07/03/18 11:29 07/03/18 11:10 07/03/18 08:43 07/03/18 11:10 Oxygen Flow Rate (L/min) 2 Oxygen Delivery Method Nasal Cannula Weight: 336 lb 6.806 oz Body Mass Index (BMI) 51.9 Finger Stick Blood Glucose 126 Intake and Output for Last 24 Hours 07/01/18 07/02/18 07/03/18 23:59 23:59 23:59 Intake Total 3955 / 3955 4120 / 4120 766 / 766 Balance 3955 / 3955 4120 / 4120 766 / 766 Microbiology Past 72 Hours 06/28/18 16:24 Gram Stain - Final Sputum, Expectorated/Coughed Respiratory Culture - Final Presumptive C albicans 07/03/18 04:00 C. difficile DNA Amplification - Final Stool 06/29/18 11:01 Blood Culture - Preliminary Blood Culture (Wb) - Right Wrist No growth in 48 hours. 06/29/18 08:50 Blood Culture - Preliminary Blood Culture (Wb) - Line Draw No growth in 48 hours. 06/30/18 06:00 Enteric Bacteriology - Final Stool 06/28/18 01:00 Urine Culture - Final Urine Catheter - Catheter Escherichia coli 06/28/18 01:05 Blood Culture - Final Blood Culture (Wb) - Anticubital Right Gram negative cristhian 06/28/18 00:55 Bacteria Detection (PCR) - Final Blood Culture (Wb) - Anticubital Left Staphylococcus epidermidis Blood Culture - Final Escherichia coli Staphylococcus epidermidis Laboratory Tests Past 24 Hrs 07/03/18 07/03/18 04:50 04:50 Sodium 143 Potassium 3.1 L Chloride 108 H Carbon Dioxide 22.0 Anion Gap 13 BUN 71 H Creatinine 5.47 H Estim Creat Clear Calc 12.63 Est GFR (MDRD) Af Amer 11 L Est GFR (MDRD) Non-Af 9 L BUN/Creatinine Ratio 13.0 Glucose 176 H Calcium 7.1 L Magnesium 2.2 POC Glucose 07/03/18 07/03/18 07/02/18 12:12 06:57 21:24 POC Glucose 124 H 171 H 127 H 07/02/18 15:59 POC Glucose 106 Home Medications: Medications to take at Discharge Albuterol IH (ProAir) [Proair Hfa] 2 puff INHALATION Q4H PRN PRN 12/25/16 Amlodipine [Norvasc] 5 mg PO DAILY 12/25/16 Atorvastatin Calcium [Lipitor] 40 mg PO QHS 12/25/16 Levothyroxine [Synthroid] 50 mcg PO DAILY 12/25/16 Fluticasone/Salmeterol [Advair 250-50 Diskus] 1 each IH BID #1 blst.w.dev 12/28/16 Budesonide/Formoterol 160/4.5 [Symbicort 160/4.5 Mcg Inhaler (SP)] 2 puff INHALATION BID 06/11/17 Insulin Degludec [Tresiba Flextouch U-100] 20 unit SQ BID 01/17/18 Insulin Lispro [Humalog KwikPen] 15 unit SQ TID 01/17/18 busPIRone [Buspar] 5 mg PO TID 01/17/18 Cephalexin [Keflex] 500 mg PO DAILY #7 cap 07/02/18 Following Prescrptions Were Given to Patient: Cephalexin [Keflex] 500 mg PO DAILY #7 cap Primary Care Physician: Armen Crowder MD [Primary Care Provider] - Please follow up with your Primary Care Physician in: 1 week. Please Follow Up With: Katlyn Kline MD When: 1 week. Disposition: [facility] facility Minutes spent on discharge:: 34 Patient Condition:: Stable Medical Necessity - Tobacco Use Smoking Status: Never smoker Meaningful Use Info Meaningful Use Diagnoses (Choose all that apply): None applicable Code Visit Inpatient E&M: 61348 Disch Hosp
--- NOTE | 2018-07-03 14:10 | CASEMGMT ---
Addendum entered by Lucy Wharton 07/03/18 15:51: Patient was sleeping so SW did not wake her. RN said she would let patient know she will be going to [facility] and not [facility]. Lucy MERIDA Original Note: SW received a call from Michelle at [facility] and they will accept patient. She will start the pre-cert. SW told her to let the insurance know that approval was already received, but the previous facility withdrew their acceptance of patient. SW let patient's mom and patient know this information. Await pre-cert for [facility]. Lucy LÓPEZ OUTSOLE SPLICER
[2018-07-03] MEDS: Cefazolin 1 GM/50 ML BAG IV (15:53)
[2018-07-03 16:00] LABS: Immunoglobulin E 62 IU/mL (0-100); Immunoglobulin M 6 mg/dL (26-217)
[2018-07-03 16:10] LABS: Bedside Glucose 129 mg/dL (70-110)
[2018-07-03] MEDS: Atorvastatin Calcium 40 MG Tablet PO (21:52)
[2018-07-03 22:56] LABS: Bedside Glucose 137 mg/dL (70-110)
[2018-07-04] VITALS (9 sets, daily range): BP systolic 91–113; BP diastolic 54–64; PULSE 87–99; RESP 12–22; TEMP 36.6; O2SAT 94–100
[2018-07-04] MEDS: busPIRone 5 MG Tablet PO (05:22)
[2018-07-04] MEDS: Levothyroxine 50 MCG Tablet PO (05:22)
[2018-07-04] MEDS: Heparin Injection (Vial) 5,000 UNIT/ML VIAL 5000 UNIT SC (05:22)
[2018-07-04 06:02] LABS: Anion Gap 8 (5-15); BUN 60 mg/dL (7-18); BUN/Creat Ratio 12.3 RATIO (10-20); Calcium,Total 7.1 mg/dL (8.5-10.1); Chloride 108 mmol/L (98-107); Creatinine, Serum 4.87 mg/dL (0.55-1.02); EST Glomerular Filtration Rate 10 mL/min (>60); Est Glom Filt Rate - Afr Amer 12 mL/min (>60); Estimated Creatinine Clearance 14.19 ml/min; Glucose 130 mg/dL (74-106); Potassium 3.3 mmol/L (3.5-5.1); Sodium Level 141 mmol/L (136-145)
[2018-07-04 06:50] LABS: Bedside Glucose 117 mg/dL (70-110)
[2018-07-04] MEDS: Budesonide Respules 0.5 MG/2 ML AMPUL.NEB. INHALATION (07:57)
[2018-07-04] MEDS: Albuterol 2.5 MG/3 ML VIAL.NEB. INHALATION (07:57)
--- NOTE | 2018-07-04 10:06 | PCM.PROGNOTE ---
Patient Problems: Active and Suspected Problems Septic shock (Acute) ROCKY (acute kidney injury) (Acute) Subjective: Chief complaint: Follow-up after admission for septic shock secondary to acute pyelonephritis, complicated by acute renal failure and E. coli/staph epidermidis bacteremia. Patient seen and examined. No acute events overnight. Discharged to [facility]pc facility was canceled yesterday because the fpc facility refused to accept the patient after they were informed that her weight is 331 pounds. Today, patient has no significant complaints except from intermittent diarrhea. Her vital signs are stable. - Physical Exam General: Alert, Oriented x3, Cooperative, No apparent distress HEENT: Atraumatic, PERRLA, EOMI, Normocephalic Oral: Moist Mucosa, No Gingival or Mucosal Lesions/ Ulcerations Neck: Supple, No JVD, Negative Carotid Bruits, Trachea Midline, Thyroid Normal Size and Texture Lungs: Clear to auscultation, No rhonchi, No wheeze, No rales, Diminished Cardiovascular: Regular rate, Regular Rhythm, Normal S1, Normal S2, PMI Normal Abdomen: Bowel Sounds Present, Soft, Non Tender, Non-Distended, No Hepato-splenomegaly, Obese Extremities: No clubbing, No cyanosis, No edema Skin: No rashes, No breakdown Lymphatic: No Cervical, Supraclavicular, or Inguinal Adenopathy Neurological: Cranial nerves II-XII grossly intact, Neuro grossly intact Psych/Mental Status: Normal Affect, Appropriate, Alert and oriented to time, place, person, mood and affect Vital Signs Temp Pulse Resp BP Pulse Ox 98 F 88 22 H 113/64 100 07/04/18 08:30 07/04/18 09:39 07/04/18 09:39 07/04/18 08:30 07/04/18 09:39 Oxygen Flow Rate (L/min) 2 Oxygen Delivery Method Room Air Weight: 331 lb 5.676 oz Body Mass Index (BMI) 51.9 Finger Stick Blood Glucose 126 Intake and Output for Last 24 Hours 07/02/18 07/03/18 07/04/18 23:59 23:59 23:59 Intake Total 4120 / 4120 2621 / 2621 1196 / 1196 Balance 4120 / 4120 2621 / 2621 1196 / 1196 Microbiology Past 72 Hours 06/28/18 16:24 Gram Stain - Final Sputum, Expectorated/Coughed Respiratory Culture - Final Presumptive C albicans 07/03/18 04:00 C. difficile DNA Amplification - Final Stool 06/29/18 11:01 Blood Culture - Preliminary Blood Culture (Wb) - Right Wrist No growth in 48 hours. 06/29/18 08:50 Blood Culture - Preliminary Blood Culture (Wb) - Line Draw No growth in 48 hours. Laboratory Tests Past 24 Hrs 06/28/18 07/04/18 13:50 05:05 Sodium 141 Potassium 3.3 L Chloride 108 H Carbon Dioxide 25.0 Anion Gap 8 BUN 60 H Creatinine 4.87 H Estim Creat Clear Calc 14.19 Est GFR (MDRD) Af Amer 12 L Est GFR (MDRD) Non-Af 10 L BUN/Creatinine Ratio 12.3 Glucose 130 H Calcium 7.1 L IgG 922 IgA 419 H IgM 6 L IgE 62 POC Glucose 07/04/18 07/03/18 07/03/18 06:46 21:52 15:55 POC Glucose 117 H 137 H 129 H 07/03/18 12:12 POC Glucose 124 H Medical Necessity - Tobacco Use Smoking Status: Never smoker Assessment/Plan All Active Problems Septic shock (Acute) ROCKY (acute kidney injury) (Acute) This is a 43 years old female patient admitted because of nausea, vomiting and diarrhea she was found to have septic shock secondary to acute pyelonephritis, complicated by acute renal failure and bacteremia. #1 septic shock: Secondary to acute pyelonephritis. She is on IV cefazolin. She remained afebrile, other vital signs are stable. Blood culture revealed staph epidermidis and E. coli, repeat blood culture showed no growth in 48 hours. Plan is to give her 4 more days of oral Keflex, awaiting insurance approval for fpc facility placement. DC instructions and prescriptions are done. #2 E. coli acute pyelonephritis: She is on IV cefazolin as above. She has been afebrile. Urine culture revealed E. coli that was pansensitive. Plan as above. #3 Staph epidermidis/E. coli bacteremia: Likely source is the acute pyelonephritis and according to infectious disease, it could be a contaminant. She is on IV cefazolin as above. Blood culture and sensitivity reviewed. Repeat blood culture showed no growth in 48 hours.. Plan as above. #4 acute renal failure: Secondary to septic shock and hypoperfusion. She has been on IV fluids and IV bicarbonate. Her serum BUN and creatinine continue to improve slowly, BUN is down to 60 today and creatinine is down to 4.87. Ultrasound kidneys and CT scan abdomen and pelvis revealed no evidence of acute obstructive uropathy, no kidney stones or hydronephrosis. Nephrology recommended no need for dialysis. Plan to DC to fpc facility today, follow-up with nephrology in 1 week. #5 type 2 diabetes mellitus: She is on Lantus twice daily and sliding scale. Blood sugar has been under better control. #6 hypertension: Blood pressure stabilized. Norvasc and lisinopril held. #7 hypothyroidism: Continue levothyroxine. TSH was normal. #8 obstructive sleep apnea/obesity hypoventilation syndrome: Continue BiPAP nightly. #9 hyperlipidemia: Continue statins. #10 DVT prophylaxis: Subcu heparin. This note was generated with [email or web address] software. It may contain incorrect words, spelling, and punctuation that were not noted in checking the note before signing.
--- NOTE | 2018-07-04 10:09 | PN_ITS ---
Patient Problems: Active and Suspected Problems Septic shock (Acute) ROCKY (acute kidney injury) (Acute) Subjective: Chief complaint: Follow-up after admission for septic shock secondary to acute pyelonephritis, complicated by acute renal failure and E. coli/staph epidermidis bacteremia. Patient seen and examined. No acute events overnight. Discharged to halfway facility was canceled yesterday because the halfway facility refused to accept the patient after they were informed that her weight is 331 pounds. Today, patient has no significant complaints except from intermittent diarrhea. Her vital signs are stable. - Physical Exam General: Alert, Oriented x3, Cooperative, No apparent distress HEENT: Atraumatic, PERRLA, EOMI, Normocephalic Oral: Moist Mucosa, No Gingival or Mucosal Lesions/ Ulcerations Neck: Supple, No JVD, Negative Carotid Bruits, Trachea Midline, Thyroid Normal Size and Texture Lungs: Clear to auscultation, No rhonchi, No wheeze, No rales, Diminished Cardiovascular: Regular rate, Regular Rhythm, Normal S1, Normal S2, PMI Normal Abdomen: Bowel Sounds Present, Soft, Non Tender, Non-Distended, No Hepato- splenomegaly, Obese Extremities: No clubbing, No cyanosis, No edema Skin: No rashes, No breakdown Lymphatic: No Cervical, Supraclavicular, or Inguinal Adenopathy Neurological: Cranial nerves II-XII grossly intact, Neuro grossly intact Psych/Mental Status: Normal Affect, Appropriate, Alert and oriented to time, place, person, mood and affect Vital Signs Temp Pulse Resp BP Pulse Ox 98 F 88 22 H 113/64 100 07/04/18 08:30 07/04/18 09:39 07/04/18 09:39 07/04/18 08:30 07/04/18 09:39 Oxygen Flow Rate (L/min) 2 Oxygen Delivery Method Room Air Weight: 331 lb 5.676 oz Body Mass Index (BMI) 51.9 Finger Stick Blood Glucose 126 Intake and Output for Last 24 Hours 07/02/18 07/03/18 07/04/18 23:59 23:59 23:59 Intake Total 4120 / 4120 2621 / 2621 1196 / 1196 Balance 4120 / 4120 2621 / 2621 1196 / 1196 Microbiology Past 72 Hours 06/28/18 16:24 Gram Stain - Final Sputum, Expectorated/Coughed Respiratory Culture - Final Presumptive C albicans 07/03/18 04:00 C. difficile DNA Amplification - Final Stool 06/29/18 11:01 Blood Culture - Preliminary Blood Culture (Wb) - Right Wrist No growth in 48 hours. 06/29/18 08:50 Blood Culture - Preliminary Blood Culture (Wb) - Line Draw No growth in 48 hours. Laboratory Tests Past 24 Hrs 06/28/18 07/04/18 13:50 05:05 Sodium 141 Potassium 3.3 L Chloride 108 H Carbon Dioxide 25.0 Anion Gap 8 BUN 60 H Creatinine 4.87 H Estim Creat Clear Calc 14.19 Est GFR (MDRD) Af Amer 12 L Est GFR (MDRD) Non-Af 10 L BUN/Creatinine Ratio 12.3 Glucose 130 H Calcium 7.1 L IgG 922 IgA 419 H IgM 6 L IgE 62 POC Glucose 07/04/18 07/03/18 07/03/18 06:46 21:52 15:55 POC Glucose 117 H 137 H 129 H 07/03/18 12:12 POC Glucose 124 H Medical Necessity - Tobacco Use Smoking Status: Never smoker Assessment/Plan All Active Problems Septic shock (Acute) ROCKY (acute kidney injury) (Acute) This is a 43 years old female patient admitted because of nausea, vomiting and diarrhea she was found to have septic shock secondary to acute pyelonephritis, complicated by acute renal failure and bacteremia. #1 septic shock: Secondary to acute pyelonephritis. She is on IV cefazolin. She remained afebrile, other vital signs are stable. Blood culture revealed staph epidermidis and E. coli, repeat blood culture showed no growth in 48 hours. Plan is to give her 4 more days of oral Keflex, awaiting insurance approval for halfway facility placement. DC instructions and prescriptions are done. #2 E. coli acute pyelonephritis: She is on IV cefazolin as above. She has been afebrile. Urine culture revealed E. coli that was pansensitive. Plan as above. #3 Staph epidermidis/E. coli bacteremia: Likely source is the acute pyelonephritis and according to infectious disease, it could be a contaminant. She is on IV cefazolin as above. Blood culture and sensitivity reviewed. Repeat blood culture showed no growth in 48 hours.. Plan as above. #4 acute renal failure: Secondary to septic shock and hypoperfusion. She has been on IV fluids and IV bicarbonate. Her serum BUN and creatinine continue to improve slowly, BUN is down to 60 today and creatinine is down to 4.87. Ultrasound kidneys and CT scan abdomen and pelvis revealed no evidence of acute obstructive uropathy, no kidney stones or hydronephrosis. Nephrology recommended no need for dialysis. Plan to DC to halfway facility today, follow-up with nephrology in 1 week. #5 type 2 diabetes mellitus: She is on Lantus twice daily and sliding scale. Blood sugar has been under better control. #6 hypertension: Blood pressure stabilized. Norvasc and lisinopril held. #7 hypothyroidism: Continue levothyroxine. TSH was normal. #8 obstructive sleep apnea/obesity hypoventilation syndrome: Continue BiPAP nightly. #9 hyperlipidemia: Continue statins. #10 DVT prophylaxis: Subcu heparin. This note was generated with [employer] software. It may contain incorrect words, spelling, and punctuation that were not noted in checking the note before signing.
--- NOTE | 2018-07-04 11:38 | CASEMGMT ---
GEORGI received call from Michelle at [facility] and patient was approved. GEORGI faxed orders to [facility]. GEORGI called [facility] and arranged for patient to get picked up at via bariatric cot. GEORGI notified patient, RN, patient's mom, left message for her sister Anamika. GEORGI also left a message with dumper bailer operator at [facility] regarding orange picker time. GEORGI also let patient's mom and sister know that they need to take patient's cpap machine to her as soon as they can so she can have it. Convalescent was completed on . Plan: d/c to [facility] under skilled level of care on a convalescent stay. [facility] to transport via bariatric cot. Lucy LÓPEZ MSW
--- NOTE | 2018-07-04 12:01 | CASEMGMT ---
Received call from patient's sister and her cpap machine cord is broken. Patient said it is from [facility], [place], but they do not have her on record. SW called Michelle at [facility] and she has a bipap. Sw faxed her the settings patient is on here. Lucy LÓPEZ MSW
[2018-07-04 12:55] LABS: Bedside Glucose 163 mg/dL (70-110)
--- NOTE | 2018-07-04 13:01 | NURSING ---
REPORT CALLED TO JAZMINE PEDROZA
== END 2018-07-04 13:15 | disposition skilled nursing facility (03) | DRG 720 ==
LOC: ED 06-28 01:08 → ICU 06-28 03:40 → PCU 06-30 10:59
PROVIDERS: Internal Medicine; Internal Medicine Critical Care Medicine; Internal Medicine Nephrology; Admitting Provider Hospitalist; Emergency Provider Emergency Medicine; Family Provider Family Medicine; PCP Family Medicine; Referring Provider Hospitalist; Visit Provider Hospitalist
DX: A41.9 Sepsis, unspecified organism (principal); N10 Acute pyelonephritis; R65.21 Severe sepsis with septic shock; N17.9 Acute kidney failure, unspecified; D82.1 Di George's syndrome; E66.2 Morbid (severe) obesity with alveolar hypoventilation; Z68.43 Body mass index [BMI] 50.0-59.9, adult; E78.5 Hyperlipidemia, unspecified; I10 Essential (primary) hypertension; E03.9 Hypothyroidism, unspecified; B96.20 Unspecified Escherichia coli [E. coli] as the cause of diseases classified elsewhere; J45.909 Unspecified asthma, uncomplicated; E11.9 Type 2 diabetes mellitus without complications; E87.6 Hypokalemia; A08.4 Viral intestinal infection, unspecified; Z79.899 Other long term (current) drug therapy; Z79.4 Long term (current) use of insulin
CPT/HCPCS: 36415; 51702; 71045; 74176; 76770; 80048; 80053; 81001; 82330; 82570; 82784; 82785; 82962; 83036; 83605; 83690; 83735; 84100; 84165; 84300; 84439; 84443; 85025; 85027; 85384; 85610; 85730; 87040; 87070; 87077; 87086; 87088; 87149; 87186; 87205; 87449; 87493; 87506; 87633; 87641; 94002; 94003; 94640; 94660; 97162; 97166; 97530; 97535; 99251; 99285; J2185; J7030; J7040; J7050; A4216; C1751; G0463; J0610; J2405

== ENCOUNTER 2018-08-06 17:14 | Emergency (ER) | payer MEDICAID, SELFPAY ==
[2018-06-28 04:27] VITALS: BMI 51.9
[2018-08-06 17:16] VITALS: BP 119/71; PULSE 108; RESP 16; TEMP 36.8; O2SAT 99; BMI 48.6
--- NOTE | 2018-08-06 17:53 | RAD_ITS ---
STUDY: X-RAY CHEST REASON FOR EXAM: Female, 43 years old. SOB, dyspnea. TECHNIQUE: Portable chest. COMPARISON: None. FINDINGS: The lungs are clear and expanded. There is no demonstrated pleural abnormality. Normal size heart. Normal mediastinum and jaswinder. Normal visualized pulmonary arteries. Normal visualized aortic arch and descending thoracic aorta. Normal visualized thoracic spine. Normal visualized ribs, clavicles, and shoulders. There is no demonstrated abnormality of the visualized soft tissue structures of the upper abdomen. RAD/Chest 1 View (Portable) IMPRESSION: Normal x-ray examination of the chest. Electronically Signed: Laila Hardin MD at 18:42 EST Tel , Service support ,
--- NOTE | 2018-08-06 17:53 | EKG12_ITS ---
Test Reason : SOB Blood Pressure : / mmHG Vent. Rate : 083 BPM Atrial Rate : 083 BPM P-R Int : 144 ms QRS Dur : 090 ms QT Int : 364 ms P-R-T Axes : 027 -11 021 degrees QTc Int : 427 ms Normal sinus rhythm Normal ECG Confirmed by REHAN NEELY MD ([id number]), editorial cartoonist ERIK GRANADO ([id number]) on 08/12/2018 11:17:41 AM Referred By: SHERRILL Confirmed By:REHAN NEELY MD
[2018-08-06 18:12] LABS: Basophil# 0.06 X10^3/uL; Basophil% 0.6 % (0-1); Eosinophil# 0.35 X10^3/uL; Eosinophils% 3.7 % (0-5); Hematocrit 30.4 % (37-47); Hemoglobin 9.6 g/dl (12.0-15.0); Lymphocyte % 26.5 % (19-41); Mean Corp Hgb Conc 31.6 g/gl (32-36); Mean Corpuscular Hgb 28.5 pg (27.0-32.0); Mean Corpuscular Volume 90.2 fL (81-99); Mean Platelet Vol. 11.2 fl (6.2-12.0); Monocyte# 0.45 X10^3/uL; Monocyte% 4.8 % (0-10); Neutrophil # 6.01 X10^3/uL (2.7-7.7); Neutrophil % 63.8 % (47-70); POSITIVE COUNT NO; POSITIVE DIFFERENTIAL NO; POSITIVE MORPHOLOGY NO; Platelet Count 152 K/mm3 (150-450); RBC Distribution Width CV 15.8 % (11.6-14.6); RBC Distribution Width SD 50.5 fl (35.1-43.9); Red Blood Count 3.37 M/mm3 (4.2-5.4); White Blood Count 9.4 K/mm3 (4.4-11.0)
[2018-08-06 18:26] LABS: Anion Gap 9 (5-15); BUN 19 mg/dL (7-18); BUN/Creat Ratio 10.3 RATIO (10-20); Calcium,Total 8.6 mg/dL (8.5-10.1); Chloride 105 mmol/L (98-107); Creatinine, Serum 1.85 mg/dL (0.55-1.02); EST Glomerular Filtration Rate 31 mL/min (>60); Est Glom Filt Rate - Afr Amer 38 mL/min (>60); Estimated Creatinine Clearance 37.34 ml/min; Glucose 106 mg/dL (74-106); Potassium 3.8 mmol/L (3.5-5.1); Sodium Level 139 mmol/L (136-145)
[2018-08-06 19:03] VITALS: BP 116/61; BP 117/78; BP 94/55; PULSE 82; PULSE 93
[2018-08-06] MEDS: 0.9% Normal Saline 1,000 ML 1000 ML IV (19:05)
[2018-08-06 19:14] VITALS: BP 98/68; PULSE 76; RESP 22; O2SAT 97
[2018-08-06 19:20] LABS: Lactic Acid 0.9 mmol/L (0.4-2.0)
[2018-08-06 19:38] LABS: Mucous, Urine 0 SEEN /hpf (<or=2+); Red Blood Cells-Urine 0 SEEN /hpf (0-5)
[2018-08-06 19:39] LABS: Color, Urine Yellow (Yellow); Glucose, Dipstick Normal (Normal); Ketone-Dipstick Negative (Negative); Leukocyte Esterase-Dipstick 500 /ul (Negative); Nitrite-Dipstick Negative (Negative); Occult Blood-Urine 10 /ul (Negative); Protein-Dipstick 30 mg/dl (Negative); Urine Bilirubin Dipstick Negative (Negative); Urine Clarity Sl. Cloudy (Clear); Urine Urobilinogen Normal (Normal)
[2018-08-06 19:50] LABS: Bacteria RARE /hpf (None Seen); Squamous Epithelial Cells - UA 0-5 SEEN /hpf (5-10); White Blood Cells 5-10 SEEN /hpf (0-5)
[2018-08-06] MEDS: 0.9% Normal Saline 1,000 ML 999 ML IV (21:07)
[2018-08-06] MEDS: Cefazolin 1 GM/50 ML BAG IV (21:08)
[2018-08-06 22:13] VITALS: BP 121/75; PULSE 85; RESP 16; O2SAT 96
--- NOTE | 2018-08-06 22:23 | ED.DEP ---
ED Disposition - Plan for ED Patient: Instructions: ED UTI Cystitis Female Prescriptions: Cephalexin [Keflex] 500 mg PO Q12 #14 capsule Referrals: Armen Crowder MD [Primary Care Provider] -
--- NOTE | 2018-08-06 22:28 | ED.VISSUMM ---
- ER Visit Summary Date of Service: 08/06/18 Chief Complaint: Lightheadedness, low blood pressure History of Present Illness: The patient is a 43 F presenting from PCP office for low blood pressure. Patient was in the hospital in June for ROCKY and septic shock secondary to pyelonephritis. Following hospitalization she went to a nursing facility. She is now at home. She went to her primary care physician's office today for a posthospitalization visit. She states she just started feeling lightheaded again today. She feels tired. She denies syncope. She denies chest pain or shortness of breath. Denies abdominal pain. Denies other complaints. Physical Examination: Vitals are stable. Blood pressure 119/71, heart rate 108. Patient is afebrile. Alert no acute distress. HEENT exam is unremarkable. Neck is supple. Lungs are clear and equal bilaterally. Heart is regular and tachycardic Abdomen is soft nontender nondistended. Extremities are unremarkable. Skin is warm and dry. No focal neurologic deficit. Remainder of exam is unremarkable. Emergency Department Course and Treatment: Initial orthostatic vital signs her blood pressure decreased with standing but her heart rate remained stable. She was given IV fluids. EKG is sinus rate of 83 with no acute ischemic changes. CBC unremarkable other than hemoglobin 9.6 which is at her baseline. Chemistries show BUN 19, creatinine 1.85. This is improved from previous creatinine of 4.87. Urinalysis shows 5-10 white blood cells, 0-5 epithelial cells. Troponin is negative. Urine culture was sent. Influenza negative. She was given IV fluids, cefazolin. After IV fluids, patient is feeling improved. Her orthostatics are now negative. Her blood pressure is 121/75. Heart rate is in the 80s. She has an appointment with her bisque tile burner tomorrow. She will keep this appointment. She is advised to return to ED if worsening complaints. She is given a prescription for Keflex. Advised follow-up with primary care physician. Disposition: Discharge home Impression: Orthostatic hypotension, UTI This note was generated with oBazation software. It may contain incorrect words, spelling, and punctuation that were not noted in review of the chart prior to signing ED Disposition - Plan for ED Patient: Instructions: ED UTI Cystitis Female Prescriptions: Cephalexin [Keflex] 500 mg PO Q12 #14 capsule Referrals: Armen Crowder MD [Primary Care Provider] -
--- NOTE | 2018-08-06 22:32 | ED.DCSUM_ITS ---
- ER Visit Summary Date of Service: 08/06/18 Chief Complaint: Lightheadedness, low blood pressure History of Present Illness: The patient is a 43 F presenting from PCP office for low blood pressure. Patient was in the hospital in June for ROCKY and septic shock secondary to pyelonephritis. Following hospitalization she went to a nursing facility. She is now at home. She went to her primary care physician's office today for a posthospitalization visit. She states she just started feeling lightheaded again today. She feels tired. She denies syncope. She denies chest pain or shortness of breath. Denies abdominal pain. Denies other complaints. Physical Examination: Vitals are stable. Blood pressure 119/71, heart rate 108. Patient is afebrile. Alert no acute distress. HEENT exam is unremarkable. Neck is supple. Lungs are clear and equal bilaterally. Heart is regular and tachycardic Abdomen is soft nontender nondistended. Extremities are unremarkable. Skin is warm and dry. No focal neurologic deficit. Remainder of exam is unremarkable. Emergency Department Course and Treatment: Initial orthostatic vital signs her blood pressure decreased with standing but her heart rate remained stable. She was given IV fluids. EKG is sinus rate of 83 with no acute ischemic changes. CBC unremarkable other than hemoglobin 9.6 which is at her baseline. Chemistries show BUN 19, creatinine 1.85. This is improved from previous creatinine of 4.87. Urinalysis shows 5-10 white blood cells, 0-5 epithelial cells. Troponin is negative. Urine culture was sent. Influenza negative. She was given IV fluids, cefazolin. After IV fluids, patient is feeling improved. Her orthostatics are now negative. Her blood pressure is 121/75. Heart rate is in the 80s. She has an appointment with her political science professor tomorrow. She will ke ep this appointment. She is advised to return to ED if worsening complaints. She is given a prescription for Keflex. Advised follow-up with primary care physician. Disposition: Discharge home Impression: Orthostatic hypotension, UTI This note was generated with [employer]uation software. It may contain incorrect words, spelling, and punctuation that were not noted in review of the chart prior to signing ED Disposition - Plan for ED Patient: Instructions: ED UTI Cystitis Female Prescriptions: Cephalexin [Keflex] 500 mg PO Q12 #14 capsule Referrals: Armen Crowder MD [Primary Care Provider] -
[2018-08-06 23:03] VITALS: BP 119/75; PULSE 85; RESP 16; O2SAT 98
== END 2018-08-06 23:04 | disposition home or self-care (01) ==
LOC: ED 17:47
PROVIDERS: Emergency Provider Emergency Medicine; Family Provider Family Medicine; PCP Family Medicine
DX: I95.1 Orthostatic hypotension (principal); N39.0 Urinary tract infection, site not specified; J45.909 Unspecified asthma, uncomplicated; K21.9 Gastro-esophageal reflux disease without esophagitis; I10 Essential (primary) hypertension; G47.33 Obstructive sleep apnea (adult) (pediatric); E66.9 Obesity, unspecified; Z79.4 Long term (current) use of insulin; Z79.51 Long term (current) use of inhaled steroids; Z79.899 Other long term (current) drug therapy
CPT/HCPCS: 71045; 80048; 81001; 83605; 84484; 85025; 87086; 87088; 87804; 93005; 96361; 96365; 99285; J7030; A4216

== ENCOUNTER 2018-09-26 12:20 | Emergency (ER) | payer MEDICAID, SELFPAY ==
[2018-09-26 12:22] VITALS: BP 132/88; PULSE 101; RESP 17; TEMP 36.2; O2SAT 99; BMI 47.0
--- NOTE | 2018-09-26 12:55 | ED.VISSUMM ---
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 Patient reports that she has right hip pain. However, she actually points to the right side of her lower back as the area that she is having pain. Began 5 days ago. It is a sharp, stabbing pain. Is 10 out of 10 in severity. Is worsened by movement relieved by nothing. There is no radiation to her legs. No numbness, tingling, or weakness in her legs. No problems with her bowels or her bladder. No groin numbness. Patient denies any recent trauma. No fall, MVA, or change in activity. On review of systems patient complains of frequent urination with normal volumes. She denies any other complaints. Physical Examination: Vitals: Stable. Afebrile. General: A&O x 3. NAD. Cardiovascular exam: Regular rate and rhythm, no murmur, rub or gallop. Respiratory exam: Clear to auscultation bilaterally. No wheezes or stridor. Abdominal exam: Soft, nontender, nondistended, normal bowel sounds. No peritoneal signs. Back: Diffuse moderate tenderness to palpation over the lumbar spine and the paraspinous musculature in the lumbar region. No point tenderness. Negative straight leg bilaterally. 5/5 DF, PF, EHL bilaterally. Normal sensation to light touch throughout. Extremity: No clubbing, cyanosis, or edema. Test Results: UA is negative. Emergency Department Course and Treatment: Patient was given a dose of morphine IM and Zofran p.o. She is resting comfortably. Treatment Plan: Patient will be discharged with naproxen and Madelia. Instructed to follow-up with her primary care physician in 3-5 days not improving. Return to the emergency department for any worsening symptoms. Disposition: To home in improved and stable condition. Impression: 1. Back pain, acute. This note was generated with [employer] dictation software. It may contain incorrect words, spelling, and punctuation that were not noted in review of the chart prior to signing ED Disposition - Plan for ED Patient: Disposition: Home or Assisted Living Instructions: ED Neck Back Pain General Prescriptions: Hydrocodone Bitart/Apap 5-325 [Madelia 5MG-325MG] 1 tablet PO Q6H PRN PRN 3 Days #12 tablet PRN Reason: Pain Referrals: Armen Crowder MD [Primary Care Provider] - 3-5 Days if not improving
[2018-09-26] MEDS: morphine 8 MG/ML Syringe IM (13:01)
[2018-09-26] MEDS: Ondansetron ODT 4 MG Tablet PO (13:01)
[2018-09-26 15:11] LABS: Bacteria 0 SEEN /hpf (None Seen); Mucous, Urine 0 SEEN /hpf (<or=2+); Red Blood Cells-Urine 0 SEEN /hpf (0-5)
[2018-09-26 16:02] LABS: Color, Urine Yellow (Yellow); Glucose, Dipstick Normal (Normal); Ketone-Dipstick Negative (Negative); Leukocyte Esterase-Dipstick 25 /ul (Negative); Nitrite-Dipstick Negative (Negative); Occult Blood-Urine Negative /ul (Negative); Protein-Dipstick 15 mg/dl (Negative); Specific Gravity, Urine 1.015 (1.002-1.030); Urine Bilirubin Dipstick Negative (Negative); Urine Clarity Sl. Cloudy (Clear); Urine Urobilinogen Normal (Normal)
[2018-09-26 16:03] LABS: Squamous Epithelial Cells - UA 10-25 SEEN /hpf (5-10); White Blood Cells 0-5 SEEN /hpf (0-5)
[2018-09-26 16:44] VITALS: BP 130/94; PULSE 83; RESP 16; O2SAT 97
--- NOTE | 2018-09-26 16:45 | ED.RN ---
IV DC'ED, CATHETER INTACT, SMALL GAUZE DRESSING PLACED. DISCHARGE INSTRUCTIONS GIVEN TO AND REVIEWED WITH PATIENT, PATIENT DENIES QUESTIONS OR CONCERNS AND VOICES UNDERSTANDING OF DISCHARGE INSTRUCTIONS. PT DECLINES WHEELCHAIR.
--- NOTE | 2018-09-26 19:27 | NURSING ---
PT CALLED INTO ER AFTER DISCHARGE C/O NAUSEA, DR. MONTENEGRO IS GONE AN THIS RN CONSULTED WITH DR. MARY JO GARCÍA. PER DR. GARCÍA ZOFRSOILA ODT 4MG PO q6 HOURS PRN FOR NAUSEA, #12, [facility] INTO [facility] [place].
== END 2018-09-26 16:46 | disposition home or self-care (01) ==
LOC: ED 13:01
PROVIDERS: Emergency Provider Emergency Medicine; Family Provider Family Medicine; PCP Family Medicine
DX: M54.5 Low back pain (principal); J45.909 Unspecified asthma, uncomplicated; E11.9 Type 2 diabetes mellitus without complications; I10 Essential (primary) hypertension; G47.33 Obstructive sleep apnea (adult) (pediatric); E03.9 Hypothyroidism, unspecified; Z79.4 Long term (current) use of insulin; Z79.51 Long term (current) use of inhaled steroids; Z79.899 Other long term (current) drug therapy
CPT/HCPCS: 81001; 96372; 99283

== ENCOUNTER 2018-10-01 12:28 | Emergency (ER) | payer MEDICAID, SELFPAY ==
[2018-10-01 12:29] VITALS: BP 132/84; PULSE 116; RESP 20; TEMP 38.1; O2SAT 97; BMI 49.0
--- NOTE | 2018-10-01 12:44 | RAD_ITS ---
STUDY: X-RAY CHEST REASON FOR EXAM: Female, 43 years old. Copy and fever. Headaches. TECHNIQUE: PA and lateral views of the chest. COMPARISON: Comparison is made with prior study dated August 06, 2018. FINDINGS: Stable pleural parenchymal changes at the left lung base. The right lung is clear. Scattered calcified granulomas. There is borderline cardiomegaly. Normal mediastinum and jaswinder. Normal visualized pulmonary arteries. Normal visualized aortic arch and descending thoracic aorta. There are diffuse degenerative changes of the visualized thoracic spine. Normal visualized ribs, clavicles, and shoulders. There is no demonstrated abnormality of the visualized soft tissue structures of the upper abdomen. RAD/Chest PA and Lateral IMPRESSION: Stable pleural parenchymal changes at the left lung base suggestive of chronic scarring. Electronically Signed: Herson Moreno, at 13:23 EDT , Service support ,
[2018-10-01] MEDS: Oseltamivir Phosphate 75 MG Capsule PO (12:57)
[2018-10-01] MEDS: Ondansetron ODT 4 MG Tablet PO (12:57)
--- NOTE | 2018-10-01 13:28 | ED.VISSUMM ---
- ER Visit Summary Date of Service: 10/01/18 Chief Complaint: Fever History of Present Illness: The patient is a 43 F with a fever since yesterday. Patient reports an associated cough, sore throat, body aches, and nausea. Her mother has influenza A. Patient has a history of asthma, diabetes, hyperlipidemia, obstructive sleep apnea, and acute kidney injury among others. She is compliant with her medications. Nothing seems to make this better or worse. Physical Examination: Temperature 100.6. Heart rate 116 and respiratory rate 20. Otherwise vitals unremarkable. Patient appears uncomfortable but not toxic or in distress. Heart normal rate on my exam. No murmurs. Lungs clear throughout. No wheezing. Abdomen soft and nontender. Skin appears normal. HEENT exam unremarkable. Test Results: Chest x-ray showed chronic changes. Nothing acute. Influenza testing was not performed based on the patient's clinical symptoms and exposure to influenza A. Emergency Department Course and Treatment: It is presumed that the patient has influenza A given her symptoms and her exposure. It is widespread currently. Will treat with Tamiflu after discussion of the risks and benefits. Patient also received Zofran for her symptoms and was treated with Tylenol. Chest x-ray was unremarkable. She was worried about pneumonia, but there is no evidence. Patient is improved. I believe she is appropriate for outpatient management. Will prescribe Zofran and Tamiflu. Use Tylenol and/or Motrin as an outpatient. Return right away for any new or worsening issues. Treatment Plan: As above Disposition: Discharge Impression: 1. Influenza This note was generated with [employer] dictation software. It may contain incorrect words, spelling, and punctuation that were not noted in review of the chart prior to signing ED Disposition - Plan for ED Patient: Referrals: Armen Crowder MD [Primary Care Provider] -
--- NOTE | 2018-10-01 13:31 | ED.DCSUM_ITS ---
- ER Visit Summary Date of Service: 10/01/18 Chief Complaint: Fever History of Present Illness: The patient is a 43 F with a fever since yesterday. Patient reports an associated cough, sore throat, body aches, and nausea. Her mother has influenza A. Patient has a history of asthma, diabetes, hyperlipidem ia, obstructive sleep apnea, and acute kidney injury among others. She is compliant with her medications. Nothing seems to make this better or worse. Physical Examination: Temperature 100.6. Heart rate 116 and respiratory rate 20. Otherwise vitals unremarkable. Patient appears uncomfortable but not toxic or in distress. Heart normal rate on my exam. No murmurs. Lungs clear throughout. No wheezing. Abdomen soft and nontender. Skin appears normal. HEENT exam unremarkable. Test Results: Chest x-ray showed chronic changes. Nothing acute. Influenza testing was not performed based on the patient's clinical symptoms and exposure to influenza A. Emergency Department Course and Treatment: It is presumed that the patient has influenza A given her symptoms and her exposure. It is widespread currently. Will treat with Tamiflu after discussion of the risks and benefits. Patient also received Zofran for her symptoms and was treated with Tylenol. Chest x-ray was unremarkable. She was worried about pneumonia, but there is no evidence. Patient is improved. I believe she is appropriate for outpatient management. Will prescribe Zofran and Tamiflu. Use Tylenol and/or Motrin as an outpatient. Return right away for any new or worsening issues. Treatment Plan: As above Disposition: Discharge Impression: 1. Influenza This note was generated with [employer] dictation software. It may contain incorrect words, spelling, and punctuation that were not noted in review of the chart prior to signing ED Disposition - Plan for ED Patient: Referrals: Armen Crowder MD [Primary Care Provider] -
--- NOTE | 2018-10-01 13:31 | ED.DEP ---
ED Disposition - Plan for ED Patient: Instructions: ED Flu Prescriptions: Ondansetron [Zofran Odt] 4 mg PO Q8H PRN PRN #10 tab PRN Reason: Nausea Oseltamivir Phosphate [Tamiflu] 75 mg PO BID #10 cap Referrals: Armen Crowder MD [Primary Care Provider] -
[2018-10-01] MEDS: Acetaminophen 500 MG Tablet 1000 MG PO (13:37)
[2018-10-01 13:40] VITALS: BP 98/68; PULSE 93; RESP 16; O2SAT 94
== END 2018-10-01 13:41 | disposition home or self-care (01) ==
LOC: ED 13:02
PROVIDERS: Emergency Provider Emergency Medicine; Family Provider Family Medicine; PCP Family Medicine
DX: J11.1 Influenza due to unidentified influenza virus with other respiratory manifestations (principal); J45.909 Unspecified asthma, uncomplicated; E11.9 Type 2 diabetes mellitus without complications; E78.5 Hyperlipidemia, unspecified; G47.33 Obstructive sleep apnea (adult) (pediatric); Z79.4 Long term (current) use of insulin; Z79.51 Long term (current) use of inhaled steroids; Z79.899 Other long term (current) drug therapy
CPT/HCPCS: 71046; 99283

== ENCOUNTER 2018-11-03 13:04 | Emergency (ER) | payer MEDICAID, SELFPAY ==
[2018-11-03 13:06] VITALS: BP 154/97; PULSE 102; RESP 16; TEMP 36.6; O2SAT 97; BMI 47.0
--- NOTE | 2018-11-03 13:22 | RAD_ITS ---
STUDY: X-RAY CHEST REASON FOR EXAM: Female, 43 years old. Cough and chest pain TECHNIQUE: PA and lateral views of the chest. COMPARISON: 10/01/2018 FINDINGS: Stable chronic scarring in the left lung base. The lungs are clear and expanded. There is no demonstrated pleural abnormality. Normal size heart. Normal mediastinum and jaswinder. Normal visualized pulmonary arteries. Normal visualized aortic arch and descending thoracic aorta. Normal visualized thoracic spine. Normal visualized ribs, clavicles, and shoulders. There is no demonstrated abnormality of the visualized soft tissue structures of the upper abdomen. RAD/Chest PA and Lateral IMPRESSION: No acute pulmonary process, no interval change Electronically Signed: Ganesh Marrero MD at 14:19 EDT , Service support ,
--- NOTE | 2018-11-03 13:28 | ED.VIS.GEN ---
History of Present Illness Chief Complaint: Other, Pain/Inj Informant: Patient Onset: Days - Approximately 3 to 4 days Context: Sudden Onset Timing: Continuous Quality: Pain Location: Right ear, right naris and right flank region Current Severity: Mild Maximum Severity: Moderate Worsened by: Palpation Relieved by: Nothing Associated Symptoms: Rhinorrhea, congestion, postnasal drainage and cough Narrative: Patient is a 43-year-old woman who presents with multiple symptoms. Symptoms are 3 to 4 days ago. She reports right ear pain. Denies drainage from the ear decreased hearing. She does report rhinorrhea, postnasal drainage and congestion. She has a cough which is nonproductive. She points to the right flank region. She denies any dysuria, frequency, urgency or hematuria. She reports mild bifrontal head discomfort with no photophobia or neck stiffness. She denies paresthesia, anesthesia motors. She denies GI or symptoms. She does have remote history of PE after surgery in 2004. She denies leg pain, swelling discoloration. Prior similar symptoms: No Recent Illness/Hospitalization: No - Past Medical History (1) ROCKY (acute kidney injury) Status: Acute (2) DiGeorge syndrome Status: Chronic (3) Diabetes mellitus type 2 in obese Status: Chronic Comment: new diagnosis (4) HTN (hypertension) Status: Chronic (5) Hyperlipidemia Status: Chronic (6) Hypothyroidism Status: Chronic (7) VENANCIO treated with BiPAP Status: Chronic (8) Obesity hypoventilation syndrome Status: Chronic Past Medical History - Allergies and Home Meds Allergies/Adverse Reactions: Allergies azithromycin [From Zithromax] Allergy (Verified 11/03/18 13:05) Unknown levofloxacin [From Levaquin] Allergy (Verified 11/03/18 13:05) Rash Penicillins Allergy (Verified 11/03/18 13:05) Unknown Primary Care Physician: Armen Crowder MD [Primary Care Provider] - Prior records reviewed: Yes Surgical History: cholecystectomy, total knee arthroplasty, tonsillectomy, - - Ear tubes, right knee surgery s/p fx Lives: With Family Smoking Status: Never smoker Alcohol: None Drugs: None - Family History Maternal Family History: Reports: Cancer - She reports that her mother had cervical cancer., No pertinent history Paternal Family History: Reports: Heart Disease - She reported father had heart attack and a pacemaker. Review of Systems General: Denies: Chills, Fever, Malaise Eyes: Denies: Visual changes - bilaterally, Blurred Vision - bilaterally ENT: Reports: Right ear pain, Rhinorrhea. Denies: Bilateral ear pain, Left ear pain, Sore throat, -, - Cardiovascular: Denies: Chest pain, Palpitations Respiratory: Reports: Cough. Denies: Dyspnea, Sputum, Dyspnea on exertion, Orthopnea, Paroxysmal nocturnal dyspnea, -, - Gastrointestinal: Denies: Abdominal pain, Nausea, Vomiting, Diarrhea, Melena, Hematochezia Genitourinary: Denies: Dysuria, Hematuria, Frequency Musculoskeletal: Denies: Myalgias, Arthralgias, Neck pain, Back pain, Extremity Pain Skin: Denies: Rash, Wounds Neurological: Denies: Headache, Weakness, Parasthesia, Numbness Hematologic: Denies: Easy bruising, Easy bleeding Allergy: Denies: Uticaria, Swelling of the mouth Physical Exam Vital Signs/Narrative: Vital Signs Temp Pulse Resp BP Pulse Ox 11/03/18 13:06 98 F 102 H 16 154/97 H 97 Inital Vital Signs reviewed: Yes General: Well nourished, Well developed, Obese, No Acute Distress Head: Normocephalic, Atraumatic. Negative for: Trauma, Tenderness Eyes: Perrl, EOMI. Negative for: Pale conjunctiva, Scleral icterus, - ENT: Moist mucous membranes, No rhinorrhea, TM's clear, - - Pain with pressure on the tragus and pulling the auricle on the right. The external auditory canal is erythematous. The canal is not narrowed. Neck: Supple, Nontender, No lymphadenopathy, No JVD, - Cardiovascular: Regular rate, Regular rhythm, No murmurs, Normal S1, Normal S2 Respiratory: No distress, CTA bilaterally, Chest nontender Abdomen: Soft, Nontender, Nondistended, Normal bowel sounds, No masses Back: Nontender, Normal Inspection, CVA tenderness - Right side Extremities: Nontender, No edema Skin: Normal color, No rash. Negative for: Cyanosis, No Trauma Neurological: Alert, Oriented x3, Cranial nerves II-XII grossly intact, Normal Strength, Normal Sensation, Normal DTR, Normal Gait Psychological: Normal affect, Normal Mood Diagnostic/Tx/Re-eval Chest X-Ray - ED: 2 View, Read by ED Physician, Normal, Heart, Lungs, Mediastinum, Bony Structures, No Acute Disease Impressions Chest X-Ray 11/03/18 13:22 IMPRESSION: No acute pulmonary process, no interval change Electronically Signed: Ganesh Marrero MD at 14:19 EDT , Service support , 11/03/18 13:22 Chest PA and Lateral [RAD] Stat Laboratory Results 11/03/18 11/03/18 11/03/18 13:30 13:30 14:09 WBC 12.7 H RBC 3.80 L Hgb 11.1 L Hct 34.0 L MCV 89.5 MCH 29.2 MCHC 32.6 RDW 15.7 H RDW Differential 51.2 H Plt Count 198 MPV 11.1 Immature Gran % (Auto) 0.700 Neut % (Auto) 73.4 H Lymph % (Auto) 18.8 L Dawes % (Auto) 3.3 Eos % (Auto) 3.5 Baso % (Auto) 0.3 Absolute Neuts (auto) 9.3 H Absolute Lymphs (auto) 2.39 Total Counted Not Reportable Sodium 137 Potassium 3.3 L Chloride 103 Carbon Dioxide 29.0 Anion Gap 5 BUN 17 Creatinine 1.28 H Estim Creat Clear Calc 53.97 Est GFR (MDRD) Af Amer 58 L Est GFR (MDRD) Non-Af 48 L BUN/Creatinine Ratio 13.3 Glucose 139 H Calcium 8.2 L Urine Color Yellow Urine Clarity Sl. Cloudy Urine pH 6.5 Ur Specific [place] 1.010 Urine Protein 15 H Urine Glucose (UA) Normal Urine Ketones Negative Urine Occult Blood Negative Urine Nitrite Negative Urine Bilirubin Negative Urine Urobilinogen Normal Ur Leukocyte Esterase 500 H Urine RBC 0 SEEN Urine WBC 25-50 SEEN Ur Squamous Epith Cells 0-5 SEEN Urine Bacteria 0 SEEN Urine Mucus 0 SEEN - Rhythm Strip Rhythm Strip: Sinus Rhythm Rate: 102 Ectopy: None - Medical Decision Making Patient's right ear pain is secondary to otitis externa. Will treat with otic drops. Because patient has flank pain will obtain UA. Because she complains of cough will obtain chest x-ray. Patient's urine is consistent with infection. Since she has right CVA tenderness will treat for pyelonephritis. Since she has no nausea and vomiting will discharge with prescription for Bactrim DS, patient has allergy to quinolones. She received a dose of Rocephin in the department prior to discharge. ED Disposition - Plan for ED Patient: Disposition: Home or Assisted Living Diagnosis: Pyelonephritis, acute, Otitis externa of right ear Instructions: ED Otitis Externa, ED Kidney Infec Female Prescriptions: Smz/Tmp Ds [Bactrim Ds] 1 tablet PO BID #20 tablet Neomycin/Polymyxin B/Hydrocort [Qxkbusgq-Adofdxxkr-Av Ear Susp] 10 ml OT 4X/DAY #5 drops.susp Referrals: Armen Crowder MD [Primary Care Provider] - Additional Instructions: Your prescription was electronically transmitted to [email or web address] located in [place] your designated pharmacy of choice
[2018-11-03 13:48] LABS: Absolute Lymphocyte Count 2.39 X10^3/ul (0.83-4.51); Absolute Neutrophil Count 9.3 X10^3/uL (2.0-7.7); Basophil# 0.04 X10^3/uL; Basophil% 0.3 % (0-1); Eosinophil# 0.45 X10^3/uL; Eosinophils% 3.5 % (0-5); Hemoglobin 11.1 g/dl (12.0-15.0); Lymphocyte # 2.39 X10^3/ul (4.0); Lymphocyte % 18.8 % (19-41); Mean Corp Hgb Conc 32.6 g/gl (32-36); Mean Corpuscular Hgb 29.2 pg (27.0-32.0); Mean Corpuscular Volume 89.5 fL (81-99); Mean Platelet Vol. 11.1 fl (6.2-12.0); Monocyte# 0.42 X10^3/uL; Monocyte% 3.3 % (0-10); Neutrophil # 9.29 X10^3/uL (2.7-7.7); Neutrophil % 73.4 % (47-70); POSITIVE COUNT NO; POSITIVE DIFFERENTIAL NO; POSITIVE MORPHOLOGY NO; Platelet Count 198 K/mm3 (150-450); RBC Distribution Width CV 15.7 % (11.6-14.6); RBC Distribution Width SD 51.2 fl (35.1-43.9); White Blood Count 12.7 K/mm3 (4.4-11.0)
[2018-11-03 13:59] LABS: Anion Gap 5 (5-15); BUN 17 mg/dL (7-18); BUN/Creat Ratio 13.3 RATIO (10-20); Calcium,Total 8.2 mg/dL (8.5-10.1); Chloride 103 mmol/L (98-107); Creatinine, Serum 1.28 mg/dL (0.55-1.02); EST Glomerular Filtration Rate 48 mL/min (>60); Est Glom Filt Rate - Afr Amer 58 mL/min (>60); Estimated Creatinine Clearance 53.97 ml/min; Glucose 139 mg/dL (74-106); Potassium 3.3 mmol/L (3.5-5.1); Sodium Level 137 mmol/L (136-145)
[2018-11-03 14:12] LABS: Bacteria 0 SEEN /hpf (None Seen); Mucous, Urine 0 SEEN /hpf (<or=2+); Red Blood Cells-Urine 0 SEEN /hpf (0-5)
[2018-11-03 14:16] LABS: Color, Urine Yellow (Yellow); Glucose, Dipstick Normal (Normal); Ketone-Dipstick Negative (Negative); Leukocyte Esterase-Dipstick 500 /ul (Negative); Nitrite-Dipstick Negative (Negative); Occult Blood-Urine Negative /ul (Negative); Protein-Dipstick 15 mg/dl (Negative); Urine Bilirubin Dipstick Negative (Negative); Urine Clarity Sl. Cloudy (Clear); Urine Urobilinogen Normal (Normal); Urine pH 6.5 (5.0 - 8.0)
[2018-11-03 14:27] LABS: Squamous Epithelial Cells - UA 0-5 SEEN /hpf (5-10); White Blood Cells 25-50 SEEN /hpf (0-5)
[2018-11-03] MEDS: Acetaminophen 325 MG Tablet 650 MG PO (15:24)
[2018-11-03] MEDS: Ceftriaxone 1 GM/50 ML BAG IV (15:25)
[2018-11-03 15:30] VITALS: BP 142/69
== END 2018-11-03 16:00 | disposition home or self-care (01) ==
PROVIDERS: Emergency Provider Emergency Medicine; Family Provider Family Medicine; PCP Family Medicine
DX: N10 Acute pyelonephritis (principal); H60.91 Unspecified otitis externa, right ear; D82.1 Di George's syndrome; E11.69 Type 2 diabetes mellitus with other specified complication; I10 Essential (primary) hypertension; E78.5 Hyperlipidemia, unspecified; E03.9 Hypothyroidism, unspecified; G47.33 Obstructive sleep apnea (adult) (pediatric); E66.2 Morbid (severe) obesity with alveolar hypoventilation; Z87.448 Personal history of other diseases of urinary system; Z90.49 Acquired absence of other specified parts of digestive tract; Z79.4 Long term (current) use of insulin; Z79.899 Other long term (current) drug therapy
CPT/HCPCS: 71046; 80048; 81001; 85025; 87086; 87088; 96365; 99285; A4216

== ENCOUNTER 2018-12-18 14:08 | Emergency (ER) | payer MEDICAID, SELFPAY ==
[2018-12-18 14:09] VITALS: BP 119/80; PULSE 107; RESP 16; TEMP 36.6; O2SAT 95; BMI 50.3
--- NOTE | 2018-12-18 14:24 | ED.DCSUM_ITS ---
- ER Visit Summary Date of Service: 12/18/18 Chief Complaint: Right knee pain History of Present Illness: The patient is a 43 F who presents with right knee pain that is been getting worse over the past 2 days. Patient describes the pain is sharp and throbbing. Patient states the pain is worse when she co mpletely extends her knee and completely flexes her knee. Patient denies any trauma or injury. Patient has a history of a knee replacement on the right. Patient denies any clicking or popping sensation. Patient also complains of right ear pain. Patient denies any discharge or drainage. Patient denies any hearing changes. Patient denies any fevers or chills. Patient also is concerned over possible . Physical Examination: Vital signs are stable. Patient is afebrile. Patient is in no acute distress. The tympanic membranes and external auditory canals are clear bilaterally. Oral mucosa is pink and moist. Neck is supple. Trachea is midline. There is no JVD noted. Heart was regular rate and rhythm. Lungs are clear and equal bilaterally. Abdomen is soft and nontender. Musculoskeletal exam reveals tenderness over the lateral aspect of the right knee. There is no bony crepitance or step-off. There is no effusion. There is no edema or ecchymosis. Range of motion was limited in complete extension and complete flexion secondary to pain. Test Results: Urine hCG was obtained and was negative. X-rays of the right knee were obtained. There is no acute fracture or loose body. Emergency Department Course and Treatment: Patient was instructed to ice and elevate the right knee. Patient was instructed to take Tylenol or ibuprofen as needed for pain. Patient was instructed to follow-up with her primary care physician in 5 to 7 days. Patient understood and was agreeable with the plan. All questions were answered Disposition: Discharge home Impression: 1. Right knee pain This note was generated with [employer] dictation software. It may contain incorrect words, spelling, and punctuation that were not noted in review of the chart prior to signing ED Disposition - Plan for ED Patient: Disposition: Home or Assisted Living Diagnosis: Right knee pain Instructions: KNEE PAIN, Uncertain Cause Referrals: Armen Crowder MD [Primary Care Provider] - 5-7 Days
--- NOTE | 2018-12-18 14:48 | RAD_ITS ---
STUDY: X-RAY - RIGHT KNEE REASON FOR EXAM: Female, 43 years old. O centimeters image TECHNIQUE: view(s) of the knee. COMPARISON: None. FINDINGS: There is moderate osteoarthritis involving the knee joint particularly with narrowing of the lateral compartment of the knee joint with osteophyte formation. There is also mild osteoarthritis of the patellofemoral joint. . The findings are slightly worse than noted in June 28, 2015. IMPRESSION: interval increase in the degree of osteoarthritis involving the knee joint as well as in the patellofemoral joint. Electronically Signed: Amalia Silver, at 15:20 EDT Tel , Service support , RAD/Knee 4 or More Views
[2018-12-18 15:11] LABS: Internal QC Validated? YES +Cl - CLEAR BKGD; Pregnancy, Urine Negative Negative
--- NOTE | 2018-12-18 16:08 | ED.RN ---
pt given written and verbal discharge instructions and home going paperwork. verbalizes understanding. refuses d/c vs.
== END 2018-12-18 16:11 | disposition home or self-care (01) ==
PROVIDERS: Emergency Provider Emergency Medicine; Family Provider Family Medicine; PCP Family Medicine
DX: M25.561 Pain in right knee (principal); E66.9 Obesity, unspecified; Z96.651 Presence of right artificial knee joint
CPT/HCPCS: 73564; 81025; 99282

== ENCOUNTER → 2019-05-20 11:41 | Outpatient (CLI) | payer MEDICAID, SELFPAY ==
[2019-05-20 13:07] LABS: Microalbumin,Random Urine 15.7 mg/L (NO RANGE EST.); Microalbumin:Creatinine Ratio 22.3 mg/g CRE (<30 mg/g CRE)
== END ==
PROVIDERS: Family Provider Family Medicine; PCP Family Medicine; Visit Provider Internal Medicine Nephrology
DX: E11.9 Type 2 diabetes mellitus without complications (principal)
CPT/HCPCS: 82043; 82570

== ENCOUNTER → 2019-09-15 14:00 | Outpatient (CLI) | payer MEDICAID, SELFPAY ==
[2019-09-15 14:41] LABS: BUN 13 mg/dL (7-18); BUN/Creat Ratio 9.6 RATIO (10-20); Calcium,Total 8.2 mg/dL (8.5-10.1); Chloride 102 mmol/L (98-107); Creatinine, Serum 1.35 mg/dL (0.55-1.02); EST Glomerular Filtration Rate 45 mL/min (>60); Est Glom Filt Rate - Afr Amer 54 mL/min (>60); Glucose 191 mg/dL (74-106); Phosphorus 3.6 mg/dL (2.5-4.9); Sodium Level 135 mmol/L (136-145)
== END ==
LOC: LAB.FUTURE 14:04 → LAB 14:07
PROVIDERS: PCP Family Medicine; Referring Provider Internal Medicine Nephrology; Visit Provider Internal Medicine Nephrology
DX: N18.3 Chronic kidney disease, stage 3 (moderate) (principal)
CPT/HCPCS: 36415; 80069

== ENCOUNTER → 2020-04-07 14:51 | Outpatient (CLI) | payer MEDICAID, SELFPAY ==
[2020-04-08 09:14] LABS: PTHIN 29.5 pg/mL (18.4-80.1)
== END ==
PROVIDERS: PCP Family Medicine; Visit Provider Internal Medicine Nephrology
DX: E11.22 Type 2 diabetes mellitus with diabetic chronic kidney disease (principal); N18.30 Chronic kidney disease, stage 3 unspecified
CPT/HCPCS: 36415; 83970

== ENCOUNTER → 2020-04-15 12:20 | Outpatient (CLI) | payer MEDICAID, SELFPAY ==
[2020-04-15 13:50] LABS: Albumin, Serum 3.2 g/dL (3.2-5.0); BUN 16 mg/dL (7-18); Calcium,Total 8.4 mg/dL (8.5-10.1); Chloride 104 mmol/L (98-107); Creatinine, Serum 1.33 mg/dL (0.55-1.02); EST Glomerular Filtration Rate 45 mL/min (>60); Est Glom Filt Rate - Afr Amer 55 mL/min (>60); Glucose 133 mg/dL (74-106); Potassium 3.8 mmol/L (3.5-5.1); Sodium Level 138 mmol/L (136-145)
[2020-04-15 13:52] LABS: Microalbumin,Random Urine 18.4 mg/L (NO RANGE EST.); Microalbumin:Creatinine Ratio 13.1 mg/g CRE (<30 mg/g CRE)
== END ==
PROVIDERS: PCP Family Medicine; Referring Provider Internal Medicine Nephrology; Visit Provider Internal Medicine Nephrology
DX: E11.22 Type 2 diabetes mellitus with diabetic chronic kidney disease (principal); N18.30 Chronic kidney disease, stage 3 unspecified
CPT/HCPCS: 36415; 80069; 82043; 82570

== ENCOUNTER → 2020-12-14 10:53 | Outpatient (CLI) | payer MEDICAID, SELFPAY ==
[2020-12-14 12:08] LABS: Albumin, Serum 3.3 g/dL (3.2-5.0); BUN 17 mg/dL (7-18); BUN/Creat Ratio 11.5 RATIO (10-20); Calcium,Total 8.4 mg/dL (8.5-10.1); Chloride 102 mmol/L (98-107); Creatinine, Serum 1.48 mg/dL (0.55-1.02); EST Glomerular Filtration Rate 40 mL/min (>60); Est Glom Filt Rate - Afr Amer 49 mL/min (>60); Glucose 196 mg/dL (74-106); Phosphorus 2.7 mg/dL (2.5-4.9); Potassium 4.2 mmol/L (3.5-5.1); Sodium Level 135 mmol/L (136-145)
[2020-12-14 12:29] LABS: PTHIN 40.5 pg/mL (18.4-80.1)
== END ==
PROVIDERS: PCP Family Medicine; Visit Provider Internal Medicine Nephrology
DX: N18.32 Chronic kidney disease, stage 3b (principal)
CPT/HCPCS: 36415; 80069; 83970

== ENCOUNTER 2021-06-19 15:11 | Inpatient (IN) | payer MEDICAID, SELFPAY ==
[2021-06-19] VITALS (12 sets, daily range): BP systolic 103–131; BP diastolic 67–100; PULSE 87–105; RESP 15–24; TEMP 36–37.4; O2SAT 85–96; BMI 54.8; BMI 53.8
--- NOTE | 2021-06-19 15:57 | EX.ED.DYSGE1 ---
HPI History of Present Illness Chief Complaint: Shortness of Breath Informant: patient Onset/Context/Timing Onset: Days (5 to 6 days) Context: Gradual Onset Current Severity: Moderate Maximum Severity: Moderate Narrative Narrative: Patient presents secondary to cough and shortness of breath along with body aches. She states she has just been wanting to sleep the last 4 days. She denies fever or chills. She states she does feel lightheaded and dizzy when she tries to get up. She states she was seen at the urgent care and was told she did not have Covid or pneumonia, just a viral illness. She presents to the ER because she is not getting any better. [facility] Medical History Asthma Diabetes DiGeorge syndrome High cholesterol HTN (hypertension) Hypothyroidism Kidney disease Super obesity Home Medications albuterol sulfate [ProAir HFA] 2 puff INHALATION Q4H PRN PRN 12/25/16 [History Last Taken 08/05/18] amlodipine 5 mg PO DAILY 12/25/16 [History Last Taken 08/06/18] atorvastatin 40 mg PO QHS 12/25/16 [History Last Taken 08/06/18] levothyroxine 50 mcg PO DAILY 12/25/16 [History Last Taken 08/06/18] budesonide-formoterol [Symbicort] 2 puff INHALATION BID 06/11/17 [History Last Taken 08/06/18] insulin degludec [Tresiba FlexTouch U-100] 20 unit SQ BID 01/17/18 [History Last Taken 08/06/18] insulin lispro [Humalog KwikPen Insulin] 18 unit SQ TID 01/17/18 [History Last Taken 08/06/18] Allergy/AdvReac Type Severity Reaction Status Date / Time azithromycin [From Zithromax] Allergy Unknown Verified 06/19/21 15:16 levofloxacin [From Levaquin] Allergy Rash Verified 06/19/21 15:16 Penicillins Allergy Unknown Verified 06/19/21 15:16 Social History Smoking Status: Never smoker ROS ROS ED Constitutional Constitutional ED: Denies chills or fever(s) Eyes Eyes: Denies change in vision ENT ENT ED: Denies sore throat Cardiovascular Cardiovascular: Reports chest pain and other Details: Chest pain only with cough Respiratory/Chest Respiratory/Chest: Reports cough, dyspnea and sputum Gastrointestinal Gastrointestinal: Reports nausea; Denies abdominal pain, diarrhea or vomiting Genitourinary Genitourinary ED: Denies dysuria Musculoskeletal Musculoskeletal: Reports myalgias; Denies back pain Integumentary Denies rash Neurologic Neurologic: Reports headache(s) and weakness Allergic/Immunologic Allergic/Immunologic ED: Denies urticaria EXAM Physical Exam Const Vital Signs: 06/19/21 15:12 06/19/21 15:16 06/19/21 15:17 Temperature 96.8 F L Temperature Source Temporal Pulse Rate 105 H Respiratory Rate 23 H Respiratory Pattern Hyperpnea Blood Pressure 103/92 H Blood Pressure Mean 95 Pulse Ox 89 Oxygen Delivery Method Room Air Nasal Cannula Oxygen Flow Rate (L/min) 2 06/19/21 15:18 06/19/21 17:49 06/19/21 18:00 Temperature 96.8 F L 97.2 F L 98.5 F Temperature Source Temporal Temporal Temporal Pulse Rate 105 H 90 87 Respiratory Rate 23 H 15 18 Respiratory Pattern Blood Pressure 103/92 H 122/100 H 128/78 H Blood Pressure Mean 95 107 94 Pulse Ox 89 96 95 Oxygen Delivery Method Nasal Cannula Room Air Room Air Oxygen Flow Rate (L/min) 2 06/19/21 18:28 06/19/21 18:30 Temperature Temperature Source Pulse Rate Respiratory Rate Respiratory Pattern Blood Pressure Blood Pressure Mean Pulse Ox 85 93 Oxygen Delivery Method Room Air Nasal Cannula Oxygen Flow Rate (L/min) 2 Positive obese Nutritional Appearance: obese HEENT Reports moist mucous membranes Eyes PERRL and EOMs intact bilaterally Neck supple Chest Wall inspection of chest normal and palpation of chest normal Resp normal respiratory effort and clear to auscultation bilaterally Cardio regular rhythm Rate: tachycardic GI non-tender Auscultation: hypoactive bowel sounds Palpation: soft Extremity normal to inspection Neuro oriented x3 Sensorium / Orientation: alert Psych mental status grossly normal Skin no rashes or lesions noted MDM MDM MDM Narrative Medical decision making narrative: Lab work, rapid Covid, chest x-ray obtained. Patient given Toradol. Lab Data Attestation: I reviewed the patient's lab results. Labs: Laboratory Results - last 24 hr 06/19/21 06/19/21 06/19/21 15:38 15:38 15:38 WBC 12.7 H RBC 4.68 Hgb 12.9 Hct 41.6 MCV 88.9 MCH 27.6 MCHC 31.0 L RDW Std Deviation 46.5 H RDW Coeff of [place]oida 14.4 Plt Count 139 L MPV 13.5 H Immature Gran % (Auto) 0.800 Neut % (Auto) 78.5 H Lymph % (Auto) 13.0 L [place] % (Auto) 5.8 Eos % (Auto) 1.3 Baso % (Auto) 0.6 Absolute Neuts (auto) 10.0 H Absolute Lymphs (auto) 1.65 Nucleated RBC % 0 Platelet Estimate SLT DEC Plt Morphology Comment LARGE RBC Morphology N CHROM Anisocytosis RARE Sodium 136 Potassium 4.1 Chloride 103 Carbon Dioxide 26.0 Anion Gap 7 BUN 14 Creatinine 1.26 H Estim Creat Clear Calc 53.10 Est GFR (MDRD) Af Amer 58 L Est GFR (MDRD) Non-Af 48 L BUN/Creatinine Ratio 11.1 Glucose 198 H Lactic Acid 1.0 Calcium 8.7 Total Bilirubin 0.50 Direct Bilirubin < 0.05 AST 37 ALT 17 Alkaline Phosphatase 123 H Total Protein 8.6 H Albumin 2.4 L Globulin 6.2 H Radiography Chest X-Ray - ED: 1 View, Read by ED Physician and Chronic Changes Diagnostic Testing: Clinical Impression(s) from Imaging Studies Chest X-Ray 06/19/21 16:28 IMPRESSION: No airspace consolidation or pleural effusion demonstrated. Limited by patient rotation and portable technique. Electronically Signed: Husam Corenjo MD (Bro[place]) at 16:43 EST , Service support , Chest CTA 06/19/21 16:54 IMPRESSION: Normal CTA chest examination, without a demonstrated pulmonary embolism or arterial dissection. Electronically Signed: Randolph Jasso MD at 17:34 EST Tel , Service support , Treatment and Re-Evaluation Comments:: Chest x-ray reveals no focal infiltrate. Lab work reveals elevated white count at 12.7. Rapid Covid test negative. CTA of chest obtained reveals no evidence of PE or infiltrate. Patient's O2 sat was 85% on room air. She is currently requiring 2 to 3 L nasal cannula. I will speak with hospitalist regarding admission. With slight elevation white count and her symptoms she was given doxycycline to cover for bacterial bronchitis. Discharge Plan Triage Chief Complaint: Shortness of Breath ED Provider: Juani Maldonado Dx/Rx/DC Orders Clinical Impression: Bronchitis, Hypoxia Prescriptions: No Action atorvastatin 40 MG tablet 40 mg PO QHS RF: 0 amlodipine 5 MG tablet 5 mg PO DAILY RF: 0 levothyroxine 50 MCG tablet 50 mcg PO DAILY RF: 0 albuterol sulfate [ProAir HFA] 1 PUFF inhaler 2 puff inhalation Q4H PRN PRN (Reason: Shortness Of Breath) RF: 0 budesonide-formoterol [Symbicort] 1 INHALER inhaler 2 puff inhalation BID RF: 0 insulin lispro [Humalog KwikPen Insulin] 100 UNIT/ML Insuln.Pen 18 unit SQ TID RF: 0 insulin degludec [Tresiba FlexTouch U-100] 100 UNIT/ML Insuln.Pen 20 unit SQ BID RF: 0 Primary Care Provider: Armen Crowder Referrals: Armen Crowder MD [Primary Care Provider] - Disposition Disposition: Acute Care Hospital [facility]
[2021-06-19 16:14] LABS: Absolute Lymphocyte Count 1.65 X10^3/uL (0.83-4.51); Basophil# 0.08 X10^3/uL; Basophil% 0.6 % (0-1); Eosinophil# 0.17 X10^3/uL; Eosinophils% 1.3 % (0-5); Hematocrit 41.6 % (37-47); Hemoglobin 12.9 g/dL (12.0-15.0); Lymphocyte # 1.65 X10^3/ul (0.83-4.51); Mean Corpuscular Hgb 27.6 pg (27.0-32.0); Mean Corpuscular Volume 88.9 fL (81-99); Mean Platelet Vol. 13.5 fl (6.2-12.0); Monocyte# 0.74 X10^3/uL; Monocyte% 5.8 % (0-10); NRBC Flagged by Analyzer 0 % (0-5); Neutrophil # 9.99 X10^3/uL (2.7-7.7); Neutrophil % 78.5 % (47-70); POSITIVE COUNT YES; Platelet Count 139 K/mm3 (150-450); RBC Distribution Width CV 14.4 % (11.6-14.6); RBC Distribution Width SD 46.5 fl (35.1-43.9); Red Blood Count 4.68 M/mm3 (4.2-5.4); White Blood Count 12.7 K/mm3 (4.4-11.0)
[2021-06-19] MEDS: Ketorolac 30 MG/ML Syringe IV (16:16)
--- NOTE | 2021-06-19 16:28 | RAD_ITS ---
STUDY: X-RAY CHEST REASON FOR EXAM: Female, 46 years old. cough TECHNIQUE: AP COMPARISON: 11/03/2018. FINDINGS: Patient is rotated. EKG leads project over the chest. Lungs are less expanded as compared to the prior study. No dense airspace consolidation is seen. There is no demonstrated pleural abnormality. Normal size heart. Normal mediastinum and jaswinder. Normal visualized pulmonary arteries. Normal visualized aortic arch and descending thoracic aorta. No acute bony process. There is no demonstrated abnormality of the visualized soft tissue structures of the upper abdomen. RAD/Chest 1 View (Portable) IMPRESSION: No airspace consolidation or pleural effusion demonstrated. Limited by patient rotation and portable technique. Electronically Signed: Husam Cornejo MD ([place]) at 16:43 EST , Service support ,
[2021-06-19 16:40] LABS: Differential Indicated SCAN CRITERIA MET
[2021-06-19 16:41] LABS: Anisocytosis RARE; Platelet Estimate SLT DEC (ADEQ); Platelet Morphology LARGE; Red Cell Morphology N CHROM NORMAL (NORM C&C)
[2021-06-19 16:44] LABS: AST(SGOT) 37 U/L (15-37); Alanine Aminotransfer ALT/SGPT 17 U/L (13-56); Albumin, Serum 2.4 g/dL (3.2-5.0); Alkaline Phosphatase 123 U/L (45-117); Anion Gap 7 (5-15); BUN 14 mg/dL (7-18); BUN/Creat Ratio 11.1 RATIO (10-20); Bilirubin, Direct < 0.05 mg/dL (0.00-0.30); Calcium,Total 8.7 mg/dL (8.5-10.1); Chloride 103 mmol/L (98-107); Creatinine, Serum 1.26 mg/dL (0.55-1.02); EST Glomerular Filtration Rate 48 mL/min (>60); Est Glom Filt Rate - Afr Amer 58 mL/min (>60); Globulin 6.2 g/dL (2.2-4.2); Glucose 198 mg/dL (74-106); Potassium 4.1 mmol/L (3.5-5.1); Protein, Total 8.6 g/dL (6.4-8.2); Sodium Level 136 mmol/L (136-145)
--- NOTE | 2021-06-19 16:54 | CT_ITS ---
STUDY: CTA CHEST REASON FOR EXAM: Female, 46 years old. hypoxia RADIATION DOSAGE (If Supplied By Facility): CTDIvol = ( 12.67 ) mGy, DLP = ( 566.66 ) mGycm TECHNIQUE: The examination was performed with the intravenous administration of IV 100mL Isovue-370. Post-processing of the angiographic images was performed, with multiplanar reformation and 3D reconstruction. Individualized dose optimization techniques were used for this CT. COMPARISON: Chest x-ray earlier today FINDINGS: Normal enhancement of the main pulmonary artery and right and left pulmonary arteries. Normal enhancement of the bilateral peripheral pulmonary arteries. There is no demonstrated pulmonary embolism. Normal thoracic aorta and visualized great vessels. Lara right subclavian artery which is a normal variant. There is no demonstrated aortic dissection. Normal heart and pericardium. Normal mediastinum. Normal hilar regions. Normal visualized trachea and bronchi. The lungs are well expanded. Normal pulmonary parenchyma. Normal pleura. Normal chest wall structures. Normal osseous structures. Normal visualized upper abdomen. CT/CTA Chest W/WO Contrast IMPRESSION: Normal CTA chest examination, without a demonstrated pulmonary embolism or arterial dissection. Electronically Signed: Randolph Jasso MD at 17:34 EST Tel , Service support ,
--- NOTE | 2021-06-19 18:53 | HP.PCM.HOS_ITS ---
HPI - General General Date of Admission: 06/19/21 Date of Service: 06/19/21 Chief Complaint: Cough, Dyspnea, worsening. HPI Narrative The patient is a 46 y/o F w/ PMHx: VENANCIO on BIPAP q HS, CKD stage III unclear subtype, Morbid Obesity, Asthma, Hypothyroidism, HTN, HLD, Digeorge Syndrome who presents to the [facility] ED on 06/19/21 with history of fatigue, malaise with no recent fevers or chills with lightheadedness, dizziness especially with activity with ongoing nonproductive cough and dyspnea as well as body aches with outpatient urgent care evaluation with diagnosis of acute viral illness non- Covid type at that time however she is not improving x 5 days prompting eventual ED reevaluation. Work-up in the ED included T 96.8, heart rate 105, BP 103/92, respiratory rate 23, initially 89% with eventual improvement to 96% on room air, CBC with WC 12.7, hemoglobin 12.9, platelet 139 with left shift, CMP with BUN/2014/1.26, glucose 198, lactic acid 1.0, hepatic profile not marked appearing aside alk phos 123, chest x-ray with no acute airspace consolidation or effusion however limited by patient habitus, rotation and portable technique, CTPA unremarkable with no evidence of PE or dissection, rapid Covid negative, blood culture x2 pending per ED. [facility] Medical History (Updated 06/19/21 @ 18:[address] Juani Maldonado MD) Asthma Diabetes DiGeorge syndrome High cholesterol HTN (hypertension) Hypothyroidism Kidney disease Super obesity Home Medications albuterol sulfate [ProAir HFA] 2 puff INHALATION Q4H PRN PRN 12/25/16 [History Last Taken 08/05/18] amlodipine 5 mg PO DAILY 12/25/16 [History Last Taken 08/06/18] atorvastatin 40 mg PO QHS 12/25/16 [History Last Taken 08/06/18] levothyroxine 50 mcg PO DAILY 12/25/16 [History Last Taken 08/06/18] budesonide-formoterol [Symbicort] 2 puff INHALATION BID 06/11/17 [History Last Taken 08/06/18] Tresiba FlexTouch U-100 20 unit SQ BID 01/17/18 [History Last Taken 08/06/18] insulin lispro [Humalog KwikPen Insulin] 18 unit SQ TID 01/17/18 [History Last Taken 08/06/18] Allergy/AdvReac Type Severity Reaction Status Date / Time azithromycin [From Zithromax] Allergy Unknown Verified 06/19/21 15:16 levofloxacin [From Levaquin] Allergy Rash Verified 06/19/21 15:16 Penicillins Allergy Unknown Verified 06/19/21 15:16 Family History (Updated 06/19/21 @ 19:[address] Shira Neff MD) Mother Heart disease Hypertension Cancer CVA (cerebral vascular accident) Diabetes Father Heart disease Hypertension Cancer CVA (cerebral vascular accident) Diabetes Surgical History (Updated 06/19/21 @ 19:[address] Shira Neff MD) History of right knee surgery S/P cholecystectomy Status post tonsillectomy and adenoidectomy Social History (Updated 06/19/21 @ 19:[address] Shira Neff MD) household members: significant other Smoking Status: Never smoker alcohol intake: never substance use type: does not use ROS ROS Narrative Admission Review of Systems: CONSTITUTIONAL: No weight loss, fever, chills, + weakness or fatigue. HEENT: + Sore throat from coughing, congestion, BL ear fullness sensation. Eyes: No visual loss, blurred vision, double vision or yellow sclerae. Ears, Nose, Throat: No sneezing, runny nose. SKIN: No rash or itching, lesions, wounds. CARDIOVASCULAR: No chest pain, chest pressure or chest discomfort, palpitations, edema, orthopnea, syncopal events. RESPIRATORY: + shortness of breath, cough without marked sputum, occasional wheezing, No hemoptysis. GASTROINTESTINAL: + anorexia, No nausea, vomiting or diarrhea, abdominal pain, melena, BRBPR. GENITOURINARY: No dysuria, frequency, urgency or retention. NEUROLOGICAL: No headache, dizziness, syncope, paralysis, ataxia, numbness or tingling in the extremities, focal weakness, change in bowel or bladder control, seizure. MUSCULOSKELETAL: + muscle, back pain, joint pain or stiffness. HEMATOLOGIC: No anemia, bleeding or bruising. LYMPHATICS: No enlarged nodes. No history of splenectomy. PSYCHIATRIC: No history of depression or anxiety. ENDOCRINOLOGIC: No reports of sweating, cold or heat intolerance. No polyuria or polydipsia. ALLERGIES: + history of asthma, hives, eczema or rhinitis. Vital Signs Vital Signs Vital Signs: 06/19/21 15:12 06/19/21 15:16 06/19/21 15:17 Temperature 96.8 F L Temperature Source Temporal Pulse Rate 105 H Respiratory Rate 23 H Respiratory Pattern Hyperpnea Blood Pressure 103/92 H Blood Pressure Mean 95 Pulse Ox 89 Oxygen Delivery Method Room Air Nasal Cannula Oxygen Flow Rate (L/min) 2 06/19/21 15:18 06/19/21 17:49 06/19/21 18:00 Temperature 96.8 F L 97.2 F L 98.5 F Temperature Source Temporal Temporal Temporal Pulse Rate 105 H 90 87 Respiratory Rate 23 H 15 18 Respiratory Pattern Blood Pressure 103/92 H 122/100 H 128/78 H Blood Pressure Mean 95 107 94 Pulse Ox 89 96 95 Oxygen Delivery Method Nasal Cannula Room Air Room Air Oxygen Flow Rate (L/min) 2 06/19/21 18:28 06/19/21 18:30 Temperature Temperature Source Pulse Rate Respiratory Rate Respiratory Pattern Blood Pressure Blood Pressure Mean Pulse Ox 85 93 Oxygen Delivery Method Room Air Nasal Cannula Oxygen Flow Rate (L/min) 2 Weight Weight: 350 lb 8.56 oz Body Mass Index (BMI) 54.8 Physical Exam Narrative Physical Examination: General: Awake, alert, oriented x 3 and cooperative, laying in the ED bed, fatigued and ill-appearing, notes congestion in bilateral ears makes hearing somewhat difficult. Skin: Normal color, normal turgor, no icterus, no cyanosis. HEENT: AT/NC, EOMI, PERRLA, dry MM, no carotid bruits, difficult to assess JVD given thickened neck, bilateral OM intact. Lungs: Mildly diminished, greater bases, tight, occasional end expiratory wheez e, coughing elicited with deep inspiratory effort, no obvious rales or rhonchi. Heart: Tachycardic with regular rhythm; no gallop, rub audible. Abdomen: Soft, morbidly obese, NTTP, no obvious distention but difficult to assess given habitus, distant normal bowel sounds, unable to assess HSM secondar y to morbidly obese habitus. Extremities: No cyanosis, no clubbing, chronic bilateral lower extremity pedal to distal flores nonpitting edema. Neurological: Patient awake, alert, oriented as noted, cognitive function intact; pupils equally reactive to light and accommodation, cranial nerves II- XII grossly normal, moving all 4 extremities, no focal deficits, strength moderately to severely global decrease secondary to acute complaints. Psychiatric: Affect appears fatigued, ill-appearing, no acute evidence of depressive or anxiety feelings. Results Lab / Micro Data Result Diagrams: 06/19/21 15:38 06/19/21 15:38 Labs: Laboratory Results - last 24 hr 06/19/21 15:38: WBC 12.7 H, RBC 4.68, Hgb 12.9, Hct 41.6, MCV 88.9, MCH 27.6, MCHC 31.0 L, RDW Std Deviation 46.5 H, RDW Coeff of Loida 14.4, Plt Count 139 L, MPV 13.5 H, Immature Gran % (Auto) 0.800, Neut % (Auto) 78.5 H, Lymph % (Auto) 13.0 L, [place] % (Auto) 5.8, Eos % (Auto) 1.3, Baso % (Auto) 0.6, Absolute Neuts (auto) 10.0 H, Absolute Lymphs (auto) 1.65, Nucleated RBC % 0, Platelet Estimate SLT DEC, Plt Morphology Comment LARGE, RBC Morphology N CHROM, Anisocytosis RARE 06/19/21 15:38: Sodium 136, Potassium 4.1, Chloride 103, Carbon Dioxide 26.0, Anion Gap 7, BUN 14, Creatinine 1.26 H, Estim Creat Clear Calc 53.10, Est GFR (MDRD) Af Amer 58 L, Est GFR (MDRD) Non-Af 48 L, BUN/Creatinine Ratio 11.1, Glucose 198 H, Calcium 8.7, Total Bilirubin 0.50, Direct Bilirubin < 0.05, AST 37, ALT 17, Alkaline Phosphatase 123 H, Total Protein 8.6 H, Albumin 2.4 L, Globulin 6.2 H 06/19/21 15:38: Lactic Acid 1.0 Micro: Microbiology 06/19/21 15:23 Nasal Secretion SARS-CoV-2 Antigen (Rapid) - Final Radiology Impression Chest X-Ray 06/19/21 16:28 IMPRESSION: No airspace consolidation or pleural effusion demonstrated. Limited by patient rotation and portable technique. Electronically Signed: Husam Cornejo MD ([place]) at 16:43 EST , Service support , Chest CTA 06/19/21 16:54 IMPRESSION: Normal CTA chest examination, without a demonstrated pulmonary embolism or arterial dissection. Electronically Signed: Randolph Jasso MD at 17:34 EST Tel , Service support , Assessment & Plan Assessment/Plan (1) Hypoxia: (2) Bronchitis: PLAN: The patient is a 46 y/o F w/ PMHx: VENANCIO on BIPAP q HS, CKD stage III unclear subtype, Morbid Obesity, Asthma, Hypothyroidism, HTN, HLD, Digeorge Syndrome who presents to the [facility] ED on 06/19/21 with history of fatigue, malaise with no recent fevers or chills with lightheadedness, dizziness especially with activity with ongoing nonproductive cough and dyspnea as well as body aches with outpatient urgent care evaluation with diagnosis of acute viral illness non- Covid type at that time however she is not improving x5 days prompting eventual ED reevaluation. #1. Acute Hypoxia secondary to Acute Viral Bronchitis with Acute Viral Syndrome complicated by underlying Asthma: Will admit to [facility], maintain on oxygen with wean as tolerated to room air, continue ATC duonebs, PRN albuterol, IV methylprednisolone, HOB, IS parameters, obtain respiratory viral panel, obtain sputum Cx, obtain procalcitonin, hold on abx therapy pending these evaluations. #2. Diabetes mellitus type II: Will continue home insulin regimen although may need adjustments given steroid usage as noted, ADA diet, accu checks w/ ISS. #3. Hypothyroidism: Continue home synthroid regimen. #4. Hypertension: Continue home regimen including amlodipine with hold parameters as needed, PRN hydralazine. #5. Hyperlipidemia: We will continue patient on statin therapy. #6. Reported DiGeorge syndrome: Unclear which systems been affected, i.e. cardiac, immune, encourage continued outpatient follow-up with a physician, treatment as noted above #1. #7. Chronic Kidney Disease Stage III, unclear subtype: Admission BUN/Cr 14/1.26, baseline renal function recently appears primarily 1.2-1.4, repeat BMP in AM. #8. Morbid Obesity: Weight loss and lifestyle changes encouraged, nutrition consulted. #9. VENANCIO: We will continue BiPAP nightly. #10. DVT prophylaxis: SCDs, Lovenox. #11. CODE STATUS: Full code. Charges/Coding Visit Charges Inpatient E&M: 89532 Init Hosp L3
[2021-06-19] MEDS: Doxycycline 100 MG CAPSULE PO (18:55)
[2021-06-19 21:08] LABS: Procalcitonin 0.24 ng/mL (0.00-0.09)
[2021-06-19] MEDS: 0.9% Normal Saline 1,000 ML 100 ML IV (21:59)
[2021-06-19] MEDS: Enoxaparin 40 MG/0.4 ML Syringe SC (21:59)
[2021-06-19] MEDS: Atorvastatin Calcium 40 MG Tablet PO (22:00)
[2021-06-19] MEDS: Insulin Lispro 100 UNIT/ML INSULN.PEN SC (22:03)
[2021-06-19] MEDS: guaiFENesin 10 ML UDC (200MG/10ML) 20 ML PO (22:09)
[2021-06-19 22:21] LABS: Bedside Glucose 152 mg/dL (70-110)
--- NOTE | 2021-06-19 23:40 | PCS.PANDOC ---
PANDEMIC DOCUMENTATION INITIATED: Date: 02/06/2021 Time: 1900 Emergency documentation initiated 06/19/21 @ 2231
[2021-06-20] VITALS (7 sets, daily range): BP systolic 120–139; BP diastolic 47–81; PULSE 76–97; RESP 18–22; TEMP 36.4–37.1; O2SAT 93–97
[2021-06-20] MEDS: guaiFENesin 10 ML UDC (200MG/10ML) 20 ML PO ×3 (02:21→21:59)
--- NOTE | 2021-06-20 02:33 | NURSING ---
Pt calls c/o IV alarming. Left arm bent and site in lt AC. Instructed to straighten arm. Cycle repeated several times. Requested cough syrup and given per dr order. Lakeishanas rahman cookies also given per pt request. Spilled pop on overbed table and this nurse cleaned up mess. Call light w/ in reach. Will continue to monitor.
[2021-06-20] MEDS: Levothyroxine 50 MCG Tablet PO (05:21)
[2021-06-20 06:45] LABS: Absolute Neutrophil Count 12.1 X10^3/uL (2.0-7.7); Basophil# 0.08 X10^3/uL; Basophil% 0.6 % (0-1); Hematocrit 40.7 % (37-47); Hemoglobin 12.8 g/dL (12.0-15.0); Lymphocyte % 7.4 % (19-41); Mean Corp Hgb Conc 31.4 g/dL (32-36); Mean Corpuscular Volume 89.1 fL (81-99); Mean Platelet Vol. 11.4 fl (6.2-12.0); Monocyte# 0.12 X10^3/uL; Monocyte% 0.9 % (0-10); NRBC Flagged by Analyzer 0 % (0-5); Neutrophil % 89.7 % (47-70); Platelet Count 181 K/mm3 (150-450); RBC Distribution Width CV 14.2 % (11.6-14.6); RBC Distribution Width SD 45.9 fl (35.1-43.9); Red Blood Count 4.57 M/mm3 (4.2-5.4); White Blood Count 13.5 K/mm3 (4.4-11.0)
[2021-06-20] MEDS: 0.9% Normal Saline 1,000 ML 100 ML IV ×2 (06:53→17:22)
[2021-06-20 07:19] LABS: ALB/GLOB Ratio 0.4 RATIO (0.9-2.4); AST(SGOT) 20 U/L (15-37); Alanine Aminotransfer ALT/SGPT 17 U/L (13-56); Albumin, Serum 2.5 g/dL (3.2-5.0); Alkaline Phosphatase 129 U/L (45-117); Anion Gap 9 (5-15); BUN 17 mg/dL (7-18); BUN/Creat Ratio 13.6 RATIO (10-20); Calcium,Total 8.4 mg/dL (8.5-10.1); Chloride 102 mmol/L (98-107); Creatinine, Serum 1.25 mg/dL (0.55-1.02); EST Glomerular Filtration Rate 49 mL/min (>60); Est Glom Filt Rate - Afr Amer 59 mL/min (>60); Estimated Creatinine Clearance 53.52 ml/min; Glucose 279 mg/dL (74-106); Potassium 3.8 mmol/L (3.5-5.1); Protein, Total 8.5 g/dL (6.4-8.2); Sodium Level 137 mmol/L (136-145)
[2021-06-20 08:06] LABS: Bedside Glucose 256 mg/dL (70-110)
[2021-06-20] MEDS: Insulin Lispro 100 UNIT/ML INSULN.PEN 18 UNIT SC ×3 (08:47→17:15)
[2021-06-20] MEDS: Insulin Lispro 100 UNIT/ML INSULN.PEN SC ×4 (08:48→22:04)
[2021-06-20] MEDS: Menthol/Lanolin/Calamine/Znox 113 GM Tube 1 APPLIC TOPICAL ×3 (08:53→22:06)
[2021-06-20] MEDS: Enoxaparin 40 MG/0.4 ML Syringe SC ×2 (08:54→22:06)
[2021-06-20] MEDS: amLODIPine 5 MG Tablet PO (08:54)
[2021-06-20] MEDS: Acetaminophen 325 MG Tablet 650 MG PO ×2 (08:55→14:09)
[2021-06-20] MEDS: Ipratropium/Albuterol Sulfate 3 ML AMPUL.NEB INHALATION (10:58)
[2021-06-20 12:11] LABS: Bedside Glucose 281 mg/dL (70-110)
--- NOTE | 2021-06-20 12:50 | CASEMGMT ---
BEBETO CHEW Assessment: Face to Face with pt for initial transition planning/care coordination assessment. BEBETO CHEW introduced self and role at [facility], pt voices understanding and consents to assessment. Pt is A/O x4 and answers all questions appropriately at this time. Pt sitting up in bed with O2 on in no distress. Care providers, pharmacy, and demographics verified/updated. Admitting Dx: acute bronchitis, hypoxia PCP:Lakesha Specialists:kevon Hussein Pharmacy: [facility] Insurance: [facility] Prescription Benefit: yes LW/HPOA: Pt has a LW and DPOA on file. Her DPOA is Anamika Johnston. LNOK: Umm Rock, mother; Anamika Johnston, sister Living Arrangements: Pt lives with sig other in a ground level apt with no steps to enter. Pt reports she is I in ADL's and denies concerns at home. Transportation: Pt does not drive. Her sig other or sister transports her to medical appts. DME/HHC/SNF: Pt has a cane at home, BP cuff, bipap and functioning BGM with strips and lancets. Pt states she checks her blood sugar 5x/day and logs her readings for her physician. Pt has had HHC in the past but is unsure of which company provided it. She has also been to a SNF in [place] and [place] but is unsure of the name. Discussed local in network DME companies should pt need home O2, pt has no preference. Pt states no concerns with going home at time of dc. Pt states no further concerns/needs. CM to follow. Advised pt to ask CM if any further question/concerns/needs arise, voices understanding. Pt Goal: Home Plan: Home
[2021-06-20] MEDS: Nystatin Powder 15gm Bottle 1 APPLIC TOPICAL ×2 (13:20→22:06)
[2021-06-20] MEDS: 0.9% Saline Lock 10 ML Syringe IV ×2 (13:37→22:11)
[2021-06-20] MEDS: BENZOCAINE/MENTHOL 1 LOZENGE MUCOUS MEM ×2 (14:09→23:51)
--- NOTE | 2021-06-20 14:15 | PN.HOSP_ITS ---
Subjective Subjective Patient seen and examined. She had no complaints earlier this morning but subsequently complained of dizziness and fullness in her ear with some difficulty hearing. She also complained of a sore throat. She was on 4 L of oxygen at time of review. Review of systems otherwise negative. Objective Data Objective Data Vital Signs: Vital Signs Temp Pulse Resp BP Pulse Ox 98.3 F 95 22 H 137/70 H 96 06/20/21 08:50 06/20/21 13:59 06/20/21 11:52 06/20/21 13:59 06/20/21 08:50 Oxygen Flow Rate (L/min) 5 Oxygen Delivery Method Nasal Cannula Weight: 343 lb 14.738 oz Body Mass Index (BMI) 53.8 Intake & Output: Intake and Output for Last 24 Hours 06/18/21 06/19/21 06/20/21 23:59 23:59 23:59 Intake Total 980 / 980 1940 / 1940 Output Total 550 / 550 Balance 980 / 980 1390 / 1390 Lab / Micro Data Result Diagrams: 06/20/21 05:45 06/20/21 05:45 Labs: Laboratory Results - last 24 hr 06/19/21 15:38: WBC 12.7 H, RBC 4.68, Hgb 12.9, Hct 41.6, MCV 88.9, MCH 27.6, MCHC 31.0 L, RDW Std Deviation 46.5 H, RDW Coeff of [place] 14.4, Plt Count 139 L, MPV 13.5 H, Immature Gran % (Auto) 0.800, Neut % (Auto) 78.5 H, Lymph % (Auto) 13.0 L, [place] % (Auto) 5.8, Eos % (Auto) 1.3, Baso % (Auto) 0.6, Absolute Neuts (auto) 10.0 H, Absolute Lymphs (auto) 1.65, Nucleated RBC % 0, Platelet Estimate SLT DEC, Plt Morphology Comment LARGE, RBC Morphology N CHROM, Anisocytosis RARE 06/19/21 15:38: Sodium 136, Potassium 4.1, Chloride 103, Carbon Dioxide 26.0, Anion Gap 7, BUN 14, Creatinine 1.26 H, Estim Creat Clear Calc 53.10, Est GFR (MDRD) Af Amer 58 L, Est GFR (MDRD) Non-Af 48 L, BUN/Creatinine Ratio 11.1, Glucose 198 H, Calcium 8.7, Total Bilirubin 0.50, Direct Bilirubin < 0.05, AST 37, ALT 17, Alkaline Phosphatase 123 H, Total Protein 8.6 H, Albumin 2.4 L, Globulin 6.2 H 06/19/21 15:38: Lactic Acid 1.0 06/19/21 20:10: Procalcitonin 0.24 H 06/19/21 21:58: POC Glucose 152 H 06/20/21 05:45: WBC 13.5 H, RBC 4.57, Hgb 12.8, Hct 40.7, MCV 89.1, MCH 28.0, MCHC 31.4 L, RDW Std Deviation 45.9 H, RDW Coeff of [place] 14.2, Plt Count 181, MPV 11.4, Immature Gran % (Auto) 1.400 H, Neut % (Auto) 89.7 H, Lymph % (Auto) 7.4 L , [place]vin % (Auto) 0.9, Eos % (Auto) 0.0, Baso % (Auto) 0.6, Absolute Neuts (auto) 12.1 H, Absolute Lymphs (auto) 1.00, Nucleated RBC % 0 06/20/21 05:45: Sodium 137, Potassium 3.8, Chloride 102, Carbon Dioxide 26.0, Anion Gap 9, BUN 17, Creatinine 1.25 H, Estim Creat Clear Calc 53.52, Est GFR (MDRD) Af Amer 59 L, Est GFR (MDRD) Non-Af 49 L, BUN/Creatinine Ratio 13.6, Glucose 279 H, Calcium 8.4 L, Total Bilirubin 0.40, AST 20, ALT 17, Alkaline Phosphatase 129 H, Total Protein 8.5 H, Albumin 2.5 L, Globulin 6.0 H, Albumin/Globulin Ratio 0.4 L 06/20/21 07:58: POC Glucose 256 H 06/20/21 11:49: POC Glucose 281 H Micro: Microbiology 06/19/21 15:23 Nasal Secretion SARS-CoV-2 Antigen (Rapid) - Final Radiography Diagnostic Testing: Radiology Impression Chest X-Ray 06/19/21 16:28 IMPRESSION: No airspace consolidation or pleural effusion demonstrated. Limited by patient rotation and portable technique. Electronically Signed: Husam Cornejo MD ([place]) at 16:43 EST , Service support , Chest CTA 06/19/21 16:54 IMPRESSION: Normal CTA chest examination, without a demonstrated pulmonary embolism or arterial dissection. Electronically Signed: Randolph Jasso MD at 17:34 EST Tel , Service support , Physical Exam Const alert, oriented x3 and no apparent distress Exam Limitations: no limitations Nutritional Appearance: morbidly obese HEENT head/scalp atraumatic and moist oral mucous membranes Head and Scalp: normocephalic Eyes PERRL, EOMs intact bilaterally and conjunctivae normal Resp Resp Narrative: diminished breath sounds bibasally, no wheezes or crackles. On 5L of oxygen by nasal canula GI normal to inspection, nondistended, normoactive bowel sounds, soft to palpation, non-tender, non-distended and hepatosplenomegaly Extremity normal to inspection, full ROM and no clubbing, cyanosis or edema Peripheral Pulses: Yes pulses 2+ throughout Skin no rashes or lesions noted Neuro oriented x3, CN's II-XII intact bilaterally and moves all extremities Sensorium / Orientation: awake and alert Psych affect normal Assessment & Plan Assessment/Plan (1) Bronchitis: (2) Acute respiratory failure with hypoxia: PLAN: #acute hypoxic respiratory failure * due to bronchitis. * COVID antigen test was negative * respiratory panel pending; COVID PCR pending * titrate oxygen to maintain sats >90% * wbc elevated, but she is afebrile. I will hold off on antibiotics for now * CXR shows no airspace consolidation or pleural effusion demonstrated. * CTA of the chest showed no evidence of PE or dissection and showed no evidence of pneumonia. * cepachol for sore throat. * On IV Solu-Medrol 40 mg every 8. #Probable labyrinthitis * Patient complaining of fullness in the ear with sore throat and upper respiratory symptoms. I suspect the patient's symptoms may be due to labyrinthitis or viral infection. * she is also complaining of some difficulty hearing in her right ear due to inner ear fullness * Will start on meclizine for dizziness * zofran prn for nausea. * respiratory panel pending * #Hypertension; on amlodipine and lisinopril #Hyperlipidemia: on statin #Hypothyroidism: On Synthroid #Obesity hypoventilation syndrome: on BIPAP QHS #History of asthma: Breathing treatments with bronchodilators. Doesnt appear to be in exacerbation #Type 2 diabetes mellitus. Insulin sliding scale. Checks AC at bedtime. #CKD stage III: stable, at baseline. #Super morbid obesity: Complicates acute care, expected recovery and prognosis. #DiGeorge syndrome: Stable DVT prophylaxis: lovenox 40mg bid Charges/Coding Visit Charges Inpatient E&M: 08888 Subs Hosp L3
--- NOTE | 2021-06-20 14:27 | CASEMGMT ---
Social Work Note Per sales facilitator questions, pt has completed HCPOA and LW and provided copies to [facility]. SW reviewed chart. Both HCPOA and LW are on file. SW printed off copies and placed on pt's chart. Silvia Barbour DIELECTRIC MACHINE OPERATOR, SENIOR BIOSTATISTICIAN
[2021-06-20 16:40] LABS: Bedside Glucose 271 mg/dL (70-110)
[2021-06-20] MEDS: MELATONIN 3 MG TABLET PO (22:05)
[2021-06-20] MEDS: Atorvastatin Calcium 40 MG Tablet PO (22:05)
[2021-06-20 22:20] LABS: Bedside Glucose 283 mg/dL (70-110)
[2021-06-21] VITALS (11 sets, daily range): BP systolic 118–147; BP diastolic 65–104; PULSE 71–96; RESP 12–20; TEMP 36.7–37.1; O2SAT 94–99
[2021-06-21] MEDS: 0.9% Saline Lock 10 ML Syringe IV ×4 (01:15→22:43)
[2021-06-21] MEDS: guaiFENesin 10 ML UDC (200MG/10ML) 20 ML PO (02:36)
[2021-06-21] MEDS: 0.9% Normal Saline 1,000 ML 100 ML IV ×2 (05:16→16:56)
[2021-06-21] MEDS: Levothyroxine 50 MCG Tablet PO (05:24)
[2021-06-21 06:20] LABS: Bedside Glucose 326 mg/dL (70-110)
[2021-06-21 07:00] LABS: Absolute Lymphocyte Count 0.82 X10^3/uL (0.83-4.51); Absolute Neutrophil Count 12.1 X10^3/uL (2.0-7.7); Basophil# 0.04 X10^3/uL; Basophil% 0.3 % (0-1); Eosinophil# 0.01 X10^3/uL; Eosinophils% 0.1 % (0-5); Hematocrit 36.5 % (37-47); Hemoglobin 11.4 g/dL (12.0-15.0); Lymphocyte # 0.82 X10^3/ul (0.83-4.51); Lymphocyte % 6.1 % (19-41); Mean Corp Hgb Conc 31.2 g/dL (32-36); Mean Corpuscular Hgb 27.7 pg (27.0-32.0); Mean Corpuscular Volume 88.6 fL (81-99); Mean Platelet Vol. 11.6 fl (6.2-12.0); Monocyte# 0.31 X10^3/uL; Monocyte% 2.3 % (0-10); NRBC Flagged by Analyzer 0 % (0-5); Neutrophil # 12.07 X10^3/uL (2.7-7.7); Neutrophil % 89.2 % (47-70); Platelet Count 185 K/mm3 (150-450); RBC Distribution Width CV 13.8 % (11.6-14.6); RBC Distribution Width SD 44.6 fl (35.1-43.9); Red Blood Count 4.12 M/mm3 (4.2-5.4); White Blood Count 13.5 K/mm3 (4.4-11.0)
[2021-06-21] MEDS: Ipratropium/Albuterol Sulfate 3 ML AMPUL.NEB INHALATION ×4 (07:09→19:42)
[2021-06-21 07:20] LABS: Anion Gap 10 (5-15); BUN 23 mg/dL (7-18); BUN/Creat Ratio 21.7 RATIO (10-20); Calcium,Total 8.3 mg/dL (8.5-10.1); Chloride 103 mmol/L (98-107); Creatinine, Serum 1.06 mg/dL (0.55-1.02); EST Glomerular Filtration Rate 59 mL/min (>60); Est Glom Filt Rate - Afr Amer 71 mL/min (>60); Estimated Creatinine Clearance 63.12 ml/min; Glucose 342 mg/dL (74-106); Potassium 4.1 mmol/L (3.5-5.1); Sodium Level 137 mmol/L (136-145)
[2021-06-21] MEDS: Insulin Lispro 100 UNIT/ML INSULN.PEN SC ×4 (10:20→22:44)
[2021-06-21] MEDS: Insulin Lispro 100 UNIT/ML INSULN.PEN 18 UNIT SC ×3 (10:20→16:53)
[2021-06-21] MEDS: Menthol/Lanolin/Calamine/Znox 113 GM Tube 1 APPLIC TOPICAL ×4 (10:21→20:01)
[2021-06-21] MEDS: Nystatin Powder 15gm Bottle 1 APPLIC TOPICAL ×2 (10:21→20:00)
[2021-06-21] MEDS: Enoxaparin 40 MG/0.4 ML Syringe SC ×2 (10:27→22:47)
[2021-06-21] MEDS: amLODIPine 5 MG Tablet PO (10:27)
--- NOTE | 2021-06-21 12:20 | PN.HOSP_ITS ---
Subjective Subjective Patient seen and examined. She has no active complaints today. Her sore throat is improving. Review of systems otherwise negative. She was on BiPAP at time of review but she was not to sleep at night. Objective Data Objective Data Vital Signs: Vital Signs Temp Pulse Resp BP Pulse Ox 98.7 F 86 18 119/104 H 95 06/21/21 10:18 06/21/21 10:18 06/21/21 10:18 06/21/21 10:18 06/21/21 10:18 Oxygen Flow Rate (L/min) 5 Oxygen Delivery Method Bi-pap Weight: 353 lb 9.943 oz Body Mass Index (BMI) 53.8 Intake & Output: Intake and Output for Last 24 Hours 06/19/21 06/20/21 06/21/21 23:59 23:59 23:59 Intake Total 980 / 980 3690 / 3690 2118.33 / 2118.33 Output Total 1900 / 1900 200 / 200 Balance 980 / 980 1790 / 1790 1918.33 / 1918.33 Lab / Micro Data Result Diagrams: 06/21/21 05:50 06/21/21 05:50 Labs: Laboratory Results - last 24 hr 06/20/21 16:32: POC Glucose 271 H 06/20/21 22:03: POC Glucose 283 H 06/21/21 05:50: WBC 13.5 H, RBC 4.12 L, Hgb 11.4 L, Hct 36.5 L, MCV 88.6, MCH 27.7, MCHC 31.2 L, RDW Std Deviation 44.6 H, RDW Coeff of [place] 13.8, Plt Count 18 5, MPV 11.6, Immature Gran % (Auto) 2.000 H, Neut % (Auto) 89.2 H, Lymph % (Auto) 6.1 L, [place] % (Auto) 2.3, Eos % (Auto) 0.1, Baso % (Auto) 0.3, Absolute Neuts (auto) 12.1 H, Absolute Lymphs (auto) 0.82 L, Nucleated RBC % 0 06/21/21 05:50: Sodium 137, Potassium 4.1, Chloride 103, Carbon Dioxide 24.0, Anion Gap 10, BUN 23 H, Creatinine 1.06 H, Estim Creat Clear Calc 63.12, Est GFR (MDRD) Af Amer 71, Est GFR (MDRD) Non-Af 59 L, BUN/Creatinine Ratio 21.7 H, Glucose 342 H, Calcium 8.3 L 06/21/21 06:16: POC Glucose 326 H Micro: Microbiology 06/20/21 09:30 Sputum, Expectorated/Coughed Gram Stain - Final 06/19/21 15:23 Nasal Secretion SARS-CoV-2 Antigen (Rapid) - Final Physical Exam Const alert, oriented x3 and no apparent distress Exam Limitations: no limitations Nutritional Appearance: morbidly obese HEENT head/scalp atraumatic and moist oral mucous membranes Head and Scalp: normocephalic Eyes PERRL, EOMs intact bilaterally and conjunctivae normal Resp Resp Narrative: diminished breath sounds bibasally, no wheezes or crackles. On BIPAP Cardio regular rate, regular rhythm, S1 normal heart sound, S2 normal heart sound and no murmurs GI normal to inspection, nondistended, normoactive bowel sounds, soft to palpation, non-tender, non-distended and hepatosplenomegaly Extremity normal to inspection, full ROM and no clubbing, cyanosis or edema Peripheral Pulses: Yes pulses 2+ throughout Skin no rashes or lesions noted Neuro oriented x3, CN's II-XII intact bilaterally and moves all extremities Sensorium / Orientation: awake and alert Psych affect normal Assessment & Plan Assessment/Plan (1) Bronchitis: (2) Acute respiratory failure with hypoxia: PLAN: #acute hypoxic respiratory failure * due to probable bronchitis. * COVID antigen test was negative * respiratory panel pending; COVID PCR pending * titrate oxygen to maintain sats >90% * sputum gram stain showing 2+ gram positive cocci * started on IV doxycycline today in light of sputum gram stain results * on cepachol lozenges and IV solumedrol * breathing treatment with bronchodilators * #Probable labyrinthitis * Patient complaining of fullness in the ear with sore throat and upper respiratory symptoms. * on zofran and meclizine * respiratory panel still pending * * #Hypertension; on amlodipine and lisinopril #Hyperlipidemia: on statin #Hypothyroidism: On Synthroid #Obesity hypoventilation syndrome: on BIPAP QHS #History of asthma: Breathing treatments with bronchodilators. #Type 2 diabetes mellitus. Insulin sliding scale. Checks AC at bedtime. #CKD stage III: stable, at baseline. #Super morbid obesity: Complicates acute care, expected recovery and prognosis. #DiGeorge syndrome: Stable DVT prophylaxis: lovenox 40mg bid Charges/Coding Visit Charges Inpatient E&M: 43752 Subs Hosp L2
[2021-06-21 14:26] LABS: Bedside Glucose 418 mg/dL (70-110)
[2021-06-21 17:05] LABS: Bedside Glucose 360 mg/dL (70-110)
--- NOTE | 2021-06-21 19:46 | CPS ---
pt took about 4 min of tx and started coughing and saying she cant breath and took tx off
[2021-06-21] MEDS: Atorvastatin Calcium 40 MG Tablet PO (22:46)
[2021-06-21] MEDS: MELATONIN 3 MG TABLET PO (22:46)
[2021-06-21] MEDS: Acetaminophen 325 MG Tablet 650 MG PO (22:48)
[2021-06-22 00:16] LABS: Bedside Glucose 319 mg/dL (70-110)
[2021-06-22] MEDS: guaiFENesin 10 ML UDC (200MG/10ML) 20 ML PO (02:06)
[2021-06-22 02:12] VITALS: BP 128/83; PULSE 76; RESP 18; TEMP 36.7; O2SAT 93
[2021-06-22 02:28] VITALS: PULSE 81; RESP 12; RESP 20; O2SAT 93
[2021-06-22] MEDS: Levothyroxine 50 MCG Tablet PO (06:53)
[2021-06-22] MEDS: 0.9% Saline Lock 10 ML Syringe IV (06:56)
[2021-06-22] MEDS: 0.9% Normal Saline 1,000 ML 100 ML IV (07:01)
[2021-06-22 07:03] LABS: Absolute Lymphocyte Count 0.92 X10^3/uL (0.83-4.51); Absolute Neutrophil Count 12.5 X10^3/uL (2.0-7.7); Basophil# 0.06 X10^3/uL; Basophil% 0.4 % (0-1); Hematocrit 39.6 % (37-47); Lymphocyte # 0.92 X10^3/ul (0.83-4.51); Lymphocyte % 6.4 % (19-41); Mean Corp Hgb Conc 30.3 g/dL (32-36); Mean Corpuscular Hgb 27.1 pg (27.0-32.0); Mean Corpuscular Volume 89.6 fL (81-99); Mean Platelet Vol. 11.5 fl (6.2-12.0); Monocyte# 0.37 X10^3/uL; Monocyte% 2.6 % (0-10); NRBC Flagged by Analyzer 0 % (0-5); Neutrophil % 86.3 % (47-70); Platelet Count 191 K/mm3 (150-450); RBC Distribution Width CV 13.6 % (11.6-14.6); Red Blood Count 4.42 M/mm3 (4.2-5.4); White Blood Count 14.5 K/mm3 (4.4-11.0)
[2021-06-22 07:10] LABS: Bedside Glucose 348 mg/dL (70-110)
[2021-06-22 07:34] VITALS: PULSE 89; RESP 18; O2SAT 97
[2021-06-22] MEDS: Ipratropium/Albuterol Sulfate 3 ML AMPUL.NEB INHALATION (07:34)
[2021-06-22 07:44] LABS: Anion Gap 7 (5-15); BUN 22 mg/dL (7-18); Calcium,Total 8.5 mg/dL (8.5-10.1); Chloride 98 mmol/L (98-107); Creatinine, Serum 1.05 mg/dL (0.55-1.02); EST Glomerular Filtration Rate 59 mL/min (>60); Est Glom Filt Rate - Afr Amer 72 mL/min (>60); Estimated Creatinine Clearance 63.72 ml/min; Glucose 342 mg/dL (74-106); Potassium 4.2 mmol/L (3.5-5.1); Sodium Level 133 mmol/L (136-145)
[2021-06-22] MEDS: Insulin Lispro 100 UNIT/ML INSULN.PEN SC ×2 (09:03→12:00)
[2021-06-22] MEDS: Insulin Lispro 100 UNIT/ML INSULN.PEN 18 UNIT SC ×2 (09:03→12:00)
[2021-06-22] MEDS: amLODIPine 5 MG Tablet PO (09:05)
[2021-06-22] MEDS: Nystatin Powder 15gm Bottle 1 APPLIC TOPICAL (09:05)
[2021-06-22] MEDS: Menthol/Lanolin/Calamine/Znox 113 GM Tube 1 APPLIC TOPICAL (09:05)
[2021-06-22] MEDS: Enoxaparin 40 MG/0.4 ML Syringe SC (09:06)
[2021-06-22 09:07] VITALS: BP 161/73; PULSE 83; RESP 18; TEMP 36.7; O2SAT 95
[2021-06-22 10:36] VITALS: O2SAT 96
[2021-06-22 11:05] VITALS: O2SAT 87; O2SAT 90; O2SAT 92
--- NOTE | 2021-06-22 11:51 | CASEMGMT ---
Pt qualifies for home O2. [facility] is out of portable tanks. TC to [facility], spoke with Megan. She is aware pt will need portable tank brought to hospital. Referral faxed.
[2021-06-22 12:05] LABS: Bedside Glucose 350 mg/dL (70-110)
--- NOTE | 2021-06-22 13:21 | PCM.DC.SUM ---
Providers Date of Admission: 06/19/21 Primary Care Physician: Dr. Armen Crowder MD Reason For Visit: ACUTE BRONCHITIS,HYPOXIA Diagnosis Discharge Diagnosis (1) Bronchitis: Status: Acute Code(s): J40 - Bronchitis, not specified as acute or chronic (2) Acute respiratory failure with hypoxia: Status: Acute Code(s): J96.01 - Acute respiratory failure with hypoxia Medications at Discharge Home Medications albuterol sulfate [ProAir HFA] 2 puff INHALATION Q4H PRN PRN 12/25/16 amlodipine 5 mg PO DAILY 12/25/16 atorvastatin 40 mg PO QHS 12/25/16 levothyroxine 50 mcg PO DAILY 12/25/16 budesonide-formoterol [Symbicort] 2 puff INHALATION BID 06/11/17 Tresiba FlexTouch U-100 20 unit SQ BID 01/17/18 insulin lispro [Humalog KwikPen Insulin] 18 unit SQ TID 01/17/18 cyclobenzaprine 10 mg PO TID PRN 06/19/21 doxycycline hyclate 100 mg PO BID #10 tab 06/22/21 prednisone 40 mg PO DAILY #10 tab 06/22/21 Hospital Course Operations None Procedures None Summary of Care Provided Minutes Spent on Discharge: 45 Hospital Course: Patient is a 46-year-old female with a past medical history as outlined was admitted through the ED on 06/22/2021 with a complaint of fatigue and malaise with lightheadedness and dizziness. She also had a nonproductive cough and shortness of breath as well as body aches. She was seen on outpatient basis, and thought to have an acute viral illness. [place], her symptoms persisted so she came in to the ED. CT of the chest was negative for any evidence of PE or dissection and rapid Covid test was negative. She was admitted to be managed for bronchitis. She was started on breathing treatments with bronchodilators and IV Solu-Medrol. Sputum culture done grew a gram-negative coccobacillus with feta studies pending to rule out haemophilus species. Patient symptoms improved and she felt better. She had a walking pulse ox which showed that she required 2 L of oxygen at time of discharge. She was discharged home on 06/22/2021 on p.o. doxycycline 100 mg twice daily for 5 days as well as p.o. prednisone 40 mg daily for 5 days. She is follow-up with her primary care doctor in 1 to 2 weeks. Patient seen and examined prior to discharge. She had no complaints and felt well otherwise. She was eager to be discharged home. Review of systems otherwise negative. Labs and vitals reviewed. Home medication reviewed and reconciled. Physical Exam Const alert, oriented x3 and no apparent distress Exam Limitations: no limitations Nutritional Appearance: morbidly obese HEENT head/scalp atraumatic and moist oral mucous membranes Eyes PERRL, EOMs intact bilaterally and conjunctivae normal Resp Resp Narrative: diminished breath sounds bibasally, no wheezes or crackles. On 2L of oxygen. Cardio regular rate, regular rhythm, S1 normal heart sound, S2 normal heart sound and no murmurs GI normal to inspection, nondistended, normoactive bowel sounds, soft to palpation, non-tender, non-distended and hepatosplenomegaly Extremity normal to inspection, full ROM and no clubbing, cyanosis or edema Skin no rashes or lesions noted Neuro oriented x3, CN's II-XII intact bilaterally and moves all extremities Sensorium / Orientation: awake and alert Psych affect normal Weight / BMI Weight Weight: 354 lb 0.998 oz Body Mass Index (BMI) 53.8 ABG / Lab / Microbiology Data Result Diagrams: 06/22/21 05:10 06/22/21 05:10 Laboratory: Laboratory Results - last 24 hr 06/21/21 12:14: POC Glucose 418 H 06/21/21 16:48: POC Glucose 360 H 06/21/21 22:41: POC Glucose 319 H 06/22/21 05:10: WBC 14.5 H, RBC 4.42, Hgb 12.0, Hct 39.6, MCV 89.6, MCH 27.1, MCHC 30.3 L, RDW Std Deviation 45.0 H, RDW Coeff of [place] 13.6, Plt Count 191, MPV 11.5, Immature Gran % (Auto) 4.300 H, Neut % (Auto) 86.3 H, Lymph % (Auto) 6.4 L, [place] % (Auto) 2.6, Eos % (Auto) 0.0, Baso % (Auto) 0.4, Absolute Neuts (auto) 12.5 H, Absolute Lymphs (auto) 0.92, Nucleated RBC % 0 06/22/21 05:10: Sodium 133 L, Potassium 4.2, Chloride 98, Carbon Dioxide 28.0, Anion Gap 7, BUN 22 H, Creatinine 1.05 H, Estim Creat Clear Calc 63.72, Est GFR (MDRD) Af Amer 72, Est GFR (MDRD) Non-Af 59 L, BUN/Creatinine Ratio 21.0 H, Glucose 342 H, Calcium 8.5 06/22/21 06:51: POC Glucose 348 H 06/22/21 11:59: POC Glucose 350 H Microbiology: Microbiology 06/20/21 09:30 Sputum, Expectorated/Coughed Gram Stain - Final 06/20/21 09:30 Sputum, Expectorated/Coughed Respiratory Culture - Preliminary Gram negative cocco bacillus 06/19/21 16:54 Blood Culture (Wb) - Anticubital Right Blood Culture - Preliminary No growth in 48 hours. 06/19/21 15:38 Blood Culture (Wb) - Anticubital Right Blood Culture - Preliminary No growth in 48 hours. 06/19/21 15:23 Nasal Secretion SARS-CoV-2 Antigen (Rapid) - Final D/C Instructions Discharge Diet: Low fat / Low cholesterol Discharge Activity: Return to Normal Activity Weight Bearing Status: Weight bearing as tolerated Call your doctor if you observe: Fever of 101 or Higher, Shortness of breath and Swelling in the ankles Meaningful Use Info Meaningful Use Diagnoses (Choose all that apply): None applicable Discharge Plan Admission Admit Date/Time: 06/19/21 19:54 Primary Reason for Your Visit: bronchitis Attending Provider: Hortencia Tovar Primary Care Provider: Armen Crowder Instructions Patient Instructions: Acute Bronchitis Additional Instructions / Restrictions: use oxygen 2L for shortness of breath as needed Discharge Orders/Prescriptions Prescriptions: New doxycycline hyclate 100 mg tablet 100 mg PO BID Qty: 10 RF: 0 prednisone 20 mg tablet 40 mg PO DAILY Qty: 10 RF: 0 Continued atorvastatin 40 MG tablet 40 mg PO QHS RF: 0 amlodipine 5 MG tablet 5 mg PO DAILY RF: 0 levothyroxine 50 MCG tablet 50 mcg PO DAILY RF: 0 albuterol sulfate [ProAir HFA] 1 PUFF inhaler 2 puff inhalation Q4H PRN PRN (Reason: Shortness Of Breath) RF: 0 budesonide-formoterol [Symbicort] 1 INHALER inhaler 2 puff inhalation BID RF: 0 insulin lispro [Humalog KwikPen Insulin] 100 UNIT/ML insulin pen 18 unit SQ TID RF: 0 Tresiba FlexTouch U-100 100 UNIT/ML insulin pen 20 unit SQ BID RF: 0 cyclobenzaprine 10 mg tablet 10 mg PO TID PRN (Reason: muscle relaxer) RF: 0 Referrals / Follow Up: Armen Crowder MD [Primary Care Provider] - Within 2 Weeks Disposition Disposition (needs filled in before D/C Order can be placed): Home, Self Care Charges/Coding Visit Charges Inpatient E&M: 99782 Disch Hosp
== END 2021-06-22 15:29 | disposition home or self-care (01) | DRG 145 ==
LOC: ED 18:47 → MS3 19:59
PROVIDERS: Admitting Provider Family Medicine; Emergency Provider Emergency Medicine; PCP Family Medicine; Visit Provider Student in an Organized Health Care Education/Training Program
DX: J20.9 Acute bronchitis, unspecified (principal); D82.1 Di George's syndrome; Z68.43 Body mass index [BMI] 50.0-59.9, adult; E66.2 Morbid (severe) obesity with alveolar hypoventilation; E11.22 Type 2 diabetes mellitus with diabetic chronic kidney disease; Z79.4 Long term (current) use of insulin; N18.31 Chronic kidney disease, stage 3a; E03.9 Hypothyroidism, unspecified; I12.9 Hypertensive chronic kidney disease with stage 1 through stage 4 chronic kidney disease, or unspecified chronic kidney disease; E78.5 Hyperlipidemia, unspecified; H83.09 Labyrinthitis, unspecified ear; Z79.51 Long term (current) use of inhaled steroids; Z79.890 Hormone replacement therapy; Z79.899 Other long term (current) drug therapy
CPT/HCPCS: 36415; 71045; 71275; 80048; 80053; 80076; 82962; 83605; 84145; 85025; 87040; 87070; 87077; 87205; 87426; 87633; 94002; 94640; 99284; J7030; J7040; Q9967; A4216

== ENCOUNTER 2021-07-21 15:01 | Outpatient (CLI) | payer MEDICAID, SELFPAY ==
[2021-07-21 16:34] LABS: Hematocrit 37.7 % (37-47); Hemoglobin 12.2 g/dL (12.0-15.0); Mean Corp Hgb Conc 32.4 g/dL (32-36); Mean Corpuscular Volume 86.5 fL (81-99); Mean Platelet Vol. 11.8 fl (6.2-12.0); Platelet Count 178 K/mm3 (150-450); RBC Distribution Width CV 16.1 % (11.6-14.6); RBC Distribution Width SD 50.4 fl (35.1-43.9); Red Blood Count 4.36 M/mm3 (4.2-5.4); White Blood Count 8.1 K/mm3 (4.4-11.0)
[2021-07-21 16:56] LABS: Albumin, Serum 3.1 g/dL (3.2-5.0); BUN 16 mg/dL (7-18); BUN/Creat Ratio 12.7 RATIO (10-20); Calcium,Total 8.3 mg/dL (8.5-10.1); Chloride 104 mmol/L (98-107); Creatinine, Serum 1.26 mg/dL (0.55-1.02); EST Glomerular Filtration Rate 48 mL/min (>60); Est Glom Filt Rate - Afr Amer 58 mL/min (>60); Glucose 231 mg/dL (74-106); Phosphorus 3.3 mg/dL (2.5-4.9); Potassium 3.8 mmol/L (3.5-5.1); Sodium Level 136 mmol/L (136-145)
== END 2021-07-21 23:59 | disposition short-term general hospital (02) ==
PROVIDERS: PCP Family Medicine; Visit Provider Internal Medicine Nephrology
DX: N18.32 Chronic kidney disease, stage 3b (principal)
CPT/HCPCS: 36415; 80069; 85027

== ENCOUNTER 2022-01-05 14:36 | Emergency (ER) | payer MEDICAID, SELFPAY ==
[2022-01-05 14:37] VITALS: BP 136/64; PULSE 87; RESP 20; TEMP 36; O2SAT 97; BMI 47.0
--- NOTE | 2022-01-05 14:48 | ED.VIS.DENTA ---
HPI <BRIAN Medina - Last Filed: 01/05/22 15:36> History of Present Illness Chief Complaint: Dental Narrative Narrative: 46-year-old female presents with abdominal pain that started 3 days ago. Mainly her upper gums hurt in the area where her partial dentures sit and even her lower gums are painful. She is worn the same dentures for years. She cannot get into her dentist until next month. She denies fever chills, difficulty swallowing or breathing, facial or neck swelling. PFS <BRIAN Medina - Last Filed: 01/05/22 15:36> COUNT INCLUDES THE [facility] Medical History (Updated 01/06/22 @ 00:18 by Keyur Mendoza MD) Acute respiratory failure with hypoxia Asthma Bronchitis Diabetes DiGeorge syndrome High cholesterol HTN (hypertension) Hypothyroidism Hypoxia Kidney disease Super obesity Home Medications albuterol sulfate 90 mcg/actuation aerosol inhaler (ProAir HFA) 2 puff inhalation Q4H PRN PRN Shortness Of Breath 12/25/16 [History Last Taken 06/19/21] amlodipine 5 mg tablet 5 mg PO DAILY BLOOD PRESSURE 12/25/16 [History Last Taken 06/18/21] atorvastatin 40 mg tablet 40 mg PO QHS CHOLESTEROL 12/25/16 [History Last Taken 06/18/21] levothyroxine 50 mcg tablet 50 mcg PO DAILY THYROID 12/25/16 [History Last Taken 06/18/21] budesonide-formoterol HFA 160 mcg-4.5 mcg/actuation aerosol inhaler (Symbicort) 2 puff inhalation BID BREATHING 06/11/17 [History Last Taken 08/06/18] insulin degludec 100 unit/mL (3 mL) subcutaneous pen (Tresiba FlexTouch U-100 insulin) 20 unit SQ BID diabetes 01/17/18 [History Last Taken 06/17/21] insulin lispro 100 unit/mL subcutaneous pen (Humalog KwikPen (U-100) Insulin) 18 unit SQ TID diabetes 01/17/18 [History Last Taken 06/19/21] cyclobenzaprine 10 mg tablet 10 mg PO TID PRN muscle relaxer 06/19/21 [History Last Taken Unknown] doxycycline hyclate 100 mg tablet 100 mg PO BID #10 tabs 06/22/21 [Rx Last Taken Unknown] prednisone 20 mg tablet 40 mg PO DAILY #10 tabs 06/22/21 [Rx Last Taken Unknown] chlorhexidine gluconate 0.12 % mouthwash (Peridex) 15 ml buccal DAILY #118 mL 01/05/22 [Rx Last Taken Unknown] Allergy/AdvReac Type Severity Reaction Status Date / Time azithromycin [From Zithromax] Allergy Unknown Verified 01/05/22 14:39 levofloxacin [From Levaquin] Allergy Rash Verified 01/05/22 14:39 Penicillins Allergy Unknown Verified 01/05/22 14:39 Family History (Updated 06/19/21 @ 19:[address] Shira Neff MD) Mother Heart disease Hypertension Cancer CVA (cerebral vascular accident) Diabetes Father Heart disease Hypertension Cancer CVA (cerebral vascular accident) Diabetes Surgical History History of right knee surgery S/P cholecystectomy Status post tonsillectomy and adenoidectomy Social History (Updated 06/19/21 @ 19:[address] Shira Neff MD) household members: significant other Smoking Status: Never smoker alcohol intake: never substance use type: does not use ROS <BRIAN Medina - Last Filed: 01/05/22 15:36> ROS ED ROS Narrative Constitutional: Negative for fever, chills, malaise. Eyes: Negative for visual change. ENT: Negative for sore throat, rhinorrhea. CVS: Negative for palpitations, chest pain, syncope. Respiratory: Negative for shortness of breath, cough, orthopnea. GI: Negative for abdominal pain, nausea, vomiting. : Negative for dysuria, hematuria or frequency. Neuro: Negative for headache, motor/sensory dysfunction. Skin: Negative for rash, abscess, or wound. Musc: Negative for joint pain, swelling, trauma. Heme: Negative for easy bruising, bleeding, lymphadenopathy. EXAM <BRIAN Medina - Last Filed: 01/05/22 15:36> Physical Exam Narrative Exam Narrative: CONST: Patient sitting in no acute distress. EYES: Normal inspection. ENT: Skin appears normal with no swelling, multiple teeth missing including upper central incisors where her partials sit with most tenderness of the gingiva in this area. Gums have mild erythema and swelling but no necrotic changes, no abscess, no dental pain to palpation, no trismus or tongue elevation, sublingual space is soft, airway intact. Obese neck at baseline but no palpable masses or lymphadenopathy and pt states size is at baseline. RESP: No respiratory distress, CTAB. CVS: Regular rate and rhythm, no murmur, no gallop. SKIN: Color normal, no rash, warm, dry, intact. EXTREMITIES: Normal appearance, no pedal edema. NEURO: Oriented x4. PSYCH: Normal affect. Const Vital Signs: 01/05/22 14:37 Temperature 96.8 F L Temperature Source Temporal Pulse Rate 87 Respiratory Rate 20 H Blood Pressure 136/64 H Blood Pressure Mean 88 Pulse Ox 97 Oxygen Delivery Method Room Air <Keyur Mendoza MD - Last Filed: 01/06/22 00:19> Physical Exam Const Vital Signs: 01/05/22 14:37 Temperature 96.8 F L Temperature Source Temporal Pulse Rate 87 Respiratory Rate 20 H Blood Pressure 136/64 H Blood Pressure Mean 88 Pulse Ox 97 Oxygen Delivery Method Room Air [facility] <BRIAN Medina - Last Filed: 01/05/22 15:36> [facility] Narrative Medical decision making narrative: Patient presents with pain in her gums. She appears well nontoxic. Vital signs unremarkable. She does have mildly swollen and erythematous gums. No necrotic changes. Teeth appear normal with no tenderness and no periapical abscess. Airway patent. No neck swelling or masses. She will be treated for gingivitis with chlorhexidine mouthwash and has dental follow-up next month. At this time no indication for oral antibiotics. She was discharged in stable condition. 1. Gingitivitis <Keyur Mendoza MD - Last Filed: 01/06/22 00:19> [facility] Narrative Medical decision making narrative: Patient presents with pain in her gums. She appears well nontoxic. Vital signs unremarkable. She does have mildly swollen and erythematous gums. No necrotic changes. Teeth appear normal with no tenderness and no periapical abscess. Airway patent. No neck swelling or masses. She will be treated for gingivitis with chlorhexidine mouthwash and has dental follow-up next month. At this time no indication for oral antibiotics. She was discharged in stable condition. 1. Gingitivitis 2. Mouth pain I have personally performed a face to face assessment of the patient and have reviewed the ALICIA Note. I performed a substantive portion of the visit including all aspects of the following. My alberto findings include: History is mouth pain/gum pain Exam is no dental pain. A dentulous in certain areas. Mild tenderness of gums. No drooling, no trismus Medical Decision Making follow-up dentist. Chlorhexidine. Discharge. Other additions or changes: [None] Discharge Plan Triage Chief Complaint: Dental ED Midlevel Provider: Leidy Roque ED Provider: Keyur Mendoza Dx/Rx/DC Orders Clinical Impression: Gingivitis, Mouth pain Instructions: Understanding Gingivitis Prescriptions: New chlorhexidine gluconate [Peridex] 0.12 % mouthwash 15 ml buccal DAILY Qty: 118 0RF Rx Instructions: swish and spit once daily No Action atorvastatin 40 MG tablet 40 mg PO QHS Label Comments: chloesterol amlodipine 5 MG tablet 5 mg PO DAILY Label Comments: bp levothyroxine 50 MCG tablet 50 mcg PO DAILY Label Comments: thyroid albuterol sulfate [ProAir HFA] 1 PUFF inhaler 2 puff inhalation Q4H PRN PRN (Reason: Shortness Of Breath) Label Comments: sob budesonide-formoterol [Symbicort] 1 INHALER inhaler 2 puff inhalation BID insulin lispro [Humalog KwikPen Insulin] 100 UNIT/ML insulin pen 18 unit SQ TID Tresiba FlexTouch U-100 100 UNIT/ML insulin pen 20 unit SQ BID cyclobenzaprine 10 mg tablet 10 mg PO TID PRN (Reason: muscle relaxer) Label Comments: TAKE 1 TABLET BY MOUTH EVERY 8 HOURS NEEDED FOR MUSCLE SPASMS OR PAIN FOR UP TO 5 (FIVE) DAYS doxycycline hyclate 100 mg tablet 100 mg PO BID Qty: 10 0RF prednisone 20 mg tablet 40 mg PO DAILY Qty: 10 0RF Primary Care Provider: Armen Crowder Referrals: Armen Crowder MD [Primary Care Provider] - Activity Restrictions/Additional Instructions: You have gingivitis and were prescribed a mouthwash to use once a day. Please continue to brush your teeth and follow-up with your dentist. I would recommend not wearing your dentures until it improves. Disposition Disposition: Home, Self Care Discharge Date/Time: 01/05/22 15:50
== END 2022-01-05 15:50 | disposition home or self-care (01) ==
PROVIDERS: Emergency Provider Emergency Medicine; PCP Family Medicine; Visit Provider Emergency Medicine
DX: K05.10 Chronic gingivitis, plaque induced (principal)
CPT/HCPCS: 99282

== ENCOUNTER → 2022-02-23 | Outpatient (CLI) | payer MEDICAID, SELFPAY ==
[2022-02-23 13:49] LABS: Albumin, Serum 3.3 g/dL (3.2-5.0); BUN 14 mg/dL (7-18); BUN/Creat Ratio 10.9 RATIO (10-20); Calcium,Total 8.4 mg/dL (8.5-10.1); Chloride 103 mmol/L (98-107); Creatinine, Serum 1.29 mg/dL (0.55-1.02); EST Glomerular Filtration Rate 47 mL/min (>60); Est Glom Filt Rate - Afr Amer 57 mL/min (>60); Glucose 186 mg/dL (74-106); Phosphorus 2.7 mg/dL (2.5-4.9); Sodium Level 136 mmol/L (136-145)
[2022-02-23 13:55] LABS: Protein, Urine (Random) 76.3 mg/dL (<11.9); Protein:Creat Ratio 278 mg/g CRE (0-200)
== END | disposition home or self-care (01) ==
LOC: LAB 12:46
PROVIDERS: PCP Family Medicine; Referring Provider Internal Medicine Nephrology; Visit Provider Internal Medicine Nephrology
DX: E11.22 Type 2 diabetes mellitus with diabetic chronic kidney disease (principal); N18.32 Chronic kidney disease, stage 3b
CPT/HCPCS: 36415; 80069; 82570; 84156

== ENCOUNTER 2022-06-25 11:54 | Emergency (ER) | payer MEDICAID, SELFPAY ==
[2022-06-25 11:55] VITALS: BP 173/77; PULSE 82; RESP 15; TEMP 36; O2SAT 96; BMI 47.0
--- NOTE | 2022-06-25 12:38 | ADUUE_ITS ---
Reason For Study: Pain, Recent heart cath, r/o pseudo RIGHT No flow noted Rt Radial A from prox forearm to distal forearm Rt Radial A prox: 8 cm/s with abnormal waveform Rt Radial V and Rt UlnarV are compressible throughout Rt Ulnar A prox: 129cm/s Rt Ulnar A mid: 75cm/s Rt Ulnar A dist: 106cm/s Rt Brachial A distal: 95cm/s No pseudo noted. 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 Right brachial and ulnar arteries patent with no evidence of stenosis. Right radial and ulnar veins patent with no evidence of deep vein thrombosis Negative for pseudoaneurysm or fistula. Ordering Physician: Reyes Roper Referring Physician: Armen Crowder Performed By: Keisha Pozo, MORCS, RVT
--- NOTE | 2022-06-25 12:39 | EX.ED.UPPERE ---
HPI History of Present Illness Chief Complaint: Upper Extremity Injury Informant: patient Narrative Narrative: Patient had a heart cath up in [place] last Saturday. She states she has had pain in her right wrist since . She was using it more yesterday and that aggravated it. Its not swelling. It does have some bruising but this is not new. Its had no bleeding. She has no numbness or tingling. No swelling or pain proximally. Not complaining of chest pain or dyspnea. No fevers or chills. [facility] Medical History Acute respiratory failure with hypoxia Asthma Bronchitis Diabetes DiGeorge syndrome High cholesterol HTN (hypertension) Hypothyroidism Hypoxia Kidney disease Super obesity Home Medications albuterol sulfate 90 mcg/actuation aerosol inhaler (ProAir HFA) 2 puff inhalation Q4H PRN PRN Shortness Of Breath 12/25/16 [History Last Taken 06/19/21] amlodipine 5 mg tablet 5 mg PO DAILY BLOOD PRESSURE 12/25/16 [History Last Taken 06/18/21] atorvastatin 40 mg tablet 40 mg PO QHS CHOLESTEROL 12/25/16 [History Last Taken 06/18/21] levothyroxine 50 mcg tablet 50 mcg PO DAILY THYROID 12/25/16 [History Last Taken 06/18/21] budesonide-formoterol HFA 160 mcg-4.5 mcg/actuation aerosol inhaler (Symbicort) 2 puff inhalation BID BREATHING 06/11/17 [History Last Taken 08/06/18] insulin degludec 100 unit/mL (3 mL) subcutaneous pen (Tresiba FlexTouch U-100 insulin) 20 unit SQ BID diabetes 01/17/18 [History Last Taken 06/17/21] insulin lispro 100 unit/mL subcutaneous pen (Humalog KwikPen (U-100) Insulin) 18 unit SQ TID diabetes 01/17/18 [History Last Taken 06/19/21] cyclobenzaprine 10 mg tablet 10 mg PO TID PRN muscle relaxer 06/19/21 [History Last Taken Unknown] doxycycline hyclate 100 mg tablet 100 mg PO BID #10 tabs 06/22/21 [Rx Last Taken Unknown] prednisone 20 mg tablet 40 mg PO DAILY #10 tabs 06/22/21 [Rx Last Taken Unknown] chlorhexidine gluconate 0.12 % mouthwash (Peridex) 15 ml buccal DAILY #118 mL 01/05/22 [Rx Last Taken Unknown] clopidogrel 75 mg tablet (Plavix) 75 mg PO DAILY #30 tabs 06/25/22 [Rx Last Taken Unknown] hydrocodone-acetaminophen 5-325mg 5mg-325mg 1 tab PO Q6H PRN pain 3 days #10 tabs 06/25/22 [Rx Last Taken Unknown] Allergy/AdvReac Type Severity Reaction Status Date / Time azithromycin [From Zithromax] Allergy Unknown Verified 06/25/22 11:57 levofloxacin [From Levaquin] Allergy Rash Verified 06/25/22 11:57 Penicillins Allergy Unknown Verified 06/25/22 11:57 Family History Mother Heart disease Hypertension Cancer CVA (cerebral vascular accident) Diabetes Father Heart disease Hypertension Cancer CVA (cerebral vascular accident) Diabetes Surgical History History of right knee surgery S/P cholecystectomy Status post tonsillectomy and adenoidectomy Social History household members: significant other Smoking Status: Never smoker alcohol intake: never substance use type: does not use ROS ROS ED Constitutional Constitutional ED: Denies chills or fever(s) Cardiovascular Cardiovascular: Denies chest pain, palpitations or racing heartbeat Respiratory/Chest Respiratory/Chest: Denies cough or dyspnea Gastrointestinal Gastrointestinal: Denies nausea or vomiting Musculoskeletal Musculoskeletal: Reports other Details: Right wrist pain. ; Denies neck pain Integumentary Reports other Details: There is some bruising on both the volar and dorsal aspect of the right wrist. Neurologic Neurologic: Denies paresthesias or weakness Hematologic/Lymphatic Hematologic/Lymphatic: Denies easy bleeding or easy bruising EXAM Physical Exam Const Vital Signs: 06/25/22 11:55 Temperature 96.8 F L Temperature Source Temporal Pulse Rate 82 Respiratory Rate 15 Blood Pressure 173/77 H Blood Pressure Mean 109 Pulse Ox 96 Oxygen Delivery Method Room Air Positive well nourished General Appearance ED: NAD; Negative for cyanotic or diaphoretic HEENT Negative for trauma Eyes Eyes Narrative: No pallor. Chest Wall inspection of chest normal Resp normal respiratory effort and clear to auscultation bilaterally Cardio regular rate and regular rhythm GI non-tender Extremity Extremity Narrative: There is some bruising to the volar aspect of the right wrist and a little bit on the dorsal aspect. Mild localized swelling. No erythema or warmth. No drainage. No bleeding. Salvador's test show good brisk flow through the ulnar artery. There does appear to be flow through the radial but it is much slower. However, I can feel pulsation of both arteries. I cannot feel or sense that they are enlarged. I hear no bruit. Neuro oriented x3, no focal motor deficits and no sensory deficits noted Skin Skin Narrative: Bruising as above. General Skin Exam: Negative for petechiae MDM MDM MDM Narrative Medical decision making narrative: ReSound shows occluded right radial. She certainly has good collateral flow from the ulnar. I discussed the case with our vascular surgeon, Dr. Whitfield. Plan will be to place the patient on Plavix for approximately a month. She is already on aspirin now we will add Plavix to this. I will write her meds for pain. She will follow-up as an outpatient. I explained that it is possible that these will recannulate but most of the time they do not. However, she has good collateral flow. Radiography Diagnostic Testing: I discussed the ultrasound reading with the tech. She does have obstruction of the radial artery from the site of puncture more proximally up in the forearm. Discharge Plan Triage Chief Complaint: Upper Extremity Injury ED Provider: Reyes Roper Dx/Rx/DC Orders Clinical Impression: Radial artery thrombosis, right Instructions: ED Peripheral Artery Disease (PAD) Prescriptions: New clopidogrel [Plavix] 75 mg tablet 75 mg PO DAILY Qty: 30 0RF hydrocodone-acetaminophen 5-325 mg tablet 1 tab PO Q6H PRN (Reason: pain) 3 Days Qty: 10 0RF No Action atorvastatin 40 MG tablet 40 mg PO QHS Label Comments: chloesterol amlodipine 5 MG tablet 5 mg PO DAILY Label Comments: bp levothyroxine 50 MCG tablet 50 mcg PO DAILY Label Comments: thyroid albuterol sulfate [ProAir HFA] 1 PUFF inhaler 2 puff inhalation Q4H PRN PRN (Reason: Shortness Of Breath) Label Comments: sob budesonide-formoterol [Symbicort] 1 INHALER inhaler 2 puff inhalation BID insulin lispro [Humalog KwikPen Insulin] 100 UNIT/ML insulin pen 18 unit SQ TID Tresiba FlexTouch U-100 100 UNIT/ML insulin pen 20 unit SQ BID cyclobenzaprine 10 mg tablet 10 mg PO TID PRN (Reason: muscle relaxer) Label Comments: TAKE 1 TABLET BY MOUTH EVERY 8 HOURS NEEDED FOR MUSCLE SPASMS OR PAIN FOR UP TO 5 (FIVE) DAYS doxycycline hyclate 100 mg tablet 100 mg PO BID Qty: 10 0RF prednisone 20 mg tablet 40 mg PO DAILY Qty: 10 0RF chlorhexidine gluconate [Peridex] 0.12 % mouthwash 15 ml buccal DAILY Qty: 118 0RF Rx Instructions: swish and spit once daily Primary Care Provider: Armen Crowder Referrals: Vishal Whitfield MD [Med Staff - Active Staff] - 1 Week Armen Crowder MD [Primary Care Provider] - Disposition Disposition: Home, Self Care
[2022-06-25] MEDS: HYDROcodone Bitartrate/Apap 5/325 Tablet PO (15:00)
[2022-06-25] MEDS: Clopidogrel Bisulfate 75 MG Tablet PO (15:00)
== END 2022-06-25 15:05 | disposition home or self-care (01) ==
PROVIDERS: Emergency Provider Emergency Medicine; PCP Family Medicine; Visit Provider Emergency Medicine
DX: I74.8 Embolism and thrombosis of other arteries (principal)
CPT/HCPCS: 93931; 99283

== ENCOUNTER → 2023-02-27 | Outpatient (CLI) | payer MEDICAID, SELFPAY ==
[2023-02-27 10:27] LABS: BUN 13 mg/dL (7-18); BUN/Creat Ratio 10.6 RATIO (10-20); Calcium,Total 8.2 mg/dL (8.5-10.1); Chloride 100 mmol/L (98-107); Creatinine, Serum 1.23 mg/dL (0.55-1.02); EST Glomerular Filtration Rate 49 mL/min (>60); Est Glom Filt Rate - Afr Amer 60 mL/min (>60); Glucose 295 mg/dL (74-106); Sodium Level 132 mmol/L (136-145)
== END | disposition home or self-care (01) ==
LOC: LAB 08:48
PROVIDERS: PCP Family Medicine; Referring Provider Internal Medicine Nephrology; Visit Provider Internal Medicine Nephrology
DX: E11.22 Type 2 diabetes mellitus with diabetic chronic kidney disease (principal); N18.31 Chronic kidney disease, stage 3a
CPT/HCPCS: 36415; 80069

== ENCOUNTER → 2023-03-06 | Outpatient (CLI) | payer MEDICAID, SELFPAY ==
[2023-03-06 14:58] LABS: Microalbumin:Creatinine Ratio 86.8 mg/g CRE (<30 mg/g CRE)
== END | disposition home or self-care (01) ==
LOC: LABSPEC 13:04
PROVIDERS: PCP Family Medicine; Visit Provider Internal Medicine Nephrology
DX: E11.22 Type 2 diabetes mellitus with diabetic chronic kidney disease (principal); N18.31 Chronic kidney disease, stage 3a
CPT/HCPCS: 82043; 82570

== ENCOUNTER 2023-06-18 16:39 | Observation (INO) | payer MEDICAID, SELFPAY ==
[2023-06-18] VITALS (7 sets, daily range): BP systolic 113–157; BP diastolic 56–115; PULSE 96–99; RESP 14–24; TEMP 36.5–36.9; O2SAT 90–94; BMI 52.6
--- NOTE | 2023-06-18 16:49 | EKG12_ITS ---
Test Reason : CP Blood Pressure : / mmHG Vent. Rate : 099 BPM Atrial Rate : 099 BPM P-R Int : 138 ms QRS Dur : 084 ms QT Int : 330 ms P-R-T Axes : 000 -28 037 degrees QTc Int : 423 ms Normal sinus rhythm Normal ECG Confirmed by REHAN NEELY MD ([id number]), video editor PREMA MASTERS ([id number]) on 06/25/2023 8:19:03 AM Referred By: Ned Heredia Confirmed By:REHAN NEELY MD
--- NOTE | 2023-06-18 17:24 | EDS_ITS ---
HPI <SERGE Bell - Last Filed: 06/18/23 18:43> History of Present Illness Chief Complaint: Chest Pain Narrative Narrative: Patient is a 48-year-old female with history of DiGeorge syndrome NSTEMI's morbid obesity hypertension hyperlipidemia diabetes who presents to the emergency department for 2 days of epigastric pain, left-sided chest pain and pressure. Patient also states he has been feeling more congested. Patient was concerned when she felt a heaviness secondary to her history of NSTEMI in January 2023. Patient does follow-up with cardiology here. She denies any feeling of shortness of breath, denies any recent trips, denies any history of blood clots in the legs or lungs. [facility] <SERGE Bell - Last Filed: 06/18/23 18:43> [facility] Medical History (Updated 06/18/23 @ 18:43 by SERGE Bell) Acute respiratory failure with hypoxia Adjustment disorder with depressed mood Asthma Bronchitis Chest pain Chronic headache CKD (chronic kidney disease), stage III Diabetes DiGeorge syndrome Eczema GERD (gastroesophageal reflux disease) High cholesterol HTN (hypertension) Hyperlipidemia Hypothyroidism Hypoxia Kidney disease NSTEMI (non-ST elevated myocardial infarction) Obesity hypoventilation syndrome Open wound of abdominal wall VENANCIO treated with BiPAP Pulmonary emboli Scoliosis Septic shock Spina bifida without mention of hydrocephalus, unspecified region Super obesity Home Medications levothyroxine 50 mcg tablet 50 mcg PO DAILY THYROID 12/25/16 [History Last Taken 06/18/21] clopidogrel 75 mg tablet (Plavix) 75 mg PO DAILY #30 tabs 06/25/22 [Rx Last Taken Unknown] hydrocodone-acetaminophen 5-325mg 5mg-325mg 1 tab PO Q6H PRN pain 3 days #10 tabs 06/25/22 [Rx Last Taken Unknown] aspirin 81 mg tablet,delayed release 81 mg PO DAILY 07/03/22 [History Last Taken Unknown] albuterol sulfate 0.63 mg/3 mL solution for nebulization 0.63 mg continuous nebulization Q6H PRN shortness of breath or wheezing 01/21/23 [History Last Taken Unknown] albuterol sulfate 90 mcg/actuation aerosol inhaler (ProAir HFA) 2 puff inhalation Q4H PRN Shortness Of Breath 01/21/23 [History Last Taken Unknown] fenofibrate nanocrystallized 145 mg tablet 145 mg PO DAILY 01/21/23 [History Last Taken Unknown] fluticasone propionate 50 mcg/actuation nasal spray,suspension 1 spray intranasal BID 01/21/23 [History Last Taken Unknown] insulin aspart U-100 100 unit/mL (3 mL) subcutaneous pen 18 unit subcut TID 01/21/23 [History Last Taken Unknown] levonorgestrel 21 mcg/24 hours (8 yrs) 52 mg intrauterine device (Mirena) 1 device intrauterine ONCE 01/21/23 [History Last Taken Unknown] metformin 500 mg tablet,extended release 24hr (osmotic) 500 mg PO BID 01/21/23 [History Last Taken Unknown] mometasone 0.1 % topical cream 1 applic topical DAILY 01/21/23 [History Last Taken Unknown] mometasone-formoterol HFA 200 mcg-5 mcg/actuation aerosol inhaler (Dulera) 2 puff inhalation BID 01/21/23 [History Last Taken Unknown] amlodipine 5 mg tablet 5 mg PO DAILY #90 tabs 01/29/23 [Rx Last Taken Unknown] insulin degludec 100 unit/mL (3 mL) subcutaneous pen (Tresiba FlexTouch U-100 insulin) 20 unit subcut BID diabetes 01/29/23 [History Last Taken Unknown] Allergy/AdvReac Type Severity Reaction Status Date / Time azithromycin [From Zithromax] Allergy Unknown Verified 06/18/23 16:39 levofloxacin [From Levaquin] Allergy Rash Verified 06/18/23 16:39 Penicillins Allergy Rash Verified 06/18/23 16:39 Family History Mother Heart disease Hypertension Cancer cervical CVA (cerebral vascular accident) Diabetes Father Heart disease pacemaker Hypertension Cancer lung CVA (cerebral vascular accident) Diabetes Myocardial infarction x3 Brother Arrhythmia Son PFO (patent foramen ovale) Grandmother Cancer lung Aunt Breast cancer Other Asthma Surgical History History of right knee surgery Hx of cardiac catheterization (~06/20/22) Hx of left breast biopsy (~10/30/11) Hx of myringotomy S/P cholecystectomy Status post tonsillectomy and adenoidectomy Social History household members: significant other Smoking Status: Never smoker alcohol intake: never substance use type: does not use caffeine: No ROS <SERGE Bell - Last Filed: 06/18/23 18:43> ROS ED ROS Narrative Constitutional: Negative for fever, chills, weight loss, weakness Eyes: Negative for vision loss, vision change, double vision ENT: Negative for any sore throat, ear pain, congestion Cardiovascular: Negative for any palpitations. Positive chest pain Respiratory: Negative for any cough, sputum production, hemoptysis, dyspnea, dyspnea on exertion, orthopnea Gastrointestinal: Negative for any abdominal pain, nausea, vomiting, diarrhea, constipation, blood in stool, blood in vomit. Positive for epigastric pain : Negative for any urinary frequency, dysuria, retention, blood in urine Muscle skeletal: Negative for any myalgias, arthralgias, neck pain, back pain Neurological: Negative for any headache, syncope, paresthesias, dizziness Skin: Negative for any rashes, lumps, itching, abrasions, lacerations Psychiatric: Negative for any depression, anxiety, stress, suicidal ideation, homicidal ideation Hematologic: Negative for any easy bruising, excessive bruising, easy bleeding Allergies: Negative for any eczema, hives, rash EXAM <SERGE Bell - Last Filed: 06/18/23 18:43> Physical Exam Narrative Exam Narrative: Vital signs reviewed. HEET: Head normocephalic atraumatic, TMs clear bilaterally. Posterior pharynx is clear, moist mucous membranes. Nares clear bilaterally. Neck: Supple with no lymphadenopathy or tenderness. No signs of meningismus. Cardiac: Regular rate and rhythm no murmurs gallops or rubs, equal peripheral pulses bilaterally. Respiratory: Lungs clear to auscultation bilaterally. Slight left-sided chest tenderness. Abdomen: Soft, nontender, nondistended. No abdominal bruit or pulsatile masses. No hepatosplenomegaly Extremities: No peripheral edema, no signs of gross trauma or deformity. Active full range of motion of all extremities. Neuro: Cranial nerves II through XII intact, no focal neurological deficits. Skin: Clean dry and intact with no rash, purpura, petechiae, vesicles or pustules. Backs/flank: No CVA tenderness, no midline spinal tenderness, no deformity. Psych: Normal mood and affect. No SI, HI or acute psychosis. Const Vital Signs: 06/18/23 16:39 06/18/23 17:15 06/18/23 17:19 Temperature 97.7 F L Temperature Source Temporal Pulse Rate 99 97 Respiratory Rate 24 H 17 Respiratory Effort Blood Pressure 134/74 H 157/115 H Blood Pressure Mean 94 129 Pulse Ox 93 94 Oxygen Delivery Method Room Air Room Air Room Air 06/18/23 17:20 06/18/23 18:00 Temperature Temperature Source Pulse Rate 97 Respiratory Rate 14 Respiratory Effort Normal Non-Labored Blood Pressure 141/62 H Blood Pressure Mean 88 Pulse Ox 91 Oxygen Delivery Method Room Air <Dr. Ned Heredia MD - Last Filed: 06/18/23 18:39> Physical Exam Const Vital Signs: 06/18/23 16:39 06/18/23 17:15 06/18/23 17:19 Temperature 97.7 F L Temperature Source Temporal Pulse Rate 99 97 Respiratory Rate 24 H 17 Respiratory Effort Blood Pressure 134/74 H 157/115 H Blood Pressure Mean 94 129 Pulse Ox 93 94 Oxygen Delivery Method Room Air Room Air Room Air 06/18/23 17:20 06/18/23 18:00 Temperature Temperature Source Pulse Rate 97 Respiratory Rate 14 Respiratory Effort Normal Non-Labored Blood Pressure 141/62 H Blood Pressure Mean 88 Pulse Ox 91 Oxygen Delivery Method Room Air MDM <SERGE Bell - Last Filed: 06/18/23 18:43> [facility] Lab Data Labs: Laboratory Results - last 24 hr 06/18/23 17:20 WBC 10.5 RBC 4.63 Hgb 12.9 Hct 40.5 MCV 87.5 MCH 27.9 MCHC 31.9 L RDW Std Deviation 47.7 H RDW Coeff of [place] 14.8 H Plt Count 184 MPV 11.1 Immature Gran % (Auto) 1.500 H Neut % (Auto) 69.4 Lymph % (Auto) 20.5 [place] % (Auto) 4.7 Eos % (Auto) 3.0 Baso % (Auto) 0.9 Absolute Neuts (auto) 7.3 Absolute Lymphs (auto) 2.15 Nucleated RBC % 0 Sodium 133 L Potassium 4.2 Chloride 99 Carbon Dioxide 31.0 Anion Gap 3 L BUN 15 Creatinine 1.39 H Est GFR (MDRD) Af Amer 52 L Est GFR (MDRD) Non-Af 43 L BUN/Creatinine Ratio 10.8 Glucose 305 H Calcium 9.1 Troponin I High Sens 10 Radiography Diagnostic Testing: Clinical Impression(s) from Imaging Studies Chest X-Ray 06/18/23 17:30 IMPRESSION: Increased interstitial markings may represent edema and/or infection. Electronically Signed: Tanner New MD at 17:45 EST , EKG EKG shows normal sinus rhythm: Attestation: I personally reviewed and interpreted this EKG as follows: Comments: Normal sinus rhythm, rate 99 bpm, VA 138 ms, QRS duration 84 ms, no acute ST elevation, no acute infarct noted Treatment and Re-Evaluation :: Patient appears generally well, patient appears nontoxic, vital signs are stable. Presenting to the emergency department with complaints of left-sided chest pain, acid reflux, feeling of pressure. Differential diagnose includes GERD, gastritis, pneumonia, KS, ACS. Patient's EKG showed normal sinus rhythm, no ACS or KS. Patient received a two-view chest x-ray interpreted by ER physician, laboratory values concerning for any anemia, electrolyte abnormality, troponins will be drawn. Patient's laboratory values showed normal CBC, patient's chemistries show hyperglycemia, sodium 133, blood sugar 305, patient's creatinine is 1.39 which she appears to be still elevated more than baseline. Ischial troponin was 10, repeat will be drawn. At this time, patient's chest x-ray showed increased ill suture markings may represent edema or infection. Patient denies any infectious-like symptoms. Secondary to the patient's history of having KS less than 1 year ago, 2 cardiac stents, I do believe the patient needs to be admitted to the hospital for further workup. Speak with hospitalist. <Dr. Ned Heredia MD - Last Filed: 06/18/23 18:39> [facility] Narrative Medical decision making narrative: I have personally performed a face to face assessment of the patient and have reviewed the ALICIA Note. I performed a substantive portion of the visit including all aspects of the following. My alberto findings include: History is 48-year-old female chest pains midsternal that she describes as someone sitting on my chest . Been intermittent last several days. History of prior KS with 2 cardiac stents. Exam is [well-appearing 48-year-old female. Vital signs stable afebrile. Patient pulse ox 93% on room air no hypoxia. HEENT exam unremarkable. Neck nontender. Lungs clear to auscultation bilaterally. Heart regular rhythm no murmur. Rate about 95. Chest wall nontender. Abdomen soft nontender. Obese. Moving all 4 extremities. Calves are nontender that edema. Equal symmetrical radial pulses.] Medical Decision Making [48-year-old with concerning sounding chest pain. Will undergo cardiac workup. Given her history noise she describes the pain as a she will need admission.] Other additions or changes: [None] History & Record Review Discussion w/independent historian: Patient Additional record(s) reviewed:: Prior inpatient record, Prior outpatient record, Prior ED visit and Prior labs Lab Data Attestation: I reviewed the patient's lab results. Lab results narrative: CBC white count of 10 H&H 12 and 40. Platelets 184.. Electrolytes sodium 133. Gap 3 normal BUN and creatinine. Troponin is 10. Glucose 305. Chest rate change Labs: Laboratory Results - last 24 hr 06/18/23 17:20 WBC 10.5 RBC 4.63 Hgb 12.9 Hct 40.5 MCV 87.5 MCH 27.9 MCHC 31.9 L RDW Std Deviation 47.7 H RDW Coeff of [place] 14.8 H Plt Count 184 MPV 11.1 Immature Gran % (Auto) 1.500 H Neut % (Auto) 69.4 Lymph % (Auto) 20.5 [place] % (Auto) 4.7 Eos % (Auto) 3.0 Baso % (Auto) 0.9 Absolute Neuts (auto) 7.3 Absolute Lymphs (auto) 2.15 Nucleated RBC % 0 Sodium 133 L Potassium 4.2 Chloride 99 Carbon Dioxide 31.0 Anion Gap 3 L BUN 15 Creatinine 1.39 H Est GFR (MDRD) Af Amer 52 L Est GFR (MDRD) Non-Af 43 L BUN/Creatinine Ratio 10.8 Glucose 305 H Calcium 9.1 Troponin I High Sens 10 Radiography Chest X-Ray - ED: 1 View, Read by ED Physician, Normal, Heart, Lungs, Mediastinum, Bony Structures and No Acute Disease Diagnostic Testing: Clinical Impression(s) from Imaging Studies Chest X-Ray 06/18/23 17:30 IMPRESSION: Increased interstitial markings may represent edema and/or infection. Electronically Signed: Tanner New MD at 17:45 EST , Chest x-ray, portable, single view shows no acute abnormality. Chronic changes. Changes due to body habitus. Interpreted by myself and the radiologist. Discharge Plan Dx/Rx/DC Orders Clinical Impression: Chest pain, Obesity Disposition Disposition: Acute Care Hospital [facility]
[2023-06-18] MEDS: Ondansetron 4 MG/2 ML Vial IV (17:30)
--- NOTE | 2023-06-18 17:30 | RAD_ITS ---
INDICATION: chest pain EXAMINATION/TECHNIQUE: X-RAY - XR Chest 1 View COMPARISON: 06/19/2021. FINDINGS: Increased interstitial markings. Tortuous and calcified thoracic aorta. The heart is mildly enlarged. No pleural effusion or pneumothorax. No acute osseous abnormalities. RAD/Chest 1 View (Portable) IMPRESSION: Increased interstitial markings may represent edema and/or infection. Electronically Signed: Tanner New MD at 17:45 EST ,
[2023-06-18] MEDS: Mag Hydrox/Al Hydrox/Simeth 30 ML UDC PO (17:34)
[2023-06-18 17:37] LABS: Absolute Lymphocyte Count 2.15 X10^3/uL (0.83-4.51); Absolute Neutrophil Count 7.3 X10^3/uL (2.0-7.7); Basophil# 0.09 X10^3/uL; Basophil% 0.9 % (0-1); Eosinophil# 0.31 X10^3/uL; Hematocrit 40.5 % (37-47); Hemoglobin 12.9 g/dL (12.0-15.0); Lymphocyte # 2.15 X10^3/ul (0.83-4.51); Lymphocyte % 20.5 % (19-41); Mean Corp Hgb Conc 31.9 g/dL (32-36); Mean Corpuscular Hgb 27.9 pg (27.0-32.0); Mean Corpuscular Volume 87.5 fL (81-99); Mean Platelet Vol. 11.1 fl (6.2-12.0); Monocyte# 0.49 X10^3/uL; Monocyte% 4.7 % (0-10); NRBC Flagged by Analyzer 0 % (0-5); Neutrophil % 69.4 % (47-70); Platelet Count 184 K/mm3 (150-450); RBC Distribution Width CV 14.8 % (11.6-14.6); RBC Distribution Width SD 47.7 fl (35.1-43.9); Red Blood Count 4.63 M/mm3 (4.2-5.4); White Blood Count 10.5 K/mm3 (4.4-11.0)
[2023-06-18 17:57] LABS: Anion Gap 3 (5-15); BUN 15 mg/dL (7-18); BUN/Creat Ratio 10.8 RATIO (10-20); Calcium,Total 9.1 mg/dL (8.5-10.1); Chloride 99 mmol/L (98-107); Creatinine, Serum 1.39 mg/dL (0.55-1.02); EST Glomerular Filtration Rate 43 mL/min (>60); Est Glom Filt Rate - Afr Amer 52 mL/min (>60); Glucose 305 mg/dL (74-106); Potassium 4.2 mmol/L (3.5-5.1); Sodium Level 133 mmol/L (136-145); Troponin-I HS (w/2H Reflex) 10 pg/mL (3.0-54.0)
--- NOTE | 2023-06-18 18:41 | PCM.HP.STD ---
[facility] General Date of Admission: 06/18/23 Date of Service: 06/18/23 Chief Complaint: Chest pain HPI Narrative DOUGLAS HEATON, is a 48 F who presented to [facility] ED on 06/18/2023 with 2-day history of chest pain. Patient seen at bedside in the ED, friend present. Patient was laying comfortably in bed, conversing normally, in no acute distress. Patient currently states she has mild chest discomfort, with feeling of heaviness in her chest. States this is mildly improved from earlier today. Patient states the chest discomfort began about 2 days ago. Patient had NSTEMI in May 2022, was seen at [facility] for this. Had heart catheterization done at that time, no significant angiographic disease was noted, medical therapy was recommended. Follows with [facility], last office visit with Dr. Nick on 01/29/2023. Was suspected that her NSTEMI was secondary to coronary vasospasm, has been on amlodipine since that time. Has also been on aspirin. Has been taking these as prescribed. Patient states her chest discomfort over the last few days feels similar to her chest pain from May of last year. Patient had just woken up from her nap when she began having chest pain 2 days ago. The chest pain has not seem to get better or worse with any specific interventions. She otherwise denies any shortness of breath, fevers or chills, abdominal pain or discomfort, nausea or vomiting, lightheadedness or dizziness. Denies any recent infectious type symptoms. No other acute concerns. [facility] Medical History (Updated 06/18/23 @ 20:05 by Lizett Cavanaugh RN) Acute respiratory failure with hypoxia Adjustment disorder with depressed mood Anxiety Asthma Asthma Bronchitis Chest pain Chronic headache Chronic pain CKD (chronic kidney disease), stage III CPAP (continuous positive airway pressure) dependence Depression Diabetes DiGeorge syndrome DVT (deep venous thrombosis) Eczema GERD (gastroesophageal reflux disease) Hearing loss, left Hearing loss, right High cholesterol HTN (hypertension) Hyperlipidemia Hypothyroidism Hypothyroidism Hypoxia Kidney disease Migraines Myocardial infarct Non-smoker NSTEMI (non-ST elevated myocardial infarction) Obesity hypoventilation syndrome Open wound of abdominal wall VENANCIO treated with BiPAP Pulmonary emboli Rheumatoid arthritis Scoliosis Seizures Septic shock Sleep apnea Spina bifida without mention of hydrocephalus, unspecified region Super obesity Home Medications levothyroxine 50 mcg tablet 50 mcg PO DAILY THYROID 12/25/16 [History Last Taken 06/18/21] clopidogrel 75 mg tablet (Plavix) 75 mg PO DAILY #30 tabs 06/25/22 [Rx Last Taken Unknown] hydrocodone-acetaminophen 5-325mg 5mg-325mg 1 tab PO Q6H PRN pain 3 days #10 tabs 06/25/22 [Rx Last Taken Unknown] aspirin 81 mg tablet,delayed release 81 mg PO DAILY 07/03/22 [History Last Taken Unknown] albuterol sulfate 0.63 mg/3 mL solution for nebulization 0.63 mg continuous nebulization Q6H PRN shortness of breath or wheezing 01/21/23 [History Last Taken Unknown] albuterol sulfate 90 mcg/actuation aerosol inhaler (ProAir HFA) 2 puff inhalation Q4H PRN Shortness Of Breath 01/21/23 [History Last Taken Unknown] fenofibrate nanocrystallized 145 mg tablet 145 mg PO DAILY 01/21/23 [History Last Taken Unknown] fluticasone propionate 50 mcg/actuation nasal spray,suspension 1 spray intranasal BID 01/21/23 [History Last Taken Unknown] insulin aspart U-100 100 unit/mL (3 mL) subcutaneous pen 20 unit subcut TID 01/21/23 [History Last Taken Unknown] levonorgestrel 21 mcg/24 hours (8 yrs) 52 mg intrauterine device (Mirena) 1 device intrauterine ONCE 01/21/23 [History Last Taken Unknown] metformin 500 mg tablet,extended release 24hr (osmotic) 500 mg PO BID 01/21/23 [History Last Taken Unknown] mometasone 0.1 % topical cream 1 applic topical DAILY 01/21/23 [History Last Taken Unknown] mometasone-formoterol HFA 200 mcg-5 mcg/actuation aerosol inhaler (Dulera) 2 puff inhalation BID 01/21/23 [History Last Taken Unknown] amlodipine 5 mg tablet 5 mg PO DAILY #90 tabs 01/29/23 [Rx Last Taken Unknown] insulin degludec 100 unit/mL (3 mL) subcutaneous pen (Tresiba FlexTouch U-100 insulin) 20 unit subcut BID diabetes 01/29/23 [History Last Taken Unknown] Allergy/AdvReac Type Severity Reaction Status Date / Time azithromycin [From Zithromax] Allergy Unknown Verified 06/18/23 16:39 levofloxacin [From Levaquin] Allergy Rash Verified 06/18/23 16:39 Penicillins Allergy Rash Verified 06/18/23 16:39 Family History Mother Heart disease Hypertension Cancer cervical CVA (cerebral vascular accident) Diabetes Father Heart disease pacemaker Hypertension Cancer lung CVA (cerebral vascular accident) Diabetes Myocardial infarction x3 Brother Arrhythmia Son PFO (patent foramen ovale) Grandmother Cancer lung Aunt Breast cancer Other Asthma Surgical History (Updated 06/18/23 @ 20:05 by Lizett Cavanaugh RN) History of cholecystectomy History of right knee surgery Hx of cardiac catheterization (~06/20/22) Hx of left breast biopsy (~10/30/11) Hx of myringotomy S/P cholecystectomy Status post tonsillectomy and adenoidectomy Social History household members: significant other Smoking Status: Never smoker alcohol intake: never substance use type: does not use caffeine: No ROS Constitutional Constitutional: Denies chills, fatigue, fever(s) or weakness Eyes Eyes: Denies change in vision Cardiovascular Cardiovascular: Reports chest pain; Denies dyspnea on exertion, edema, lightheadedness, orthopnea, palpitations, rapid heart rate or syncope Respiratory/Chest Respiratory/Chest: Denies cough, shortness of breath at rest or wheezing Gastrointestinal Gastrointestinal: Denies abdominal pain, constipation, diarrhea, nausea or vomiting Genitourinary Genitourinary: Denies dysuria Musculoskeletal Musculoskeletal: Denies arthralgias or back pain Neurologic Neurologic: Denies dizziness, focal weakness or headache(s) Vital Signs Vital Signs Vital Signs: 06/18/23 16:39 06/18/23 17:15 06/18/23 17:19 Temperature 97.7 F L Temperature Source Temporal Pulse Rate 99 97 Respiratory Rate 24 H 17 Respiratory Effort Blood Pressure 134/74 H 157/115 H Blood Pressure Mean 94 129 Pulse Ox 93 94 Oxygen Delivery Method Room Air Room Air Room Air 06/18/23 17:20 06/18/23 18:00 Temperature Temperature Source Pulse Rate 97 Respiratory Rate 14 Respiratory Effort Normal Non-Labored Blood Pressure 141/62 H Blood Pressure Mean 88 Pulse Ox 91 Oxygen Delivery Method Room Air Physical Exam Const alert, oriented x3 and no apparent distress Constitutional Narrative: Middle-age female, morbidly obese, laying comfortably in bed, conversing normally, no acute distress. General Appearance: cooperative and comfortable HEENT normocephalic, head/scalp atraumatic, hearing grossly normal bilaterally, nasal mucous membranes and turbinates normal and moist oral mucous membranes Eyes PERRL, EOMs intact bilaterally and conjunctivae normal Neck full ROM, no lymphadenopathy and supple Lymph Lymphatic: no lymphadenopathy noted Chest inspection of chest normal Resp normal respiratory effort, normal air movement, no use of accessory muscles and clear to auscultation bilaterally Cardio regular rate, regular rhythm, no murmurs and peripheral pulses 2+ throughout GI normal to inspection, nondistended, normoactive bowel sounds, soft to palpation, non-tender and non-distended Back/Spine normal ROM Extremity normal to inspection, full ROM and no pedal edema Skin no rashes or lesions noted Neuro moves all extremities and no focal motor deficits Speech: speech normal Psych mental status grossly normal Results Lab / Micro Data 06/18/23 17:20 06/18/23 17:20 Labs: Laboratory Results - last 24 hr 06/18/23 17:20: WBC 10.5, RBC 4.63, Hgb 12.9, Hct 40.5, MCV 87.5, MCH 27.9, MCHC 31.9 L, RDW Std Deviation 47.7 H, RDW Coeff of [place] 14.8 H, Plt Count 184, MPV 11.1, Immature Gran % (Auto) 1.500 H, Neut % (Auto) 69.4, Lymph % (Auto) 20.5, [place] % (Auto) 4.7, Eos % (Auto) 3.0, Baso % (Auto) 0.9, Absolute Neuts (auto) 7.3, Absolute Lymphs (auto) 2.15, Nucleated RBC % 0, Sodium 133 L, Potassium 4.2, Chloride 99, Carbon Dioxide 31.0, Anion Gap 3 L, BUN 15, Creatinine 1.39 H, Est GFR (MDRD) Af Amer 52 L, Est GFR (MDRD) Non-Af 43 L, BUN/Creatinine Ratio 10.8, Glucose 305 H, Calcium 9.1, Troponin I High Sens 10 Imagaing Radiology Impression Chest X-Ray 06/18/23 17:30 IMPRESSION: Increased interstitial markings may represent edema and/or infection. Electronically Signed: Tanner New MD at 17:45 EST , Assessment & Plan Assessment/Plan (1) Chest pain: PLAN: Plan Patient is a 48-year-old female who presented to [facility] ED on 06/18/2023 with chest pain. 1. Chest pain, history of NSTEMI Lower concern for cardiac etiology but cannot rule out. Patient had NSTEMI in 05/2022, left heart cath with minimal coronary artery disease, was suspected secondary to vasospasm. EKG on admit here with normal sinus rhythm, no ST changes noted. Initial troponin negative. Chest x-ray nonacute. ? Admit under observation status to PCU. Nuclear stress test and echocardiogram ordered. Trend troponin. Continue cardiac monitoring. Continue home aspirin and amlodipine. If workup is negative, likely okay for discharge home tomorrow on previous home medications. Chronic medical conditions: ? Hypertension: Continue home amlodipine. ? Morbid obesity: BMI 52 on admit. Encouraged lifestyle modifications. Complicates hospital course, care and prognosis. ? VENANCIO on BiPAP: Will use hospital BiPAP, continue home settings. ? Type 2 diabetes mellitus: BG 305 on admit. A1c 9.2% on admit. Home regimen of insulin degludec 20 units twice daily, insulin aspart 20 units 3 times daily AC. Will start Lantus 20 twice daily, Humalog 10 units 3 times daily AC plus sliding scale, adjust regimen as needed. ? Hypothyroidism: Continue home Synthroid. DVT prophylaxis: Lovenox twice daily CODE STATUS: Full code, verified Expected disposition: Home, 1 to 2 days Total clinical time spent by myself addressing the patient's medical issues, reviewing all the data, and collaborating with patient's care team: 55 minutes. Charges/Coding Visit Charges Inpatient E&M: 53394 Init Hosp L2
[2023-06-18 19:27] LABS: Reflex Troponin-HS? (from REC) Y
--- NOTE | 2023-06-18 19:47 | ECHOCS_ITS ---
Reason For Study: Chest pain Procedure This was a 2D Doppler, Color Flow transthoracic echocardiogram. The study was technically difficult. Exam performed in department. Left Ventricle Normal LV size. Mild concentric left ventricular hypertrophy. The estimated ejection fraction is 60 %. No regional wall motion abnormalities noted. Right Ventricle Not well visualized. Normal systolic function. Atria The left atrium is mildly enlarged. Normal right atrium. Mitral Valve Mild mitral annular calcification. No mitral valve insufficiency. Tricuspid Valve Normal tricuspid valve. Unable to estimate RV systolic pressure/pulmonary artery pressure due to technically difficult study. Aortic Valve The aortic valve is not well visualized in the short axis view. There is no aortic stenosis. No aortic valve insufficiency. Pulmonic Valve The pulmonic valve is not well visualized. Great Vessels Normal aortic root. The IVC is not well-visualized. Pericardium/Pleural No pericardial effusion. Medication Definity1.5ml given slow IV push to enhance endocardial definition. MMode/2D Measurements & Calculations LVIDd: 5.1 cm IVSd: 1.3 cm Ao root diam: 3.6 cm LVIDs: 2.9 cm LVPWd: 1.3 cm FS: 43.0 % LAV(MOD-bp): 87.4 ml LVAd ap4: 27.6 cm2 LVAd ap2: 32.4 cm2 LAV(MOD-bp) Indexed: 34.7 ml/m2 LVLd ap4: 7.7 cm LVLd ap2: 7.8 cm LAV(MOD-sp2): 76.1 ml EDV(MOD-sp4): 83.1 ml EDV(MOD-sp2): 111.8 ml LAV(MOD-sp4): 85.6 ml EDV(sp4-el): 84.4 ml EDV(sp2-el): 113.3 ml LVAs ap4: 14.6 cm2 LVAs ap2: 17.9 cm2 LVLs ap4: 6.0 cm LVLs ap2: 6.0 cm ESV(MOD-sp4): 29.7 ml ESV(MOD-sp2): 46.2 ml ESV(sp4-el): 30.2 ml ESV(sp2-el): 44.8 ml EF(MOD-sp4): 64.3 % EF(MOD-sp2): 58.6 % EF(sp4-el): 64.2 % SV(MOD-sp4): 53.5 ml SV(MOD-sp2): 65.6 ml SV(sp4-el): 54.2 ml LA A4 area: 25.7 cm2 LA dimension(2D): 4.8 cm RA A4 area: 16.6 cm2 Doppler Measurements & Calculations MV E max calvin: 108.7 cm/sec Lat Peak E' Calvin: 10.5 cm/sec Med Peak E' Calvin: 6.7 cm/sec MV A max calvin: 89.4 cm/sec E/E' lat: 10.3 E/E' med: 16.2 MV E/A: 1.2 Ao V2 max: 169.1 cm/sec LV V1 max: 112.3 cm/sec PA V2 max: 120.9 cm/sec Ao max P.4 mmHg LV V1 max P.0 mmHg TR max calvin: 288.9 cm/sec TR max P.4 mmHg ECHO/Echo Complete W/ Contrast Interpretation Summary The estimated ejection fraction is 60 %. Mild concentric left ventricular hypertrophy. The left atrium is mildly enlarged. Mild mitral annular calcification. No regional wall motion abnormalities noted. The study was technically difficult. Contrast injection was performed. Ordering Physician: Fredy Mooney Referring Physician: Armen Crowder Performed By: Mariajose Jones RDCS
[2023-06-18] MEDS: Fluticasone 0.05% 1 SPRAY NASAL.SRY NASAL (21:26)
[2023-06-18] MEDS: Enoxaparin 40 MG/0.4 ML Syringe SC (21:26)
[2023-06-18] MEDS: Insulin Lispro 100 UNIT/ML INSULN.PEN SC (21:27)
[2023-06-18] MEDS: Insulin Glargine-YFGN 100 UNIT/ML Pen 20 UNIT SC (21:29)
--- NOTE | 2023-06-18 21:29 | EKG12_ITS ---
Test Reason : CP ADMIT Blood Pressure : / mmHG Vent. Rate : 095 BPM Atrial Rate : 095 BPM P-R Int : 138 ms QRS Dur : 088 ms QT Int : 342 ms P-R-T Axes : 050 -27 043 degrees QTc Int : 429 ms Normal sinus rhythm Normal ECG When compared with ECG of 18-JUN-2023 16:47, MANUAL COMPARISON REQUIRED, DATA IS UNCONFIRMED Confirmed by CHIN GUALLPA, REHAN ([id number]), editorial manager SIMA AVINA ([id number]) on 06/25/2023 10:13:18 AM Referred By: Ned Heredia Confirmed By:REHAN NEELY MD
[2023-06-18 21:34] LABS: Hemoglobin A1c 9.2 % (3.8-5.6)
[2023-06-18] MEDS: HYDROcodone Bitartrate/Apap 5/325 Tablet PO (21:37)
[2023-06-18 21:47] LABS: Troponin-I HS 9 pg/mL (3.0-54.0)
[2023-06-18 23:17] LABS: Bedside Glucose 220 mg/dL (74-106)
--- NOTE | 2023-06-19 00:45 | CPS ---
Pt is on Autopap 12-25 range on room air
[2023-06-19 02:00] VITALS: BP 144/67; PULSE 89; RESP 16; TEMP 36.9; O2SAT 92
[2023-06-19 03:43] LABS: Hematocrit 39.3 % (37-47); Hemoglobin 12.2 g/dL (12.0-15.0); Mean Corpuscular Hgb 28.3 pg (27.0-32.0); Mean Corpuscular Volume 91.2 fL (81-99); Mean Platelet Vol. 11.2 fl (6.2-12.0); Platelet Count 181 K/mm3 (150-450); RBC Distribution Width CV 14.8 % (11.6-14.6); RBC Distribution Width SD 49.2 fl (35.1-43.9); Red Blood Count 4.31 M/mm3 (4.2-5.4); White Blood Count 9.7 K/mm3 (4.4-11.0)
[2023-06-19 04:07] LABS: Anion Gap 5 (5-15); BUN 16 mg/dL (7-18); BUN/Creat Ratio 13.3 RATIO (10-20); Calcium,Total 8.3 mg/dL (8.5-10.1); Chloride 101 mmol/L (98-107); EST Glomerular Filtration Rate 51 mL/min (>60); Est Glom Filt Rate - Afr Amer 61 mL/min (>60); Estimated Creatinine Clearance 54.54 ml/min; Glucose 238 mg/dL (74-106); Potassium 4.2 mmol/L (3.5-5.1); Sodium Level 137 mmol/L (136-145)
[2023-06-19 05:27] VITALS: RESP 18; O2SAT 93
[2023-06-19] MEDS: amLODIPine 5 MG Tablet PO (06:45)
[2023-06-19] MEDS: Acetaminophen 325 MG Tablet 650 MG PO ×2 (06:45→13:45)
[2023-06-19] MEDS: Aspirin E.C. 81 MG Tablet PO (06:45)
[2023-06-19] MEDS: Levothyroxine 50 MCG Tablet PO (06:45)
[2023-06-19 07:13] LABS: Bedside Glucose 218 mg/dL (74-106)
[2023-06-19] MEDS: Ondansetron 4 MG/2 ML Vial IV (09:36)
--- NOTE | 2023-06-19 12:40 | PN_ITS ---
Subjective Subjective Patient seen and examined. She feels well and had no complaints. She had an uneventful night. Review of systems otherwise negative. She has remained hemodynamically stable. Stress test has been done and read is pending. Objective Data Objective Data Vital Signs: Vital Signs Temp Pulse Resp BP Pulse Ox O2 Del Method O2 Flow Rate 98.4 F 89 18 144/67 H 93 CPAP 2 06/19/23 02:00 06/19/23 02:00 06/19/23 05:27 06/19/23 02:00 06/19/23 05:27 06/19/23 02:00 06/18/23 21:00 Oxygen Flow Rate (L/min) 2 Oxygen Delivery Method CPAP Weight: 335 lb 15.752 oz Body Mass Index (BMI) 52.6 Intake & Output: Intake and Output for Last 24 Hours 06/17/23 06/18/23 06/19/23 23:59 23:59 23:59 Intake Total 440 / 440 20 / 20 Output Total 0 / 0 0 / 0 Balance 440 / 440 20 / 20 Lab / Micro Data 06/19/23 03:26 06/19/23 03:26 Labs: Laboratory Results - last 24 hr 06/18/23 17:20: WBC 10.5, RBC 4.63, Hgb 12.9, Hct 40.5, MCV 87.5, MCH 27.9, MCHC 31.9 L, RDW Std Deviation 47.7 H, RDW Coeff of Loida 14.8 H, Plt Count 184, MPV 11.1, Immature Gran % (Auto) 1.500 H, Neut % (Auto) 69.4, Lymph % (Auto) 20.5, Bibb % (Auto) 4.7, Eos % (Auto) 3.0, Baso % (Auto) 0.9, Absolute Neuts (auto) 7.3, Absolute Lymphs (auto) 2.15, Nucleated RBC % 0, Sodium 133 L, Potassium 4.2, Chloride 99, Carbon Dioxide 31.0, Anion Gap 3 L, BUN 15, Creatinine 1.39 H, Est GFR (MDRD) Af Amer 52 L, Est GFR (MDRD) Non-Af 43 L, BUN/Creatinine Ratio 1 0.8, Glucose 305 H, Calcium 9.1, Troponin I High Sens 10 06/18/23 19:47: Hemoglobin A1c 9.2 H 06/18/23 21:03: Troponin I High Sens 9 06/18/23 21:24: POC Glucose 220 H 06/19/23 03:26: WBC 9.7, RBC 4.31, Hgb 12.2, Hct 39.3, MCV 91.2, MCH 28.3, MCHC 31.0 L, RDW Std Deviation 49.2 H, RDW Coeff of [place] 14.8 H, Plt Count 181, MPV 11.2, Sodium 137, Potassium 4.2, Chloride 101, Carbon Dioxide 31.0, Anion Gap 5, BUN 16, Creatinine 1.20 H, Estim Creat Clear Calc 54.54, Est GFR (MDRD) Af Amer 61, Est GFR (MDRD) Non-Af 51 L, BUN/Creatinine Ratio 13.3, Glucose 238 H, Calcium 8.3 L 06/19/23 06:43: POC Glucose 218 H Radiography Diagnostic Testing: Radiology Impression Chest X-Ray 06/18/23 17:30 IMPRESSION: Increased interstitial markings may represent edema and/or infection. Electronically Signed: Tanner New MD at 17:45 EST , Physical Exam Const alert, oriented x3 and no apparent distress General Appearance: cooperative and well developed HEENT normocephalic, head/scalp atraumatic, moist oral mucous membranes and oropharynx normal Eyes PERRL and EOMs intact bilaterally Neck supple and no JVD Lymph Lymphatic: no lymphadenopathy noted Resp normal respiratory effort, normal air movement and clear to auscultation bilaterally Cardio regular rate, regular rhythm, S1 normal heart sound, S2 normal heart sound and no murmurs GI normal to inspection, nondistended, normoactive bowel sounds, soft to palpation and non-tender Extremity normal capillary refill, no clubbing, cyanosis or edema and no calf tenderness General Extremity: no tenderness to palpation of joints or extremities Skin General Skin Exam: no breakdown Neuro CN's II-XII intact bilaterally, no focal motor deficits, no sensory deficits noted and deep tendon reflexes 2+ bilaterally Motor Exam: strength 5/5 throughout and general weakness Psych thought process normal and cooperative Appearance: appropriate Assessment & Plan Assessment/Plan (1) Chest pain: PLAN: Plan #Chest pain to rule out ACS * Chest pain has resolved. Had a stress test today and read is pending. * Continue aspirin 81 mg daily. High intensity statin. * She did have chest pain and May 2022 was diagnosed with STEMI. She had a left heart cath and with minimal CAD suspected to be due to vasospasm. * 2D echo also done and read is pending. * Sublingual nitroglycerin as needed on amlodipine for presumed vasospasm. #Hypertension: On amlodipine #Super morbid obesity: BMI is 52. Complicates acute care, expected recovery and prognosis. #Type 2 diabetes mellitus: A1c is 9.2. On Lantus 20 units twice daily. Insulin sliding scale. Accu-Cheks ACHS. A1c is 9.2. #CKD 3a: Cr is 1.20, which is around the baseline. Will monitor. #Hypothyroidism: On Synthroid #VENANCIO: On BiPAP nightly. DVT prophylaxis: Lovenox Charges/Coding Visit Charges Inpatient E&M: 11101 Subs Hosp L2
[2023-06-19 13:43] VITALS: BP 142/88; PULSE 93; RESP 18; TEMP 36.9; O2SAT 93
[2023-06-19] MEDS: Fenofibrate 145 MG Tablet PO (13:46)
[2023-06-19 14:09] LABS: Bedside Glucose 210 mg/dL (74-106)
[2023-06-19] MEDS: Calcium Carbonate 500 MG Tablet PO (15:10)
[2023-06-19] MEDS: Insulin Lispro 100 UNIT/ML INSULN.PEN SC (17:07)
[2023-06-19] MEDS: Insulin Lispro 100 UNIT/ML INSULN.PEN 10 UNIT SC (17:07)
[2023-06-19 17:27] LABS: Bedside Glucose 262 mg/dL (74-106)
--- NOTE | 2023-06-19 18:31 | DS.PCM_ITS ---
Providers Date of Admission: 06/18/23 Date of Discharge: 06/20/23 Primary Care Physician: Dr. Armen Crowder MD Reason For Visit: chest pain Diagnosis Discharge Diagnosis (1) Chest pain: Status: Acute Code(s): R07.9 - Chest pain, unspecified Plan #Chest pain to rule out ACS * Chest pain has resolved. Had a stress test today and read is pending. * Continue aspirin 81 mg daily. High intensity statin. * She did have chest pain and May 2022 was diagnosed with STEMI. She had a left heart cath and with minimal CAD suspected to be due to vasospasm. * 2D echo also done and read is pending. * Sublingual nitroglycerin as needed on amlodipine for presumed vasospasm. #Hypertension: On amlodipine #Super morbid obesity: BMI is 52. Complicates acute care, expected recovery and prognosis. #Type 2 diabetes mellitus: A1c is 9.2. On Lantus 20 units twice daily. Insulin sliding scale. Accu-Cheks ACHS. A1c is 9.2. #CKD 3a: Cr is 1.20, which is around the baseline. Will monitor. #Hypothyroidism: On Synthroid #VENANCIO: On BiPAP nightly. DVT prophylaxis: Lovenox Medications at Discharge Home Medications levothyroxine 50 mcg tablet 50 mcg PO DAILY THYROID 12/25/16 clopidogrel 75 mg tablet (Plavix) 75 mg PO DAILY #30 tabs 06/25/22 hydrocodone-acetaminophen 5-325mg 5mg-325mg 1 tab PO Q6H PRN pain 3 days #10 tabs 06/25/22 aspirin 81 mg tablet,delayed release 81 mg PO DAILY 07/03/22 albuterol sulfate 0.63 mg/3 mL solution for nebulization 0.63 mg continuous nebulization Q6H PRN shortness of breath or wheezing 01/21/23 albuterol sulfate 90 mcg/actuation aerosol inhaler (ProAir HFA) 2 puff inhalation Q4H PRN Shortness Of Breath 01/21/23 fenofibrate nanocrystallized 145 mg tablet 145 mg PO DAILY 01/21/23 fluticasone propionate 50 mcg/actuation nasal spray,suspension 1 spray intranasal BID 01/21/23 insulin aspart U-100 100 unit/mL (3 mL) subcutaneous pen 20 unit subcut TID 01/21/23 levonorgestrel 21 mcg/24 hours (8 yrs) 52 mg intrauterine device (Mirena) 1 device intrauterine ONCE 01/21/23 metformin 500 mg tablet,extended release 24hr (osmotic) 500 mg PO BID 01/21/23 mometasone 0.1 % topical cream 1 applic topical DAILY 01/21/23 mometasone-formoterol HFA 200 mcg-5 mcg/actuation aerosol inhaler (Dulera) 2 puff inhalation BID 01/21/23 amlodipine 5 mg tablet 5 mg PO DAILY #90 tabs 01/29/23 insulin degludec 100 unit/mL (3 mL) subcutaneous pen (Tresiba FlexTouch U-100 insulin) 20 unit subcut BID diabetes 01/29/23 Hospital Course Operations None Procedures 2-D Echocardiogram and Nuclear stress test Summary of Care Provided Minutes Spent on Discharge: 47 Hospital Course: Patient is a 48-year-old female with a past medical history as outlined was admitted through the ED on 06/18/2023 with a complaint of chest pain for 2 days prior to admission. Chest pain is started 2 days prior to admission and did not get better or worse with any intervention. He denied any shortness of breath,. Or chills or any other symptoms. She had been diagnosed with non-STEMI in May 2022 and had a heart cath done at that time which showed no significant angiographic disease and concern was that it was possibly due to coronary vasospasm. She was therefore placed on amlodipine. She had remained fine until she came in at this time. Troponins x 3 were negative. She therefore had a stress test on 06/19/2023 which was negative for any evidence of ischemia. 2D echo showed EF of 60% with mild concentric left ventricular hypertrophy and no regional wall motion abnormalities noted. Patient remained stable and was discharged on 06/19/2023. She is follow-up with her primary care doctor within 1 to 2 weeks. Patient seen and examined prior to discharge. She had no active complaints and had an uneventful night. Review of systems otherwise negative. Labs and vitals reviewed. Home medication reviewed and reconciled. Physical Exam Const alert, oriented x3 and no apparent distress General Appearance: cooperative, comfortable, well kempt and well developed Orientation / Consciousness: awake Exam Limitations: no limitations HEENT normocephalic, head/scalp atraumatic, hearing grossly normal bilaterally, nasal mucous membranes and turbinates normal, moist oral mucous membranes and oropharynx normal Mouth: oral and palatal mucosa normal Eyes PERRL, EOMs intact bilaterally and conjunctivae normal Neck full ROM, no lymphadenopathy, supple and no JVD Lymph Lymphatic: no lymphadenopathy noted Chest inspection of chest normal Resp normal respiratory effort, normal air movement, no use of accessory muscles and clear to auscultation bilaterally Cardio regular rate, regular rhythm, S1 normal heart sound, S2 normal heart sound, no murmurs and peripheral pulses 2+ throughout GI normal to inspection, nondistended, normoactive bowel sounds, soft to palpation, non-tender and non-distended Back/Spine normal ROM Extremity normal to inspection, full ROM, normal capillary refill, no clubbing, cyanosis or edema, no calf tenderness and no pedal edema General Extremity: no tenderness to palpation of joints or extremities Skin no rashes or lesions noted General Skin Exam: no breakdown Neuro oriented x3, CN's II-XII intact bilaterally, moves all extremities, no focal motor deficits, no sensory deficits noted and deep tendon reflexes 2+ bilaterally Sensorium / Orientation: awake and alert Speech: speech normal Motor Exam: strength 5/5 throughout and general weakness Psych mental status grossly normal, thought process normal and cooperative Appearance: appropriate Weight / BMI Weight Weight: 335 lb 15.752 oz Body Mass Index (BMI) 52.6 ABG / Lab / Microbiology Data 06/19/23 03:26 06/19/23 03:26 Laboratory: Laboratory Results - last 24 hr 06/18/23 19:47: Hemoglobin A1c 9.2 H 06/18/23 21:03: Troponin I High Sens 9 06/18/23 21:24: POC Glucose 220 H 06/19/23 03:26: WBC 9.7, RBC 4.31, Hgb 12.2, Hct 39.3, MCV 91.2, MCH 28.3, MCHC 31.0 L, RDW Std Deviation 49.2 H, RDW Coeff of [place] 14.8 H, Plt Count 181, MPV 11.2, Sodium 137, Potassium 4.2, Chloride 101, Carbon Dioxide 31.0, Anion Gap 5, BUN 16, Creatinine 1.20 H, Estim Creat Clear Calc 54.54, Est GFR (MDRD) Af Amer 61, Est GFR (MDRD) Non-Af 51 L, BUN/Creatinine Ratio 13.3, Glucose 238 H, Calcium 8.3 L 06/19/23 06:43: POC Glucose 218 H 06/19/23 13:49: POC Glucose 210 H 06/19/23 17:05: POC Glucose 262 H D/C Instructions Discharge Diet: Low fat / Low cholesterol Discharge Activity: Return to Normal Activity Weight Bearing Status: Weight bearing as tolerated Call your doctor if you observe: Fever of 101 or Higher, Shortness of breath, Dizziness, Swelling in the ankles and Chest pain Meaningful Use Info Meaningful Use Diagnoses (Choose all that apply): None applicable Discharge Plan Admission Admit Date/Time: 06/18/23 19:28 Primary Reason for Your Visit: chest pain Attending Provider: Hortencia Tovar Primary Care Provider: Armen Crowder Consulting Providers: Fredy Mooney Instructions Patient Instructions: ED Chest Pain, Uncertain Cause Discharge Orders/Prescriptions Prescriptions: No Action aspirin 81 mg tablet,delayed release (DR/EC) 81 mg PO DAILY insulin aspart U-100 100 unit/mL (3 mL) insulin pen 20 unit subcut TID Patient Comments: Inject 18 Units subcutaneously three times daily before meals. albuterol sulfate 0.63 mg/3 mL solution for nebulization 0.63 mg continuous nebulization Q6H PRN (Reason: shortness of breath or wheezing) Patient Comments: INHALE 1 vial via NEBULIZER EVERY 6 HOURS NEEDED FOR WHEEZING / SHORTNESS OF BREATH fenofibrate nanocrystallized 145 mg tablet 145 mg PO DAILY Patient Comments: Take 1 tablet by mouth once daily. metformin 500 mg tablet extended release 24hr 500 mg PO BID fluticasone propionate 50 mcg/actuation spray,suspension 1 spray intranasal BID Patient Comments: Use 1 Vance in each nostril twice daily. Use before lying down for bed. Dulera 200-5 mcg/actuation HFA aerosol inhaler 2 puff inhalation BID Patient Comments: INHALE 2 PUFFS DIRECTED TWICE DAILY Mirena 21 mcg/24 hours (8 yrs) 52 mg intrauterine device 1 device intrauterine ONCE Rx Instructions: as a single dose mometasone 0.1 % cream 1 applic topical DAILY amlodipine 5 mg tablet 5 mg PO DAILY Qty: 90 1RF levothyroxine 50 MCG tablet 50 mcg PO DAILY Patient Comments: thyroid albuterol sulfate [ProAir HFA] 90 mcg/actuation HFA aerosol inhaler 2 puff inhalation Q4H PRN (Reason: Shortness Of Breath) Patient Comments: sob Tresiba FlexTouch U-100 100 unit/mL (3 mL) insulin pen 20 unit subcut BID clopidogrel [Plavix] 75 mg tablet 75 mg PO DAILY Qty: 30 0RF hydrocodone-acetaminophen 5-325 mg tablet 1 tab PO Q6H PRN (Reason: pain) 3 Days Qty: 10 0RF Referrals / Follow Up: Armen Crowder MD [Primary Care Provider] - Disposition Disposition (needs filled in before D/C Order can be placed): Home, Self Care Charges/Coding Visit Charges Inpatient E&M: 15198 Disch Hosp >30min
--- OUTSIDE RECORDS SUMMARY | 2023-06-19 20:54 | XMS RPT_ITS | CCD ---
Author Name Unknown Address [address] [place] [address] Organization [facility] Care Team Providers Care [employer] Helper Name Role Phone Armen Rahman MD Primary Care Provider [phone] TAYLOR MICHELE Attending Unavailable PHYLLIS ELDER Referring Unavailable RUBY HERNANDEZ II Admitting Unavailable YASMIN ROSADO Unavailable ARMEN RAHMAN Primary Care Unavailable CAROLINA STOLL Attending Unavailable ARMEN RAHMAN Primary Care Unavailable ARMEN RAHMAN Primary Care Unavailable CHERRIE HASTINGS Attending Unavailable PHYLLIS ELDER Attending Unavailable ARMEN RAHMAN Primary Care Unavailable Armen Rahman MD Primary Care Provider ARMEN RAHMAN Referring Unavailable ARMEN RAHMAN Primary Care Unavailable ARMEN RAHMAN Primary Care Unavailable NORMA MELÉNDEZ Attending Unavailable ARMEN RAHMAN Attending Unavailable ARMEN RAHMAN Primary Care Unavailable ARMEN RAHMAN Primary Care Unavailable ARMEN RAHMAN Primary Care Unavailable SUGEY LOWERY Referring Unavailable ARMEN RAHMAN Primary Care Unavailable SUGEY LOWERY Referring Unavailable SUGEY LOWERY Attending Unavailable ARMEN RAHMAN Primary Care Unavailable ARMEN RAHMAN Primary Care Unavailable KARIE CERVANTES Attending Unavailable Allergies Allergy Classification Reported Allergen(s) Allergy Type Date of Onset Reaction(s) Facility (20 sources) Azithromycin; Translations: [AZITHROMYCIN] Drug Allergy 06-03-2007 Unknown [facility] Work Phone: (20 sources) levoFLOXacin; Translations: [LEVOFLOXACIN] Drug Allergy 04-28-2013 Rash [facility] Work Phone: (20 sources) Penicillin G; Translations: [PENICILLIN G] Drug Allergy 12-07-2004 [facility] Work Phone: Medications Current Medications Medication Drug Class(es) Dates Sig (Normalized) Sig (Original) benzonatate 100 mg oral capsule (3 sources) Non-narcotic Antitussive Start: 06-06-2022 End: 06-11-2022 take 1 capsule by mouth every eight hours as needed benzonatate (TESSALON PERLE) 100 mg capsule Take 1 capsule by mouth three times daily as needed for cough for up to 5 days. 15 capsule 0 06/06/2022 06/11/2022 Active Completed/Discontinued Medications Medication Drug Class(es) Dates Sig (Normalized) Sig (Original) acetaminophen 325 mg / HYDROcodone bitartrate 5 mg oral tablet (20 sources) Opioid Agonist Start: 06-25-2022 take 1 tablet by mouth every six hours as needed for pain HYDROcodone-aceta minophen (NORCO) 5-325 mg per tablet TAKE 1 TABLET BY MOUTH EVERY 6 HOURS NEEDED FOR PAIN FOR 3 DAYS 0 06/25/2022 Active Problems Active Problems Problem Classification Problem Date Documented Da te Episodic/Chronic Acquired foot deformities (1 source) Talipes planus; Translations: [Flat foot [pes planus] (acquired), right foot] Episodic Acute myocardial infarction (4 sources) Myocardial infarction; Translations: [Non-ST elevation (NSTEMI) myocardial infarction] Onset: 06-21-2022 Chronic Adjustment disorders (20 sources) Adjustment disorder with depressed mood; Translations: [Adjustment disorder with depressed mood] 04-17-2005 Chronic Chronic kidney disease (20 sources) Chronic kidney disease stage 3A ; Translations: [Stage 3a chronic kidney disease] Onset: 03-06-2021 03-06-2021 Chronic Chronic kidney disease (1 source) Chronic kidney disease; Translations: [Stage 3a chronic kidney disease (HCC)] Onset: 01-25-2022 Chronic obstructive pulmonary disease and bronchiectasis (3 sources) Bronchitis; Translations: [Bronchitis, not specified as acute or chronic] Episodic Conditions associated with dizziness or vertigo (1 source) Lightheadedness; Translations: [Dizziness and giddiness] Episodic Diabetes mellitus with complications (6 sources) Insulin treated type 2 diabetes mellitus; Translations: [Type 2 diabetes mellitus with hyperglycemia] Onset: 07-26-2022 Chronic Diabetes mellitus without complication (20 sources) Type 2 diabetes mellitus without complication; Translations: [Type 2 diabetes mellitus without complications] Onset: 02-14-2018 02-14-2018 Chronic Disorders of lipid metabolism (20 sources) Mixed hyperlipidemia; Translations: [Mixed hyperlipidemia] Onset: 03-25-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 Esophageal disorders (20 sources) Gastro-esophageal reflux disease with esophagitis; Translations: [Reflux esophagitis] 11-30-2008 Chronic Headache; including migraine (1 source) Headache disorder; Translations: [Headache disorder] Onset: 01-25-2023 Episodic Immunity disorders (20 sources) 22q11.2 deletion syndrome; 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-25-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 Immunizations and screening for infectious disease (5 sources) Patient encounter status; Translations: [Encounter for screening for human papillomavirus (HPV)] Episodic Mycoses (1 source) Candidiasis of skin; Translations: [Candidiasis of skin and nail] Episodic Nervous system congenital anomalies (20 sources) Spina bifida; Translations: [Spina bifida, unspecified] 11-30-2008 Chronic Other acquired deformities (20 sources) Scoliosis deformity of spine; Translations: [Other forms of scoliosis, site unspecified] 11-30-2008 Chronic Other congenital anomalies (20 sources) Congenital pes planus; Translations: [Congenital pes planus, unspecified foot] Onset: 12-16-2008 12-16-2008 Chronic Other connective tissue disease (1 source) Pain in upper limb; Translations: [Pain in right arm] Episodic Other female genital disorders (1 source) Pruritus of vagina; Translations: [Other specified noninflammatory disorders of vagina] Episodic Other female genital disorders (1 source) Vulval irritation; Translations: [Other specified noninflammatory disorders of vulva and perineum] Episodic Other gastrointestinal disorders (1 source) Diarrhea; Translations: [Diarrhea, unspecified] Episodic Other gastrointestinal disorders (1 source) Diarrhea of presumed infectious origin; Translations: [Diarrhea, unspecified] Episodic Other nervous system disorders (1 source) Other chronic pain; Translations: [Chronic pain of left thumb] Onset: 03-19-2023 Chronic Other nutritional; endocrine; and metabolic disorders (20 sources) Body mass index 40+ - severely obese; Translations: [Morbid (severe) obesity due to excess calories] 10-29-2017 Chronic Other nutritional; endocrine; and metabolic disorders (20 sources) Cholesterol level - finding; Translations: [Lipoprotein deficiency] Onset: 03-25-2020 03-25-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 Other nutritional; endocrine; and metabolic disorders (1 source) Alveolar hypoventilation; Translations: [Morbid (severe) obesity with alveolar hypoventilation] Chronic Other nutritional; endocrine; and metabolic disorders (1 source) Severe obesity; Translations: [Morbid (severe) obesity due to excess calories] Chronic Other nutritional; endocrine; and metabolic disorders (1 source) Lipoprotein deficiency; Translations: [Low HDL (under 40)] Onset: 03-25-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 Pulmonary heart disease (20 sources) Pulmonary embolism; Translations: [Other pulmonary embolism without acute cor pulmonale] 03-25-2020 Episodic Residual codes; unclassified (20 sources) Obstructive sleep apnea syndrome; Translations: [Obstructive sleep apnea (adult) (pediatric)] Onset: 07-13-2017 07-13-2017 Chronic Residual codes; unclassified (1 source) History of cardiac catheterization; Translations: [Other specified postprocedural states] Episodic Thyroid disorders (20 sources) Acquired hypothyroidism; Translations: [Hypothyroidism, unspecified] Onset: 07-13-2017 07-13-2017 Chronic Viral infection (1 source) Herpes simplex; Translations: [Herpesviral infection, unspecified] Episodic Viral infection (1 source) COVID-19; Translations: [COVID] Onset: 06-06-2022 Past or Other Problems Problem Classification Problem Date Documented Da te Episodic/Chronic Allergic reactions (3 sources) Eczema; Translations: [Dermatitis, unspecified] Onset: 08-08-2022 Episodic Crushing injury or internal injury (4 sources) Injury of radial artery; Translations: [Unspecified injury of radial artery at forearm level, right arm, subsequent encounter] Onset: 08-08-2022 Episodic Nonspecific chest pain (2 sources) Chest pain, unspecified; Translations: [Chest pain, unspecified type] Onset: 06-19-2022 Episodic Other aftercare (1 source) group home (current) use of insulin; Translations: [Uncontrolled type 2 diabetes mellitus with hyperglycemia, with long-term current use of insulin (HCC)] Onset: 08-08-2022 Episodic Other connective tissue disease (20 sources) Enthesopathy; Translations: [Enthesopathy, unspecified] Onset: 12-16-2008 12-16-2008 Episodic Other connective tissue disease (1 source) Pain in left finger(s); Translations: [Chronic pain of left thumb] Onset: 03-19-2023 Episodic Other ear and sense organ disorders (20 sources) Cholesteatoma; Translations: [Unspecified cholesteatoma, right ear] Onset: 03-06-2021 03-06-2021 Episodic Other gastrointestinal disorders (20 sources) Dysphagia; Translations: [Dysphagia, unspecified] Onset: 10-22-2011 10-22-2011 Episodic Other non-traumatic joint disorders (20 sources) Pain in right knee; Translations: [Pain in joint, lower leg] Onset: 09-06-2020 09-06-2020 Episodic Spondylosis; intervertebral disc disorders; other back problems (20 sources) Low back pain; Translations: [Lumbago] Onset: 07-19-2006 07-13-2017 Episodic Results Test Name Value Interpretation Reference Range Facil ity Vital Signs Date Time Vital Sign Value Performing Clinician Faci lity 08-08-2022 11:24-0500 Body weight 165.11 kg Karie Cervantes [employer]IAL [employer] Work Phone: [facility] 08-08-2022 11:24-0500 Diastolic blood pressure 86 mm[Hg] Karie Cervantes [employer] Work Phone: [facility] 08-08-2022 11:24-0500 Heart rate 100 /min Kraie Cervantes [employer] Work Phone: [facility] 08-08-2022 11:24-0500 Respiratory rate 18 /min Karie Cervantes [employer] Work Phone: [facility] 08-08-2022 11:24-0500 SaO2% (BldA) [Mass fraction] 95 % Karie Cervantes [employer] Work Phone: [facility] 08-08-2022 11:24-0500 Systolic blood pressure 138 mm[Hg] Karie Cervantes [employer] Work Phone: [facility] 07-26-2022 11:18-0500 Body weight 163.84 kg Norma Meléndez [employer]IAL [employer] Work Phone: [facility] 07-26-2022 11:18-0500 Diastolic blood pressure 68 mm[Hg] Norma Bristow [employer]IAL [employer] Work Phone: [facility] 07-26-2022 11:18-0500 Systolic blood pressure 120 mm[Hg] Norma Bristow [employer]IAL [employer] Work Phone: [facility] 06-28-2022 10:10-0500 Body height 170.2 cm Armen Rahman MD Work Phone: [facility] 06-28-2022 10:10-0500 Body weight 161.48 kg Armen Rahman MD Work Phone: [facility] 06-28-2022 10:10-0500 Diastolic blood pressure 78 mm[Hg] Armen Rahman MD Work Phone: [facility] 06-28-2022 10:10-0500 Heart rate 82 /min Armen Rahman MD Work Phone: [facility] 06-28-2022 10:10-0500 SaO2% (BldA) [Mass fraction] 97 % Armen Rahman MD Work Phone: [facility] 06-28-2022 10:10-0500 Systolic blood pressure 116 mm[Hg] Armen Rahman MD Work Phone: [facility] 05-09-2022 10:18-0500 Diastolic blood pressure 82 mm[Hg] Karie Haagen [employer]IAL [employer] TIER.[employer] Work Phone: [facility] 05-09-2022 10:18-0500 Heart rate 71 /min Karie Haagen ARTIFICIAL [employer] TIER.[employer] Work Phone: [facility] 05-09-2022 10:18-0500 Respiratory rate 18 /min Karie Haagen ARTIFICIAL [employer] TIER.[employer] Work Phone: [facility] 05-09-2022 10:18-0500 SaO2% (BldA) [Mass fraction] 98 % Karie Haagen ARTIFICIAL FLY TIER.[employer] Work Phone: [facility] 05-09-2022 10:18-0500 Systolic blood pressure 120 mm[Hg] Karie Haagen ARTIFICIAL [employer] TIER.[employer] Work Phone: [facility] 02-28-2022 15:11-0400 Body weight 159.21 kg Armen Rahman MD Work Phone: [facility] 02-28-2022 15:11-0400 Diastolic blood pressure 62 mm[Hg] Armen Rahman MD Work Phone: [facility] 02-28-2022 15:11-0400 Heart rate 94 /min Armen Rahman MD Work Phone: [facility] 02-28-2022 15:11-0400 SaO2% (BldA) [Mass fraction] 98 % Armen Rahman MD Work Phone: [facility] 02-28-2022 15:11-0400 Systolic blood pressure 124 mm[Hg] Armen Rahman MD Work Phone: [facility] 01-25-2022 09:58-0400 Body height 170.2 cm Armen Rahman MD Work Phone: [facility] 01-25-2022 09:58-0400 Body weight 160.21 kg Armen Rahman MD Work Phone: [facility] 01-25-2022 09:58-0400 Diastolic blood pressure 78 mm[Hg] Armen Rahman MD Work Phone: [facility] 01-25-2022 09:58-0400 Heart rate 83 /min Armen Rahman MD Work Phone: [facility] 01-25-2022 09:58-0400 SaO2% (BldA) [Mass fraction] 97 % Amren Rahman MD Work Phone: [facility] 01-25-2022 09:58-0400 Systolic blood pressure 138 mm[Hg] Armen Rahman MD Work Phone: [facility] 10-25-2021 11:03-0400 Body weight 162.84 kg Karie Cervantes APRN.[employer] Work Phone: [facility] 10-25-2021 11:03-0400 Diastolic blood pressure 86 mm[Hg] Karie Cervantes APRN.[employer] Work Phone: [facility] 10-25-2021 11:03-0400 Heart rate 82 /min Karie Haagen ARTIFICIAL [employer] TIER.[employer] Work Phone: [facility] 10-25-2021 11:03-0400 Respiratory rate 22 /min Karie Haagen ARTIFICIAL [employer] TIER.[employer] Work Phone: [facility] 10-25-2021 11:03-0400 Systolic blood pressure 130 mm[Hg] Karie Haagen ARTIFICIAL [employer] TIER.[employer] Work Phone: [facility] 10-13-2021 10:53-0400 Diastolic blood pressure 82 mm[Hg] Mildred Wilcoxie ARTIFICIAL [employer] TIER.[employer] Work Phone: [facility] 10-13-2021 10:53-0400 Systolic blood pressure 130 mm[Hg] Mildred Wilcoxie ARTIFICIAL [employer] TIER.[employer] Work Phone: [facility] Encounters Encounter Date Encounter Type Care Provider Facility Start: 06-12-2023 ambulatory Armen Rahman MD Work Phone: Internal Medicine [facility] Start: 05-28-2023 Refill Armen Rahman MD Work Phone: [facility] [place] Procedures Date Procedure Procedure Detail Performing Clinician Start: 08-20-2021 Adult depression scr eening assessment Armen Rahman MD Work Phone: Start: 11-05-2017 Mammography Armen Melendez MD Work Phone: Plan of Treatment Date Care Activity Detail Author Start: 10-13-2026 HPV TESTING HPV TESTING [facility] Start: 10-13-2026 PAP TESTING PAP TESTING [facility] Start: 10-13-2026 Screening for malignant neoplasm of cervix [facility] Start: 03-22-2024 Complete blood count Hemoglobin/Hematocrit [facility] Start: 03-22-2024 Creatinine measurement Serum Creatinine [facility] Start: 03-22-2024 Hemoglobin/Hematocrit Hemoglobin/Hematocrit [facility] Start: 03-22-2024 Hepatitis B surface antibody level LDL Cholesterol [facility] Start: 03-22-2024 Serum Creatinine Serum Creatinine [facility] Start: 03-19-2024 3 comp foot exam completed Diabetic Foot Exam [facility] Start: 03-19-2024 Annual PCP Team Chronic Disease Visit Annual PCP Team Chronic Disease Visit [facility] Start: 03-19-2024 Diabetic foot examination Diabetic Foot Exam [facility] Start: 08-08-2023 ANNUAL PCP TEAM CHRONIC DISEASE VISIT ANNUAL PCP TEAM CHRONIC DISEASE VISIT [facility] Start: 07-26-2023 BP CONTROLLED (<130/80) BP CONTROLLED (<130/80) [facility] Start: 07-26-2023 HEMOGLOBIN/HEMATOCRIT HEMOGLOBIN/HEMATOCRIT [facility] Start: 07-26-2023 Hepatitis B screening URINE ALBUMIN:CREATININE RATIO [facility] Start: 07-26-2023 Hepatitis B surface antibody level LDL CHOLESTEROL [facility] Start: 07-26-2023 SERUM CREATININE SERUM CREATININE [facility] Start: 06-28-2023 ANNUAL PCP TEAM CHRONIC DISEASE VISIT ANNUAL PCP TEAM CHRONIC DISEASE VISIT [facility] Start: 06-28-2023 BP CONTROLLED (<130/80) BP CONTROLLED (<130/80) [facility] Start: 06-21-2023 Hemoglobin A1c measurement HbA1C [facility] Start: 06-21-2023 Hemoglobin A1c/Hemoglobin.total in Blood HbA1C [facility] Start: 06-21-2023 SERUM CREATININE SERUM CREATININE [facility] Start: 06-06-2023 ANNUAL PCP TEAM CHRONIC DISEASE VISIT ANNUAL PCP TEAM CHRONIC DISEASE VISIT [facility] Start: 05-09-2023 ANNUAL PCP TEAM CHRONIC DISEASE VISIT ANNUAL PCP TEAM CHRONIC DISEASE VISIT [facility] Start: 2023 Shingrix Vaccine (1 of 2) Shingrix Vaccine (1 of 2) [facility] Start: 02-28-2023 ANNUAL PCP TEAM CHRONIC DISEASE VISIT ANNUAL PCP TEAM CHRONIC DISEASE VISIT [facility] Start: 02-28-2023 BP CONTROLLED (<130/80) BP CONTROLLED (<130/80) [facility] Start: 02-22-2023 Covid-19 Vaccine () Covid-19 Vaccine () [facility] Start: 02-22-2023 HEMOGLOBIN/HEMATOCRIT HEMOGLOBIN/HEMATOCRIT [facility] Start: 02-22-2023 Influenza vaccination [facility] Start: 02-22-2023 SERUM CREATININE SERUM CREATININE [facility] Start: 01-25-2023 ANNUAL PCP TEAM CHRONIC DISEASE VISIT ANNUAL PCP TEAM CHRONIC DISEASE VISIT [facility] Start: 01-25-2023 HEMOGLOBIN/HEMATOCRIT HEMOGLOBIN/HEMATOCRIT [facility] Start: 01-25-2023 Hepatitis B surface antibody level LDL CHOLESTEROL [facility] Start: 01-25-2023 SERUM CREATININE SERUM CREATININE [facility] Start: 10-25-2022 ANNUAL PCP TEAM CHRONIC DISEASE VISIT ANNUAL PCP TEAM CHRONIC DISEASE VISIT [facility] Start: 10-23-2022 Hemoglobin A1c/Hemoglobin.total in Blood HBA1C [facility] Start: 09-12-2022 ANNUAL PCP TEAM CHRONIC DISEASE VISIT ANNUAL PCP TEAM CHRONIC DISEASE VISIT [facility] Start: 09-12-2022 BP CONTROLLED (<130/80) BP CONTROLLED (<130/80) [facility] Start: 09-11-2022 Hepatitis B screening URINE ALBUMIN:CREATININE RATIO [facility] Start: 09-11-2022 Hepatitis B surface antibody level LDL CHOLESTEROL [facility] Start: 09-11-2022 SERUM CREATININE SERUM CREATININE [facility] Start: 08-20-2022 Adult depression screening assessment DEPRESSION SCREENING [facility] Start: 07-29-2022 End: 09-28-2022 Lipid 1996 panel - Serum or Plasma LIPID PANEL BASIC Lab Routine Hypertriglyceridemia Expected: 07/29/2022, Expires: 09/28/2022 [facility] Work Phone: Immunizations Immunization Date Immunization Notes Care Provider Fa [facility] 04-19-2022 influenza virus vacc ine, unspecified formulation Armen Rahman MD Work Phone: [facility] 11-27-2020 COVID-19 vaccine, fu ll dose (MODERNA) Armen Rahman MD Work Phone: [facility] Work Phone: 10-18-2020 COVID-19 vaccine, fu ll dose (MODERNA) Armen Rahman MD Work Phone: [facility] 03-19-2020 influenza, injectabl e, quadrivalent, preservative free Armen Rahman MD Work Phone: [facility] 03-25-2019 influenza, injectabl e, quadrivalent, contains preservative Armen Rahman MD Work Phone: [facility] 04-15-2018 influenza nasal, unspecified formulation Armen Rahman MD Work Phone: [facility] 04-15-2018 influenza, injectabl e, quadrivalent, contains preservative Armen Rahman MD Work Phone: [facility] Work Phone: 05-24-2017 influenza, seasonal, injectable Armen Rahman MD Work Phone: [facility] 04-02-2017 influenza, seasonal, injectable, preservative free Armen Rahman MD Work Phone: [facility] 04-22-2014 influenza, seasonal, injectable Armen Rahman MD Work Phone: [facility] 03-28-2013 influenza virus vacc ine, unspecified formulation Armen Rahman MD Work Phone: [facility] Work Phone: 02-22-2013 influenza, seasonal, injectable, preservative free Armen Rahman MD Work Phone: [facility] 03-22-2012 influenza virus vacc ine, unspecified formulation Armen Rahman MD Work Phone: [facility] Work Phone: 11-22-2010 pneumococcal polysaccharide vaccine, 23 valent Armen Rahman MD Work Phone: [facility] Work Phone: 04-20-2005 influenza virus vacc ine, unspecified formulation Armen Rahman MD Work Phone: [facility] Work Phone: Payers Date Payer Category Payer Medicaid [id number] 2015 Medicaid [facility] MEDICAID [id number] 2015-Present [phone] [address] [place] [address] Medicaid [id number] 2015 Medicaid [id number] 2015 Medicaid [id number] Social History Date Type Detail Facility Start: 05-19-2013 End: 02-07-2022 Tobacco smoking status NHIS Never smoked tobacco [facility] Start: 09-12-2021 End: 03-19-2023 Alcohol intake Current non-drinker of alcohol (finding) [facility] Start: 09-23-2018 History SDOH Alcohol Frequency 1 [facility] Start: 09-23-2018 History SDOH Social Connections Phone 5 [facility] Start: 09-23-2018 History SDOH Social Connections Living 7 [facility] Start: 09-23-2018 History SDOH Transpo rt Non-Med 2 [facility] Start: 05-19-2013 End: 02-07-2022 Tobacco Comment Parents smoked in childhood home. [facility] Start: 1975 Sex Assigned At Not on file [facility] Start: 10-06-2021 End: 03-02-2022 Exposure to SARS-CoV-2 (event) Not sure [facility] Work Phone: Start: 05-19-2013 End: 02-07-2022 Tobacco use and exposure Smokeless tobacco non-user [facility] Work Phone: Start: 03-02-2022 End: 03-12-2022 Exposure to SARS-CoV-2 (event) Unable to assess [facility] Work Phone: Start: 08-08-2022 End: 01-26-2023 History of Social function [facility] Start: 08-08-2022 End: 01-26-2023 Tobacco use panel [facility] Attends [employer] Not on file [facility] Work Phone: Are you now , , , , never or living with a partner? Never [facility] How often to you hav e a drink containing alcohol? Never [facility] (I/We) worried wheth er (my/our) food would run out before (I/we) got money to buy more. Never true [facility] Medical Equipment Procedure Code Equipment Code Equipment Origin al Text Equipment Identifier Dates Start: 10-10-2020 End: 11-20-2022 Goals Date Patient Goal Desired Activity /State Personal health goal Clinical Notes 09-10-2019 to 06-12-2023 Telephone Encounter - Teresa Holder - 05/28/2023 3:53 PM ESTTelephone Encounter - Jessika Tavarez - 05/24/2023 2:36 PM ESTTelephone Encounter - Armen Rahman MD - 05/24/2023 8:02 AM EST Note Date & Type Note Facility 06-12-2023 Note Patient Outreach (IN [facility]) FLORINADOUGLAS Tillman ([id number]) 1975 F Date Time Provider Department 06/12/23 ARMEN RAHMAN [place] During your visit today, we recorded the following information about you: Allergies As of Date: 06/12/2023 Noted Allergy Reaction PENICILLIN G 12/07/2004 16 - Unknown LEVOFLOXACIN 04/28/2013 2 - Rash ZITHROMAX (AZITHROMYCIN) 06/03/2007 16 - Unknown Date Reviewed: 03/19/2023 Reviewed by: Leidy Faith Ma - Fully Assessed Visit Diagnosis:Encounter for screening mammogram for breast cancer [Z12.31] Order(s):[facility] SCREENING [[id number]] Order #: [id number] FUTURE Prescriptions as of 06/17/2023 - Lancets lancets Test blood sugar(s) 3 times daily. Dx: Type 2 DM - Uncontrolled E11.65 Insulin: Yes - amLODIPine (NORVASC) 5 mg tablet Take 1 tablet by mouth every afternoon. - levothyroxine (SYNTHROID) 50 mcg tablet Take 1 tablet by mouth once daily. - insulin aspart U-100 (NOVOLOG) 100 unit/mL (3 mL) Inject 20 Units subcutaneously three times a day before meals. - insulin degludec (TRESIBA FLEXTOUCH U-100) 100 unit/mL (3 mL) injection pen Inject 21 Units subcutaneously twice daily. - fenofibrate nanocrystallized (TRICOR) 145 mg tablet Take 1 tablet by mouth once daily. - albuterol HFA (VENTOLIN HFA) 90 mcg/actuation inhaler INHALE 2 PUFFS DIRECTED EVERY 4 HOURS NEEDED FOR WHEEZING AND SHORTNESS OF BREATH - WALKER ROLLATOR SEAT WITH 6 WHEELS - RED Use as directed - Insulin Naselle, Disposable, (UNIFINE PENTIPS) 31 gauge x 1/4 ndle Use to INJECT insulin FIVE TIMES DAILY DIRECTED - blood sugar diagnostic (BLOOD GLUCOSE TEST) test strip Test blood sugar(s) 3 times daily. Dx: Type 2 DM - Controlled E11.9 Insulin: Yes - triamcinolone acetonide (KENALOG) 0.5 % cream Apply 1 application to affected area twice daily. For rash/itching. Apply sparingly. Avoid face/skin fold. X 2 days. - fluconazole (DIFLUCAN) 150 mg tablet Take 1 tablet today, then a 2nd tablet in 72 hours, and 3rd tablet in another 72 hours. - clopidogrel (PLAVIX) 75 mg tablet Take 75 mg by mouth once daily. - Albuterol Sulfate 0.63 mg/3 mL nebulizer solution Use 1 Ampule via nebulizer every 6 hours as needed for wheezing/shortness of breath. - Blood-Glucose Sensor (FREESTYLE CRUZ 3 SENSOR) laura 1 Each as directed. - mometasone-formoterol (DULERA) 200-5 mcg/actuation inhaler INHALE 2 PUFFS DIRECTED TWICE DAILY - FLUoxetine (PROZAC) 20 mg capsule Take 1 capsule by mouth once daily. - blood sugar diagnostic (BLOOD GLUCOSE TEST) test strip Test blood sugar(s) 3 times daily. Dx: Type 2 DM - Uncontrolled E11.65 Insulin: Yes - metFORMIN ER (GLUCOPHAGE XR) 500 mg 24 hr tablet Take 1 tablet by mouth daily with breakfast x1 week, then increase to twice daily with meals. - Lancets lancets Test blood sugar(s) 3 times daily. Dx: Type 2 DM - Controlled E11.9 Insulin: Yes Rx for what insurance will cover - Cane Use as directed. - levonorgestrel (MIRENA) 20 mcg/24 hours (7 yrs) 52 mg IUD 1 Each by INTRAUTERINE route one time only. - BIPAP Meds Comments as of 10/17/2010: Patient also taking Sulfamethoxazo - unsure of mg. Problem List As Of Date 06/12/2023 Noted Resolved Hypothyroidism [E03.9] 08/26/2020 Headache(784.0) [R51] 09/13/2015 Obesity, Class III, BMI 40-49.9 (morbid obesity* Pain in joint, shoulder region [M25.519] 12/10/2013 ADJUSTMENT DISORDER WITH DEPRESSED MOOD [F43.21] Pain in limb [M79.609] 04/30/2005 12/10/2013 Cellulitis and abscess of foot, except toes [L0*04/30/2005 02/06/2012 Ingrowing nail [L60.0] 07/27/2005 02/06/2012 Lumbago [M54.50] 07/19/2006 Sprain and strain of unspecified site of should*04/22/2008 12/10/2013 Backache, unspecified [M54.9] 10/13/2008 12/10/2013 SCOLIOSIS NEC [M41.80] Spina bifida (HCC) [Q05.9] REFLUX ESOPHAGITIS [K21.00] PMH - PAST MEDICAL HISTORY OF 02/06/2012 Unspecified asthma, with status asthmaticus [J4* 03/28/2016 CONGENITAL PES PLANUS [Q66.50] 12/16/2008 ENTHESOPATHY, SITE NOS [M77.9] 12/16/2008 Mass of axilla [R22.30] 10/22/2011 02/06/2012 Dysphagia [R13.10] 10/22/2011 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/30/2012 10/27/2012 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* RLQ abdominal pain [R10.31] 11/06/2012 12/10/2013 HTN (hypertension) [I10] 03/06/2021 Counseling and coordination of care [Z71.89] 03/15/2014 11/24/2014 Pulmonary embolism (HCC) [I26.99] VENANCIO (obstructive sleep apnea) [G47.33] 07/13/2017 Hypothyroidism, acquired [E03.9] 07/13/2017 Diabetes mellitus type 2, controlled, without c*02/14/2018 URI, acute [J06.9] 09/10/2019 03/25/2020 Low HDL (under 40) [E78.6] 03/25/2020 Hypertriglyceridemia [E78.1] 03/25/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 pain of both knees [M25.561, M25.562, G*09/06/2020 Stage 3a chronic kidney disease (HCC) [N18.31] 03/06/2021 Cholesteatoma of right ear [H71.91] 03/06/2021 Chest pain [R07.9] 06/19/2022 (more content not included)... [facility] 05-28-2023 Miscellaneous Notes Patient has been identified by name and date of : Yes Requested Prescriptions Pending Prescriptions Disp Refills amLODIPine (NORVASC) 5 mg tablet 90 tablet 1 Sig: Take 1 tablet by mouth every afternoon. levothyroxine (SYNTHROID) 50 mcg tablet 90 tablet 3 Sig: Take 1 tablet by mouth once daily. RX INSTRUCTIONS: Patient aware RX will be sent to pharmacy. No need to notify patient. Teresa Franco documented in this encounter [facility] 05-24-2023 Miscellaneous Notes Faxed. Jessika Tavarez done CPAP supplies script clarified by patient and pended for PCP review and signature. Pt asking for CPAP supply script be faxed to [facility] at FAX #: [phone]. Please call patient once this has been faxed. Thank you. Left message for patient to call back to verify what supplies she needs. Please see rx and take out what is not needed [place] Ma Douglas is calling Armen Rahman MD today to request CPAP Supplies from [facility]. Young: [phone] Patient has been identified by name and birthdate. Duration of symptoms: N/A Person calling: self Call patient at: at home [phone] (home) [phone] (cell) Was an appointment scheduled: Yes. 05-28-23 Closing statement: Juani Wheatley Foster Pss documented in this encounter [facility] 04-16-2023 Miscellaneous Notes OK to refill as ordered Sugey Esquivel MD Pt asking to have her medication below sent to the pharmacy. Please advise pt when prescription has been sent to the pharmacy. [facility], provider is unavailable today Laila Rivera LPN Patient has been identified by name and date of : Yes, Provider Dr. Rahman Date 04/16/23 Time 10:53 am Patient phones for refill(s): Requested Prescriptions Pending Prescriptions Disp Refills insulin aspart U-100 (NOVOLOG) 100 unit/mL (3 mL) Sig: Inject 20 Units subcutaneously three times a day before meals. Date of last office visit in primary care: 03/19/2023 Date of next office visit in primary care: 04/23/2023 Last 2 Encounter Wt Readings: Date: Wt: 03/19/2023 166 kg (366 lb) 01/25/2023 162.9 kg (359 lb 1.6 oz) Previous labs/tests for medication: Diabetes: Hemoglobin A1C (%) Date Value 03/22/2023 9.6 07/26/2022 8.1 09/09/2020 7.0 05/31/2020 7.0 Please advise. Thank you. Laila Rivera LPN. documented in this encounter [facility] 04-12-2023 Miscellaneous Notes Completed and faxed back as requested. Type of form: Rosa Maudrey Form received via fax When form is completed, Fax form to [phone] Form has been forwarded to Roscoe Lucero LPN documented in this encounter [facility] 04-01-2023 Miscellaneous Notes Telephoned the patient to schedule a new Primary Care pharmacy appt. Left a message. Made two attempts to contact the patient. Patient has not returned the call. If the patient returns a call, an appt will be scheduled. Encounter routed to the clinical pharmacist. Telephoned the patient to reschedule missed appt. Left a message. documented in this encounter [facility] 03-28-2023 Note HNO ID: [id number] Author: Dioni Lowery PA-C Service: ? Author Type: Physician Survey Research Associate Type: Progress Notes Filed: 03/28/2023 6:36 PM Note Text: Sure. I will talk with her Thanks, Roscoe Lowery PA-C [facility] 03-27-2023 Note HNO ID: [id number] Author: Rick Walker [facility] Service: ? Author Type: Pharmacist Type: Progress Notes Filed: 03/27/2023 1:34 PM Note Text: Primary Care Pharmacy Panel Management This patient has been identified through panel management efforts by the primary care pharmacy team. Patient scheduled to see PCP team on 04/02. Will reach out to provider to ask that he consider placing referral at that time. Rick Walker [facility] 03-27-2023 Note Patient Outreach ([facility]) FLORINADOUGLAS ([id number]) 1975 F Date Time Provider Department 03/27/23 RICK WALKER During your visit today, we recorded the following information about you: Rick Walker [facility] 03/27/2023 1:34 PM Signed Primary Care Pharmacy Panel Management This patient has been identified through panel management efforts by the primary care pharmacy team. Patient scheduled to see PCP team on 04/02. Will reach out to provider to ask that he consider placing referral at that time. [facility] Dioni [facility]-C 03/28/2023 6:36 PM Signed Sure. I will talk with her Thanks, HAROLDO Nelson M Gregory, PA-C 03/28/2023 6:36 PM Signed Addended by: Dioni LOWERY on: 03/28/2023 06:36 PM Modules accepted: Orders Allergies As of Date: 03/27/2023 Noted Allergy Reaction PENICILLIN G 12/07/2004 16 - Unknown LEVOFLOXACIN 04/28/2013 2 - Rash ZITHROMAX (AZITHROMYCIN) 06/03/2007 16 - Unknown Date Reviewed: 03/19/2023 Reviewed by: Leidy Faith Ma - Fully Assessed Primary Visit Diagnosis:Controlled type 2 diabetes mellitus without complication, with long-term current use of insulin (HCC) [E11.9, Z79.4] Prescriptions as of 03/28/2023 - amLODIPine (NORVASC) 5 mg tablet Take 1 tablet by mouth every afternoon. - insulin degludec (TRESIBA FLEXTOUCH U-100) 100 unit/mL (3 mL) injection pen Inject 21 Units subcutaneously twice daily. - fenofibrate nanocrystallized (TRICOR) 145 mg tablet Take 1 tablet by mouth once daily. - albuterol HFA (VENTOLIN HFA) 90 mcg/actuation inhaler INHALE 2 PUFFS DIRECTED EVERY 4 HOURS NEEDED FOR WHEEZING AND SHORTNESS OF BREATH - insulin aspart U-100 (NOVOLOG) 100 unit/mL (3 mL) Inject 18 Units subcutaneously three times daily before meals. - WALKER ROLLATOR SEAT WITH 6 WHEELS - RED Use as directed - Insulin Naselle, Disposable, (UNIFINE PENTIPS) 31 gauge x 1/4 ndle Use to INJECT insulin FIVE TIMES DAILY DIRECTED - blood sugar diagnostic (BLOOD GLUCOSE TEST) test strip Test blood sugar(s) 3 times daily. Dx: Type 2 DM - Controlled E11.9 Insulin: Yes - triamcinolone acetonide (KENALOG) 0.5 % cream Apply 1 application to affected area twice daily. For rash/itching. Apply sparingly. Avoid face/skin fold. X 2 days. - fluconazole (DIFLUCAN) 150 mg tablet Take 1 tablet today, then a 2nd tablet in 72 hours, and 3rd tablet in another 72 hours. - levothyroxine (SYNTHROID) 50 mcg tablet Take 1 tablet by mouth once daily. - clopidogrel (PLAVIX) 75 mg tablet Take 75 mg by mouth once daily. - Albuterol Sulfate 0.63 mg/3 mL nebulizer solution Use 1 Ampule via nebulizer every 6 hours as needed for wheezing/shortness of breath. - Blood-Glucose Sensor (FREESTYLE CRUZ 3 SENSOR) laura 1 Each as directed. - mometasone-formoterol (DULERA) 200-5 mcg/actuation inhaler INHALE 2 PUFFS DIRECTED TWICE DAILY - FLUoxetine (PROZAC) 20 mg capsule Take 1 capsule by mouth once daily. - Lancets lancets Test blood sugar(s) 3 times daily. Dx: Type 2 DM - Uncontrolled E11.65 Insulin: Yes - blood sugar diagnostic (BLOOD GLUCOSE TEST) test strip Test blood sugar(s) 3 times daily. Dx: Type 2 DM - Uncontrolled E11.65 Insulin: Yes - metFORMIN ER (GLUCOPHAGE XR) 500 mg 24 hr tablet Take 1 tablet by mouth daily with breakfast x1 week, then increase to twice daily with meals. - Lancets lancets Test blood sugar(s) 3 times daily. Dx: Type 2 DM - Controlled E11.9 Insulin: Yes Rx for what insurance will cover - Cane Use as directed. - levonorgestrel (MIRENA) 20 mcg/24 hours (7 yrs) 52 mg IUD 1 Each by INTRAUTERINE route one time only. - BIPAP Meds Comments as of 10/17/2010: Patient also taking Sulfamethoxazo - unsure of mg. Problem List As Of Date 03/27/2023 Noted Resolved Hypothyroidism [E03.9] 08/26/2020 Headache(784.0) [R51] 09/13/2015 Obesity, Class III, BMI 40-49.9 (morbid obesity* Pain in joint, shoulder region [M25.519] 12/10/2013 ADJUSTMENT DISORDER WITH DEPRESSED MOOD [F43.21] Pain in limb [M79.609] 04/30/2005 12/10/2013 Cellulitis and abscess of foot, except toes [L0*04/30/2005 02/06/2012 Ingrowing nail [L60.0] 07/27/2005 02/06/2012 Lumbago [M54.50] 07/19/2006 Sprain and strain of unspecified site of should*04/22/2008 12/10/2013 Backache, unspecified [M54.9] 10/13/2008 12/10/2013 SCOLIOSIS NEC [M41.80] Spina bifida (HCC) [Q05.9] REFLUX ESOPHAGITIS [K21.00] PMH - PAST MEDICAL HISTORY OF 02/06/2012 Unspecified asthma, with status asthmaticus [J4* 03/28/2016 CONGENITAL PES PLANUS [Q66.50] 12/16/2008 ENTHESOPATHY, SITE NOS [M77.9] 12/16/2008 Mass of axilla [R22.30] 10/22/2011 02/06/2012 Dysphagia [R13.10] 10/22/2011 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 [facility] 03-19-2023 Note HNO ID: [id number] Author: Yenny Fritz RT(R) Service: Radiology Author Type: Technologist Type: Progress Notes Filed: 03/19/2023 3:44 PM Note Text: Radiology Service Progress Note PATIENT NAME: Douglas Heaton DATE OF SERVICE: March 19, 2023 TIME: 3:35 PM PATIENT IDENTITY VERIFICATION COMPLETED USING TWO (2) IDENTIFIERS: Name and Date of confirmed by patient verbally. FALL SCREENING: Has the patient had 2 falls in the last year or 1 fall with injury or currently using an Ambulatory Assistive Device (Walker, Cane, Wheelchair, Crutches, etc.)? Yes, Patient High Risk for Falls What interventions were put in place to prevent falls during this visit? Instructed Patient to Remain Seated (Not on Exam Table) Until Exam and di sitting in wheelchair PATIENT GENDER DATA: Female. status: : No status: NO. PATIENT RELEVANT IMPLANT DATA REVIEWED: Not Applicable RADIOLOGY DEPARTMENT: General X-ray: Exam(s) Completed: Upper Extremity X-Ray(s): Fingers/Thumb, left PERIPHERAL IV DATA: Not applicable SIGNED BY: RT Liam(R) March 19, 2023 3:35 PM [facility] 03-19-2023 Note HNO ID: [id number] Author: Dioni Lowery PA-C Service: ? Author Type: Physician Survey Research Associate Type: Progress Notes Filed: 03/20/2023 4:02 PM Note Text: 47 year old female with c/o needs rollator to walk. No falls. Can only walk 15-20 feet: gets out of breath, shaky, stumbling. Unclear whether this is related to anxiety about falls, sustained concentration, and or generalized weakness in lower extremities. 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 Patient's superobesity places her at significant risk of injury if she falls. Patient needs to have a customized walker due to her height and weight. Thumb pain, left hurting for quite awhile with using hair brush, grasping. Has a thumb-wrist splint - hasn't helped much. NSTEMI Hyperlipidemia HTN: 06/19/2022 - 06/21/2022 admitted at [facility] with chest pain. Identified pleuritic chest pain 4 hours prior to arrival, exacerbated by inspiration, associated with left arm pain. Initial EKG demonstrated no significant abnormality other than nonspecific T wave changes. Initial troponin was 12. Subsequent troponins were normal. CT chest PE Showed no filling defects within the central pulmonary arteries, unable to assess lobar or distal intrapulmonary arteries. 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 Also noted to have fatty liver. Left heart cath: LM: Appears normal, divides into LAD and nondominant circumflex LCx: Demonstrates tortuosity along its course without significant disease. LAD: Significant tortuosity but free of critical disease. RCA dominant circulation, free of any critical disease. Left ventriculography: Significant radial artery spasm Procedure, further attempts to measure LVEDP were reported Current meds: Amlodipine 5 mg daily Clopidogrel 75 mg once a day Fenofibrate 145 mg daily Patient is compliant with meds Yes Monitors bp at home: No. If yes, readings: Denies side effects: Yes. Chest pain: No. Dyspnea: No. Edema: No. Palpitations: No. Syncope: No. Headache: No. Dizziness: No. Observing low cholesterol high fiber diet somewhat Muscle aches No Stomach complaints/ diarrhea No Last 3 Encounter BP Readings: Date: BP: 03/19/2023 130/82 01/25/2023 156/68 08/08/2022 138/86 Last 2 Encounter Wt Readings: Date: Wt: 03/19/2023 166 kg (366 lb) 01/25/2023 162.9 kg (359 lb 1.6 oz) Component Latest Ref Rng AND Units 01/25/2022 02/22/2022 06/19/2022 06/20/2022 06/21/2022 07/26/2022 Protein, Total 6.3 - 8.0 g/dL 7.4 7.5 Albumin 3.9 - 4.9 g/dL 4.0 3.8 (L) Calcium 8.5 - 10.2 mg/dL 9.3 8.3 (L) Bilirubin, Total 0.2 - 1.3 mg/dL 0.3 0.3 Alkaline Phosphatase 34 - 123 U/L 74 81 AST 13 - 35 U/L 22 15 ALT 7 - 38 U/L 16 12 Glucose 74 - 99 mg/dL 175 (H) 140 (H) BUN 7 - 21 mg/dL 18 16 Creatinine 0.58 - 0.96 mg/dL 1.26 (H) 1.19 (H) Sodium 136 - 144 mmol/L 134 (L) 134 (L) Potassium 3.7 - 5.1 mmol/L 4.0 4.2 Chloride 97 - 105 mmol/L 100 99 CO2 22 - 30 mmol/L 22 26 Anion Gap 9 - 18 mmol/L 12 9 eGFR >=60 mL/min/1.73mA? 53 (L) 56 (L) WBC 3.70 - 11.00 k/uL 10.90 9.43 9.35 RBC 3.90 - 5.20 m/uL 4.23 3.90 4.06 Hemoglobin 11.5 - 15.5 g/dL 12.1 11.1 (L) 11.6 Hematocrit 36.0 - 46.0 % 37.1 34.6 (L) 35.9 (L) MCV 80.0 - 100.0 fL 87.7 88.7 88.4 MCH 26.0 - 34.0 pg 28.6 28.5 28.6 MCHC 30.5 - 36.0 g/dL 32.6 32.1 32.3 RDW-CV 11.5 - 15.0 % 14.4 14.3 14.5 Platelet Count 150 - 400 k/uL 187 166 177 MPV 9.0 - 12.7 fL 11.0 11.3 11.1 Absolute nRBC <0.01 k/uL <0.01 <0.01 <0.01 Cholesterol, Total <200 mg/dL 166 132 Triglyceride <150 mg/dL 495 (H) 292 (H) HDL Cholesterol >39 mg/dL 22 (L) 24 (L) Non HDL Cholesterol <130 mg/dL 144 (H) 108 Fasting Time hrs 15 12 VLDL Cholesterol <30 mg/dL 58 (H) TC:HDL Ratio <5.10 7.55 (H) 5.50 (H) LDL Cholesterol <100 mg/dL 50 LDL:HDL Ratio <2.54 2.08 Diabetes Mellitus Type 2: Current medications: Insulin degludec 21 units twice a day Insulin aspartame 20 units 3 times daily with meals Metformin ER 500 mg twice daily Taking medication as directed consistently? Yes Medication side effects: no Medical Issues / Complications: hypertension, hyperlipidemia, and cardiovascular disease Checking blood sugars at home? Yes. None recently Watching diet? somewhat Physical Activity: Sedentary Hypoglycemic spells? No Any visual disturbance? No Chest pain? No New numbness, tingling or loss of sensation? No Any recent foot problems, sores or rashes? No Any recent or sudden weight loss? No Change in urination? No. If yes: Any recent illness? No Last eye exam: up to date. Last foot exam: due. HBA1C: Hemoglobin A1C (%) Date Value 07/26/2022 8.1 01/25/2022 9.2 09/09/2020 7.0 05/31/2020 7.0 ) CMP: Glucose 140 07/26/2022 BUN 16 07/26/2022 Creatinine 1.19 07/26/2022 Sodium 134 07/26/2022 (more content not included)... [facility] 03-05-2023 Miscellaneous Notes Mailed. Jessika Tavarez Printed. Pt requesting a new handicap placard. When ready please send to pt's home address, address verified with pt. Carina Centeno LPN documented in this encounter [facility] 01-30-2023 Miscellaneous Notes Noted. Karie Cervantes APRN.[employer] [facility] calling and states patient No Showed for her appt today and she will not be rescheduled. Patient has rescheduled several prior appts there as well. Latoya Gibson RN documented in this encounter [facility] 01-17-2023 Miscellaneous Notes Faxed as requested. printed Patient calls and states that she needs and order for CPAP supplies. Patient uses [facility] in [place]. Patient states that she talks to Young who works there. Patient asking if order can be faxed there? Please review and advise, Kirstie Snider RN documented in this encounter [facility] 01-04-2023 Miscellaneous Notes Patient calling with 2 requests. Requesting this nurse to cancel her Cardiology appt in [place] scheduled for 03/27/23 due to transportation issues. This has been canceled as requested. Pt requesting cardiology referral and demographic information be faxed to [facility] at [facility]. Faxed as requested. Pt instructed to contact [facility] for scheduling. Latoya Gibson RN documented in this encounter [facility] 12-31-2022 Miscellaneous Notes Patient has been identified by name and date of : Yes, Provider Dr. Rahman Date 12/31/22 Time 10:58 am Patient phones for refill(s): Requested Prescriptions Pending Prescriptions Disp Refills albuterol HFA (VENTOLIN HFA) 90 mcg/actuation inhaler 18 g 5 Sig: INHALE 2 PUFFS DIRECTED EVERY 4 HOURS NEEDED FOR WHEEZING & SHORTNESS OF BREATH Date of last office visit in primary care: 08/08/22 Last 2 Encounter Wt Readings: Date: Wt: 08/08/2022 165.1 kg (364 lb) 07/26/2022 163.8 kg (361 lb 3.2 oz) Previous labs/tests for medication: Not applicable Please advise. Thank you. Laila GLASS documented in this encounter [facility] 12-06-2022 Miscellaneous Notes Patient has been identified by name and date of : Yes Requested Prescriptions Pending Prescriptions Disp Refills insulin aspart U-100 (NOVOLOG) 100 unit/mL (3 mL) 15 mL 4 Sig: Inject 18 Units subcutaneously three times daily before meals. RX INSTRUCTIONS: Patient aware RX will be sent to pharmacy. No need to notify patient. Keisha Reyes Pss documented in this encounter [facility] 11-27-2022 Miscellaneous Notes Called and spoke with patient and informed her she hasn't been seen since July and at that time the rollator was not discussed at time of visit. Per insurance they require face to face notes with documentation of need for rollator. Patient declined scheduling an appointment at this time and wished for me to fax last OV along with everything else and see if they'd cover it anyways. All documentation faxed to [employer] at [phone]. Patient informed. Jessika Tavarez printed Pt is requesting an Rx for a rollator. Pt wants to not use her wheelchair as much & thinks she may be able to be more mobile with a rollator. Pending. Pt uses [facility] in [place]. Please advise pt. Carina Centeno LPN documented in this encounter [facility] 11-20-2022 Miscellaneous Notes Patient has been identified by name and date of : Yes Requested Prescriptions Pending Prescriptions Disp Refills insulin degludec (TRESIBA FLEXTOUCH U-100) 100 unit/mL (3 mL) injection pen 12 mL 5 Sig: Inject 21 Units subcutaneously twice daily. Insulin Naselle, Disposable, (UNIFINE PENTIPS) 31 gauge x 1/4 ndle 150 Each 11 Sig: Use to INJECT insulin FIVE TIMES DAILY DIRECTED RX INSTRUCTIONS: According to [facility], they do not have any refills on file for either. Patient aware RX will be sent to pharmacy. No need to notify patient. Vy Love documented in this encounter [facility] 10-24-2022 Miscellaneous Notes Pt. calling to find out if she had any upcoming Appointments. Also calling about having difficulty swallowing rice. No problems with any other foods. Advised to drink more liquids and smaller bites. Will call back if having anymore issues. documented in this encounter [facility] 09-10-2022 Miscellaneous Notes Left detailed message for patient. She is to stay on it chronically unless cardiology tells her to stop. Patient asking pcp how long she is suppose to take baby asa. Has been taking once daily, prescribed by hospital when she had LA. Patient has f/u appt with Debbie Baptiste, cardiology on 10-29-22. Please advise patient. documented in this encounter [facility] 09-03-2022 Miscellaneous Notes Will discuss at appt. Karie Cervantes APRN.JHON Spoke with patient regarding below, pt states that she uses [facility] in [place] and works with [employer] . Pt states that she was instructed to call our office, but unsure why. Explained to pt that we cannot make adjustments to her machine - pt unsure what is needed. There is an nocturnal oximetry from 2021 in Epic - pt unsure of last PSG except done by Dr. Aguilar. Phone call to [facility] Gordon working in [place] today and was suggested to contact that office. Spoke with Young, states that machine works as it should but she may need pressures changed. Currently on 06/11 with backup 12. States that patient has been on same pressure's since at least 2014. Was also suggested pt see pulm or sleep medicine. He will also fax over compliance report. Please review and advise. Keisha Mccullough MA Pt scheduled to see Jacobo Cervantes on 09/05 to discuss issues with CPAP. TC to pt, left message for pt to return call to office. Has pt contacted DME provider regarding her issues with the CPAP? Is pt following with Sleep Medicine? Pt needs to contact DME if having issues with CPAP. documented in this encounter [facility] 08-31-2022 Miscellaneous Notes Has a follow up visit scheduled 09/05/22 with Karie. Patient has been identified by name and date of : Yes Requested Prescriptions Pending Prescriptions Disp Refills blood sugar diagnostic (BLOOD GLUCOSE TEST) test strip 100 Strip 11 Sig: Test blood sugar(s) 3 times daily. Dx: Type 2 DM - Controlled E11.9 Insulin: Yes RX INSTRUCTIONS: Patient aware RX will be sent to pharmacy. No need to notify patient. Vy Love documented in this encounter [facility] 08-08-2022 Note HNO ID: [id number] Author: Karie Cervantes APRN.[employer] Service: ? Author Type: Nurse Practitioner Type: Progress Notes Filed: 08/09/2022 5:27 PM Note Text: This is a 47 year old female who presents today with: Patient presents with: Follow Up HISTORY OF PRESENT ILLNESS: Douglas Heaton is a 47 year old female. Patient presents with: Follow Up Pt presents today for follow-up. NSTEMI Clear cath. Scheduled with cardiology. Developed right radial artery thrombosis afterwards. Followed with vascular. Opened with antiplatelets. Feels much better. Diabetes Has CGM Sugars primarily running in the 200s. No hypoglycemia. Drinking more water and sugar-free pop. Has an appt with endo in September. Skin Itchy area left thenar aspect. Keeps covered with bandaid. Has tried many different lotions without effect. 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) 2010 4 liters O2 -24/ Obesity, unspecified Obstructive sleep apnea 2007 BIPAP WITH O2 /2011 Other kyphoscoliosis and scoliosis Pain in joint, shoulder region PMH - PAST MEDICAL HISTORY OF lower back pain- in pain maangement Pulmonary embolism ([facility]) 07/08 Reflux esophagitis Septic shock ([facility]) 07/10/2018 [facility] urosepsis, acute renal failure Spina bifida without mention of hydrocephalus, unspecified region Unspecified asthma, with status asthmaticus Unspecified hypothyroidism Unspecified sleep apnea PAST SURGICAL HISTORY Procedure Laterality Date BX BREAST PERC NEED W/GUID 10/30/11 U/S needle core left axillary bx LAPAROSCOPY SURG CHOLECYSTECTOMY Cholecystectomy, lap MYRINGOTOMY ASPIRAND/EUSTACHIAN TUBE NFLTJ ANES Myringotomy/tubes PAST SURGICAL HISTORY OF 1989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 well now that you're home. May I ask you a few questions related to your hospital stay and well-being? Yes Contact with patient post discharge, spoke to patient. Patient identified by name and . Do you feel your health is BETTER, WORSE, or the SAME since leaving the hospital? Better ACTION TAKEN: Patient indicated symptoms are better or same, no action required. Continue outreach. MEDICATIONS: Many patients have questions or concerns about their medications once they are home. Do you have any questions about taking your medications or which medication you should be on? No Do you need any medication refills at this time, including any of the medications you might take only when needed? No ACTION TAKEN: No action required For RNs or Pharmacy completing outreach ONLY, was a medication review completed? No SOCIAL: We would like to make sure you have what you need so that your basics needs are met - including your personal safety, food, housing and medications. Would you like to speak with a social work team automobile assembler to help give you support for any of these needs? No It can be normal to feel anxious or down during a time like this. Would you like to talk to a mental health professional about how you have been feeling? No ACTION TAKEN: No action taken DISCHARGE INTRUCTIONS: Your discharge instructions / After Visit Summary (AVS) are important in guiding you through the recovery process. Do you have any questions related to your discharge instructions? No Do you have all the necessary equipment and supplies at home? Yes ACTION TAKEN: No action required I would like to help you schedule a hospital follow-up virtual or telephone visit with your PCP. This is a great way for you to connect with your provider to ensure you have safely transitioned home. If you are agreeable, I will send your request to a dewaxer who will contact and assist you with that appointment. This will give you an opportunity to ask any questions or address any concerns you may have with your PCP. Inform the patient that if they have any questions or concerns prior to that appointment, to call their PCP's office right away. ACTION TAKEN: No action required, patient already has an appointment scheduled. Your doctor would like us to remind you of the recommendations regarding the coronavirus (Covid19) outbreak: Avoid public places as much as possible. Avoid close contact (within 6 feet) with others you don t live with, especially if they are sick. Stay home if you are sick. Wash your hands regularly for at least 20 seconds with soap and water. Wear a cloth mask in public places to help reduce community spread. Do not go to your Doctor s office unless instructed to do so. For any non-emergency symptoms, call your Doctor s office to get instructions on how to manage (we might recommend a telephone or virtual visit). For emergency symptoms, proceed to Emergency Department as usual but inform them of cough and fever symptoms MARTY if present (or call on the way if possible). 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 [facility] documented in this encounter [facility] 06-21-2022 Note HNO ID: [id number] Author: Ranjith Puri RPh Service: Pharmacy Author Type: Pharmacist Type: Plan of Care Filed: 06/21/2022 4:00 PM Note Text: DISCHARGE MEDICATION REVIEW AND COUNSELING BY PHARMACY Patient Name: Douglas Heaton Account #: Data Unavailable Admission Date: 06/19/2022 Date of Contact: June 21, 2022 Time of Contact: 3:42 PM LEARNERS Persons Present: Patient Primary Learner: Patient Medication list was reviewed by a Pharmacist for drug interactions or drug related problems:Yes Below is a summary of pharmacist recommendations discussed with LIP: The following one time orders were not prescribed upon discharge: Duplicate albuterol, lancets, and testing supplies noted. Did not want to discontinue these to facilitate future refills for the patient at her home pharmacy. Counseled the patient to ignore the duplications. The patient was counseled on the medication(s) listed below and was given the opportunity to ask questions regarding indication, dosage, side effects and drug interactions READINESS TO LEARN COGNITIVE ABILITY:Alert and oriented MOTIVATION TO LEARN:Interested FAMILY SUPPORT:Unable to assess - Family not present INSTRUCTION PROVIDED TO:Patient PATIENT LEARNS BEST BY:Verbal Instruction FACTORS AFFECTING LEARNING:None PHYSICAL LIMITATIONS AFFECTING LEARNING:None LEARNING RESPONSE PATIENT / FAMILY RESPONSE:Verbalizes understanding of: The signs and symptoms of a worsening condition that warrant a call to the physician. The correct actions to take to manage symptoms associated with his/her disease/illness. The physical restrictions and recommendations after discharge from the hospital. Accurate knowledge of prescribed medication prior to discharge. The correct action to take if medication dose is missed. The side effects associated with the medication that warrant a call to the physician. Ranjith Puri, [facility] June 21, 2022 3:42 PM Medication List START taking these medications aspirin, enteric coated 81 mg EC tablet Commonly known as: ASPIRIN, ENTERIC COATED Take 1 tablet by mouth once daily. Start taking on: June 22, 2022 rosuvastatin 20 mg tablet Commonly known as: CRESTOR Take 1 tablet by mouth daily at bedtime. CHANGE how you take these medications metFORMIN ER 500 mg 24 hr tablet Commonly known as: GLUCOPHAGE XR Take 1 tablet by mouth daily with breakfast x1 week, then increase to twice daily with meals. What changed: how much to take how to take this when to take this additional instructions CONTINUE taking these medications * albuterol HFA 90 mcg/actuation inhaler Commonly known as: PROVENTIL HFA, VENTOLIN HFA Inhale 2 Puffs as instructed every 4 hours as needed for wheezing/shortness of breath. * albuterol HFA 90 mcg/actuation inhaler Commonly known as: VENTOLIN HFA INHALE 2 PUFFS DIRECTED EVERY 4 HOURS NEEDED FOR WHEEZING AND SHORTNESS OF BREATH * Albuterol Sulfate 0.63 mg/3 mL nebulizer solution Use 1 Ampule via nebulizer every 6 hours as needed for wheezing/shortness of breath. BIPAP * BLOOD GLUCOSE TEST test strip Generic drug: blood sugar diagnostic Test blood sugar(s) 3 times daily. Dx: Type 2 DM - Controlled E11.9 Insulin: Yes * BLOOD GLUCOSE TEST test strip Generic drug: blood sugar diagnostic Test blood sugar(s) 3 times daily. Dx: Type 2 DM - Uncontrolled E11.65 Insulin: Yes Cane Use as directed. DULERA 200-5 mcg/actuation inhaler Generic drug: mometasone-formoterol INHALE 2 PUFFS DIRECTED TWICE DAILY fenofibrate nanocrystallized 145 mg tablet Commonly known as: TRICOR Take 1 tablet by mouth once daily. FLUoxetine 20 mg capsule Commonly known as: PROzac Take 1 capsule by mouth once daily. fluticasone 50 mcg/actuation nasal spray Commonly known as: FLONASE Use 1 [place] in each nostril twice daily. Use before lying down for bed. FREESTYLE CRUZ 3 SENSOR Laura Generic drug: Blood-Glucose Sensor 1 Each as directed. insulin aspart U-100 100 unit/mL (3 mL) Commonly known as: NovoLOG Flexpen U-100 Insulin Inject 18 Units subcutaneously three times daily before meals. insulin degludec 100 unit/mL (3 mL) injection pen Commonly known as: TRESIBA FLEXTOUCH U-100 Inject 20 Units subcutaneously twice daily. Insulin Naselle (Disposable) 31 gauge x 1/4 Ndle Commonly known as: UNIFINE PENTIPS Use to INJECT insulin FIVE TIMES DAILY DIRECTED * Lancets lancets Test blood sugar(s) 3 times daily. Dx: Type 2 DM - Controlled E11.9 Insulin: Yes Rx for what insurance will cover * Lancets lancets Test blood sugar(s) 3 times daily. Dx: Type 2 DM - Uncontrolled E11.65 Insulin: Yes levonorgestrel 20 mcg/24 hours (8 yrs) 52 mg IUD Commonly known as: MIRENA levothyroxine 50 mcg tablet Commonly known as: SYNTHROID Take 1 tablet by mouth once daily. miconazole 2 % vaginal cream Commonly known as: MONISTAT 7 1 applicator vaginally (more content not included)... [facility] 06-20-2022 Note HNO ID: [id number] Author: Taylor Michele MD Service: Hospital Medicine Author Type: Physician Type: Progress Notes Filed: 06/20/2022 4:30 PM Note Text: DEPARTMENT OF INTERNAL MEDICINE PROGRESS NOTE SERVICE DATE: 06/20/2022 Internal Medicine/Primary Attending: Taylor Michele MD SUBJECTIVE: Pt is a 47 yo F with NSTEMI. Has diarrhea today. No CP. OBJECTIVE: PHYSICAL EXAM: BP 114/56 Pulse 89 Temp (Src) 98.4 (Oral) Resp 18 SpO2 97% LMP 05/26/2016 O2 Therapy: Room Air GEN: Alert, NAD HEENT: NCAT, No lymphadenopathy CVS: RRR, S1 S2 RESP: CTAB ABD: S/NT/ND (+) BS SKIN: No rash EXT: (+) pulses, no edema NEURO: CNII-XII grossly intact. MEDICATIONS: Current Facility-Administered Medications Medication Dose Route Frequency albuterol HFA 90 mcg/actuation 2 Puff (PROVENTIL HFA, VENTOLIN HFA) 2 Puff INHALATION q 4 H PRN FLUoxetine 20 mg cap(s) (PROzac) 20 mg ORAL DAILY levothyroxine 50 mcg tab(s) (SYNTHROID) 50 mcg ORAL DAILY NaCl 0.9% iv flush bag 20 mL INTRAVENOUS PRN insulin lispro injection (rapid acting) (ADMELOG) SUBCUTANEOUS w MEALS AND HS dextrose 15 gram/32 mL 15 g (TRUEPLUS) 15 g ORAL PRN Or glucagon 1 mg injection 1 mg INTRAMUSCULAR PRN Or dextrose 10% iv bolus 12.5 g INTRAVENOUS PRN fluticasone-vilanterol 200-25 mcg/dose 1 Inhalation (BREO ELLIPTA) 1 Inhalation INHALATION DAILY insulin glargine 20 Units pen (long acting) (LANTUS SOLOSTAR, BASAGLAR KWIKPEN) 20 Units SUBCUTANEOUS BID morphine 4 mg injection 4 mg INTRAVENOUS q 4 H PRN sodium chloride 0.9 % (flush) 2-10 mL (BD POSIFLUSH) 2-10 mL INTRAVENOUS DIRECTED PRN And perflutren lipid microspheres 1.1 mg/mL 1.3 mL injection (DEFINITY) 1.3 mL INTRAVENOUS DIRECTED PRN aspirin, enteric coated 81 mg tab(s) 81 mg ORAL DAILY rosuvastatin 20 mg tab(s) (CRESTOR) 20 mg ORAL AT BEDTIME NaCl 0.9% iv infusion 100 mL/hr INTRAVENOUS CONTINUOUS nitroglycerin sublingual 0.4 mg tab(s) (NITROQUICK) 0.4 mg SUBLINGUAL q 5 MIN PRN atropine 0.4 mg injection 0.4 mg INTRAVENOUS PRN(NO DISPENSE) DATA: Diagnostic tests reviewed for today's visit: CBC: Recent Labs 06/20/22138 WBC 9.43 RBC 3.90 HB 11.1* HCT 34.6* PLT 166 MCV 88.7 MCH 28.5 MPV 11.3 Coags: Recent Labs 06/20/2213806/19/222026 INR -- 1.0 APTT 26.0 22.5* BMP: Recent Labs 12/28/22 0139 NA 136 K 3.7 CHLOR 102 CO2 24 BUN 15 CREAT 1.19* GLUC 141* CMP: Recent Labs 06/20/22 0139 NA 136 K 3.7 CHLOR 102 CO2 24 BUN 15 CREAT 1.19* GLUC 141* CA 7.8* ANION 10 Cardiac Enzymes: No results for input(s): CK, MB, CKMB, TROPT in the last 24 hours. Liver Function, Amylase, Lipase: No results for input(s): TPROT, ALB, ALT, AST, ALKPHOS, TBILI, AMYLASE, LIPASE, LACTATE in the last 24 hours. MG/PHOS: No results for input(s): MG, P in the last 24 hours. Heme: No results for input(s): RETICP, ABSRETIC, LD, ALEJANDRO, FE, TIBC, TRANSFERSAT in the last 24 hours. Albumin/Creat Ratio (mg/g) Date Value 09/11/2021 82 (H) Problem List Chest pain POA: Yes NSTEMI (non-ST elevated myocardial infarction) (HCC) POA: Yes HOSPITAL COURSE: Assessment/Plan NSTEMI - cardiac cath today, on IV heparin, cardiology on board, ASA, statin 2. DM2 - on insulin, SSI 3. Hypothyroidism - on levothyroxine Plan of care discussed with: SIGNATURE: Taylor Michele MD PATIENT NAME: Douglas Heaton DATE: June 20, 2022 TIME: 4:27 PM PAGER/CONTACT #: My Pager 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 Mass of axilla 10/22/2011 02/06/2012 Backache, unspecified 10/13/2008 12/10/2013 Sprain and strain of unspeci fied site of shoulder and upper arm 04/22/2008 12/10/2013 Ingrowing nail 07/27/2005 02/06/2012 Pain in limb 04/30/2005 12/10/2013 Cellulitis and abscess of foot, except toes 11/0 12/200402/06/2012 Hypothyroidism 08/26/2020 Headache(784.0) 09/13/2015 Pain in joint, shoulder region 0 12/10/2013 PMH - PAST MEDICAL HISTORY OF Overview: lower back pain- in pain maangement Unspecified asthma, with status asthmaticus 03/28/2016 HTN (hypertension) 03/06/2021 documented as of this encounter (statuses as of 06/27/2022) [facility] History of Past illness Narrative* Problem Noted Date Resolved Date NSTEMI (non-ST elevated myocardial infarction) 1 08/21/2021 06/21/2022 Chest pain 06/19/2022 06/21/2022 URI, acute 09/10/2019 03/25/2020 Counseling and coordination of care 03/15/2014 11/24/2014 RLQ abdominal pain 11/06/2012 12/10/2013 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 10/27/2012 Mass of axilla 10/22/2011 02/06/2012 Backache, unspecified 10/13/2008 12/10/2013 Sprain and strain of unspeci fied site of shoulder and upper arm 04/22/2008 12/10/2013 Ingrowing nail 07/27/2005 02/06/2012 Pain in limb 04/30/2005 12/10/2013 Cellulitis and abscess of foot, except toes 11/0 12/200402/06/2012 Hypothyroidism 08/26/2020 Headache(784.0) 09/13/2015 Pain in joint, shoulder region 0 12/10/2013 PMH - PAST MEDICAL HISTORY OF Overview: lower back pain- in pain maangement Unspecified asthma, with status asthmaticus 03/28/2016 HTN (hypertension) 03/06/2021 documented as of this encounter (statuses as of 06/28/2022) [facility] History of Past illness Narrative* Problem Noted Date Resolved Date NSTEMI (non-ST elevated myocardial infarction) 1 08/21/2021 06/21/2022 Chest pain 06/19/2022 06/21/2022 URI, acute 09/10/2019 03/25/2020 Counseling and coordination of care 03/15/2014 11/24/2014 RLQ abdominal pain 11/06/2012 12/10/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 Mass of axilla 10/22/2011 02/06/2012 Backache, unspecified 10/13/2008 12/10/2013 Sprain and strain of unspeci fied site of shoulder and upper arm 04/22/2008 12/10/2013 Ingrowing nail 07/27/2005 02/06/2012 Pain in limb 04/30/2005 12/10/2013 Cellulitis and abscess of foot, except toes 12/200402/06/2012 Hypothyroidism 08/26/2020 Headache(784.0) 09/13/2015 Pain in joint, shoulder region 0 12/10/2013 PMH - PAST MEDICAL HISTORY OF Overview: lower back pain- in pain maangement Unspecified asthma, with status asthmaticus 03/28/2016 HTN (hypertension) 03/06/2021 documented as of this encounter (statuses as of 06/28/2022) [facility] History of Past illness Narrative* Problem Noted Date Resolved Date NSTEMI (non-ST elevated myocardial infarction) 1 08/21/2021 06/21/2022 Chest pain 06/19/2022 06/21/2022 URI, acute 09/10/2019 03/25/2020 Counseling and coordination of care 03/15/2014 11/24/2014 RLQ abdominal pain 11/06/2012 12/10/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 Mass of axilla 10/22/2011 02/06/2012 Backache, unspecified 10/13/2008 12/10/2013 Sprain and strain of unspeci fied site of shoulder and upper arm 04/22/2008 12/10/2013 Ingrowing nail 07/27/2005 02/06/2012 Pain in limb 04/30/2005 12/10/2013 Cellulitis and abscess of foot, except toes 11/0 12/200402/06/2012 Hypothyroidism 08/26/2020 Headache(784.0) 09/13/2015 Pain in joint, shoulder region 0 12/10/2013 PMH - PAST MEDICAL HISTORY OF Overview: lower back pain- in pain maangement Unspecified asthma, with status asthmaticus 03/28/2016 HTN (hypertension) 03/06/2021 documented as of this encounter (statuses as of 06/29/2022) [facility] History of Past illness Narrative* Problem Noted Date Resolved Date NSTEMI (non-ST elevated myocardial infarction) 1 08/21/2021 06/21/2022 Chest pain 06/19/2022 06/21/2022 URI, acute 09/10/2019 03/25/2020 Counseling and coordination of care 03/15/2014 11/24/2014 RLQ abdominal pain 11/06/2012 12/10/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 Mass of axilla 10/22/2011 02/06/2012 Backache, unspecified 10/13/2008 12/10/2013 Sprain and strain of unspeci fied site of shoulder and upper arm 04/22/2008 12/10/2013 Ingrowing nail 07/27/2005 02/06/2012 Pain in limb 04/30/2005 12/10/2013 Cellulitis and abscess of foot, except toes 11/0 12/200402/06/2012 Hypothyroidism 08/26/2020 Headache(784.0) 09/13/2015 Pain in joint, shoulder region 0 12/10/2013 PMH - PAST MEDICAL HISTORY OF Overview: lower back pain- in pain maangement Unspecified asthma, with status asthmaticus 03/28/2016 HTN (hypertension) 03/06/2021 documented as of this encounter (statuses as of 07/09/2022) [facility] History of Past illness Narrative* Problem Noted Date Resolved Date NSTEMI (non-ST elevated myocardial infarction) 1 08/21/2021 06/21/2022 Chest pain 06/19/2022 06/21/2022 URI, acute 09/10/2019 03/25/2020 Counseling and coordination of care 03/15/2014 11/24/2014 RLQ abdominal pain 11/06/2012 12/10/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 Mass of axilla 10/22/2011 02/06/2012 Backache, unspecified 10/13/2008 12/10/2013 Sprain and strain of unspeci fied site of shoulder and upper arm 04/22/2008 12/10/2013 Ingrowing nail 07/27/2005 02/06/2012 Pain in limb 04/30/2005 12/10/2013 Cellulitis and abscess of foot, except toes 12/200402/06/2012 Hypothyroidism 08/26/2020 Headache(784.0) 09/13/2015 Pain in joint, shoulder region 0 12/10/2013 PMH - PAST MEDICAL HISTORY OF Overview: lower back pain- in pain maangement Unspecified asthma, with status asthmaticus 03/28/2016 HTN (hypertension) 03/06/2021 documented as of this encounter (statuses as of 07/17/2022) [facility] History of Past illness Narrative* Problem Noted Date Resolved Date NSTEMI (non-ST elevated myocardial infarction) 1 08/21/2021 06/21/2022 Chest pain 06/19/2022 06/21/2022 URI, acute 09/10/2019 03/25/2020 Counseling and coordination of care 03/15/2014 11/24/2014 RLQ abdominal pain 11/06/2012 12/10/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 Mass of axilla 10/22/2011 02/06/2012 Backache, unspecified 10/13/2008 12/10/2013 Sprain and strain of unspeci fied site of shoulder and upper arm 04/22/2008 12/10/2013 Ingrowing nail 07/27/2005 02/06/2012 Pain in limb 04/30/2005 12/10/2013 Cellulitis and abscess of foot, except toes 0 12/200402/06/2012 Hypothyroidism 08/26/2020 Headache(784.0) 09/13/2015 Pain in joint, shoulder region 0 12/10/2013 PMH - PAST MEDICAL HISTORY OF Overview: lower back pain- in pain maangement Unspecified asthma, with status asthmaticus 03/28/2016 HTN (hypertension) 03/06/2021 documented as of this encounter (statuses as of 07/18/2022) [facility] History of Past illness Narrative* Problem Noted Date Resolved Date NSTEMI (non-ST elevated myocardial infarction) 1 08/21/2021 06/21/2022 Chest pain 06/19/2022 06/21/2022 URI, acute 09/10/2019 03/25/2020 Counseling and coordination of care 03/15/2014 11/24/2014 RLQ abdominal pain 11/06/2012 12/10/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 Mass of axilla 10/22/2011 02/06/2012 Backache, unspecified 10/13/2008 12/10/2013 Sprain and strain of unspeci fied site of shoulder and upper arm 04/22/2008 12/10/2013 Ingrowing nail 07/27/2005 02/06/2012 Pain in limb 04/30/2005 12/10/2013 Cellulitis and abscess of foot, except toes 11/0 12/200402/06/2012 Hypothyroidism 08/26/2020 Headache(784.0) 09/13/2015 Pain in joint, shoulder region 0 12/10/2013 PMH - PAST MEDICAL HISTORY OF Overview: lower back pain- in pain maangement Unspecified asthma, with status asthmaticus 03/28/2016 HTN (hypertension) 03/06/2021 documented as of this encounter (statuses as of 07/26/2022) [facility] History of Past illness Narrative* Problem Noted Date Resolved Date NSTEMI (non-ST elevated myocardial infarction) 1 08/21/2021 06/21/2022 Chest pain 06/19/2022 06/21/2022 URI, acute 09/10/2019 03/25/2020 Counseling and coordination of care 03/15/2014 11/24/2014 RLQ abdominal pain 11/06/2012 12/10/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 Mass of axilla 10/22/2011 02/06/2012 Backache, unspecified 10/13/2008 12/10/2013 Sprain and strain of unspeci fied site of shoulder and upper arm 04/22/2008 12/10/2013 Ingrowing nail 07/27/2005 02/06/2012 Pain in limb 04/30/2005 12/10/2013 Cellulitis and abscess of foot, except toes 11/0 12/200402/06/2012 Hypothyroidism 08/26/2020 Headache(784.0) 09/13/2015 Pain in joint, shoulder region 0 12/10/2013 PMH - PAST MEDICAL HISTORY OF Overview: lower back pain- in pain maangement Unspecified asthma, with status asthmaticus 03/28/2016 HTN (hypertension) 03/06/2021 documented as of this encounter (statuses as of 07/27/2022) [facility] History of Past illness Narrative* Problem Noted Date Resolved Date NSTEMI (non-ST elevated myocardial infarction) 1 08/21/2021 06/21/2022 Chest pain 06/19/2022 06/21/2022 URI, acute 09/10/2019 03/25/2020 Counseling and coordination of care 03/15/2014 11/24/2014 RLQ abdominal pain 11/06/2012 12/10/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 Mass of axilla 10/22/2011 02/06/2012 Backache, unspecified 10/13/2008 12/10/2013 Sprain and strain of unspeci fied site of shoulder and upper arm 04/22/2008 12/10/2013 Ingrowing nail 07/27/2005 02/06/2012 Pain in limb 04/30/2005 12/10/2013 Cellulitis and abscess of foot, except toes 11/0 12/200402/06/2012 Hypothyroidism 08/26/2020 Headache(784.0) 09/13/2015 Pain in joint, shoulder region 0 12/10/2013 PMH - PAST MEDICAL HISTORY OF Overview: lower back pain- in pain maangement Unspecified asthma, with status asthmaticus 03/28/2016 HTN (hypertension) 03/06/2021 documented as of this encounter (statuses as of 07/28/2022) [facility] History of Past illness Narrative* Problem Noted Date Resolved Date NSTEMI (non-ST elevated myocardial infarction) 1 08/21/2021 06/21/2022 Chest pain 06/19/2022 06/21/2022 URI, acute 09/10/2019 03/25/2020 Counseling and coordination of care 03/15/2014 11/24/2014 RLQ abdominal pain 11/06/2012 12/10/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 Mass of axilla 10/22/2011 02/06/2012 Backache, unspecified 10/13/2008 12/10/2013 Sprain and strain of unspeci fied site of shoulder and upper arm 04/22/2008 12/10/2013 Ingrowing nail 07/27/2005 02/06/2012 Pain in limb 04/30/2005 12/10/2013 Cellulitis and abscess of foot, except toes 12/200402/06/2012 Hypothyroidism 08/26/2020 Headache(784.0) 09/13/2015 Pain in joint, shoulder region 0 12/10/2013 PMH - PAST MEDICAL HISTORY OF Overview: lower back pain- in pain maangement Unspecified asthma, with status asthmaticus 03/28/2016 HTN (hypertension) 03/06/2021 documented as of this encounter (statuses as of 08/10/2022) [facility] History of Past illness Narrative* Problem Noted Date Resolved Date NSTEMI (non-ST elevated myocardial infarction) 1 08/21/2021 06/21/2022 Chest pain 06/19/2022 06/21/2022 URI, acute 09/10/2019 03/25/2020 Counseling and coordination of care 03/15/2014 11/24/2014 RLQ abdominal pain 11/06/2012 12/10/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 Mass of axilla 10/22/2011 02/06/2012 Backache, unspecified 10/13/2008 12/10/2013 Sprain and strain of unspeci fied site of shoulder and upper arm 04/22/2008 12/10/2013 Ingrowing nail 07/27/2005 02/06/2012 Pain in limb 04/30/2005 12/10/2013 Cellulitis and abscess of foot, except toes 11/0 12/200402/06/2012 Hypothyroidism 08/26/2020 Headache(784.0) 09/13/2015 Pain in joint, shoulder region 0 12/10/2013 PMH - PAST MEDICAL HISTORY OF Overview: lower back pain- in pain maangement Unspecified asthma, with status asthmaticus 03/28/2016 HTN (hypertension) 03/06/2021 documented as of this encounter (statuses as of 08/31/2022) [facility] History of Past illness Narrative* Problem Noted Date Resolved Date NSTEMI (non-ST elevated myocardial infarction) 1 08/21/2021 06/21/2022 Chest pain 06/19/2022 06/21/2022 URI, acute 09/10/2019 03/25/2020 Counseling and coordination of care 03/15/2014 11/24/2014 RLQ abdominal pain 11/06/2012 12/10/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 Mass of axilla 10/22/2011 02/06/2012 Backache, unspecified 10/13/2008 12/10/2013 Sprain and strain of unspeci fied site of shoulder and upper arm 04/22/2008 12/10/2013 Ingrowing nail 07/27/2005 02/06/2012 Pain in limb 04/30/2005 12/10/2013 Cellulitis and abscess of foot, except toes 11/0 12/200402/06/2012 Hypothyroidism 08/26/2020 Headache(784.0) 09/13/2015 Pain in joint, shoulder region 0 12/10/2013 PMH - PAST MEDICAL HISTORY OF Overview: lower back pain- in pain maangement Unspecified asthma, with status asthmaticus 03/28/2016 HTN (hypertension) 03/06/2021 documented as of this encounter (statuses as of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 11/06/2012 12/10/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 Mass of axilla 10/22/2011 02/06/2012 Backache, unspecified 10/13/2008 12/10/2013 Sprain and strain of unspeci fied site of shoulder and upper arm 04/22/2008 12/10/2013 Ingrowing nail 07/27/2005 02/06/2012 Pain in limb 04/30/2005 12/10/2013 Cellulitis and abscess of foot, except toes 11/0 12/200402/06/2012 Hypothyroidism 08/26/2020 Headache(784.0) 09/13/2015 Pain in joint, shoulder region 0 12/10/2013 PMH - PAST MEDICAL HISTORY OF Overview: lower back pain- in pain maangement Unspecified asthma, with status asthmaticus 03/28/2016 HTN (hypertension) 03/06/2021 documented as of this encounter (statuses as of 10/23/2021) [facility] illness Narrative* Problem Noted Date Resolved Date URI, acute 09/10/2019 03/25/2020 Counseling and coordination of care 03/15/2014 11/24/2014 RLQ abdominal pain 11/06/2012 12/10/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 Mass of axilla 10/22/2011 02/06/2012 Backache, unspecified 10/13/2008 12/10/2013 Sprain and strain of unspeci fied site of shoulder and upper arm 04/22/2008 12/10/2013 Ingrowing nail 07/27/2005 02/06/2012 Pain in limb 04/30/2005 12/10/2013 Cellulitis and abscess of foot, except toes 11/0 12/200402/06/2012 Hypothyroidism 08/26/2020 Headache(784.0) 09/13/2015 Pain in joint, shoulder region 0 12/10/2013 PMH - PAST MEDICAL HISTORY OF Overview: lower back pain- in pain maangement Unspecified asthma, with status asthmaticus 03/28/2016 HTN (hypertension) 03/06/2021 documented as of this encounter (statuses as of 10/23/2021) [facility] illness Narrative* Problem Noted Date Resolved Date URI, acute 09/10/2019 03/25/2020 Counseling and coordination of care 03/15/2014 11/24/2014 RLQ abdominal pain 11/06/2012 12/10/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 Mass of axilla 10/22/2011 02/06/2012 Backache, unspecified 10/13/2008 12/10/2013 Sprain and strain of unspeci fied site of shoulder and upper arm 04/22/2008 12/10/2013 Ingrowing nail 07/27/2005 02/06/2012 Pain in limb 04/30/2005 12/10/2013 Cellulitis and abscess of foot, except toes 11/0 12/200402/06/2012 Hypothyroidism 08/26/2020 Headache(784.0) 09/13/2015 Pain in joint, shoulder region 0 12/10/2013 PMH - PAST MEDICAL HISTORY OF Overview: lower back pain- in pain maangement Unspecified asthma, with status asthmaticus 03/28/2016 HTN (hypertension) 03/06/2021 documented as of this encounter (statuses as of 10/23/2021) [facility] of [facility] illness Narrative* Problem Noted Date Resolved Date URI, acute 09/10/2019 03/25/2020 Counseling and coordination of care 03/15/2014 11/24/2014 RLQ abdominal pain 11/06/2012 12/10/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 Mass of axilla 10/22/2011 02/06/2012 Backache, unspecified 10/13/2008 12/10/2013 Sprain and strain of unspeci fied site of shoulder and upper arm 04/22/2008 12/10/2013 Ingrowing nail 07/27/2005 02/06/2012 Pain in limb 04/30/2005 12/10/2013 Cellulitis and abscess of foot, except toes 11/0 12/200402/06/2012 Hypothyroidism 08/26/2020 Headache(784.0) 09/13/2015 Pain in joint, shoulder region 0 12/10/2013 PMH - PAST MEDICAL HISTORY OF Overview: lower back pain- in pain maangement Unspecified asthma, with status asthmaticus 03/28/2016 HTN (hypertension) 03/06/2021 documented as of this encounter (statuses as of 10/25/2021) [facility] Narrative* Problem Noted Date Resolved Date URI, acute 09/10/2019 03/25/2020 Counseling and coordination of care 03/15/2014 11/24/2014 RLQ abdominal pain 11/06/2012 12/10/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 Mass of axilla 10/22/2011 02/06/2012 Backache, unspecified 10/13/2008 12/10/2013 Sprain and strain of unspeci fied site of shoulder and upper arm 04/22/2008 12/10/2013 Ingrowing nail 07/27/2005 02/06/2012 Pain in limb 04/30/2005 12/10/2013 Cellulitis and abscess of foot, except toes 12/200402/06/2012 Hypothyroidism 08/26/2020 Headache(784.0) 09/13/2015 Pain in joint, shoulder region 0 12/10/2013 PMH - PAST MEDICAL HISTORY OF Overview: lower back pain- in pain maangement Unspecified asthma, with status asthmaticus 03/28/2016 HTN (hypertension) 03/06/2021 documented as of this encounter (statuses as of 12/11/2021) [facility] Narrative* Problem Noted Date Resolved Date URI, acute 09/10/2019 03/25/2020 Counseling and coordination of care 03/15/2014 11/24/2014 RLQ abdominal pain 11/06/2012 12/10/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 Mass of axilla 10/22/2011 02/06/2012 Backache, unspecified 10/13/2008 12/10/2013 Sprain and strain of unspeci fied site of shoulder and upper arm 04/22/2008 12/10/2013 Ingrowing nail 07/27/2005 02/06/2012 Pain in limb 04/30/2005 12/10/2013 Cellulitis and abscess of foot, except toes 11/0 12/200402/06/2012 Hypothyroidism 08/26/2020 Headache(784.0) 09/13/2015 Pain in joint, shoulder region 0 12/10/2013 PMH - PAST MEDICAL HISTORY OF Overview: lower back pain- in pain maangement Unspecified asthma, with status asthmaticus 03/28/2016 HTN (hypertension) 03/06/2021 documented as of this encounter (statuses as of 12/27/2021) [facility] Narrative* Problem Noted Date Resolved Date URI, acute 09/10/2019 03/25/2020 Counseling and coordination of care 03/15/2014 11/24/2014 RLQ abdominal pain 11/06/2012 12/10/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 Mass of axilla 10/22/2011 02/06/2012 Backache, unspecified 10/13/2008 12/10/2013 Sprain and strain of unspeci fied site of shoulder and upper arm 04/22/2008 12/10/2013 Ingrowing nail 07/27/2005 02/06/2012 Pain in limb 04/30/2005 12/10/2013 Cellulitis and abscess of foot, except toes 11/0 12/200402/06/2012 Hypothyroidism 08/26/2020 Headache(784.0) 09/13/2015 Pain in joint, shoulder region 0 12/10/2013 PMH - PAST MEDICAL HISTORY OF Overview: lower back pain- in pain maangement Unspecified asthma, with status asthmaticus 03/28/2016 HTN (hypertension) 03/06/2021 documented as of this encounter (statuses as of 01/25/2022) [facility] Narrative* Problem Noted Date Resolved Date URI, acute 09/10/2019 03/25/2020 Counseling and coordination of care 03/15/2014 11/24/2014 RLQ abdominal pain 11/06/2012 12/10/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 Mass of axilla 10/22/2011 02/06/2012 Backache, unspecified 10/13/2008 12/10/2013 Sprain and strain of unspeci fied site of shoulder and upper arm 04/22/2008 12/10/2013 Ingrowing nail 07/27/2005 02/06/2012 Pain in limb 04/30/2005 12/10/2013 Cellulitis and abscess of foot, except toes 11/0 12/200402/06/2012 Hypothyroidism 08/26/2020 Headache(784.0) 09/13/2015 Pain in joint, shoulder region 0 12/10/2013 PMH - PAST MEDICAL HISTORY OF Overview: lower back pain- in pain maangement Unspecified asthma, with status asthmaticus 03/28/2016 HTN (hypertension) 03/06/2021 documented as of this encounter (statuses as of 01/26/2022) [facility] Narrative* Problem Noted Date Resolved Date URI, acute 09/10/2019 03/25/2020 Counseling and coordination of care 03/15/2014 11/24/2014 RLQ abdominal pain 11/06/2012 12/10/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 Mass of axilla 10/22/2011 02/06/2012 Backache, unspecified 10/13/2008 12/10/2013 Sprain and strain of unspeci fied site of shoulder and upper arm 04/22/2008 12/10/2013 Ingrowing nail 07/27/2005 02/06/2012 Pain in limb 04/30/2005 12/10/2013 Cellulitis and abscess of foot, except toes 11/0 12/200402/06/2012 Hypothyroidism 08/26/2020 Headache(784.0) 09/13/2015 Pain in joint, shoulder region 0 12/10/2013 PMH - PAST MEDICAL HISTORY OF Overview: lower back pain- in pain maangement Unspecified asthma, with status asthmaticus 03/28/2016 HTN (hypertension) 03/06/2021 documented as of this encounter (statuses as of 01/29/2022) [facility] Narrative* Problem Noted Date Resolved Date URI, acute 09/10/2019 03/25/2020 Counseling and coordination of care 03/15/2014 11/24/2014 RLQ abdominal pain 11/06/2012 12/10/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 Mass of axilla 10/22/2011 02/06/2012 Backache, unspecified 10/13/2008 12/10/2013 Sprain and strain of unspeci fied site of shoulder and upper arm 04/22/2008 12/10/2013 Ingrowing nail 07/27/2005 02/06/2012 Pain in limb 04/30/2005 12/10/2013 Cellulitis and abscess of foot, except toes 11/0 12/200402/06/2012 Hypothyroidism 08/26/2020 Headache(784.0) 09/13/2015 Pain in joint, shoulder region 0 12/10/2013 PMH - PAST MEDICAL HISTORY OF Overview: lower back pain- in pain maangement Unspecified asthma, with status asthmaticus 03/28/2016 HTN (hypertension) 03/06/2021 documented as of this encounter (statuses as of 02/01/2022) [facility] Narrative* Problem Noted Date Resolved Date URI, acute 09/10/2019 03/25/2020 Counseling and coordination of care 03/15/2014 11/24/2014 RLQ abdominal pain 11/06/2012 12/10/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 Mass of axilla 10/22/2011 02/06/2012 Backache, unspecified 10/13/2008 12/10/2013 Sprain and strain of unspeci fied site of shoulder and upper arm 04/22/2008 12/10/2013 Ingrowing nail 07/27/2005 02/06/2012 Pain in limb 04/30/2005 12/10/2013 Cellulitis and abscess of foot, except toes 11/0 12/200402/06/2012 Hypothyroidism 08/26/2020 Headache(784.0) 09/13/2015 Pain in joint, shoulder region 0 12/10/2013 PMH - PAST MEDICAL HISTORY OF Overview: lower back pain- in pain maangement Unspecified asthma, with status asthmaticus 03/28/2016 HTN (hypertension) 03/06/2021 documented as of this encounter (statuses as of 02/08/2022) [facility] Narrative* Problem Noted Date Resolved Date URI, acute 09/10/2019 03/25/2020 Counseling and coordination of care 03/15/2014 11/24/2014 RLQ abdominal pain 11/06/2012 12/10/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 Mass of axilla 10/22/2011 02/06/2012 Backache, unspecified 10/13/2008 12/10/2013 Sprain and strain of unspeci fied site of shoulder and upper arm 04/22/2008 12/10/2013 Ingrowing nail 07/27/2005 02/06/2012 Pain in limb 04/30/2005 12/10/2013 Cellulitis and abscess of foot, except toes 12/200402/06/2012 Hypothyroidism 08/26/2020 Headache(784.0) 09/13/2015 Pain in joint, shoulder region 0 12/10/2013 PMH - PAST MEDICAL HISTORY OF Overview: lower back pain- in pain maangement Unspecified asthma, with status asthmaticus 03/28/2016 HTN (hypertension) 03/06/2021 documented as of this encounter (statuses as of 02/14/2022) [facility] Narrative* Problem Noted Date Resolved Date URI, acute 09/10/2019 03/25/2020 Counseling and coordination of care 03/15/2014 11/24/2014 RLQ abdominal pain 11/06/2012 12/10/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 Mass of axilla 10/22/2011 02/06/2012 Backache, unspecified 10/13/2008 12/10/2013 Sprain and strain of unspeci fied site of shoulder and upper arm 04/22/2008 12/10/2013 Ingrowing nail 07/27/2005 02/06/2012 Pain in limb 04/30/2005 12/10/2013 Cellulitis and abscess of foot, except toes 11/0 12/200402/06/2012 Hypothyroidism 08/26/2020 Headache(784.0) 09/13/2015 Pain in joint, shoulder region 0 12/10/2013 PMH - PAST MEDICAL HISTORY OF Overview: lower back pain- in pain maangement Unspecified asthma, with status asthmaticus 03/28/2016 HTN (hypertension) 03/06/2021 documented as of this encounter (statuses as of 02/28/2022) [facility] Narrative* Problem Noted Date Resolved Date URI, acute 09/10/2019 03/25/2020 Counseling and coordination of care 03/15/2014 11/24/2014 RLQ abdominal pain 11/06/2012 12/10/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 Mass of axilla 10/22/2011 02/06/2012 Backache, unspecified 10/13/2008 12/10/2013 Sprain and strain of unspeci fied site of shoulder and upper arm 04/22/2008 12/10/2013 Ingrowing nail 07/27/2005 02/06/2012 Pain in limb 04/30/2005 12/10/2013 Cellulitis and abscess of foot, except toes 11/0 12/200402/06/2012 Hypothyroidism 08/26/2020 Headache(784.0) 09/13/2015 Pain in joint, shoulder region 0 12/10/2013 PMH - PAST MEDICAL HISTORY OF Overview: lower back pain- in pain maangement Unspecified asthma, with status asthmaticus 03/28/2016 HTN (hypertension) 03/06/2021 documented as of this encounter (statuses as of 03/05/2022) [facility] Narrative* Problem Noted Date Resolved Date URI, acute 09/10/2019 03/25/2020 Counseling and coordination of care 03/15/2014 11/24/2014 RLQ abdominal pain 11/06/2012 12/10/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 Mass of axilla 10/22/2011 02/06/2012 Backache, unspecified 10/13/2008 12/10/2013 Sprain and strain of unspeci fied site of shoulder and upper arm 04/22/2008 12/10/2013 Ingrowing nail 07/27/2005 02/06/2012 Pain in limb 04/30/2005 12/10/2013 Cellulitis and abscess of foot, except toes 11/0 12/200402/06/2012 Hypothyroidism 08/26/2020 Headache(784.0) 09/13/2015 Pain in joint, shoulder region 0 12/10/2013 PMH - PAST MEDICAL HISTORY OF Overview: lower back pain- in pain maangement Unspecified asthma, with status asthmaticus 03/28/2016 HTN (hypertension) 03/06/2021 documented as of this encounter (statuses as of 05/02/2022) [facility] Narrative* Problem Noted Date Resolved Date URI, acute 09/10/2019 03/25/2020 Counseling and coordination of care 03/15/2014 11/24/2014 RLQ abdominal pain 11/06/2012 12/10/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 Mass of axilla 10/22/2011 02/06/2012 Backache, unspecified 10/13/2008 12/10/2013 Sprain and strain of unspeci fied site of shoulder and upper arm 04/22/2008 12/10/2013 Ingrowing nail 07/27/2005 02/06/2012 Pain in limb 04/30/2005 12/10/2013 Cellulitis and abscess of foot, except toes 11/0 12/200402/06/2012 Hypothyroidism 08/26/2020 Headache(784.0) 09/13/2015 Pain in joint, shoulder region 0 12/10/2013 PMH - PAST MEDICAL HISTORY OF Overview: lower back pain- in pain maangement Unspecified asthma, with status asthmaticus 03/28/2016 HTN (hypertension) 03/06/2021 documented as of this encounter (statuses as of 05/08/2022) [facility] Narrative* Problem Noted Date Resolved Date URI, acute 09/10/2019 03/25/2020 Counseling and coordination of care 03/15/2014 11/24/2014 RLQ abdominal pain 11/06/2012 12/10/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 Mass of axilla 10/22/2011 02/06/2012 Backache, unspecified 10/13/2008 12/10/2013 Sprain and strain of unspeci fied site of shoulder and upper arm 04/22/2008 12/10/2013 Ingrowing nail 07/27/2005 02/06/2012 Pain in limb 04/30/2005 12/10/2013 Cellulitis and abscess of foot, except toes 11/0 12/200402/06/2012 Hypothyroidism 08/26/2020 Headache(784.0) 09/13/2015 Pain in joint, shoulder region 0 12/10/2013 PMH - PAST MEDICAL HISTORY OF Overview: lower back pain- in pain maangement Unspecified asthma, with status asthmaticus 03/28/2016 HTN (hypertension) 03/06/2021 documented as of this encounter (statuses as of 05/10/2022) [facility] Narrative* Problem Noted Date Resolved Date URI, acute 09/10/2019 03/25/2020 Counseling and coordination of care 03/15/2014 11/24/2014 RLQ abdominal pain 11/06/2012 12/10/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 Mass of axilla 10/22/2011 02/06/2012 Backache, unspecified 10/13/2008 12/10/2013 Sprain and strain of unspeci fied site of shoulder and upper arm 04/22/2008 12/10/2013 Ingrowing nail 07/27/2005 02/06/2012 Pain in limb 04/30/2005 12/10/2013 Cellulitis and abscess of foot, except toes 11/0 12/200402/06/2012 Hypothyroidism 08/26/2020 Headache(784.0) 09/13/2015 Pain in joint, shoulder region 0 12/10/2013 PMH - PAST MEDICAL HISTORY OF Overview: lower back pain- in pain maangement Unspecified asthma, with status asthmaticus 03/28/2016 HTN (hypertension) 03/06/2021 documented as of this encounter (statuses as of 05/18/2022) [facility] Narrative* Problem Noted Date Resolved Date URI, acute 09/10/2019 03/25/2020 Counseling and coordination of care 03/15/2014 11/24/2014 RLQ abdominal pain 11/06/2012 12/10/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 Mass of axilla 10/22/2011 02/06/2012 Backache, unspecified 10/13/2008 12/10/2013 Sprain and strain of unspeci fied site of shoulder and upper arm 04/22/2008 12/10/2013 Ingrowing nail 07/27/2005 02/06/2012 Pain in limb 04/30/2005 12/10/2013 Cellulitis and abscess of foot, except toes 12/200402/06/2012 Hypothyroidism 08/26/2020 Headache(784.0) 09/13/2015 Pain in joint, shoulder region 0 12/10/2013 PMH - PAST MEDICAL HISTORY OF Overview: lower back pain- in pain maangement Unspecified asthma, with status asthmaticus 03/28/2016 HTN (hypertension) 03/06/2021 documented as of this encounter (statuses as of 06/07/2022) [facility] Diagnosis Bronchitis Bronchitis, not specified as acute or chronic Mixed hyperlipidemia [facility] Diagnosis Vagina itching- Primary Pruritus of genital organs Encounter for Papanicolaou smear for cervical cancer screening Special screening examination for human papillomavirus (HPV) [facility]* Diagnosis Controlled type 2 diabetes mellitus without complication, with long-term current use of insulin (HCC) [facility]* Diagnosis Obesity hypoventilation syndrome (HCC)- Primary Obesity hypoventilation syndrome Controlled type 2 diabetes mellitus without complication, with long-term current use of insulin ([facility]) [facility]* Diagnosis Chronic pain of both knees- Primary Cutaneous candidiasis Candidiasis of skin and nails Class 3 severe obesity with body mass index (BMI) of 50.0 to 59.9 in adult, unspecified obesity type, unspecified whether serious comorbidity present (HCC) Spina bifida, unspecified hydrocephalus presence, unspecified spinal region ([facility]) [facility] Diagnosis Controlled type 2 diabetes mellitus without complication, with long-term current use of insulin ([facility]) [facility]* Diagnosis Lightheaded- Primary Dizziness and giddiness VENANCIO (obstructive sleep apnea) Obstructive sleep apnea (adult) (pediatric) Stage 3a chronic kidney disease (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) Adjustment disorder with depressed mood Obesity, Class III, BMI 40-49.9 (morbid obesity) (HCC) Morbid obesity Low HDL (under 40) Lipoprotein deficiencies Hypertriglyceridemia Pure hyperglyceridemia Mixed hyperlipidemia Diarrhea, unspecified type [facility]* Diagnosis Diarrhea of presumed infectious origin- Primary Controlled type 2 diabetes mellitus without complication, with long-term current use of insulin ([facility])- Primary Hypothyroidism, acquired Unspecified hypothyroidism Poorly controlled type 2 diabetes mellitus (HCC) Type II or unspecified type diabetes mellitus without mention of complication, not stated as uncontrolled [facility] Diagnosis Adjustment disorder with depressed mood- Primary Screening for colon cancer Special screening for malignant neoplasms, colon Stage 3a chronic kidney disease (HCC) Controlled type 2 diabetes mellitus without complication, with long-term current use of insulin ([facility]) Hypothyroidism, acquired Unspecified hypothyroidism documented [facility]* Diagnosis Uncontrolled type 2 diabetes mellitus with hyperglycemia, with long-term current use of insulin ([facility])- Primary Eczema, unspecified type [facility]* Diagnosis Controlled type 2 diabetes mellitus without complication, with long-term current use of insulin ([facility]) [facility]* Diagnosis Herpes simplex- Primary Herpes simplex without mention of complication [facility]* Diagnosis Arm pain, anterior, right- Primary documented [facility]* Diagnosis Injury of right radial artery, subsequent encounter- Primary [facility] Diagnosis NSTEMI (non-ST elevated myocardial infarction) (HCC)- Primary Acute myocardial infarction, subendocardial infarction, episode of care unspecified Injury of right radial artery, subsequent encounter S/P left heart catheterization by percutaneous approach Other postprocedural status Uncontrolled type 2 diabetes mellitus with hyperglycemia, with long-term current use of insulin (HCC) Mixed hyperlipidemia Spina bifida, unspecified hydrocephalus presence, unspecified spinal region (HCC) DiGeorge syndrome (HCC) DiGeorge's syndrome Stage 3a chronic kidney disease (HCC) Other kyphoscoliosis and scoliosis Pes planus of both feet Type 2 diabetes mellitus without complication, 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) documented in this encounter [facility] note* Diagnosis Encounter for screening mammogram for breast cancer [facility]* Diagnosis Bronchitis Bronchitis, not specified as acute or chronic documented [facility]* Diagnosis Vulvar irritation- Primary Other specified noninflammatory disorder of vulva and perineum [facility]* Diagnosis Uncontrolled type 2 diabetes mellitus with hyperglycemia, with long-term current use of insulin (HCC)- Primary NSTEMI (non-ST elevated myocardial infarction) (HCC) Acute myocardial infarction, subendocardial infarction, episode of care unspecified Injury of right radial artery, subsequent encounter Eczema, unspecified type [facility]* Diagnosis Controlled type 2 diabetes mellitus without complication, with long-term current use of insulin (HCC) documented in this encounter [facility] note* Diagnosis Uncontrolled type 2 diabetes mellitus with hyperglycemia, with long-term current use of insulin (HCC) Controlled type 2 diabetes mellitus without complication, with long-term current use of insulin (HCC) documented in this encounter [facility] note* Diagnosis Spina bifida, unspecified hydrocephalus presence, unspecified spinal region (HCC)- Primary Chronic pain of both knees [facility]* Diagnosis Controlled type 2 diabetes mellitus without complication, with long-term current use of insulin (HCC) [facility]* Diagnosis Bronchitis Bronchitis, not specified as acute or chronic documented in this encounter [facility] note* Diagnosis VENANCIO (obstructive sleep apnea)- Primary Obstructive sleep apnea (adult) (pediatric) documented in this encounter [facility] note* Diagnosis Controlled type 2 diabetes mellitus without complication, with long-term current use of insulin (HCC) documented [facility] this [facility]* Diagnosis VENANCIO (obstructive sleep apnea)- Primary Obstructive sleep apnea (adult) (pediatric) [facility] Diagnosis Encounter for screening mammogram for breast cancer documented in this encounter [facility] for referral (narrative)* Diagnostic Procedure Only (Routine) - Pending Review Specialty Diagnoses / Procedures Referred By Yasmany peralta Referred To Contact [facility] Diagnoses Encounter for screening mammogram for breast cancer Procedures ARNOL SCREENING SCREENING MAMMOGRAPHY BI 2-VIEW BREAST INC Armen Barber MD [address] [place] [address] [facility] [address] [place] [address] Referral ID Status Reason Start Date Expiration Date Visits Requested Visits Authorized [id number] Pending Review Auto-Generat ed Referral 07/04/2022 08/03/2023 1 1 [facility] for referral (narrative)* Diagnostic Procedure Only (Routine) - Pending Review Specialty Diagnoses / Procedures Referred By Yasmany peralta Referred To Contact [facility] Diagnoses Encounter for screening mammogram for breast cancer Procedures ARNOL SCREENING SCREENING MAMMOGRAPHY BI 2-VIEW BREAST INC Armen Barber MD [address] [place] [address] [facility] [address] [place] [address] Referral ID Status Reason Start Date Expiration Date Visits Requested Visits Authorized [id number] Pending Review Auto-Generat ed Referral 3 07/11/2024 1 1 [facility] Reason for Referral Specialty Diagnoses / Procedures Referred By Contac t Referred To Contact Diagnoses Bronchitis Armen Rahman MD [address] [place] [id number] Referral ID Status Reason Start Date Expiration Date Visits Re quested Visits Authorized [id number] Closed 1 1 Specialty Diagnoses / Procedures Referred By Contac t Referred To Contact Endocrinology Diagnoses Controlled type 2 diabetes mellitus without complication, with long-term current use of insulin (HCC) Procedures CONSULT TO ENDOCRINOLOGY OFFICE/OUTPATIENT [facility] 60-74 MINUTES Armen Rahman MD [address] [place] [address] Referral ID Status Reason Start Date Expiration Date Visits Requested Visits Authorized [id number] Authorized PCP Requested Referral 01/26/2022 01/26/2023 1 1 Specialty Diagnoses / Procedures Referred By Contac t Referred To Contact General Surgery Diagnoses Screening for colon cancer Procedures CONSULT TO GENERAL SURGERY OFFICE/OUTPATIENT [facility] 60-74 MINUTES Armen Rahman MD [address] [place] [id number] Referral ID Status Reason Start Date Expiration Date Visits Requested Visits Authorized [id number] Authorized PCP Requested Referral 02/28/2022 02/28/2023 1 1 Specialty Diagnoses / Procedures Referred By Contac t Referred To Contact Armen Rahman MD [address] [place] [address] Referral ID Status Reason Start Date Expiration Date Visits Re quested Visits Authorized [id number] Closed 1 1 Specialty Diagnoses / Procedures Referred By Contac t Referred To Contact Vascular Surgery Diagnoses Injury of right radial artery, subsequent encounter Procedures CONSULT TO VASCULAR SURGERY OFFICE/OUTPATIENT [facility] 60-74 MINUTES Armen Rahman MD [address] [place] [phone] Referral ID Status Reason Start Date Expiration Date Visits Requested Visits Authorized [id number] Authorized PCP Requested Referral 06/26/2022 06/26/2023 1 1 Specialty Diagnoses / Procedures Referred By Contac t Referred To Contact Cardiology Diagnoses NSTEMI (non-ST elevated myocardial infarction) (HCC) S/P left heart catheterization by percutaneous approach Procedures CONSULT TO CARDIOLOGY OFFICE/OUTPATIENT [facility] 60-74 MINUTES Armen Rahman MD [address] [place] [address] Referral ID Status Reason Start Date Expiration Date Visits Requested Visits Authorized [id number] Authorized PCP Requested Referral 06/28/2022 06/28/2023 1 1 Specialty Diagnoses / Procedures Referred By Contac t Referred To Contact Diagnoses Bronchitis Adriana James APRN.[employer] [address] [place] [address] Referral ID Status Reason Start Date Expiration Date Visits Re quested Visits Authorized [id number] Closed 1 1 Specialty Diagnoses / Procedures Referred By Contac t Referred To Contact Diagnoses Uncontrolled type 2 diabetes mellitus with hyperglycemia, with long-term current use of insulin (HCC) Armen Rahman MD [address] [place] [address] Referral ID Status Reason Start Date Expiration Date Visits Re quested Visits Authorized [id number] Closed 1 1 Advance Directives No Advanced Directives Records FoundDocuments on File Type Date Recorded 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 Advance Directive(s) 08/03/2021 12:23 PM Advance Directive(s) 03/21/2021 2:33 PM Advance Directive(s) 03/01/2021 12:53 PM Advance Directive(s) 10/31/2020 2:20 PM Documents on File Type Date Recorded 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 Advance Directive(s) 08/03/2021 12:23 PM Advance Directive(s) 03/21/2021 2:33 PM Advance Directive(s) 03/01/2021 12:53 PM Advance Directive(s) 10/31/2020 2:20 PM Health Concerns Infection Onset Date Last Indicated Resolved Time COVID-19 Rule-Out 02/07/2022 02/07/2022 02/08/2022 12:58 AM EDT Infection Onset Date Last Indicated Resolved Time COVID-19 Confirmed 06/06/2022 06/06/2022 Summary Purpose Family History No Family History Records FoundNo Family History Records Found Additional Source Comments Source Comments (unrecognize d section and content) In the event this informatio n is protected by the Federal Confidentiality of Alcohol and Drug Abuse Patient Records regulations: The Federal rules restrict any use of the information to criminally investigate or prosecute any alcohol or drug abuse patient.[facility] event this information is protected by the Federal Confidentiality of Alcohol and Drug Abuse Patient Records regulations: The Federal rules restrict any use of the information to criminally investigate or prosecute any alcohol or drug abuse patient.[facility] the event this information is protected by the Federal Confidentiality of Alcohol and Drug Abuse Patient Records regulations: The Federal rules restrict any use of the information to criminally investigate or prosecute any alcohol or drug abuse patient.[facility] the event this information is protected by the Federal Confidentiality of Alcohol and Drug Abuse Patient Records regulations: The Federal rules restrict any use of the information to criminally investigate or prosecute any alcohol or drug abuse patient.[facility] HealthcareIn the event this information is protected by the Federal Confidentiality of Alcohol and Drug Abuse Patient Records regulations: The Federal rules restrict any use of the information to criminally investigate or prosecute any alcohol or drug abuse patient.[facility] Healthcare[facility] the event this information is protected by the Federal Confidentiality of Alcohol and Drug Abuse Patient Records regulations: The Federal rules restrict any use of the information to criminally investigate or prosecute any alcohol or drug abuse patient.[facility] HealthcareIn the event this information is protected by the Federal Confidentiality of Alcohol and Drug Abuse Patient Records regulations: The Federal rules restrict any use of the information to criminally investigate or prosecute any alcohol or drug abuse patient.[facility] the event this information is protected by the Federal Confidentiality of Alcohol and Drug Abuse Patient Records regulations: The Federal rules restrict any use of the information to criminally investigate or prosecute any alcohol or drug abuse patient.[facility] the event this information is protected by the Federal Confidentiality of Alcohol and Drug Abuse Patient Records regulations: The Federal rules restrict any use of the information to criminally investigate or prosecute any alcohol or drug abuse patient.[facility] HealthcareIn the event this information is protected by the Federal Confidentiality of Alcohol and Drug Abuse Patient Records regulations: The Federal rules restrict any use of the information to criminally investigate or prosecute any alcohol or drug abuse patient.[facility] HealthcareIn the event this information is protected by the Federal Confidentiality of Alcohol and Drug Abuse Patient Records regulations: The Federal rules restrict any use of the information to criminally investigate or prosecute any alcohol or drug abuse patient.[facility] HealthcareIn the event this information is protected by the Federal Confidentiality of Alcohol and Drug Abuse Patient Records regulations: The Federal rules restrict any use of the information to criminally investigate or prosecute any alcohol or drug abuse patient.[facility] HealthcareIn the event this information is protected by the Federal Confidentiality of Alcohol and Drug Abuse Patient Records regulations: The Federal rules restrict any use of the information to criminally investigate or prosecute any alcohol or drug abuse patient.[facility] HealthcareIn the event this information is protected by the Federal Confidentiality of Alcohol and Drug Abuse Patient Records regulations: The Federal rules restrict any use of the information to criminally investigate or prosecute any alcohol or drug abuse patient.[facility] HealthcareIn the event this information is protected by the Federal Confidentiality of Alcohol and Drug Abuse Patient Records regulations: The Federal rules restrict any use of the information to criminally investigate or prosecute any alcohol or drug abuse patient.[facility] HealthcareIn the event this information is protected by the Federal Confidentiality of Alcohol and Drug Abuse Patient Records regulations: The Federal rules restrict any use of the information to criminally investigate or prosecute any alcohol or drug abuse patient.[facility] HealthcareIn the event this information is protected by the Federal Confidentiality of Alcohol and Drug Abuse Patient Records regulations: The Federal rules restrict any use of the information to criminally investigate or prosecute any alcohol or drug abuse patient.[facility] HealthcareIn the event this information is protected by the Federal Confidentiality of Alcohol and Drug Abuse Patient Records regulations: The Federal rules restrict any use of the information to criminally investigate or prosecute any alcohol or drug abuse patient.[facility] HealthcareIn the event this information is protected by the Federal Confidentiality of Alcohol and Drug Abuse Patient Records regulations: The Federal rules restrict any use of the information to criminally investigate or prosecute any alcohol or drug abuse patient.[facility] HealthcareIn the event this information is protected by the Federal Confidentiality of Alcohol and Drug Abuse Patient Records regulations: The Federal rules restrict any use of the information to criminally investigate or prosecute any alcohol or drug abuse patient.[facility] HealthcareIn the event this information is protected by the Federal Confidentiality of Alcohol and Drug Abuse Patient Records regulations: The Federal rules restrict any use of the information to criminally investigate or prosecute any alcohol or drug abuse patient.[facility] HealthcareIn the event this information is protected by the Federal Confidentiality of Alcohol and Drug Abuse Patient Records regulations: The Federal rules restrict any use of the information to criminally investigate or prosecute any alcohol or drug abuse patient.[facility] HealthcareIn the event this information is protected by the Federal Confidentiality of Alcohol and Drug Abuse Patient Records regulations: The Federal rules restrict any use of the information to criminally investigate or prosecute any alcohol or drug abuse patient.[facility] HealthcareIn the event this information is protected by the Federal Confidentiality of Alcohol and Drug Abuse Patient Records regulations: The Federal rules restrict any use of the information to criminally investigate or prosecute any alcohol or drug abuse patient.[facility] the event this information is protected by the Federal Confidentiality of Alcohol and Drug Abuse Patient Records regulations: The Federal rules restrict any use of the information to criminally investigate or prosecute any alcohol or drug abuse patient.[facility] HealthcareIn the event this information is protected by the Federal Confidentiality of Alcohol and Drug Abuse Patient Records regulations: The Federal rules restrict any use of the information to criminally investigate or prosecute any alcohol or drug abuse patient.[facility] HealthcareIn the event this information is protected by the Federal Confidentiality of Alcohol and Drug Abuse Patient Records regulations: The Federal rules restrict any use of the information to criminally investigate or prosecute any alcohol or drug abuse patient.[facility] the event this information is protected by the Federal Confidentiality of Alcohol and Drug Abuse Patient Records regulations: The Federal rules restrict any use of the information to criminally investigate or prosecute any alcohol or drug abuse patient.[facility] HealthcareIn the event this information is protected by the Federal Confidentiality of Alcohol and Drug Abuse Patient Records regulations: The Federal rules restrict any use of the information to criminally investigate or prosecute any alcohol or drug abuse patient.[facility] HealthcareIn the event this information is protected by the Federal Confidentiality of Alcohol and Drug Abuse Patient Records regulations: The Federal rules restrict any use of the information to criminally investigate or prosecute any alcohol or drug abuse patient.[facility] HealthcareIn the event this information is protected by the Federal Confidentiality of Alcohol and Drug Abuse Patient Records regulations: The Federal rules restrict any use of the information to criminally investigate or prosecute any alcohol or drug abuse patient.[facility]In the event this information is protected by the Federal Confidentiality of Alcohol and Drug Abuse Patient Records regulations: The Federal rules restrict any use of the information to criminally investigate or prosecute any alcohol or drug abuse patient.[facility]In the event this information is protected by the Federal Confidentiality of Alcohol and Drug Abuse Patient Records regulations: The Federal rules restrict any use of the information to criminally investigate or prosecute any alcohol or drug abuse patient.[facility] HealthcareIn the event this information is protected by the Federal Confidentiality of Alcohol and Drug Abuse Patient Records regulations: The Federal rules restrict any use of the information to criminally investigate or prosecute any alcohol or drug abuse patient.[facility]In the event this information is protected by the Federal Confidentiality of Alcohol and Drug Abuse Patient Records regulations: The Federal rules restrict any use of the information to criminally investigate or prosecute any alcohol or drug abuse patient.[facility]In the event this information is protected by the Federal Confidentiality of Alcohol and Drug Abuse Patient Records regulations: The Federal rules restrict any use of the information to criminally investigate or prosecute any alcohol or drug abuse patient.[facility]In the event this information is protected by the Federal Confidentiality of Alcohol and Drug Abuse Patient Records regulations: The Federal rules restrict any use of the information to criminally investigate or prosecute any alcohol or drug abuse patient.[facility]In the event this information is protected by the Federal Confidentiality of Alcohol and Drug Abuse Patient Records regulations: The Federal rules restrict any use of the information to criminally investigate or prosecute any alcohol or drug abuse patient.[facility] HealthcareIn the event this information is protected by the Federal Confidentiality of Alcohol and Drug Abuse Patient Records regulations: The Federal rules restrict any use of the information to criminally investigate or prosecute any alcohol or drug abuse patient.[facility] HealthcareIn the event this information is protected by the Federal Confidentiality of Alcohol and Drug Abuse Patient Records regulations: The Federal rules restrict any use of the information to criminally investigate or prosecute any alcohol or drug abuse patient.[facility]In the event this information is protected by the Federal Confidentiality of Alcohol and Drug Abuse Patient Records regulations: The Federal rules restrict any use of the information to criminally investigate or prosecute any alcohol or drug abuse patient.[facility] HealthcareIn the event this information is protected by the Federal Confidentiality of Alcohol and Drug Abuse Patient Records regulations: The Federal rules restrict any use of the information to criminally investigate or prosecute any alcohol or drug abuse patient.[facility] HealthcareIn the event this information is protected by the Federal Confidentiality of Alcohol and Drug Abuse Patient Records regulations: The Federal rules restrict any use of the information to criminally investigate or prosecute any alcohol or drug abuse patient.[facility] HealthcareIn the event this information is protected by the Federal Confidentiality of Alcohol and Drug Abuse Patient Records regulations: The Federal rules restrict any use of the information to criminally investigate or prosecute any alcohol or drug abuse patient.[facility] HealthcareIn the event this information is protected by the Federal Confidentiality of Alcohol and Drug Abuse Patient Records regulations: The Federal rules restrict any use of the information to criminally investigate or prosecute any alcohol or drug abuse patient.[facility] HealthcareIn the event this information is protected by the Federal Confidentiality of Alcohol and Drug Abuse Patient Records regulations: The Federal rules restrict any use of the information to criminally investigate or prosecute any alcohol or drug abuse patient.[facility] HealthcareIn the event this information is protected by the Federal Confidentiality of Alcohol and Drug Abuse Patient Records regulations: The Federal rules restrict any use of the information to criminally investigate or prosecute any alcohol or drug abuse patient.[facility] HealthcareIn the event this information is protected by the Federal Confidentiality of Alcohol and Drug Abuse Patient Records regulations: The Federal rules restrict any use of the information to criminally investigate or prosecute any alcohol or drug abuse patient.[facility] HealthcareIn the event this information is protected by the Federal Confidentiality of Alcohol and Drug Abuse Patient Records regulations: The Federal rules restrict any use of the information to criminally investigate or prosecute any alcohol or drug abuse patient.[facility] HealthcareIn the event this information is protected by the Federal Confidentiality of Alcohol and Drug Abuse Patient Records regulations: The Federal rules restrict any use of the information to criminally investigate or prosecute any alcohol or drug abuse patient.[facility] HealthcareIn the event this information is protected by the Federal Confidentiality of Alcohol and Drug Abuse Patient Records regulations: The Federal rules restrict any use of the information to criminally investigate or prosecute any alcohol or drug abuse patient.[facility] HealthcareIn the event this information is protected by the Federal Confidentiality of Alcohol and Drug Abuse Patient Records regulations: The Federal rules restrict any use of the information to criminally investigate or prosecute any alcohol or drug abuse patient.[facility] Reason for Visit (unrecogniz ed section and content) Reason Comments Medication Problem Reason Comments Vaginal Problem Reason Onset Date Comments Refill Request 10/23/2021 Reason Comments Question new diabetic supplie s Question Oximeter prescriptio n Reason Comments rx update Reason Comments handicapp placard Reason Comments Patient Question Reason Onset Date Comments Refill Request 11/27/2021 Reason Comments Dizziness Lightheaded X 2-4 da ys Diarrhea Intermittent stomach es for the past month. A couple episodes of fecal incontinence Stress Incontinence Reason Comments Results Reason Comments Results Reason Comments Lab Orders Reason Comments Follow Up 4 week follow up Reason Comments Order to discontinue oxygen Reason Onset Date Comments Refill Request 05/02/2022 Reason Comments Orders D/C oxygen send estela er to [facility] Reason Comments Discussion Would like to talk a bout getting a Freestyle cruz Reason Onset Date Comments Refill Request 05/18/2022 Reason Comments Patient Update Patient Request Reason Onset Date Comments Transition Of Care 06/22/2022 Discharged 12 .29.23 initial outreach Reason Comments requesting medication Reason Comments Transition Of Care Reason Onset Date Comments Refill Request 07/17/2022 Reason Onset Date Comments Refill Request 07/18/2022 Reason Comments Vaginal Problem No longer having bur rafael, only itching Reason Comments Follow Up Reason Onset Date Comments Refill Request 08/31/2022 Reason Comments pt having issues with CPAP Reason Comments Throat Problem Reason Onset Date Comments Refill Request 11/20/2022 Reason Comments Rollator Request Reason Onset Date Comments Refill Request 12/06/2022 Reason Onset Date Comments Refill Request 12/31/2022 Reason Comments Patient Request Reason Comments CPAP Supplies Reason Comments Patient Update Reason Comments Handicap Placard Request Reason Comments NEW PRIMARY CARE PHARMACY APPT Reason Comments Forms Reason Onset Date Comments Refill Request 04/16/2023 Reason Comments Refill Request Care Teams (unrecognized sec tion and content) [employer] Relationship Specialty Start Date End Date Armen Rahman MD [address] [facility] [place] [address] PCP - General Family Practice 07/13/17 [employer] Helper Relationship Specialty Start Date End Date Armen Rahman MD [address] [facility] [place] [address] PCP - General Family Practice 07/13/17 C[employer] Farm Helper Relationship Specialty Start Date End Date Armen Rahman MD [address] [facility] [place] [address] PCP - General Family Practice 07/13/17 C[employer] Farm Helper Relationship Specialty [place] [address] [place] [address] [place] [address] PCP - General Family Practice 07/13/17 C[employer] Farm Helper Relationship Specialty Start Date End Date Armen Rahman MD [address] [facility] [place] [address] PCP - General Family Practice 07/13/17 C[employer] Farm Helper Relationship Specialty [place] [address] [place] [address], [place] [address] PCP - General Family Practice 07/13/17 C[employer] Farm Helper Relationship Specialty Start Date End Date Armen Rahman MD [address] [facility] [place] [address] PCP - General Family Practice 07/13/17 C[employer] Farm Helper Relationship Specialty [place] [address] [place] [address], [place] [address] PCP - General Family Practice 07/13/17 [employer] Farm Helper Relationship Specialty Start Date End Date Armen Rahman MD [address] [place] [address], [place] [address] PCP - General Family Practice 07/13/17 C[employer] Farm Helper Relationship Specialty Start Date End Date Armen Rahman MD [address] [place] [address], [place] [address] PCP - General Family Practice 07/13/17 C[employer] Farm Helper Relationship Specialty Start Date End Date Armen Rahman MD [address] [place] [address], [place] [address] PCP - General Family Practice 07/13/17 C[employer] Farm Helper Relationship Specialty Start Date End Date Armen Rahman MD [address] [place] [address], [place] [address] PCP - General Family Practice 07/13/17 C[employer] Farm Helper Relationship Specialty Start Date End Date Armen Rahman MD [address] [place] [address], [place] [address] PCP - General Family Practice 07/13/17 C[employer] Farm Helper Relationship Specialty Start Date End Date Armen Rahman MD [address] [place] [address], [place] [address] PCP - General Family Medicine 07/13/17 C[employer] Farm Helper Relationship Specialty Start Date End Date Armen Rahman MD [address] [place] [address], [place] [address] PCP - General Family Medicine 07/13/17 C[employer] Farm Helper Relationship Specialty Start Date End Date Armen Rahman MD [address] [facility] [place] [address] PCP - General Family Medicine 07/13/17 C[employer] Farm Helper Relationship Specialty Start Date End Date Armen Rahman MD [address] [facility] [place] [address] PCP - General Family Medicine 07/13/17 C[employer] Farm Helper Relationship Specialty Start Date End Date Armen Rahman MD [address] [place] [address], [place] [address] PCP - General Family Medicine 07/13/17 C[employer] Farm Helper Relationship Specialty Start Date End Date Armen Rahman MD [address] [place] [address], [place] [address] PCP - General Family Medicine 07/13/17 C[employer] Farm Helper Relationship Specialty Start Date End Date Armen Rahman MD [address] [place] [address], [place] [address] PCP - General Family Medicine 07/13/17 C[employer] Farm Helper Relationship Specialty Start Date End Date Armen Rahman MD [facility] [facility] [place] [address] PCP - General Family Medicine 07/13/17 C[employer] Farm Helper Relationship Specialty Start Date End Date Armen Rahman MD [address] [place] [address], [place] [address] PCP - General Family Medicine 07/13/17 C[employer] Farm Helper Relationship Specialty Start Date End Date Armen Rahman MD [facility] [place] [address] PCP - General Family Medicine 07/13/17 C[employer] Farm Helper Relationship Specialty Start Date End Date Armen Rahman MD [address] [place] [address], [place] [address] PCP - General Family Medicine 07/13/17 C[employer] Farm Helper Relationship Specialty Start Date End Date Armen Rahman MD [address] [facility] [place] [address] PCP - General Family Medicine 07/13/17 C[employer] Farm Helper Relationship Specialty Start Date End Date Armen Rahman MD [address] [place] [address] PCP - General Family Medicine 07/13/17 C[employer] Farm Helper Relationship Specialty Start Date End Date Armen Rahman MD [address] [place] [address] PCP - General Family Medicine 07/13/17 C[employer] Farm Helper Relationship Specialty Start Date End Date Armen Rahman MD [address] [place] [address] PCP - General Family Medicine 07/13/17 C[employer] Farm Helper Relationship Specialty Start Date End Date Armen Rahman MD [address] [place] [address] PCP - General Family Medicine 07/13/17 C[employer] Farm Helper Relationship Specialty Start Date End Date Armen Rahman MD [address] [place] [address] PCP - General Family Medicine 07/13/17 C[employer] Farm Helper Relationship Specialty Start Date End Date Armen Rahman MD [address] [place] [address] PCP - General Family Medicine 07/13/17 C[employer] 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 Relationship Specialty Start Date End Date Armen Rahman MD [address] [place] [address] PCP - General Family Medicine 07/13/17 C[employer] 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 Relationship Specialty Start Date End Date Armen Rahman MD [address] [place] [address] PCP - General Family Medicine 07/13/17 C[employer] 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 Relationship Specialty Start Date End Date Armen Rahman MD [address] [place], [place] [address] PCP - General Family Medicine 07/13/17 C[employer] 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 Relationship Specialty Start Date End Date Armen Rahman MD [address] [place], [place] [address] PCP - General Family Medicine 07/13/17 C[employer] 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 Relationship Specialty Start Date End Date Armen Rahman MD [address] [place] [address] PCP - General Family Medicine 07/13/17 C[employer] 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 Relationship Specialty Start Date End Date Armen Rahman MD [address] [place] [address] PCP - General Family Medicine 07/13/17 C[employer] 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 Relationship Specialty Start Date End Date Armen Rahman MD [address] [place], [place] [address] PCP - General Family Medicine 07/13/17 C[employer] 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 This clinical summary was aggregated from multiple sources. Caution should be exercised in using it in the provision of clinical care. This summary normalizes information from multiple sources, and as a consequence, information in this document may materially change the coding, format and clinical context of patient data. In addition, data may be omitted in some cases. CLINICAL DECISIONS SHOULD BE BASED ON THE PRIMARY CLINICAL RECORDS. [facility] [employer] [facility]. provides no warranty or guarantee of the accuracy or completeness of information in this document.
--- OUTSIDE RECORDS SUMMARY | 2023-06-19 20:58 | XMS RPT_ITS | CCD ---
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 Name Role Phone Armen Rahman MD Primary Care Provider TAYLOR MICHELE Attending Unavailable PHYLLIS ELDER Referring [...] Care Unavailable ARMEN RAHMAN Primary Care Unavailable SUGYE LOWERY Referring Unavailable ARMEN RAHMAN Primary Care Unavailable SUGEY LOWERY Referring Unavailable SUGEY LOWERY Attending Unavailable ARMEN RAHMAN Primary Care Unavailable ARMEN RAHMAN Primary Care Unavailable KARIE CERVANTES Attending Unavailable Allergies Allergy Classification Reported Allergen(s) Allergy Type Date of Onset Reaction(s) Facility (20 sources) Azithromycin; Translations: [AZITHROMYCIN] Drug Allergy 06-03-2007 Unknown [facility] Work Phone: (20 sources) levoFLOXacin; Translations: [LEVOFLOXACIN] Drug Allergy 04-28-2013 Rash [facility] Work Phone: (20 sources) Penicillin G; Translations: [PENICILLIN G] Drug Allergy 12-07-2004 [facility] Work Phone: Medications Current Medications Medication Drug [...] Onset: 06-19-2022 Episodic Other aftercare (1 source) [facility] (current) use of insulin; Translations: [Uncontrolled type [...] 11:24-0500 Body weight 165.11 kg Karie Cervantes WALLPAPER EMBOSSER HELPER.MANAGER WEALTH MANAGEMENT Work Phone: [facility] 08-08-2022 11:24-0500 Diastolic blood pressure 86 mm[Hg] Karie Cervantes WALLPAPER EMBOSSER HELPER.MANAGER WEALTH MANAGEMENT Work Phone: [facility] 08-08-2022 11:24-0500 Heart rate 100 /min Karie Cervantes WALLPAPER EMBOSSER HELPER.MANAGER WEALTH MANAGEMENT Work Phone: [facility] 08-08-2022 11:24-0500 Respiratory rate 18 /min Karie Cervantes WALLPAPER EMBOSSER HELPER.MANAGER WEALTH MANAGEMENT Work Phone: [facility] 08-08-2022 11:24-0500 SaO2% (BldA) [Mass fraction] 95 % Karie Cervantes WALLPAPER EMBOSSER HELPER.MANAGER WEALTH MANAGEMENT Work Phone: [facility] 08-08-2022 11:24-0500 Systolic blood pressure 138 mm[Hg] Karie Cervantes WALLPAPER EMBOSSER HELPER.MANAGER WEALTH MANAGEMENT Work Phone: [facility] 07-26-2022 11:18-0500 Body weight 163.84 kg Norma Meléndez WALLPAPER EMBOSSER HELPER.MANAGER WEALTH MANAGEMENT Work Phone: [facility] 07-26-2022 11:18-0500 Diastolic blood pressure 68 mm[Hg] Norma Napanoch WALLPAPER EMBOSSER HELPER.MANAGER WEALTH MANAGEMENT Work Phone: [facility] 07-26-2022 11:18-0500 Systolic blood pressure 120 mm[Hg] Norma Napanoch WALLPAPER EMBOSSER HELPER.MANAGER WEALTH MANAGEMENT Work Phone: [facility] 06-28-2022 10:10-0500 Body height 170.2 cm Armen Rahman MD Work Phone: [facility] 06-28-2022 10:10-0500 Body weight 161.48 kg Armen Rahman MD Work Phone: [facility] 06-28-2022 10:10-0500 Diastolic blood pressure 78 mm[Hg] Armen Rahman MD Work Phone: [facility] 06-28-2022 10:10-0500 Heart rate 82 /min Armen Rahman MD Work Phone: [facility] 06-28-2022 10:10-0500 SaO2% (BldA) [Mass fraction] 97 % Armen Rahman MD Work Phone: [facility] 06-28-2022 10:10-0500 Systolic blood pressure 116 mm[Hg] Armen Rahman MD Work Phone: [facility] 05-09-2022 10:18-0500 Diastolic blood pressure 82 mm[Hg] Karie Haagen WALLPAPER EMBOSSER HELPER.MANAGER WEALTH MANAGEMENT Work Phone: [facility] 05-09-2022 10:18-0500 Heart rate 71 /min Karie Haagen WALLPAPER EMBOSSER HELPER.MANAGER WEALTH MANAGEMENT Work Phone: [facility] 05-09-2022 10:18-0500 Respiratory rate 18 /min Karie Haagen WALLPAPER EMBOSSER HELPER.MANAGER WEALTH MANAGEMENT Work Phone: [facility] 05-09-2022 10:18-0500 SaO2% (BldA) [Mass fraction] 98 % Karie Haagen WALLPAPER EMBOSSER HELPER.MANAGER WEALTH MANAGEMENT Work Phone: [facility] 05-09-2022 10:18-0500 Systolic blood pressure 120 mm[Hg] Karie Haagen WALLPAPER EMBOSSER HELPER.MANAGER WEALTH MANAGEMENT Work Phone: [facility] 02-28-2022 15:11-0400 Body weight 159.21 kg Armen Rahman MD Work Phone: [facility] 02-28-2022 15:11-0400 Diastolic blood pressure 62 mm[Hg] Armen Rahman MD Work Phone: [facility] 02-28-2022 15:11-0400 Heart rate 94 /min Armen Rahman MD Work Phone: [facility] 02-28-2022 15:11-0400 SaO2% (BldA) [Mass fraction] 98 % Armen Rahman MD Work Phone: [facility] 02-28-2022 15:11-0400 Systolic blood pressure 124 mm[Hg] Armen Rahman MD Work Phone: [facility] 01-25-2022 09:58-0400 Body height 170.2 cm Armen Rahman MD Work Phone: [facility] 01-25-2022 09:58-0400 Body weight 160.21 kg Armen Rahman MD Work Phone: [facility] 01-25-2022 09:58-0400 Diastolic blood pressure 78 mm[Hg] Armen Rahman MD Work Phone: [facility] 01-25-2022 09:58-0400 Heart rate 83 /min Armen Rahman MD Work Phone: [facility] 01-25-2022 09:58-0400 SaO2% (BldA) [Mass fraction] 97 % Armen Rahman MD Work Phone: [facility] 01-25-2022 09:58-0400 Systolic blood pressure 138 mm[Hg] Armen Rahman MD Work Phone: [facility] 10-25-2021 11:03-0400 Body weight 162.84 kg Karie Cervantes APRN.MANAGER WEALTH MANAGEMENT Work Phone: [facility] 10-25-2021 11:03-0400 Diastolic blood pressure 86 mm[Hg] Karie Cervantes APRN.MANAGER WEALTH MANAGEMENT Work Phone: [facility] 10-25-2021 11:03-0400 Heart rate 82 /min Karie Haagen WALLPAPER EMBOSSER HELPER.MANAGER WEALTH MANAGEMENT Work Phone: [facility] 10-25-2021 11:03-0400 Respiratory rate 22 /min Karie Haagen WALLPAPER EMBOSSER HELPER.MANAGER WEALTH MANAGEMENT Work Phone: [facility] 10-25-2021 11:03-0400 Systolic blood pressure 130 mm[Hg] Karie Haagen WALLPAPER EMBOSSER HELPER.MANAGER WEALTH MANAGEMENT Work Phone: [facility] 10-13-2021 10:53-0400 Diastolic blood pressure 82 mm[Hg] Mildred Wilcoxie WALLPAPER EMBOSSER HELPER.MANAGER WEALTH MANAGEMENT Work Phone: [facility] 10-13-2021 10:53-0400 Systolic blood pressure 130 mm[Hg] Mildred Wilcoxie WALLPAPER EMBOSSER HELPER.MANAGER WEALTH MANAGEMENT Work Phone: [facility] Encounters Encounter Date Encounter Type Care Provider Facility Start: 06-12-2023 ambulatory Armen Rahman MD Work Phone: Internal Medicine [facility] Start: 05-28-2023 Refill Armen Rahman MD Work Phone: [facility] [place] Procedures Date Procedure Procedure Detail Performing Clinician Start: 08-20-2021 Adult depression scr eening assessment Armen Rahman MD Work Phone: Start: 11-05-2017 Mammography Armen Melednez MD Work Phone: Plan of Treatment Date Care Activity Detail Author Start: 10-13-2026 HPV TESTING HPV TESTING [facility] Start: 10-13-2026 PAP TESTING PAP TESTING [facility] Start: 10-13-2026 Screening for malignant neoplasm of cervix [facility] Start: 03-22-2024 Complete blood count Hemoglobin/Hematocrit [facility] Start: 03-22-2024 Creatinine measurement Serum Creatinine [facility] Start: 03-22-2024 Hemoglobin/Hematocrit Hemoglobin/Hematocrit [facility] Start: 03-22-2024 Hepatitis B surface antibody level LDL Cholesterol [facility] Start: 03-22-2024 Serum Creatinine Serum Creatinine [facility] Start: 03-19-2024 3 comp foot exam completed Diabetic Foot Exam [facility] Start: 03-19-2024 Annual PCP Team Chronic Disease Visit Annual PCP Team Chronic Disease Visit [facility] Start: 03-19-2024 Diabetic foot examination Diabetic Foot Exam [facility] Start: 08-08-2023 ANNUAL PCP TEAM CHRONIC DISEASE VISIT ANNUAL PCP TEAM CHRONIC DISEASE VISIT [facility] Start: 07-26-2023 BP CONTROLLED (<130/80) BP CONTROLLED (<130/80) [facility] Start: 07-26-2023 HEMOGLOBIN/HEMATOCRIT HEMOGLOBIN/HEMATOCRIT [facility] Start: 07-26-2023 Hepatitis B screening URINE ALBUMIN:CREATININE RATIO [facility] Start: 07-26-2023 Hepatitis B surface antibody level LDL CHOLESTEROL [facility] Start: 07-26-2023 SERUM CREATININE SERUM CREATININE [facility] Start: 06-28-2023 ANNUAL PCP TEAM CHRONIC DISEASE VISIT ANNUAL PCP TEAM CHRONIC DISEASE VISIT [facility] Start: 06-28-2023 BP CONTROLLED (<130/80) BP CONTROLLED (<130/80) [facility] Start: 06-21-2023 Hemoglobin A1c measurement HbA1C [facility] Start: 06-21-2023 Hemoglobin A1c/Hemoglobin.total in Blood HbA1C [facility] Start: 06-21-2023 SERUM CREATININE SERUM CREATININE [facility] Start: 06-06-2023 ANNUAL PCP TEAM CHRONIC DISEASE VISIT ANNUAL PCP TEAM CHRONIC DISEASE VISIT [facility] Start: 05-09-2023 ANNUAL PCP TEAM CHRONIC DISEASE VISIT ANNUAL PCP TEAM CHRONIC DISEASE VISIT [facility] Start: 2023 Shingrix Vaccine (1 of 2) Shingrix Vaccine (1 of 2) [facility] Start: 02-28-2023 ANNUAL PCP TEAM CHRONIC DISEASE VISIT ANNUAL PCP TEAM CHRONIC DISEASE VISIT [facility] Start: 02-28-2023 BP CONTROLLED (<130/80) BP CONTROLLED (<130/80) [facility] Start: 02-22-2023 Covid-19 Vaccine () Covid-19 Vaccine () [facility] Start: 02-22-2023 HEMOGLOBIN/HEMATOCRIT HEMOGLOBIN/HEMATOCRIT [facility] Start: 02-22-2023 Influenza vaccination [facility] Start: 02-22-2023 SERUM CREATININE SERUM CREATININE [facility] Start: 01-25-2023 ANNUAL PCP TEAM CHRONIC DISEASE VISIT ANNUAL PCP TEAM CHRONIC DISEASE VISIT [facility] Start: 01-25-2023 HEMOGLOBIN/HEMATOCRIT HEMOGLOBIN/HEMATOCRIT [facility] Start: 01-25-2023 Hepatitis B surface antibody level LDL CHOLESTEROL [facility] Start: 01-25-2023 SERUM CREATININE SERUM CREATININE [facility] Start: 10-25-2022 ANNUAL PCP TEAM CHRONIC DISEASE VISIT ANNUAL PCP TEAM CHRONIC DISEASE VISIT [facility] Start: 10-23-2022 Hemoglobin A1c/Hemoglobin.total in Blood HBA1C [facility] Start: 09-12-2022 ANNUAL PCP TEAM CHRONIC DISEASE VISIT ANNUAL PCP TEAM CHRONIC DISEASE VISIT [facility] Start: 09-12-2022 BP CONTROLLED (<130/80) BP CONTROLLED (<130/80) [facility] Start: 09-11-2022 Hepatitis B screening URINE ALBUMIN:CREATININE RATIO [facility] Start: 09-11-2022 Hepatitis B surface antibody level LDL CHOLESTEROL [facility] Start: 09-11-2022 SERUM CREATININE SERUM CREATININE [facility] Start: 08-20-2022 Adult depression screening assessment DEPRESSION SCREENING [facility] Start: 07-29-2022 End: 09-28-2022 Lipid 1996 panel - Serum or Plasma LIPID PANEL BASIC Lab Routine Hypertriglyceridemia Expected: 07/29/2022, Expires: 09/28/2022 [facility] Work Phone: Immunizations Immunization Date Immunization Notes Care Provider [facility] 04-19-2022 influenza virus vacc ine, unspecified formulation Armen Rahman MD Work Phone: [facility] 11-27-2020 COVID-19 vaccine, fu ll dose (MODERNA) Armen Rahman MD Work Phone: [facility] Work Phone: 10-18-2020 COVID-19 vaccine, fu ll dose (MODERNA) Armen Rahman MD Work Phone: [facility] 03-19-2020 influenza, injectabl e, quadrivalent, preservative free Armen Rahman MD Work Phone: [facility] 03-25-2019 influenza, injectabl e, quadrivalent, contains preservative Armen Rahman MD Work Phone: [facility] 04-15-2018 influenza nasal, unspecified formulation Armen Rahman MD Work Phone: [facility] 04-15-2018 influenza, injectabl e, quadrivalent, contains preservative Armen Rahman MD Work Phone: [facility] Work Phone: 05-24-2017 influenza, seasonal, injectable Armen Rahman MD Work Phone: [facility] 04-02-2017 influenza, seasonal, injectable, preservative free Armen Rahman MD Work Phone: [facility] 04-22-2014 influenza, seasonal, injectable Armen Rahman MD Work Phone: [facility] 03-28-2013 influenza virus vacc ine, unspecified formulation Armen Rahman MD Work Phone: [facility] Work Phone: 02-22-2013 influenza, seasonal, injectable, preservative free Armen Rahman MD Work Phone: [facility] 03-22-2012 influenza virus vacc ine, unspecified formulation Armen Rahman MD Work Phone: [facility] Work Phone: 11-22-2010 pneumococcal polysaccharide vaccine, 23 valent Armen Rahman MD Work Phone: [facility] Work Phone: 04-20-2005 influenza virus vacc ine, unspecified formulation Armen Rahman MD Work Phone: [facility] Work Phone: Payers Date Payer Category Payer Medicaid [id number] 2015 Medicaid [facility] MEDICAID [id number] 2015-Present [phone] [address] [place] [address] Medicaid [id number] 2015 Medicaid [id number] 2015 Medicaid [id number] Social History Date Type Detail Facility Start: 05-19-2013 End: 02-07-2022 Tobacco smoking status NHIS Never smoked tobacco [facility] Start: 09-12-2021 End: 03-19-2023 Alcohol intake Current non-drinker of alcohol (finding) [facility] Start: 09-23-2018 History SDOH Alcohol Frequency 1 [facility] Start: 09-23-2018 History SDOH Social Connections Phone 5 [facility] Start: 09-23-2018 History SDOH Social Connections Living 7 [facility] Start: 09-23-2018 History SDOH Transpo rt Non-Med 2 [facility] Start: 05-19-2013 End: 02-07-2022 Tobacco Comment Parents smoked in childhood home. [facility] Start: 1975 Sex Assigned At Not on file [facility] Start: 10-06-2021 End: 03-02-2022 Exposure to SARS-CoV-2 (event) Not sure [facility] Work Phone: Start: 05-19-2013 End: 02-07-2022 Tobacco use and exposure Smokeless tobacco non-user [facility] Work Phone: Start: 03-02-2022 End: 03-12-2022 Exposure to SARS-CoV-2 (event) Unable to assess [facility] Work Phone: Start: 08-08-2022 End: 01-26-2023 History of Social function [facility] Start: 08-08-2022 End: 01-26-2023 Tobacco use panel [facility] Attends [employer] Not on file [facility] Work Phone: Are you now , , , , never or living with a partner? Never [facility] How often to you hav e a drink containing alcohol? Never [facility] (I/We) worried wheth er (my/our) food would run out before (I/we) got money to buy more. Never true [facility] Medical Equipment Procedure Code Equipment Code Equipment [...] Note Patient Outreach ([facility]) FLORINADOUGLAS Tillman ([id number]) 1975 F Date Time Provider Department 06/12/23 [...] for screening mammogram for breast cancer [Z12.31] Order(s):[facility] SCREENING [[id number]] Order #: [id number] FUTURE Prescriptions as of 06/17/2023 - Lancets [...] - RED Use as directed - Insulin Murray, Disposable, (UNIFINE PENTIPS) 31 gauge x 1/4 [...] pain [R07.9] 06/19/2022 (more content not included)... [facility] 05-28-2023 Miscellaneous Notes Patient has been [...] patient. Teresa Franco documented in this encounter [facility] 05-24-2023 Miscellaneous Notes Faxed. Jessika Tavarez done CPAP supplies script clarified by patient and pended for PCP review and signature. Pt asking for CPAP supply script be faxed to Young at [facility] at FAX #: [phone]. Please call patient once this has been faxed. Thank you. Left message for patient to call back to verify what supplies she needs. Please see rx and take out what is not needed [place] Ma Douglas is calling Armen Rahman MD today to request CPAP Supplies from [facility]. Young: [phone] Patient has been identified by name and birthdate. Duration of symptoms: N/A Person calling: self Call patient at: at home [phone] (home) [phone] (cell) Was an appointment scheduled: Yes. 05-28-23 Closing statement: Juani Wheatley Foster Pss documented in this encounter [facility] 04-16-2023 Miscellaneous Notes OK to refill as ordered Sugey Esquivel MD Pt asking to have her medication below sent to the pharmacy. Please advise pt when prescription has been sent to the pharmacy. [facility] provider is unavailable today Laila Rivera [...] Laila Rivera LPN. documented in this encounter [facility] 04-12-2023 Miscellaneous Notes Completed and faxed back as requested. Type of form: Rosa Maudrey Form received via fax When form is completed, Fax form to [phone] Form has been forwarded to Roscoe Lucero LPN documented in this encounter [facility] 04-01-2023 Miscellaneous Notes Telephoned the patient to schedule a new Primary Care pharmacy appt. Left a message. Made two attempts to contact the patient. Patient has not returned the call. If the patient returns a call, an appt will be scheduled. Encounter routed to the clinical pharmacist. Telephoned the patient to reschedule missed appt. Left a message. documented in this encounter [facility] 03-28-2023 Note HNO ID: [id number] Author: Dioni Lowery PA-C Service: ? Author Type: Physician Supervisor Statement Clerks Type: Progress Notes Filed: 03/28/2023 6:36 PM Note Text: Sure. I will talk with her Thanks, Roscoe Lowery PA-C [facility] 03-27-2023 Note HNO ID: [id number] Author: Rick Walker [facility] Service: ? Author Type: Pharmacist Type: Progress Notes Filed: 03/27/2023 1:34 PM Note Text: Primary Care Pharmacy Panel Management This patient has been identified through panel management efforts by the primary care pharmacy team. Patient scheduled to see PCP team on 04/02. Will reach out to provider to ask that he consider placing referral at that time. Rick Walker [facility] 03-27-2023 Note Patient Outreach ([facility]) FLORINADOUGLAS ([id number]) 1975 F Date Time Provider Department 03/27/23 RICK WALKER During your visit today, we recorded the following information about you: Rick Walker [facility] 03/27/2023 1:34 PM Signed Primary Care Pharmacy Panel Management This patient has been identified through panel management efforts by the primary care pharmacy team. Patient scheduled to see PCP team on 04/02. Will reach out to provider to ask that he consider placing referral at that time. [facility] Dioni Lowery PA-C 03/28/2023 6:36 PM [...] - RED Use as directed - Insulin Murray, Disposable, (UNIFINE PENTIPS) 31 gauge x 1/4 [...] (hypertension) [I10] 03/06/2021 (more content not included)... [facility] 03-19-2023 Note HNO ID: [id number] Author: Yenny Fritz RT(R) Service: Radiology Author Type: Technologist Type: Progress Notes Filed: 03/19/2023 3:44 PM Note Text: Radiology Service Progress Note PATIENT NAME: Douglsa Heaton DATE OF SERVICE: March 19, 2023 [...] RT Liam(R) March 19, 2023 3:35 PM [facility] 03-19-2023 Note HNO ID: [id number] Author: Dioni Lowery PA-C Service: ? Author Type: Physician Supervisor Statement Clerks Type: Progress Notes Filed: 03/20/2023 4:02 PM [...] Hyperlipidemia HTN: 06/19/2022 - 06/21/[address] [facility] with chest pain. Identified pleuritic chest [...] Sodium 134 07/26/2022 (more content not included)... [facility] 03-05-2023 Miscellaneous Notes Mailed. Jessika Tavarez Printed. Pt requesting a new handicap placard. When ready please send to pt's home address, address verified with pt. Carina Centeno LPN documented in this encounter [facility] 01-30-2023 Miscellaneous Notes Noted. Karie Cervantes APRN.MANAGER WEALTH MANAGEMENT [facility] calling and states patient No Showed for her appt today and she will not be rescheduled. Patient has rescheduled several prior appts there as well. Latoya Gibson RN documented in this encounter [facility] 01-17-2023 Miscellaneous Notes Faxed as requested. printed Patient calls and states that she needs and order for CPAP supplies. Patient uses [facility] in [place]. Patient states that she talks to Young who works there. Patient asking if order can be faxed there? Please review and advise, Kirstie Snider RN documented in this encounter [facility] 01-04-2023 Miscellaneous Notes Patient calling with 2 requests. Requesting this nurse to cancel her Cardiology appt in [place] scheduled for 03/27/23 due to transportation issues. This has been canceled as requested. Pt requesting cardiology referral and demographic information be faxed to [facility] at [facility]. Faxed as requested. Pt instructed to contact [facility] for scheduling. Latoya Gibson RN documented in this encounter [facility] 12-31-2022 Miscellaneous Notes Patient has been identified [...] you. Laila GLASS documented in this encounter [facility] 12-06-2022 Miscellaneous Notes Patient has been identified by name and date of : Yes Requested Prescriptions Pending Prescriptions Disp Refills insulin aspart U-100 (NOVOLOG) 100 unit/mL (3 mL) 15 mL 4 Sig: Inject 18 Units subcutaneously three times daily before meals. RX INSTRUCTIONS: Patient aware RX will be sent to pharmacy. No need to notify patient. Keisha Reyes Pss documented in this encounter [facility] 11-27-2022 Miscellaneous Notes Called and spoke with [...] cover it anyways. All documentation faxed to [facility] at [phone]. Patient informed. Jessika Tavarez printed Pt is requesting an Rx for a rollator. Pt wants to not use her wheelchair as much & thinks she may be able to be more mobile with a rollator. Pending. Pt uses [facility] in [place]. Please advise pt. Carina Centeno LPN documented in this encounter [facility] 11-20-2022 Miscellaneous Notes Patient has been identified by name and date of : Yes Requested Prescriptions Pending Prescriptions Disp Refills insulin degludec (TRESIBA FLEXTOUCH U-100) 100 unit/mL (3 mL) injection pen 12 mL 5 Sig: Inject 21 Units subcutaneously twice daily. Insulin Murray, Disposable, (UNIFINE PENTIPS) 31 gauge x 1/4 ndle 150 Each 11 Sig: Use to INJECT insulin FIVE TIMES DAILY DIRECTED RX INSTRUCTIONS: According to [facility], they do not have any refills on file for either. Patient aware RX will be sent to pharmacy. No need to notify patient. Vy Love documented in this encounter [facility] 10-24-2022 Miscellaneous Notes Pt. calling to find out if she had any upcoming Appointments. Also calling about having difficulty swallowing rice. No problems with any other foods. Advised to drink more liquids and smaller bites. Will call back if having anymore issues. documented in this encounter [facility] 09-10-2022 Miscellaneous Notes Left detailed message for patient. She is to stay on it chronically unless cardiology tells her to stop. Patient asking pcp how long she is suppose to take baby asa. Has been taking once daily, prescribed by hospital when she had NE. Patient has f/u appt with Debbie Baptiste, cardiology on 10-29-22. Please advise patient. documented in this encounter [facility] 09-03-2022 Miscellaneous Notes Will discuss at appt. Karie Cervantes APRN.JHON Spoke with patient regarding below, pt states that she uses [facility] in [place] and works with [employer] . Pt states that she was instructed to call our office, but unsure why. Explained to pt that we cannot make adjustments to her machine - pt unsure what is needed. There is an nocturnal oximetry from 2021 in Epic - pt unsure of last PSG except done by Dr. Aguilar. Phone call to [facility] Young Gordon working in [place] today and was suggested to contact that [...] issues with CPAP. documented in this encounter [facility] 08-31-2022 Miscellaneous Notes Has a follow up [...] patient. Vy Love documented in this encounter [facility] 08-08-2022 Note HNO ID: [id number] Author: Karie Cervantes APRN.MANAGER WEALTH MANAGEMENT Service: ? 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 Insulin Murray, Disposable, (UNIFINE PENTIPS) 31 gauge x 1/4 [...] (FLONASE) 50 mcg/actuation nasal spray Use 1 Franklin in each nostril twice daily. Use before [...] % cream Ap (more content not included)... [facility] 08-08-2022 Instructions Karie Cervantes APRN.JHON - 08/08/2022 11:40 AM EST Use the cream to the hand twice daily X 2 weeks. Increase tresiba to 21 units twice daily. Send/call us sugars in 1 week. documented in this encounter [facility] 08-08-2022 History of Presen t illness Narrative [...] back pain- in pain maangement Pulmonary embolism ([facility]) 1/15 Reflux esophagitis Septic shock (HCC) 07/10/2018 [facility] urosepsis, acute renal failure Spina bifida without [...] as needed for wheezing/shortness of breath. Insulin Murray, Disposable, (UNIFINE PENTIPS) 31 gauge x 1/4 [...] (FLONASE) 50 mcg/actuation nasal spray Use 1 Franklin in each nostril twice daily. Use before [...] hyperglycemia, with long-term current use of insulin ([facility]) - ICD9: 250.02, V58.67, ICD10: E11.65, Z79.4 (primary diagnosis) uncontrolled Increase degludec to 21 units twice daily. Call sugars in 1 week. Follow-up with endo in September, as scheduled. - INSULIN DEGLUDEC (U-100) 100 UNIT/ML (3 ML) SUBCUTANEOUS PEN 2. NSTEMI (non-ST elevated myocardial infarction) ([facility]) - ICD9: 410.70, ICD10: I21.4 No [...] as needed for worsening/no improvement. Karie Cervantes APRN.MANAGER WEALTH MANAGEMENT documented in this encounter [facility] 07-28-2022 Miscellaneous Notes Patient was made aware of the results. Patient verbalizes understanding. Leidy Faith Ma Sugars are not at goal but are improving. Rest of labs are stable. Check sugars and call list in one week documented in this encounter [facility] 07-27-2022 Miscellaneous Notes Patient notified. Juani Duran RN +yeast, Diflucan x 3 dose sent in. Norma Meléndez APRN.CNP documented in this encounter [facility] 07-26-2022 Note HNO ID: [id number] Author: Norma Meléndez APRN.CNP Service: ? Author [...] external genitalia normal, normal Bartholin's glands, urethra, [place]'s glands, no vulvar lesions, no cervical lesions, physiologic discharge present, normal appearing perineal body and perianal region, fine rash to b/l groin area, vaginal wall bright red BIMANUAL: deferred. ASSESSMENT/PLAN: 1. Vulvar irritation - ICD9: 624.8, ICD10: N90.89 - LENA / TRICHOMONAS AMPLIFICATION - BACTERIAL VAGINOSIS AMPLIFICATION - Lotrisone cream order to use in groin area Norma Meléndez, WALLPAPER EMBOSSER HELPER.MANAGER WEALTH MANAGEMENT Medical Decision Making: Problems: Moderate: New problem with uncertain prognosis Data: Unique test(s) ordered: 2 Risk: Low: Low risk from testing/treatment Moderate: Drug management Medical Decision Making Level: 4 - Moderate [facility] 07-26-2022 History of Presen t illness [...] external genitalia normal, normal Bartholin's glands, urethra, [place]'s glands, no vulvar lesions, no cervical lesions, physiologic discharge present, normal appearing perineal body and perianal region, fine rash to b/l groin area, vaginal wall bright red BIMANUAL: deferred. ASSESSMENT/PLAN: 1. Vulvar irritation - ICD9: 624.8, ICD10: N90.89 - LENA / TRICHOMONAS AMPLIFICATION - BACTERIAL VAGINOSIS AMPLIFICATION - Lotrisone cream order to use in groin area Norma Saavedraf, WALLPAPER EMBOSSER HELPER.MANAGER WEALTH MANAGEMENT Medical Decision Making: Problems: Moderate: New problem with uncertain prognosis Data: Unique test(s) ordered: 2 Risk: Low: Low risk from testing/treatment Moderate: Drug management Medical Decision Making Level: 4 - Moderate documented in this encounter [facility] 07-18-2022 Miscellaneous Notes Patient has been identified by name and date of : Yes Requested Prescriptions Pending Prescriptions Disp Refills levothyroxine (SYNTHROID) 50 mcg tablet 90 tablet 3 Sig: Take 1 tablet by mouth once daily. RX INSTRUCTIONS: Patient aware RX will be sent to pharmacy. No need to notify patient. Vy Love documented in this encounter [facility] 07-17-2022 Miscellaneous Notes Patient has been identified [...] patient. Vy Love documented in this encounter [facility] 07-04-2022 Note Patient Outreach (IN [facility]) DOUGLAS HEATON ([id number]) 1975 F Date Time Provider Department 07/04/22 [...] for screening mammogram for breast cancer [Z12.31] Order(s):[facility] SCREENING [[id number]] Order #: [id number] FUTURE Prescriptions as of 07/09/2022 - clopidogrel [...] needed for wheezing/shortness of breath. - Insulin Murray, Disposable, (UNIFINE PENTIPS) 31 gauge x 1/4 [...] (FLONASE) 50 mcg/actuation nasal spray Use 1 Franklin in each nostril twice daily. Use before [...] sleep apnea) [G47.33 (more content not included)... [facility] 06-28-2022 Note HNO ID: [id number] Author: Armen Rahman MD Service: ? Author Type: Physician Type: Progress Notes Filed: 06/28/2022 11:53 AM Note Text: Patient presents with: Transition Of Care HPI: Patient presents today for office visit for TMC. Seen at [facility] ER for right arm pain. Diagnosed with [...] as needed for wheezing/shortness of breath. Insulin Murray, Disposable, (UNIFINE PENTIPS) 31 gauge x 1/4 [...] daily before meals. (more content not included)... [facility] 06-28-2022 History of Presen t illness Narrative Patient presents with: Transition Of Care HPI: Patient presents today for office visit for TMC. Seen at [facility] ER for right arm pain. Diagnosed with [...] only in the wrist. She sees Dr Whitfiled on 07/03 for follow up. No chest [...] as needed for wheezing/shortness of breath. Insulin Murray, Disposable, (UNIFINE PENTIPS) 31 gauge x 1/4 ndle Use to INJECT insulin FIVE TIMES DAILY DIRECTED Blood-Glucose Sensor (UKDN WaterflowSTYLE CRUZ 3 SENSOR) laura 1 Each as [...] (FLONASE) 50 mcg/actuation nasal spray Use 1 Franklin in each nostril twice daily. 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 Obesity hypoventilation syndrome ([facility]) 2010 4 liters O2 -24/7 Obesity, unspecified Obstructive sleep apnea 2007 BIPAP WITH O2 /2011 Other kyphoscoliosis and scoliosis Pain in joint, shoulder region PMH - PAST MEDICAL HISTORY OF lower back pain- in pain maangement Pulmonary embolism ([facility]) 07/08 Reflux esophagitis Septic shock ([facility]) 07/10/2018 [facility] urosepsis, acute renal failure Spina bifida without [...] COMP METABOLIC PANEL - LIPID PANEL BASIC Armen Rahman MD documented in this encounter [facility] 06-26-2022 Miscellaneous Notes Patient informed. Advised her to go back to ER if pain worsens. Jessika Tavarez Would avoid wrapping tightly since compression in the artery is the issue. Patient informed about the [place]. She verbalized understanding and wonders if wrapping wrist in yennifer bandage would work? Appointment with Dr. Whitfield already set up per patient. Jessika Tavarez [place] is already extremely potent. If worsens, back to ER. Elevate arm. She was referred to [facility] vascular surgery, Dr. Whitfield who they discussed [...] note were not included. Armen Rahman MD [facility] Lakesha Blue 3 hours ago (8:33 AM) [...] Laila Rivera LPN documented in this encounter [facility] 06-25-2022 Note HNO ID: [id number] Author: Mello Curz APRN.MANAGER WEALTH MANAGEMENT Service: ? Author Type: Nurse Practitioner Type: Progress Notes Filed: 06/25/2022 12:11 PM Note Text: Patient triaged at [facility]. Here today with severe pain of right arm, up all night with pain. Heat cath right radial last week. I will refer to ER, concerns for arterial injury/abnormality unable to diagnose in [facility]. [facility] 06-25-2022 History of Presen t illness Narrative Patient triaged at [facility]. Here today with severe pain of right arm, up all night with pain. Heat cath right radial last week. I will refer to ER, concerns for arterial injury/abnormality unable to diagnose in express care. documented in this encounter [facility] 06-22-2022 Miscellaneous Notes Record ID: [id number] Patient name: Douglas Heaton Date: June 22, [...] likely is it that you would recommend [facility] to a friend or family member? -> verylikely Please tell me what you liked best about your hospital experience: -> Very nice [facility] care documented in this encounter [facility] 06-22-2022 Note HNO ID: [id number] Author: Joan Szymanski RN Service: ? Author Type: Registered Nurse Type: Progress Notes Filed: 06/22/2022 1:40 PM Note Text: TCM Home Visit Referral Source of Stratification: [facility] Admission Status: Discharged Readmission Risk Score: [...] questions or concerns SUMMARY: Pt discharged from [facility] on 06.21.22. Admitted for: Chest Pain Contact made with patient: Yes Hi my name is Joan Szymanski RN and I am calling from the [facility] on behalf of your PCP, Armen Rahman [...] like to speak with a social work head orthopedic team physician to help give you support for any [...] I will send your request to a trimmer meat who will contact and assist you with [...] Joan Szymanski RN BSN Primary Care Transitional Ruby On Rails Engineer [facility] 06-22-2022 Note Patient Outreach ([facility]) DOUGLAS HEATON ([id number]) 1975 F Date Time Provider Department 06/22/22 JOAN SZYMANSKI During your visit today, we recorded the following information about you: Joan Szymanski RN 06/22/2022 1:40 PM Signed TCM Home Visit Referral Source of Stratification: [facility] Admission Status: Discharged Readmission Risk Score: [...] questions or concerns SUMMARY: Pt discharged from [facility] on 06.21.22. Admitted for: Chest Pain Contact made with patient: Yes Hi my name is Joan Szymanski RN and I am calling from the [facility] on behalf of your PCP, Armen Rahman [...] like to speak with a social work head orthopedic team physician to help give you support for any [...] I will send your request to a trimmer meat who will contact and assist you with [...] Joan Szymanski RN BSN Primary Care Transitional Ruby On Rails Engineer [facility] Allergies As of Date: 06/22/2022 Noted Allergy Reaction PENICILLIN G 12/07/2004 16 - Unknown LEVOFLOXACIN 04/28/2013 2 - Rash ZITHROMAX (AZITHROMYCIN) 06/03/2007 16 - Unknown Date Reviewed: 06/21/20 (more content not included)... [facility] 06-22-2022 History of Presen t illness Narrative [facility] Home Visit Referral Source of Stratification: [facility] Admission Status: Discharged Readmission Risk Score: 16 [place] Score: 3 Patient meets program referral criteria: No Patient does not qualify for High Risk [facility] Home Visit program due to: Discharged home, does not meet program criteria Joan Szymanski RN June 22, 2022 1:21 PM TRANSITIONAL CARE MANAGEMENT (TCM) COMMUNITY MONITORING PROGRAM Provider Action/FYI: [facility] 06.29.22 Denies new or worsening symptoms Denies [...] questions or concerns SUMMARY: Pt discharged from [facility] on 06.21.22. Admitted for: Chest Pain Contact made with patient: Yes Hi my name is Joan Szymanski RN and I am calling from the [facility] on behalf of your PCP, Armen Rahman [...] like to speak with a social work head orthopedic team physician to help give you support for any [...] I will send your request to a trimmer meat who will contact and assist you with [...] Joan Szymanski RN BSN Primary Care Transitional Ruby On Rails Engineer [facility] documented in this encounter [facility] 06-21-2022 Note HNO ID: [id number] Author: Ranjith Puri RPh Service: Pharmacy Author [...] a call to the physician. Ranjith Puri, [facility] June 21, 2022 3:42 PM Medication List [...] spray Commonly known as: FLONASE Use 1 Franklin in each nostril twice daily. Use before [...] Inject 20 Units subcutaneously twice daily. Insulin Murray (Disposable) 31 gauge x 1/4 Ndle Commonly [...] 1 applicator vaginally (more content not included)... [facility] 06-20-2022 Note HNO ID: [id number] Author: Taylor Michele MD Service: Hospital Medicine [...] TIME: 4:27 PM PAGER/CONTACT #: My Pager [facility] documented as of this encounter (statuses as of 06/27/2022) [facility] History of Past illness Narrative* Problem Noted [...] of this encounter (statuses as of 06/27/2022) [facility] Past [facility] Narrative* Problem Noted [...] of this encounter (statuses as of 06/28/2022) [facility] of Past [facility] Narrative* Problem Noted [...] of this encounter (statuses as of 06/28/2022) [facility] Past [facility] Narrative* Problem Noted [...] of this encounter (statuses as of 06/29/2022) [facility] Narrative* Problem Noted [...] of this encounter (statuses as of 07/09/2022) [facility] Narrative* Problem Noted [...] of this encounter (statuses as of 07/17/2022) [facility] Narrative* Problem Noted [...] of this encounter (statuses as of 07/18/2022) [facility] Narrative* Problem Noted [...] of this encounter (statuses as of 07/26/2022) [facility] Narrative* Problem Noted [...] of this encounter (statuses as of 07/27/2022) [facility] Narrative* Problem Noted [...] of this encounter (statuses as of 07/28/2022) [facility] Narrative* Problem Noted [...] of this encounter (statuses as of 08/10/2022) [facility] Narrative* Problem Noted [...] of this encounter (statuses as of 08/31/2022) [facility] Narrative* Problem Noted [...] of this encounter (statuses as of 09/04/2022) [facility] Narrative* Problem Noted [...] of this encounter (statuses as of 09/10/2022) [facility] Narrative* Problem Noted [...] of this encounter (statuses as of 10/24/2022) [facility] Narrative* Problem Noted [...] of this encounter (statuses as of 11/21/2022) [facility] Narrative* Problem Noted [...] of this encounter (statuses as of 11/27/2022) [facility] Narrative* Problem Noted [...] of this encounter (statuses as of 12/07/2022) [facility] Narrative* Problem Noted [...] of this encounter (statuses as of 12/31/2022) [facility] Narrative* Problem Noted [...] of this encounter (statuses as of 01/04/2023) [facility] Narrative* Problem Noted [...] of this encounter (statuses as of 01/17/2023) [facility] Narrative* Problem Noted [...] of this encounter (statuses as of 01/31/2023) [facility] Narrative* Problem Noted [...] of this encounter (statuses as of 03/06/2023) [facility] Narrative* Problem Noted [...] of this encounter (statuses as of 04/01/2023) [facility] Narrative* Problem Noted [...] of this encounter (statuses as of 04/12/2023) [facility] Narrative* Problem Noted [...] of this encounter (statuses as of 04/16/2023) [facility] Narrative* Problem Noted [...] of this encounter (statuses as of 05/24/2023) [facility] Narrative* Problem Noted [...] of this encounter (statuses as of 05/29/2023) [facility] Narrative* Problem Noted [...] of this encounter (statuses as of 06/17/2023) [facility] Miscellaneous Notes* Telephone Encounter - Neva Lloyd [...] advise patient. Thank you. [facility]2022 NoteCOVID 19 RESULT: SARS-CoV-2 (Agent of COVID-19) Detected by RT-PCR or equivalent method. This test has been authorized by FDA under an Emergency Use Authorization (EUA). INFLUENZA A PCR: Negative for Influenza A by RT-PCR INFLUENZA B PCR: Negative for Influenza B by RT-PCR RSV PCR: Negative for Respiratory Syncytial Virus (RSV) by PCRSt. Joseph HospitalComment on above:Performed By: #### [id number] ####[facility] [id number] [place], [place] [address]AQWTLR [place] [id number] Miscellaneous Notes* Telephone Encounter - Yanelis Dove RN - 05/18/2022 10:02 AM EST Patient has been identified by name and date of : Yes Patient phones for refill(s): Requested Prescriptions Pending Prescriptions Disp Refills Insulin Murray, Disposable, (UNIFINE PENTIPS) 31 gauge x 1/4 [...] you. Yanelis Dove RN [facility] History of Present illness Narrative* Ramesh Shane LPN - 05/09/2022 11:12 AM EST Endo referral from January faxed to Dr. Cruz's office ([phone]). Ramesh Shane LPN * Karie Cervantes APRN.MANAGER WEALTH MANAGEMENT - 05/09/2022 10:21 AM EST This is a 47 year old female who presents today with: Patient presents with: Discussion: Would like to talk about getting a Freestyle cruz HISTORY OF PRESENT ILLNESS: Douglas Heaton is [...] of the left hand. Has been using [place] to the area. PAST MEDICAL HISTORY: PAST [...] embolism (HCC) 07/08 Reflux esophagitis Septic shock ([facility]) 07/10/2018 [facility] urosepsis, acute renal failure Spina bifida without [...] subcutaneously three times daily before meals. Insulin Murray, Disposable, (UNIFINE PENTIPS) 31 gauge x 1/4 [...] (FLONASE) 50 mcg/actuation nasal spray Use 1 Franklin in each nostril twice daily. Use before [...] She would like like to stay in [place]. Dr. Cruz's contact info will be given [...] improvement. Karie Cervantes APRN.CNP [facility] Instructions* Patient Instructions* Karie Cervantes APRN.CNP - 05/09/2022 10:30 AM EST Prescription for cruz sent to the pharmacy. Schedule w/ endocrine. Use the cream to the left hand twice daily X 2 days. Get labwork done. Keep return appt with Dr. Rahman. [facility] Miscellaneous Notes* Telephone Encounter - Ramesh Shane [...] advise. Melinda Ferraro Pss documented in [facility] Miscellaneous Notes* Telephone Encounter - Isabel Lucero LPN - 03/05/2022 1:23 PM EDT Letter faxed as requested. * Telephone Encounter - Armen Rahman MD - 03/05/2022 12:52 PM EDT Letter printed. * Telephone Encounter - Angelic Benitez RN - 03/05/2022 12:42 PM EDT Melisa @ [facility] calling to request an order to discontinue oxygen. Patient is no longer using. Discussed @ [facility] 02/28/22. Please fax order to [phone]. Angelic Benitez RN [facility] History of Present illness Narrative* Armen Rahman [...] ideation: No. Getting hearing aids soon from [facility] was told 40% hearing loss. Has oxygen at home that is not using. Is through [employer]. Scanned document on 10/09/21 overnight pulse oximetry [...] Abs Lymph 1.00 - 4.00 k/uL 2.74 Becker% % 5.4 Abs Becker <0.87 k/uL 0.49 Eosin% % 3.3 Abs [...] Abs Lymph 1.00 - 4.00 k/uL 2.26 Becker% % 5.6 Abs Becker <0.87 k/uL 0.45 Eosin% % 4.3 Abs [...] tablet by mouth once daily. BIPAP Insulin Murray, Disposable, (UNIFINE PENTIPS) 31 gauge x 1/4 [...] (FLONASE) 50 mcg/actuation nasal spray Use 1 Franklin in each nostril twice daily. 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 Armen Rahman MD documented [facility] encounter[facility]08[facility] Miscellaneous Notes* Telephone Encounter - Davey Rubalcava [...] 02/28/22. Davey Rubalcava LPN documented in [facility] encounterPe[facility]08-[facility]22 Miscellaneous Notes* Telephone Encounter - Brenda Rivrea LPN - 02/08/2022 8:02 AM EDT Phone call placed patient advised (see prior provider encounter) Patient verbalized understanding, agreed with plan of care. Brenda Rivera LPN * Telephone Encounter - Brenda Rivera LPN - 02/08/2022 8:01 AM EDT ----- Message from Josué Schulz MD sent at 02/08/2022 7:43 AM EDT ----- Negative COVID and Influenza. documented in this encounterPeoples Hospital08-11-2022 Miscellaneous Notes* Telephone Encounter - Kirstie Snider [...] phone patient with reply. documented in this encounterPeoples Hospital08-08-2022 Miscellaneous Notes* Telephone Encounter - Leidy Faith [...] advise, Yanelis Dove RN documented in this encounterPeoples Hospital08-05-2022 Miscellaneous Notes* Telephone Encounter - Bridget Comer - 01/26/2022 3:18 PM EDT PT is scheduled for Endo on 02-07-22. Thanks [place] Nahomi PSS * Telephone Encounter - Angy [...] Rahman. Patient said she does not see Agriculture Scientist, asking is she to set up appt [...] doses on her fenofibrate? documented in this encounterPeoples Hospital08-05-2022 Evaluation note* Diagnosis Hypertriglyceridemia- Primary Pure hyperglyceridemia Stage 3a chronic kidney disease (HCC) Controlled type 2 diabetes mellitus without complication, with long-term current use of insulin (HCC) [facility] encounter [facility] History of Present illness Narrative* Armen Rahman [...] subcutaneously three times daily before meals. Insulin Murray, Disposable, (UNIFINE PENTIPS) 31 gauge x 1/4 [...] (FLONASE) 50 mcg/actuation nasal spray Use 1 Franklin in each nostril twice daily. Use before [...] embolism (HCC) 07/08 Reflux esophagitis Septic shock ([facility]) 07/10/2018 [facility] urosepsis, acute renal failure Spina bifida without [...] complication, with long-term current use of insulin ([facility]) - ICD9: 250.00, V58.67, ICD10: E11.9, [...] Obesity, Class III, BMI 40-49.9 (morbid obesity) ([facility]) - ICD9: 278.01, ICD10: E66.01 - [...] one month and prn. documented in this encounterPeoples Hospital06-20-2022 Miscellaneous Notes* Telephone Encounter - Ramesh Shane [...] first. Please advise patient. documented in this encounterPeoples Hospital06-06-2022 Miscellaneous Notes* Telephone Encounter - Fernanda Maddox [...] you. Latoya Gibson RN documented in this encounterPeoples Hospital05-17-2022 Miscellaneous Notes* Telephone Encounter - Pita De La Fuente LPN - 11/07/2021 12:32 PM EDT Patient calling wanting to let know she has not been using since August appointment with Roscoe Lowery. Patient is needing a letter to d/c'd oxygen and send letter to [place]. Patient has oxygen for bronchitis. Pita De La Fuente LPN documented in this encounterPeoples Hospital05-04-2022 History of Present illness Narrative* Karie Cervantes APRN.MANAGER WEALTH MANAGEMENT - 10/25/2021 11:07 AM EDT This is [...] 07/08 Reflux esophagitis Septic shock (HCC) 07/10/2018 [facility] urosepsis, acute renal failure Spina bifida without [...] MEDICATIONS Current Outpatient Medications Medication Sig Insulin Murray, Disposable, (UNIFINE PENTIPS) 31 gauge x 1/4 [...] (FLONASE) 50 mcg/actuation nasal spray Use 1 [place] in each nostril twice daily. Use before [...] as needed for worsening/no improvement. Karie Cervantes APRN.MANAGER WEALTH MANAGEMENT This note was partially generated using [employer] voice recognition system. Note was reviewed for accuracy. There may be minor misspellings or grammar miscues with [employer] voice recognition. [facility] Miscellaneous Notes* Telephone Encounter - Isabel Lucero [...] pocket. Tiny Ballard LPN documented in [facility] encounterPe[facility] Miscellaneous Notes* Telephone Encounter - Isabel Lucero [...] Pulse Oximeter, generic brand.Please send to [facility]. Please notify the patient once both items are completed. Patient has been identified by name and birthdate. Duration of symptoms: N/A Person calling: self Call patient at: on cell [phone] (home) [phone] (cell) Was an appointment scheduled: No Closing statement: Results or non-symptom based questions: Thank you for [facility], your call will be returned within the next business day. Rama Sanabria [facility] documented in this encounterPe[facility]05-[facility]22 Miscellaneous Notes* Telephone Encounter - Ramesh Shane [...] patient. Rama Sanabria Pss documented in [facility] encounterPe[facility]04-[facility]22 Instructions* Patient Instructions* Mildred Orourke APRN.JHON - [...] avoid scratching at night. documented in this encounterPeoples Hospital04-22-2022 History of Present illness Narrative* Mildred Orourke [...] external genitalia normal, normal Bartholin's glands, urethra, [place]'s glands, no vulvar lesions, no cervical lesions, [...] Level: 3 - Low documented in this encounterPeoples Hospital04-15-2022 Miscellaneous Notes* Telephone Encounter - Ramesh Shane [...] Sebastián are both out today. Patient uses [facility] for her pharmacy. Please advise documented in this encounterPeoples Hospital04-11-2022 Miscellaneous Notes* Telephone Encounter - Luz Maria [...] Thank you. EMA Pittman documented in this encounterPeoples [facility]03-19-2020 History of Past illness Narrative* Problem Noted [...] of this encounter (statuses as of 10/02/2021) [facility] Narrative* Problem Noted [...] of this encounter (statuses as of 10/06/2021) [facility] Narrative* Problem Noted [...] of this encounter (statuses as of 10/13/2021) [facility] Narrative* Problem Noted [...] of this encounter (statuses as of 10/23/2021) [facility] Narrative* Problem Noted [...] of this encounter (statuses as of 10/23/2021) [facility] Narrative* Problem Noted [...] of this encounter (statuses as of 10/23/2021) [facility] Narrative* Problem Noted [...] of this encounter (statuses as of 10/25/2021) [facility] Narrative* Problem Noted [...] of this encounter (statuses as of 12/11/2021) [facility] Narrative* Problem Noted [...] of this encounter (statuses as of 12/27/2021) [facility] Narrative* Problem Noted [...] of this encounter (statuses as of 01/25/2022) [facility] N[facility]ative* Problem Noted [...] of this encounter (statuses as of 01/26/2022) [facility] N[facility]ative* Problem Noted [...] of this encounter (statuses as of 01/29/2022) [facility] Narrative* Problem Noted [...] of this encounter (statuses as of 02/01/2022) [facility] N[facility]ative* Problem Noted [...] of this encounter (statuses as of 02/08/2022) [facility] Narrative* Problem Noted [...] of this encounter (statuses as of 02/14/2022) [facility] N[facility]ative* Problem Noted [...] of this encounter (statuses as of 02/28/2022) [facility] N[facility]ative* Problem Noted [...] of this encounter (statuses as of 03/05/2022) [facility] N[facility]* Problem Noted [...] of this encounter (statuses as of 05/02/2022) [facility] N[facility]* Problem Noted [...] of this encounter (statuses as of 05/08/2022) [facility] N[facility]ative* Problem Noted [...] of this encounter (statuses as of 05/10/2022) [facility] N[facility]* Problem Noted [...] of this encounter (statuses as of 05/18/2022) [facility] N[facility]ative* Problem Noted [...] of this encounter (statuses as of 06/07/2022) [facility]* Diagnosis Bronchitis Bronchitis, not specified as acute or chronic Mixed hyperlipidemia [facility]* Diagnosis Vagina itching- Primary Pruritus of genital organs Encounter for Papanicolaou smear for cervical cancer screening Special screening examination for human papillomavirus (HPV) [facility]* Diagnosis Controlled type 2 diabetes mellitus without complication, with long-term current use of insulin (HCC) [facility]* Diagnosis Obesity hypoventilation syndrome (HCC)- Primary Obesity hypoventilation syndrome Controlled type 2 diabetes mellitus without complication, with long-term current use of insulin ([facility]) [facility]* Diagnosis Chronic pain of both knees- Primary Cutaneous candidiasis Candidiasis of skin and nails Class 3 severe obesity with body mass index (BMI) of 50.0 to 59.9 in adult, unspecified obesity type, unspecified whether serious comorbidity present (HCC) Spina bifida, unspecified hydrocephalus presence, unspecified spinal region ([facility]) [facility]* Diagnosis Controlled type 2 diabetes mellitus without complication, with long-term current use of insulin ([facility]) [facility]* Diagnosis Lightheaded- Primary Dizziness and giddiness VENANCIO (obstructive sleep apnea) Obstructive sleep apnea (adult) (pediatric) Stage 3a chronic kidney disease ([facility]) 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 Hypothyroidism, acquired Unspecified hypothyroidism Controlled type 2 diabetes mellitus without complication, with long-term current use of insulin ([facility]) Adjustment disorder with depressed mood Obesity, Class III, BMI 40-49.9 (morbid obesity) (HCC) Morbid obesity Low HDL (under 40) Lipoprotein deficiencies Hypertriglyceridemia Pure hyperglyceridemia Mixed hyperlipidemia Diarrhea, unspecified type [facility]* Diagnosis Diarrhea of presumed infectious origin- Primary Controlled type 2 diabetes mellitus without complication, with long-term current use of insulin ([facility])- Primary Hypothyroidism, acquired Unspecified hypothyroidism Poorly controlled type 2 diabetes mellitus (HCC) Type II or unspecified type diabetes mellitus without mention of complication, not stated as uncontrolled [facility]* Diagnosis Adjustment disorder with depressed mood- Primary Screening for colon cancer Special screening for malignant neoplasms, colon Stage 3a chronic kidney disease (HCC) Controlled type 2 diabetes mellitus without complication, with long-term current use of insulin ([facility]) Hypothyroidism, acquired Unspecified hypothyroidism documented [facility]* Diagnosis Uncontrolled type 2 diabetes mellitus with hyperglycemia, with long-term current use of insulin ([facility])- Primary Eczema, unspecified type documented [facility]* Diagnosis Controlled type 2 diabetes mellitus without complication, with long-term current use of insulin ([facility]) documented [facility] encounter [facility]* Diagnosis Herpes simplex- Primary Herpes simplex without mention of complication documented [facility] encounter [facility]* Diagnosis Arm pain, anterior, right- Primary documented in [facility] encounter [facility]* Diagnosis Injury of right radial artery, subsequent encounter- Primary [facility] Diagnosis NSTEMI (non-ST elevated myocardial infarction) [...] 2 diabetes mellitus without complication, 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 ([facility]) [facility]* Diagnosis Encounter for screening mammogram for breast cancer documented [facility]* Diagnosis Bronchitis Bronchitis, not specified as acute or chronic documented [facility]* Diagnosis Vulvar irritation- Primary Other specified noninflammatory disorder of vulva and perineum [facility]* Diagnosis Uncontrolled type 2 diabetes mellitus with hyperglycemia, with long-term current use of insulin (HCC)- Primary NSTEMI (non-ST elevated myocardial infarction) (HCC) Acute myocardial infarction, subendocardial infarction, episode of care unspecified Injury of right radial artery, subsequent encounter Eczema, unspecified type [facility]* Diagnosis Controlled type 2 diabetes mellitus without complication, with long-term current use of insulin (HCC) documented in this encounter [facility]* Diagnosis Uncontrolled type 2 diabetes mellitus with hyperglycemia, with long-term current use of insulin (HCC) Controlled type 2 diabetes mellitus without complication, with long-term current use of insulin (HCC) documented in [facility]* Diagnosis Spina bifida, unspecified hydrocephalus presence, unspecified spinal region (HCC)- Primary Chronic pain of both knees documented [facility]* Diagnosis Controlled type 2 diabetes mellitus without complication, with long-term current use of insulin (HCC) [facility]* Diagnosis Bronchitis Bronchitis, not specified as acute or chronic documented in [facility] encounter [facility]* Diagnosis VENANCIO (obstructive sleep apnea)- Primary Obstructive sleep apnea (adult) (pediatric) documented in [facility]* Diagnosis Controlled type 2 diabetes mellitus without complication, with long-term current use of insulin (HCC) [facility]* Diagnosis VENANCIO (obstructive sleep apnea)- Primary Obstructive sleep apnea (adult) (pediatric) [facility] Diagnosis Encounter for screening mammogram for breast cancer documented in this encounter [facility] for referral (narrative)* Diagnostic Procedure Only (Routine) - Pending Review Specialty Diagnoses / Procedures Referred By Yasmany peralta Referred To Contact [facility] Diagnoses Encounter for screening mammogram for breast cancer Procedures ARNOL SCREENING SCREENING MAMMOGRAPHY BI 2-VIEW BREAST INC Armen Barber MD [address] [place] [address] [facility] [address] [place] [address] Referral ID Status Reason Start Date Expiration Date Visits Requested Visits Authorized [id number] Pending Review Auto-Generat ed Referral 07/04/2022 08/03/2023 1 1 [facility] for referral (narrative)* Diagnostic Procedure Only (Routine) - Pending Review Specialty Diagnoses / Procedures Referred By Yasmany peralta Referred To Contact [facility] Diagnoses Encounter for screening mammogram for breast cancer Procedures ARNOL SCREENING SCREENING MAMMOGRAPHY BI 2-VIEW BREAST INC Armen Barber MD [address] [place] [address] [facility] [address] [place] [address] Referral ID Status Reason Start Date Expiration Date Visits Requested Visits Authorized [id number] Pending Review Auto-Generat ed Referral 3 07/11/2024 1 1 [facility] Reason for Referral Specialty Diagnoses / Procedures Referred By Contac t Referred To Contact Diagnoses Bronchitis Armen Rahman MD [address] [place] [id number] Referral ID Status Reason Start Date Expiration Date Visits Re quested Visits Authorized [id number] Closed 1 1 Specialty Diagnoses / Procedures Referred By Contac t Referred To Contact Endocrinology Diagnoses Controlled type 2 diabetes mellitus without complication, with long-term current use of insulin (HCC) Procedures CONSULT TO ENDOCRINOLOGY OFFICE/OUTPATIENT [facility] 60-74 MINUTES Armen Rahman MD [address] [place] [address] Referral ID Status Reason Start Date Expiration Date Visits Requested Visits Authorized [id number] Authorized PCP Requested Referral 01/26/2022 01/26/2023 1 1 Specialty Diagnoses / Procedures Referred By Contac t Referred To Contact General Surgery Diagnoses Screening for colon cancer Procedures CONSULT TO GENERAL SURGERY OFFICE/OUTPATIENT [facility] 60-74 MINUTES Armen Rahman MD [address] [place] [phone] Referral ID Status Reason Start Date Expiration Date Visits Requested Visits Authorized [id number] Authorized PCP Requested Referral 02/28/2022 02/28/2023 1 1 Specialty Diagnoses / Procedures Referred By Contac t Referred To Contact Armen Rahman MD [address] [place] [address] Referral ID Status Reason Start Date Expiration Date Visits Re quested Visits Authorized [id number] Closed 1 1 Specialty Diagnoses / Procedures Referred By Contac t Referred To Contact Vascular Surgery Diagnoses Injury of right radial artery, subsequent encounter Procedures CONSULT TO VASCULAR SURGERY OFFICE/OUTPATIENT [facility] 60-74 MINUTES Armen Rahman MD [address] [place] [phone] Referral ID Status Reason Start Date Expiration Date Visits Requested Visits Authorized [id number] Authorized PCP Requested Referral 06/26/2022 06/26/2023 1 1 Specialty Diagnoses / Procedures Referred By Contac t Referred To Contact Cardiology Diagnoses NSTEMI (non-ST elevated myocardial infarction) (HCC) S/P left heart catheterization by percutaneous approach Procedures CONSULT TO CARDIOLOGY OFFICE/OUTPATIENT [facility] 60-74 MINUTES Armen Rahman MD [address] [place] [address] Referral ID Status Reason Start Date Expiration Date Visits Requested Visits Authorized [id number] Authorized PCP Requested Referral 06/28/2022 06/28/2023 1 1 Specialty Diagnoses / Procedures Referred By Contac t Referred To Contact Diagnoses Bronchitis Adriana James APRN.MANAGER WEALTH MANAGEMENT [address] [place] [address] Referral ID Status Reason Start Date Expiration Date Visits Re quested Visits Authorized [id number] Closed 1 1 Specialty Diagnoses / Procedures Referred By Contac t Referred To Contact Diagnoses Uncontrolled type 2 diabetes mellitus with hyperglycemia, with long-term current use of insulin (HCC) Armen Rahman MD [address] [place] [address] Referral ID Status Reason Start Date Expiration Date Visits Re quested Visits Authorized [id number] Closed 1 1 Advance Directives No Advanced Directives Records FoundDocuments on File Type Date Recorded Patient Rn Delivery Expl anation Advance Directive(s) 08/03/2021 12:23 PM Advance Directive(s) 03/21/2021 2:33 PM Advance Directive(s) 03/01/2021 12:53 PM Advance Directive(s) 10/31/2020 2:20 PM Documents on File Type Date Recorded Patient Rn Delivery Expl anation Advance Directive(s) 08/03/2021 12:23 PM [...] or prosecute any alcohol or drug abuse patient.[facility] HospitalIn the event this information is protected by the Federal Confidentiality of Alcohol and Drug Abuse Patient Records regulations: The Federal rules restrict any use of the information to criminally investigate or prosecute any alcohol or drug abuse patient.[facility] HospitalIn the event this information is protected by the Federal Confidentiality of Alcohol and Drug Abuse Patient Records regulations: The Federal rules restrict any use of the information to criminally investigate or prosecute any alcohol or drug abuse patient.[facility] HospitalIn the event this information is protected by the Federal Confidentiality of Alcohol and Drug Abuse Patient Records regulations: The Federal rules restrict any use of the information to criminally investigate or prosecute any alcohol or drug abuse patient.[facility] HospitalIn the event this information is protected by the Federal Confidentiality of Alcohol and Drug Abuse Patient Records regulations: The Federal rules restrict any use of the information to criminally investigate or prosecute any alcohol or drug abuse patient.[facility] HospitalIn the event this information is protected by the Federal Confidentiality of Alcohol and Drug Abuse Patient Records regulations: The Federal rules restrict any use of the information to criminally investigate or prosecute any alcohol or drug abuse patient.[facility] HospitalIn the event this information is protected by the Federal Confidentiality of Alcohol and Drug Abuse Patient Records regulations: The Federal rules restrict any use of the information to criminally investigate or prosecute any alcohol or drug abuse patient.[facility] HospitalIn the event this information is protected by the Federal Confidentiality of Alcohol and Drug Abuse Patient Records regulations: The Federal rules restrict any use of the information to criminally investigate or prosecute any alcohol or drug abuse patient.[facility] HospitalIn the event this information is protected by the Federal Confidentiality of Alcohol and Drug Abuse Patient Records regulations: The Federal rules restrict any use of the information to criminally investigate or prosecute any alcohol or drug abuse patient.[facility] HospitalIn the event this information is protected by the Federal Confidentiality of Alcohol and Drug Abuse Patient Records regulations: The Federal rules restrict any use of the information to criminally investigate or prosecute any alcohol or drug abuse patient.[facility] HospitalIn the event this information is protected by the Federal Confidentiality of Alcohol and Drug Abuse Patient Records regulations: The Federal rules restrict any use of the information to criminally investigate or prosecute any alcohol or drug abuse patient.[facility] HospitalIn the event this information is protected by the Federal Confidentiality of Alcohol and Drug Abuse Patient Records regulations: The Federal rules restrict any use of the information to criminally investigate or prosecute any alcohol or drug abuse patient.[facility] HospitalIn the event this information is protected by the Federal Confidentiality of Alcohol and Drug Abuse Patient Records regulations: The Federal rules restrict any use of the information to criminally investigate or prosecute any alcohol or drug abuse patient.[facility] HospitalIn the event this information is protected by the Federal Confidentiality of Alcohol and Drug Abuse Patient Records regulations: The Federal rules restrict any use of the information to criminally investigate or prosecute any alcohol or drug abuse patient.[facility] HospitalIn the event this information is protected by the Federal Confidentiality of Alcohol and Drug Abuse Patient Records regulations: The Federal rules restrict any use of the information to criminally investigate or prosecute any alcohol or drug abuse patient.[facility] HospitalIn the event this information is protected by the Federal Confidentiality of Alcohol and Drug Abuse Patient Records regulations: The Federal rules restrict any use of the information to criminally investigate or prosecute any alcohol or drug abuse patient.[facility] HospitalIn the event this information is protected by the Federal Confidentiality of Alcohol and Drug Abuse Patient Records regulations: The Federal rules restrict any use of the information to criminally investigate or prosecute any alcohol or drug abuse patient.[facility] HospitalIn the event this information is protected by the Federal Confidentiality of Alcohol and Drug Abuse Patient Records regulations: The Federal rules restrict any use of the information to criminally investigate or prosecute any alcohol or drug abuse patient.[facility] HospitalIn the event this information is protected by the Federal Confidentiality of Alcohol and Drug Abuse Patient Records regulations: The Federal rules restrict any use of the information to criminally investigate or prosecute any alcohol or drug abuse patient.[facility] HospitalIn the event this information is protected by the Federal Confidentiality of Alcohol and Drug Abuse Patient Records regulations: The Federal rules restrict any use of the information to criminally investigate or prosecute any alcohol or drug abuse patient.[facility] HospitalIn the event this information is protected by the Federal Confidentiality of Alcohol and Drug Abuse Patient Records regulations: The Federal rules restrict any use of the information to criminally investigate or prosecute any alcohol or drug abuse patient.[facility] HospitalIn the event this information is protected by the Federal Confidentiality of Alcohol and Drug Abuse Patient Records regulations: The Federal rules restrict any use of the information to criminally investigate or prosecute any alcohol or drug abuse patient.[facility] HospitalIn the event this information is protected by the Federal Confidentiality of Alcohol and Drug Abuse Patient Records regulations: The Federal rules restrict any use of the information to criminally investigate or prosecute any alcohol or drug abuse patient.[facility] HospitalIn the event this information is protected by the Federal Confidentiality of Alcohol and Drug Abuse Patient Records regulations: The Federal rules restrict any use of the information to criminally investigate or prosecute any alcohol or drug abuse patient.[facility] HospitalIn the event this information is protected by the Federal Confidentiality of Alcohol and Drug Abuse Patient Records regulations: The Federal rules restrict any use of the information to criminally investigate or prosecute any alcohol or drug abuse patient.[facility] HospitalIn the event this information is protected by the Federal Confidentiality of Alcohol and Drug Abuse Patient Records regulations: The Federal rules restrict any use of the information to criminally investigate or prosecute any alcohol or drug abuse patient.[facility] HospitalIn the event this information is protected by [...] or prosecute any alcohol or drug abuse patient.[facility] HospitalIn the event this information is protected by the Federal Confidentiality of Alcohol and Drug Abuse Patient Records regulations: The Federal rules restrict any use of the information to criminally investigate or prosecute any alcohol or drug abuse patient.[facility] HospitalIn the event this information is protected by the Federal Confidentiality of Alcohol and Drug Abuse Patient Records regulations: The Federal rules restrict any use of the information to criminally investigate or prosecute any alcohol or drug abuse patient.[facility] HospitalIn the event this information is protected by the Federal Confidentiality of Alcohol and Drug Abuse Patient Records regulations: The Federal rules restrict any use of the information to criminally investigate or prosecute any alcohol or drug abuse patient.[facility] HospitalIn the event this information is protected by the Federal Confidentiality of Alcohol and Drug Abuse Patient Records regulations: The Federal rules restrict any use of the information to criminally investigate or prosecute any alcohol or drug abuse patient.[facility] HospitalIn the event this information is protected by the Federal Confidentiality of Alcohol and Drug Abuse Patient Records regulations: The Federal rules restrict any use of the information to criminally investigate or prosecute any alcohol or drug abuse patient.[facility] HospitalIn the event this information is protected by the Federal Confidentiality of Alcohol and Drug Abuse Patient Records regulations: The Federal rules restrict any use of the information to criminally investigate or prosecute any alcohol or drug abuse patient.[facility] HospitalIn the event this information is protected by the Federal Confidentiality of Alcohol and Drug Abuse Patient Records regulations: The Federal rules restrict any use of the information to criminally investigate or prosecute any alcohol or drug abuse patient.[facility] HospitalIn the event this information is protected by the Federal Confidentiality of Alcohol and Drug Abuse Patient Records regulations: The Federal rules restrict any use of the information to criminally investigate or prosecute any alcohol or drug abuse patient.[facility] HospitalIn the event this information is protected by the Federal Confidentiality of Alcohol and Drug Abuse Patient Records regulations: The Federal rules restrict any use of the information to criminally investigate or prosecute any alcohol or drug abuse patient.[facility] HospitalIn the event this information is protected by the Federal Confidentiality of Alcohol and Drug Abuse Patient Records regulations: The Federal rules restrict any use of the information to criminally investigate or prosecute any alcohol or drug abuse patient.[facility] HospitalIn the event this information is protected by the Federal Confidentiality of Alcohol and Drug Abuse Patient Records regulations: The Federal rules restrict any use of the information to criminally investigate or prosecute any alcohol or drug abuse patient.[facility] HospitalIn the event this information is protected by the Federal Confidentiality of Alcohol and Drug Abuse Patient Records regulations: The Federal rules restrict any use of the information to criminally investigate or prosecute any alcohol or drug abuse patient.[facility] HospitalIn the event this information is protected by the Federal Confidentiality of Alcohol and Drug Abuse Patient Records regulations: The Federal rules restrict any use of the information to criminally investigate or prosecute any alcohol or drug abuse patient.[facility] HospitalIn the event this information is protected by the Federal Confidentiality of Alcohol and Drug Abuse Patient Records regulations: The Federal rules restrict any use of the information to criminally investigate or prosecute any alcohol or drug abuse patient.[facility] HospitalIn the event this information is protected by the Federal Confidentiality of Alcohol and Drug Abuse Patient Records regulations: The Federal rules restrict any use of the information to criminally investigate or prosecute any alcohol or drug abuse patient.[facility] HospitalIn the event this information is protected by the Federal Confidentiality of Alcohol and Drug Abuse Patient Records regulations: The Federal rules restrict any use of the information to criminally investigate or prosecute any alcohol or drug abuse patient.[facility] HospitalIn the event this information is protected by the Federal Confidentiality of Alcohol and Drug Abuse Patient Records regulations: The Federal rules restrict any use of the information to criminally investigate or prosecute any alcohol or drug abuse patient.[facility] HospitalIn the event this information is protected by the Federal Confidentiality of Alcohol and Drug Abuse Patient Records regulations: The Federal rules restrict any use of the information to criminally investigate or prosecute any alcohol or drug abuse patient.[facility] HospitalIn the event this information is protected by the Federal Confidentiality of Alcohol and Drug Abuse Patient Records regulations: The Federal rules restrict any use of the information to criminally investigate or prosecute any alcohol or drug abuse patient.[facility] HospitalIn the event this information is protected by the Federal Confidentiality of Alcohol and Drug Abuse Patient Records regulations: The Federal rules restrict any use of the information to criminally investigate or prosecute any alcohol or drug abuse patient.[facility] HospitalIn the event this information is protected by the Federal Confidentiality of Alcohol and Drug Abuse Patient Records regulations: The Federal rules restrict any use of the information to criminally investigate or prosecute any alcohol or drug abuse patient.[facility] HospitalIn the event this information is protected by the Federal Confidentiality of Alcohol and Drug Abuse Patient Records regulations: The Federal rules restrict any use of the information to criminally investigate or prosecute any alcohol or drug abuse patient.[facility] HospitalIn the event this information is protected by the Federal Confidentiality of Alcohol and Drug Abuse Patient Records regulations: The Federal rules restrict any use of the information to criminally investigate or prosecute any alcohol or drug abuse patient.[facility] HospitalIn the event this information is protected by the Federal Confidentiality of Alcohol and Drug Abuse Patient Records regulations: The Federal rules restrict any use of the information to criminally investigate or prosecute any alcohol or drug abuse patient.[facility] Reason for Visit (unrecogniz ed section and [...] Orders D/C oxygen send estela er to [facility] Reason Comments Discussion Would like to [...] Care Teams (unrecognized sec tion and content) [employer] Relationship Specialty Start Date End Date Armen Rahman MD [address] [place] [address] PCP - General Family Practice 07/13/17 [employer] Relationship Specialty Start Date End Date Armen Rahman MD [address] [place] [address] PCP - General Family Practice 07/13/17 [employer] Relationship Specialty Start Date End Date Armen Rahman MD [address] [place] [address] PCP - General Family Practice 07/13/17 [employer] Relationship Specialty [place] [address] [place] [address] [place] [address] PCP - General Family Practice 07/13/17 [employer] Relationship Specialty Start Date End Date Armen Rahman MD [address] [place] [address] PCP - General Family Practice 07/13/17 [employer] Relationship Specialty [place] [address] [place] [address], [place] [address] PCP - General Family Practice 07/13/17 [employer] Relationship Specialty Start Date End Date Armen Rahman MD [address] [place] [address] PCP - General Family Practice 07/13/17 [employer] Relationship Specialty [place] [address] [place] [address], [place] [address] PCP - General Family Practice 07/13/17 [employer] Relationship Specialty Start Date End Date Armen Rahman MD [address] [place] [address], [place] [address] PCP - General Family Practice 07/13/17 [employer] Relationship Specialty Start Date End Date Armen Rahman MD [address] [place] [address], [place] [address] PCP - General Family Practice 07/13/17 [employer] Relationship Specialty Start Date End Date Armen Rahman MD [address] [place] [address], [place] [address] PCP - General Family Practice 07/13/17 P[employer] Relationship Specialty Start Date End Date Armen Rahman MD [address] [place] [address], [place] [address] PCP - General Family Practice 07/13/17 [employer] Relationship Specialty Start Date End Date Armen Rahman MD [address] [place] [address], [place] [address] PCP - General Family Practice 07/13/17 [employer] Relationship Specialty Start Date End Date Armen Rahman MD [address] [place] [address], [place] [address] PCP - General Family Medicine 07/13/17 [employer] Relationship Specialty Start Date End Date Armen Rahman MD [address] [place] [address], [place] [address] PCP - General Family Medicine 07/13/17 [employer] Relationship Specialty Start Date End Date Armen Rahman MD [address] [place] [address] PCP - General Family Medicine 07/13/17 [employer] Relationship Specialty Start Date End Date Armen Rahman MD [address] [place] [address] PCP - General Family Medicine 07/13/17 P[employer] Relationship Specialty Start Date End Date Armen Rahman MD [address] [place] [address], [place] [address] PCP - General Family Medicine 07/13/17 P[employer] Relationship Specialty Start Date End Date Armen Rahman MD [address] [place] [address], [place] [address] PCP - General Family Medicine 07/13/17 P[employer] House [employer] Relationship Specialty Start Date End Date Armen Rahman MD [address] [place] [address], [place] [address] PCP - General Family Medicine 07/13/17 P[employer] House Lab[employer] Relationship Specialty Start Date End Date Armen Rahman MD [facility] [place] [address] PCP - General Family Medicine 07/13/17 P[employer] House Lab[employer] Relationship Specialty Start Date End Date Armen Rahman MD [address] [place] [address], [place] [address] PCP - General Family Medicine 07/13/17 P[employer] House Lab[employer] Relationship Specialty Start Date End Date Armen Rahman MD [facility] [place] [address] PCP - General Family Medicine 07/13/17 P[employer] House Lab[employer] Relationship Specialty Start Date End Date Armen Rahman MD [address] [place] [address], [place] [address] PCP - General Family Medicine 07/13/17 P[employer] Relationship Specialty Start Date End Date Armen Rahman MD [address] [place] [address] PCP - General Family Medicine 07/13/17 P[employer] Relationship Specialty Start Date End Date Armen Rahman MD [address] [place] [address] PCP - General Family Medicine 07/13/17 P[employer] House [employer] Relationship Specialty Start Date End Date Armen Rahman MD [address] [place] [address] PCP - General Family Medicine 07/13/17 P[employer] House [employer] Relationship Specialty Start Date End Date Armen Rahman MD [address] [place] [address] PCP - General Family Medicine 07/13/17 P[employer] House [employer] Relationship Specialty Start Date End Date Armen Rahman MD [address] [place] [address] PCP - General Family Medicine 07/13/17 P[employer] House [employer] Relationship Specialty Start Date End Date Armen Rahman MD [address] [place] [address] PCP - General Family Medicine 07/13/17 P[employer] House Lab[employer] Relationship Specialty Start Date End Date Armen Rahman MD [address] [place] [address] PCP - General Family Medicine 07/13/17 P[employer] House Lab[employer] Relationship Specialty Start Date End Date Armen Rahman MD [address] [place] [address] PCP - General Family Medicine 07/13/17 P[employer] House Lab[employer] Relationship Specialty Start Date End Date Armen Rahman MD [address] [place] [address] PCP - General Family Medicine 07/13/17 P[employer] House [employer] Relationship Specialty Start Date End Date Armen Rahman MD [address] [place], [place] [address] PCP - General Family Medicine 07/13/17 P[employer] House [employer] Relationship Specialty Start Date End Date Armen Rahman MD [address] [place], [place] [address] PCP - General Family Medicine 07/13/17 P[employer] Relationship Specialty Start Date End Date Armen Rahman MD [address] [place] [address] PCP - General Family Medicine 07/13/17 P[employer] House [employer] Relationship Specialty Start Date End Date Armen Rahman MD [address] [place] [address] PCP - General Family Medicine 07/13/17 P[employer] House Lab[employer] Relationship Specialty Start Date End Date Armen Rahman MD [address] [place], [place] [address] PCP - General Family Medicine 07/13/17 P[employer] House [employer] Relationship Specialty Start Date End Date Armen Rahman MD [address] [place] [address] PCP - General Family Medicine 07/13/17 P[employer] House [employer] Relationship Specialty Start Date End Date Armen Rahman MD [address] [place], [place] [address] PCP - General Family Medicine 07/13/17 INFORMATION SOURCE (unrecogn ized section and content) DATE CREATED AUTHOR AUTHOR'S ORGANIZ ATION 06/19/2023 [facility] FOR RECORDS PERTAINING TO PATIENTS WHO [...] BE BASED ON THE PRIMARY CLINICAL RECORDS. [facility] [employer] [facility]. provides no warranty or guarantee of the accuracy or completeness of information in this document.
--- NOTE | 2023-06-20 16:13 | STRESSREP ---
Stress Test Report Pharmacologic myocardial perfusion stress test : After informed consent was obtained and auscultation was completed, the patient received a stress dose of Lexiscan while undergoing continuous 12 lead ECG monitoring. The patient's physical exam prior to adminstration of Lexiscan revealed the lungs to be clear to auscultation bilaterally and the cardiovascular exam to demonstrate regular rate and rhythm, with no murmurs, rubs or gallops. No changes occurred following the administration of Lexiscan. The baseline heart rate was _100_ bpm and jeromy to a maximum of _113_ bpm. The baseline blood pressure was _132/70_ and jeromy to a maximum of 118/70__. The baseline ECG revealed _NSR___. Following administration of Lexiscan, there were no ST-T changes suggestive of ischemia. The patient received a stress dose of Lexiscan and was then injected with __44.8__ millicuries of Technetium 99M Sestamibi. For rest images the patient was injected with _14.8___millicuries of Technetium 99M Sestamibi. FINDINGS: The raw cine images were reviewed. The post stress and rest perfusion images were reviewed as well as the computer quantification. There was uniform uptake of the radiotracer with no perfusion defects identified. On the gated portion of the study, there was uniform thickening with an overall ejection fraction calculated at __58__%. CONCLUSION: 1. Non-diagnostic Lexiscan ECG study. 2. Gated spect Sestamibi study is within normal limits. 3. Left ventricular function was preserved.
== END 2023-06-19 18:30 | disposition home or self-care (01) ==
LOC: ED 18:39 → PCU 19:44
PROVIDERS: Admitting Provider Hospitalist; Emergency Provider Emergency Medicine; PCP Family Medicine; Referring Provider Emergency Medicine; Visit Provider Student in an Organized Health Care Education/Training Program
DX: R07.89 Other chest pain (principal); D82.1 Di George's syndrome; E11.22 Type 2 diabetes mellitus with diabetic chronic kidney disease; Z68.43 Body mass index [BMI] 50.0-59.9, adult; E66.01 Morbid (severe) obesity due to excess calories; Z79.4 Long term (current) use of insulin; N18.31 Chronic kidney disease, stage 3a; E78.00 Pure hypercholesterolemia, unspecified; Z79.84 Long term (current) use of oral hypoglycemic drugs; I12.9 Hypertensive chronic kidney disease with stage 1 through stage 4 chronic kidney disease, or unspecified chronic kidney disease; Z79.82 Long term (current) use of aspirin; Z79.02 Long term (current) use of antithrombotics/antiplatelets; Z95.5 Presence of coronary angioplasty implant and graft; I25.2 Old myocardial infarction; Z79.899 Other long term (current) drug therapy; Z79.890 Hormone replacement therapy; E03.9 Hypothyroidism, unspecified
CPT/HCPCS: 36415; 71045; 78452; 80048; 82962; 83036; 84484; 85025; 85027; 93005; 93017; 93306; 94660; 94668; 96372; 96374; 96376; 99221; 99285; A9500; Q9957; A4216; C8929; G0378; J2405; J2785

== ENCOUNTER → 2023-09-12 | Outpatient (CLI) | payer MEDICAID, SELFPAY ==
[2023-09-12 10:42] LABS: Albumin, Serum 2.9 g/dL (3.2-5.0); BUN 17 mg/dL (7-18); Calcium,Total 8.6 mg/dL (8.5-10.1); Chloride 99 mmol/L (98-107); Creatinine, Serum 1.21 mg/dL (0.55-1.02); EST Glomerular Filtration Rate 50 mL/min (>60); Est Glom Filt Rate - Afr Amer 61 mL/min (>60); Glucose 247 mg/dL (74-106); Phosphorus 3.3 mg/dL (2.5-4.9); Sodium Level 134 mmol/L (136-145)
[2023-09-12 10:43] LABS: PTHIN 23.1 pg/mL (18.4-80.1)
[2023-09-12 10:51] LABS: Microalbumin:Creatinine Ratio 103.8 mg/g CRE (<30 mg/g CRE)
== END | disposition home or self-care (01) ==
LOC: LAB.FUTURE 10:03 → POLAB3 10:04
PROVIDERS: PCP Family Medicine; Visit Provider Internal Medicine Nephrology
DX: E11.22 Type 2 diabetes mellitus with diabetic chronic kidney disease (principal); N18.31 Chronic kidney disease, stage 3a
CPT/HCPCS: 36415; 80069; 82043; 82570; 83970

== ENCOUNTER → 2023-10-21 | Outpatient (CLI) | payer MEDICAID, SELFPAY ==
[2023-10-21 12:04] LABS: PTHIN 30.9 pg/mL (18.4-80.1)
[2023-10-21 12:55] LABS: Cholesterol 153 mg/dL (200); High Density Lipoprotein 28 mg/dL; Triglycerides 386 mg/dL; Very Low Density Lipoprotein 77 mg/dL (5-40)
== END | disposition home or self-care (01) ==
LOC: LAB 11:00
PROVIDERS: Internal Medicine Cardiovascular Disease; PCP Family Medicine; Visit Provider Internal Medicine Nephrology
DX: N25.81 Secondary hyperparathyroidism of renal origin (principal)
CPT/HCPCS: 36415; 80061; 82306; 83970

== ENCOUNTER → 2024-09-03 | Outpatient (CLI) | payer MEDICAID, SELFPAY ==
[2024-09-03 09:51] LABS: PTHIN 17 pg/mL (11-61)
[2024-09-03 09:54] LABS: Albumin, Serum 3.6 g/dL (3.5-5.0); Anion Gap 11 (5-15); BUN 17 mg/dL (4-19); BUN/Creat Ratio 16.9 RATIO (10-20); Calcium,Total 8.7 mg/dL (7.6-11.0); Carbon Dioxide 23.5 mmol/L (21.0-32.0); Chloride 100 mmol/L (98-108); Creatinine, Serum 1.02 mg/dL (0.70-1.20); EST Glomerular Filtration Rate 67 (>60); Glucose 203 mg/dL (70-99); Phosphorus 3.4 mg/dL (2.7-4.5); Potassium 4.1 mmol/L (3.3-5.1); Sodium Level 134 mmol/L (133-145)
[2024-09-03 10:28] LABS: Microalbumin:Creatinine Ratio 1173.6 mg/g CRE
== END | disposition home or self-care (01) ==
LOC: POLAB3 09:04
PROVIDERS: PCP Family Medicine; Visit Provider Internal Medicine Nephrology
DX: E11.22 Type 2 diabetes mellitus with diabetic chronic kidney disease (principal); N18.31 Chronic kidney disease, stage 3a; N25.81 Secondary hyperparathyroidism of renal origin
CPT/HCPCS: 36415; 80069; 82043; 82570; 83970